=== PATIENT | male | born 1950 | race Caucasian/White ===

== ENCOUNTER 2024-01-03 15:15 | Outpatient (AMB) | payer MEDICARE, SELFPAY ==
--- NOTE | 2024-01-03 14:23 | MHC.PC.OV ---
Vital Signs 01/03/24 15:41 Height 6 ft 3 in Weight 273 lb BMI 34.1 BP 132/68 Blood Pressure Location Lt brachial Position Sitting Respiration 12 Pulse 75 Pulse Source Pulse Oximeter Pulse Oximetry (%) 96 Oxygen Delivery Method Room Air Intake Visit Reasons: new patient appt Intake Note: Patient reports he needs a refill on medications, multiple referrals, and a tickling cough/post nasal drip/allergies. 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 Allergies No Known Allergies Allergy (Verified 01/03/24 15:45) Tobacco use date assessed: 01/03/24 Fall risk assessment: No Falls in past year Last assessed Fall Risk: 01/03/24 Dental Screening Dental Screen Date: 01/03/24 Did you have a dental visit in the last 12 months?: No Did you have a dental problem in the last 6 months where you did not have access to dental care?: No Was dental information given to patient?: Patient has dentist HPI HPI Comments History of Present Illness Details 73 year old male with a past medical history of CAD s/p PCI, chronic low back pain, knee pain, right arm/hand pain, idiopathic peripheral polyneuropathy presenting for follow up MSK -Bilateral upper and now lower extremity neuropathy, muscle atrophy. Has had multiple EMGS. 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 Follows with Dr Sullivan, hand ortho and still seeing [facility] neurology. -Chronic low back pain: xray 06/2021 with degenerative disc disease. Completed PT. He was referred to physiatry. Not following CV: Follows with Dr Verduzco. Denie serecent chest pain, no increased exertional dyspnea, no increased LE edema Derm: Follows with dermatology. He was on dupixent Preventive Due for Tdap. Last 2011 Colonoscopy 02/22/2020-Due 02/21/2027 ROS CONSTITUTIONAL: Denies weight loss, fever and chills. HEENT: Denies changes in vision and hearing. RESPIRATORY: Denies SOB and cough. CV: Denies palpitations and CP GI: Denies abdominal pain, nausea, vomiting and diarrhea. : Denies dysuria and urinary frequency. MSK: Denies new myalgia and joint pain. SKIN: Denies rash and pruritus. NEUROLOGICAL: see HPI PSYCHIATRIC: Denies recent changes in mood. PHYSICAL EXAM: GENERAL: Alert and oriented x 3. NAD EYES: EOMI. Anicteric. HENT: Moist mucous membranes. No scleral icterus. No cervical lymphadenopathy. LUNGS: Clear to auscultation bilaterally. CARDIOVASCULAR: Regular rate and rhythm. No murmur. No JVD. ABDOMEN: Soft, non-tender +bs EXTREMITIES: No edema. Non-tender. SKIN: No rashes or lesions. Warm. NEUROLOGIC: No gross neurological deficits. PSYCHIATRIC: Cooperative. Appropriate mood and affect [facility] Medical History Ulnar neuropathy Pain in knee joint Low back pain Lesion of median nerve Hyperlipemia Atypical nevus Gastroesophageal reflux disease Degeneration of lumbar intervertebral disc Coronary arteriosclerosis Congestive heart failure (CHF) Bilateral lower extremity edema Benign essential hypertension Surgical History History of hernia surgery History of cholecystectomy History of appendectomy History of tonsillectomy History of percutaneous coronary intervention Family History Father Hypertension Colon cancer Paternal Grandfather Hypertension Cardiovascular disease Lung cancer Maternal Grandmother Cardiovascular disease Paternal Grandmother Skin cancer Social History Household Members: Spouse and Children Housing: House Alcohol intake: never Patient Tobacco Use Status: Never used Tobacco e-Cigarette/Vaping Use: Never Used service: No Current occupational status: retired 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 1. Little interest or pleasure in doing things: not at all 2. Feeling down, depressed, or hopeless: not at all 3. Trouble falling or staying asleep, or sleeping too much: not at all 4. Feeling tired or having little energy: not at all 5. Poor appetite or overeating: not at all 6. Feeling bad about yourself - or that you are a failure or have let yourself or your family down: not at all 7. Trouble concentrating on things, such as reading the newspaper or watching television: not at all 8. Moving or speaking so slowly that other people could have noticed. Or the opposite - being so fidgety or restless that you have been moving around a lot more than usual: not at all 9. Thoughts that you would be better off or of hurting yourself in some way: not at all Total score: 0 Depression Screening Interpretation: Negative (neg) Depression Screening Done: Yes 55401 - PHQ-9 Billing: Yes Source: Developed by Drs. Mp Reed, Jammie Li, Rayo Canas and colleagues, with an educational cleo from [employer]. Thrive Questionnaire Date Thrive assessed: 01/03/24 I am a: Patient What is your living situation today?: I have a steady place to live Within the past 12 months, did the food you bought not last and you didn't have the money to get more?: Never true Within the past 12 months, did you worry whether your food would run out before you got money to buy more?: Never true Do you have trouble paying for medicines?: No Do you have trouble getting transportation to medical appointments?: No Do you have trouble paying your heating and electricity bill?: No Do you have trouble taking care of your child, family member or friend?: No Do you have trouble with day-to-day activities such as bathing, preparing meals, shopping, managing finances, etc.?: No Are you currently unemployed and looking for a job?: No Are you interested in more education?: No Please select the resources that you would like help with: None Currently or been in a relationship where the following occur: No concerns reported THRIVE Score: 0 AUDIT C Alcohol Use Questionnaire (AUDIT-C) 1. How often do you have a drink containing alcohol?: Never 3. How often do you have six or more drinks on one occasion?: Never Total Score: 0 YOLY-7 AMB Questionnaire YOLY-7 Date YOLY - 7 assessed: 01/03/24 Feeling nervous, anxious, or on edge: 0 = Not at all Not being able to stop or control worryin = Not at all Worrying too much about different things: 0 = Not at all Trouble relaxin = Several days Being so restless that it is hard to sit still: 0 = Not at all Becoming easily annoyed or irritable: 1 = Several days Feeling afraid as if something awful might happen: 0 = Not at all Total YOLY-7 score (0-4 normal; 5-9 mild; 10-14 moderate; 15-21 severe): 2 Source: Developed by Drs. Mp Reed, Jammie Li, Rayo Canas and colleagues, with an educational cleo from [employer]. YOLY-7 Assessment Billing YOLY-7 Assessment Tool: YOLY-7 Assessment 38504 Physical exam (Primary Care) Vital Signs: Last Vital Signs Pulse 75 01/03/24 15:41 Resp 12 01/03/24 15:41 BP 132/68 01/03/24 15:41 Pulse Ox 96 01/03/24 15:41 Oxygen Delivery Method Room Air 01/03/24 15:41 BMI result Body Mass Index 34.1 Tobacco/Smoking Status: Tobacco use Status Tobacco use date assessed 01/03/24 01/03/24 15:50 Patient Tobacco Use Status Never used Tobacco 01/03/24 15:50 e-Cigarette/Vaping Use Never Used 01/03/24 15:50 PHQ-9: PHQ-9 Score PHQ-9: Total score 0 01/03/24 16:31 Depression Screening Interpretation: Negative (neg) Thrive Assessment: Date of Thrive Assessment Date Thrive assessed 01/03/24 01/03/24 15:54 Currently or been in a relationship where the following occur: No concerns reported Immunizations Boostrix Tdap 2.5 Lf unit-8 mcg-5 Lf/0.5 mL intramuscular syringe Performing Provider: Terra Lopez MD Performing Location: [facility] Administered by: Cynthia Christiansen CMA on 01/03/24 16:32 Dose Route Admin Location Dispensed Lot Number Expiration Date NDC 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 [employer]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 0.5 mL IM Right Deltoid 0.5 mL [id number] 02/11/26 [id number] [employer] VIS Given Date VIS Provided VIS Publication Date 01/03/24 Single Vaccine 20 Eligibility Eligibility Date Funding Source Not [facility] Eligible 01/03/24 Private Assessment and Plan Assessment & Plan Orders: Orders TDaP Immunization 01/03/24 Z23 - Encounter for immunization Medications: New cyclobenzaprine 10 mg PO TID PRN 90 tabs 3RF muscle spasm metoprolol succinate ER 50 mg PO DAILY 90 tabs 3RF [lidocaine 2%/nitroglycerin 0.2%] 1 inch rectal bid prn anal fissure pain 100 grams 0RF atorvastatin 80 mg PO DAILY 90 tabs 3RF aspirin (Adult Low Dose Aspirin) 81 mg PO DAILY 90 tabs 3RF ciclopirox 0.77% 1 appl topical Q12H 30 grams 3RF hydrochlorothiazide 12.5 mg PO DAILY 90 caps 3RF 90 days lisinopril 40 mg PO DAILY 90 tabs 3RF montelukast 10 mg PO DAILY 90 tabs 3RF 90 days nitroglycerin do not exceed 3 doses per episode 0.4 mg sublingual Q5M PRN 30 tabs 3RF chest pain Coding Level of Care Code Est Pt Level 5 (77308) Complex EM visit Add On G2211 Additional Codes YOLY-7 Assessment Billing - YOLY-7 Assessment Tool: YOLY-7 Assessment 22670 ([id number]) Time Spent (min) 53
[2024-01-03 15:41] VITALS: BP 132/68; PULSE 75; RESP 12; O2SAT 96; BMI 34.1
== END 2024-01-03 16:31 | disposition home or self-care (01) ==
PROVIDERS: PCP Internal Medicine; Visit Provider Internal Medicine
DX: Z23 Encounter for immunization (principal)
CPT/HCPCS: 90471; 90715; 99215

== ENCOUNTER 2024-02-14 13:41 | Outpatient (AMB) | payer MEDICARE, SELFPAY ==
--- NOTE | 2024-02-14 13:49 | A.OFFPC_ITS ---
Vital Signs 02/14/24 14:22 Height 6 ft 3 in Weight 278 lb 8 oz BMI 34.8 BP 108/58 L Blood Pressure Location Rt brachial Position Sitting Pulse 61 Pulse Source Pulse Oximeter Pulse Oximetry (%) 96 Oxygen Delivery Method Room Air Intake Visit Reasons: Mononeuropathy multiplex Intake Note: Mononeuropathy multiplex. Dr Du neurologist wants iv/ig treatments in this area. 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 Allergies No Known Allergies Allergy (Verified 02/14/24 14:21) Tobacco use date assessed: 01/03/24 Dental Screening Dental Screen Date: 01/03/24 HPI HPI Comments History of Present Illness Details 73 year old male with a past medical his tory of CAD s/p PCI, chronic low back pain, knee pain, right arm/hand pain, idiopathic peripheral polyneuropathy presenting for follow up MSK/NEURO: Seeing [facility]-recommendation for treatment is IVIG 2g/kg 5 days conseclutive monthly for 3 months -Bilateral upper and now lower extremity neuropathy, muscle atrophy. Has had multiple EMGS. 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 Follows with Dr Sullivan, hand ortho and still seeing [facility] neurology. -Chronic low back pain: xray 06/2021 with degenerative disc disease. Completed PT. He was referred to physiatry. Not following CV: Follows with Dr Verduzco. Denies chest pain, no increased exertional dyspnea, no increased LE edema Derm: Follows with dermatology. He was on dupixent. 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 He has consult to [facility] pending Preventive Due for Tdap. Last 2011 Colonoscopy 02/22/2020-Due 02/21/2027 ROS see hpi PHYSICAL EXAM: GENERAL: Alert and oriented x 3. NAD EYES: EOMI. Anicteric. HENT: Moist mucous membranes. No scleral icterus. No cervical lymphadenopathy. LUNGS: Clear to auscultation bilaterally. CARDIOVASCULAR: Regular rate and rhythm. No murmur. No JVD. ABDOMEN: Soft, non-tender +bs EXTREMITIES: No edema. Non-tender. SKIN: No rashes or lesions. Warm. NEUROLOGIC: No gross neurological deficits. PSYCHIATRIC: Cooperative. Appropriate mood and affect [facility] Medical History (Updated 02/15/24 @ 21:04 by Terra Lopez MD) Ulnar neuropathy Pain in knee joint Low back pain Lesion of median nerve Hyperlipemia Atypical nevus Gastroesophageal reflux disease Degeneration of lumbar intervertebral disc Coronary arteriosclerosis Congestive heart failure (CHF) Bilateral lower extremity edema Benign essential hypertension Surgical History History of hernia surgery History of cholecystectomy History of appendectomy History of tonsillectomy History of percutaneous coronary intervention Family History Father Hypertension Colon cancer Paternal Grandfather Hypertension Cardiovascular disease Lung cancer Maternal Grandmother Cardiovascular disease Paternal Grandmother Skin cancer Social History Household Members: Spouse and Children Housing: House Alcohol intake: never Patient Tobacco Use Status: Never used Tobacco e-Cigarette/Vaping Use: Never Used service: No Current occupational status: retired 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 1. Little interest or pleasure in doing things: not at all 2. Feeling down, depressed, or hopeless: not at all 3. Trouble falling or staying asleep, or sleeping too much: more than half the days 4. Feeling tired or having little energy: not at all 5. Poor appetite or overeating: not at all 6. Feeling bad about yourself - or that you are a failure or have let yourself o r your family down: not at all 7. Trouble concentrating on things, such as reading the newspaper or watching television: not at all 8. Moving or speaking so slowly that other people could have noticed. Or the opposite - being so fidgety or restless that you have been moving around a lot more than usual: not at all 9. Thoughts that you would be better off or of hurting yourself in some way: not at all Total score: 2 Depression Screening Interpretation: Negative Depression Screening Done: Yes 16962 - PHQ-9 Billing: Yes Source: Developed by Drs. Mp Reed, Rayo Escamilla nd colleagues, with an educational cleo from [employer]. Thrive Questionnaire Date Thrive assessed: 01/03/24 I am a: Patient What is your living situation today?: I have a steady place to live Within the past 12 months, did the food you bought not last and you didn't have the money to get more?: Sometimes True Within the past 12 months, did you worry whether your food would run out before you got money to buy more?: I choose not to answer this question Do you have trouble paying for medicines?: No Do you have trouble getting transportation to medical appointments?: Yes Do you have trouble paying your heating and electricity bill?: Yes Do you have trouble taking care of your child, family member or friend?: No Do you have trouble with day-to-day activities such as bathing, preparing meals, shopping, managing finances, etc.?: No Are you currently unemployed and looking for a job?: No Are you interested in more education?: Yes Please select the resources that you would like help with: None Currently or been in a relationship where the following occur: No concerns reported THRIVE Score: 3 AUDIT C Alcohol Use Questionnaire (AUDIT-C) 1. How often do you have a drink containing alcohol?: Never Total Score: 0 YOLY-7 AMB Questionnaire YOLY-7 Date YOLY - 7 assessed: 01/03/24 Feeling nervous, anxious, or on edge: 2 = More than half the days Not being able to stop or control worryin = More than half the days Worrying too much about different things: 2 = More than half the days Trouble relaxin = More than half the days Being so restless that it is hard to sit still: 2 = More than half the days Becoming easily annoyed or irritable: 2 = More than half the days Feeling afraid as if something awful might happen: 0 = Not at all Total YOLY-7 score (0-4 normal; 5-9 mild; 10-14 moderate; 15-21 severe): 12 Source: Developed by Drs. Mp Reed, Jammie Li, Rayo Canas and colleagues, with an educational cleo from [employer]. Physical exam (Primary Care) Vital Signs: Last Vital Signs Pulse 61 02/14/24 14:22 BP 108/58 L 02/14/24 14:22 Pulse Ox 96 02/14/24 14:22 Oxygen Delivery Method Room Air 02/14/24 14:22 BMI result Body Mass Index 34.8 Tobacco/Smoking Status: Tobacco use Status Tobacco use date assessed 01/03/24 02/14/24 13:49 Patient Tobacco Use Status Never used Tobacco 02/14/24 13:49 e-Cigarette/Vaping Use Never Used 02/14/24 13:49 PHQ-9: PHQ-9 Score PHQ-9: Total score 2 02/15/24 21:04 Depression Screening Interpretation: Negative Thrive Assessment: Date of Thrive Assessment Date Thrive assessed 01/03/24 02/14/24 13:49 Currently or been in a relationship where the following occur: No concerns reported Coding Level of Care Code Est Pt Level 5 (14282) Diagnoses 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 Coronary arteriosclerosis I25.10 Time Spent (min) 55 Assessment & Plan Assessment & Plan (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 Category: Medical Plan: IVIG ordered per recommended protocol (2) Cutaneous T-cell lymphoma: Code(s): 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 - Cutaneous T-cell lymphoma, unspecified, unspecified site Category: Medical Qualifiers: Lymphoma site: head Qualified Code(s): C84.A1 - Cutaneous T-cell lymphoma, unspecified lymph nodes of head, face, and neck Plan: referral pending to [facility] (3) Coronary arteriosclerosis: Code(s): I25.10 - Atherosclerotic heart disease of [place] coronary artery without angina pectoris Category: Medical Plan: No angina BP controlled Orders: Referrals Infusion Center Notification G58.7 - Mononeuritis multiplex Medications: New immune globulin,gamma(IgG)stwk 10% 2g/kg daily for 5 consecutive days each month, monthly for 3 months 252,650 mg IV DAILY 15 doses
[2024-02-14 14:22] VITALS: BP 108/58; PULSE 61; O2SAT 96; BMI 34.8
== END 2024-02-14 14:49 | disposition home or self-care (01) ==
PROVIDERS: PCP Internal Medicine; Visit Provider Internal Medicine
DX: G58.7 Mononeuritis multiplex (principal); C84.A1 Cutaneous T-cell lymphoma, unspecified lymph nodes of head, face, and neck; I25.10 Atherosclerotic heart disease of native coronary artery without angina pectoris

== ENCOUNTER → 2024-02-14 13:41 | Outpatient (BNVA) | payer MEDICARE, SELFPAY | PROVIDERS: PCP Internal Medicine; Visit Provider Internal Medicine | DX: G58.7 Mononeuritis multiplex (principal); C84.A1 Cutaneous T-cell lymphoma, unspecified lymph nodes of head, face, and neck; I25.10 Atherosclerotic heart disease of native coronary artery without angina pectoris | CPT/HCPCS: 99212 ==

== ENCOUNTER 2024-05-29 13:44 | Outpatient (AMB) | payer MEDICARE, SELFPAY ==
--- NOTE | 2024-05-29 14:07 | A.OFFPC_ITS ---
Vital Signs 05/29/24 14:17 Height 6 ft 3 in Weight 281 lb 2 oz BMI 35.1 BP 116/70 Blood Pressure Location Rt brachial Position Sitting Pulse 77 Pulse Source Pulse Oximeter Pulse Oximetry (%) 99 Oxygen Delivery Method Room Air Intake Visit Reasons: Pain on right hip Intake Note: Right hip pain Transplant Rn Required: No Allergies No Known Allergies Allergy (Verified 05/29/24 14:09) Tobacco use date assessed: 01/03/24 Dental Screening Dental Screen Date: 01/03/24 HPI HPI Comments History of Present Illness Details 73 year old male with a past medical his tory of CAD s/p PCI, chronic low back pain, knee pain, right arm/hand pain, idiopathic peripheral polyneuropathy presenting for follow up He originally booked the appt for a flare in right hip pain. Since making the appointment the flare has dissipated MSK/NEURO: Seeing [facility]-recommendation for treatment is IVIG 2g/kg 5 days conseclutive monthly for 3 months -Bilateral upper and now lower extremity neuropathy, muscle atrophy. Has had multiple EMGS. 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 Follows with Dr Sullivan, hand ortho and still seeing [facility] neurology. -Chronic low back pain: xray 06/2021 with degenerative disc disease. Completed PT. He was referred to physiatry. Not following CV: Follows with Dr Verduzco. Denies chest pain, no increased exertional dyspnea, no increased LE edema Derm: Follows with dermatology. He was on dupixent. 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 He saw [facility] and had recent PET scan. He tells me there was some uptake in the pelvis/prostate. He does endorse urinary frequency, hesitancy, dribbling Preventive Colonoscopy 02/22/2020-Due 02/21/2027 ROS see hpi PHYSICAL EXAM: GENERAL: Alert and oriented x 3. NAD EYES: EOMI. Anicteric. HENT: Moist mucous membranes. No scleral icterus. No cervical lymphadenopathy. LUNGS: Clear to auscultation bilaterally. CARDIOVASCULAR: Regular rate and rhythm. No murmur. No JVD. ABDOMEN: Soft, non-tender +bs EXTREMITIES: No edema. Non-tender. SKIN: No rashes or lesions. Warm. NEUROLOGIC: No gross neurological deficits. PSYCHIATRIC: Cooperative. Appropriate mood and affect [facility] Medical History (Updated 05/29/24 @ 14:25 by Terra Lopez MD) Ulnar neuropathy Pain in knee joint Low back pain Lesion of median nerve Hyperlipemia Atypical nevus Gastroesophageal reflux disease Degeneration of lumbar intervertebral disc Coronary arteriosclerosis Congestive heart failure (CHF) Bilateral lower extremity edema Benign essential hypertension Surgical History History of hernia surgery History of cholecystectomy History of appendectomy History of tonsillectomy History of percutaneous coronary intervention Family History Father Hypertension Colon cancer Paternal Grandfather Hypertension Cardiovascular disease Lung cancer Maternal Grandmother Cardiovascular disease Paternal Grandmother Skin cancer Social History (Updated 05/29/24 @ 14:19 by Isabella Allen CMA) Household Members: Spouse and Children Housing: House Alcohol intake: never Patient Tobacco Use Status: Never used Tobacco e-Cigarette/Vaping Use: Never Used service: No Current occupational status: retired 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 1. Little interest or pleasure in doing things: not at all 2. Feeling down, depressed, or hopeless: not at all 3. Trouble falling or staying asleep, or sleeping too much: several days 4. Feeling tired or having little energy: several days 5. Poor appetite or overeating: not at all 6. Feeling bad about yourself - or that you are a failure or have let yourself or your family down: not at all 7. Trouble concentrating on things, such as reading the newspaper or watching television: not at all 8. Moving or speaking so slowly that other people could have noticed. Or the opposite - being so fidgety or restless that you have been moving around a lot more than usual: not at all 9. Thoughts that you would be better off or of hurting yourself in some way: not at all Total score: 2 Depression Screening Interpretation: Negative Depression Screening Done: Yes 29996 - PHQ-9 Billing: Yes Source: Developed by Drs. Mp Reed, Jammie Li, Rayo Canas and colleagues, with an educational cleo from [employer]. Thrive Questionnaire Date Thrive assessed: 05/29/24 I am a: Patient What is your living situation today?: I have a steady place to live Within the past 12 months, did the food you bought not last and you didn't have the money to get more?: I choose not to answer this question Within the past 12 months, did you worry whether your food would run out before you got money to buy more?: Sometimes True Do you have trouble paying for medicines?: Yes Do you have trouble getting transportation to medical appointments?: Yes Do you have trouble paying your heating and electricity bill?: Yes Do you have trouble taking care of your child, family member or friend?: Yes Do you have trouble with day-to-day activities such as bathing, preparing meals, shopping, managing finances, etc.?: No Are you currently unemployed and looking for a job?: No Are you interested in more education?: Yes Currently or been in a relationship where the following occur: No concerns reported THRIVE Score: 3 AUDIT C Alcohol Use Questionnaire (AUDIT-C) 1. How often do you have a drink containing alcohol?: Never Total Score: 0 YOLY-7 AMB Questionnaire YOLY-7 Date YOLY - 7 assessed: 01/03/24 Source: Developed by Drs. Mp Reed, Jammie Li, Rayo Canas and colleagues, with an educational cleo from [employer]. Physical exam (Primary Care) Vital Signs: Last Vital Signs Pulse 77 05/29/24 14:17 BP 116/70 05/29/24 14:17 Pulse Ox 99 05/29/24 14:17 Oxygen Delivery Method Room Air 05/29/24 14:17 BMI result Body Mass Index 35.1 Tobacco/Smoking Status: Tobacco use Status Tobacco use date assessed 01/03/24 05/29/24 14:08 Patient Tobacco Use Status Never used Tobacco 05/29/24 14:19 e-Cigarette/Vaping Use Never Used 05/29/24 14:19 PHQ-9: PHQ-9 Score PHQ-9: Total score 2 05/29/24 14:19 Depression Screening Interpretation: Negative Thrive Assessment: Date of Thrive Assessment Date Thrive assessed 05/29/24 05/29/24 14:08 Currently or been in a relationship where the following occur: No concerns reported Coding Level of Care Code Est Pt Level 4 (35205) Diagnoses 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 PSA, urinalysis ordered Orders: Orders Prostate Specific Antigen 05/29/24 R35.0 - Frequency of micturition, R39.11 - Hesitancy of micturition UA CC w/rflx Micro + Cult 05/29/24 R35.0 - Frequency of micturition, R39.11 - Hesitancy of micturition, Z80.42 - Family history of malignant neoplasm of prostate Referrals Urology Referral R35.0 - Frequency of micturition, R39.11 - Hesitancy of micturition, Z80.42 - Family history of malignant neoplasm of prostate
[2024-05-29 14:17] VITALS: BP 116/70; PULSE 77; O2SAT 99; BMI 35.1
--- OUTSIDE RECORDS SUMMARY | 2024-05-29 15:26 | XMS_ITS | Encounter Summary ---
Author Organization [facility] Address [address] [place] [address] Care Team Providers Care Photograph Finisher Name Role Phone Terra Lopez Primary Care Provider [phone] Encounter Details Date Type Department Care Team (Late st Contact Info) Description 02/16/2022 Orders Only [facility] [address] [place] [id number] Provider, MD Rosa [address] [place] [id number] Social History Tobacco Use Types Packs/Day Years Used Date Smoking Tobacco: Never Smokeless Tobacco: Never Alcohol Use Standard Drinks/Week Comments Never 0 (1 standard drink = 0.6 oz pur e alcohol) Sex and Gender Information Value Date Recorded Sex Assigned at Male 08/06/2023 12:21 PM EDT Legal Sex Male 9:16 AM EST Gender Identity Not on file Sexual Orientation Not on file documented as of this encounter Plan of Treatment Upcoming Encounters Date Type Department Care Team (Late st Contact Info) Description 07/16/2024 2:45 PM EDT Office Visit [facility] [address] [place] [address] Scott Carter MD [address] [place] [address] [phone] documented as of this encounter Procedures * Due to [place] state law, this organization might not be sharing negative HIV tests. Procedure Name Priority Date/Time Associated Diagnosis Comments AMB EXTERNAL MRI C-SPINE, OU TSIDE RESULT Routine 10/24/2021 documented in this encounter Results * Due to [place] state law, this organization might not be sharing negative HIV tests. * MRI C-Spine, Outside Result (10/24/2021) Anatomical Region Laterality Modality Other us Unknown Provider MD DANIELS EXTERNAL RESULT PROCEDUR ES Final Result documented in this encounter Visit Diagnoses Not on filedocumented in this encounter Care Teams Photograph Finisher Relationship Specialty Start Date End Date Terra Lopez PCP - General Family Medicine 04/13/21 documented as of this encounter
--- OUTSIDE RECORDS SUMMARY | 2024-05-29 15:26 | XMS_ITS | Encounter Summary ---
Author Organization [facility] Address [address] [place] [address] Care Team Providers Care Oral Pathologist Name Role Phone Terra Lopez Primary Care Provider [phone] Reason for Visit * Reason Onset Date Comments CS - reschedule today's appointment 08/23/2022 Encounter Details Date Type Department Care Team (Late st Contact Info) Description 08/23/2022 Telephone [facility] [address] [place] [phone] Telephone Intake, Staff CS - reschedule today's appointment Social History Tobacco Use Types Packs/Day Years [...] on file documented as of this encounter Miscellaneous Notes * Telephone Encounter - Sue Dawson - 08/23/2022 4:17 PM EDT Pt is returning Umm's call back to set up an appt for her . * Telephone Encounter - Umm Mccurdy - 08/23/2022 1:21 PM EDT Called patient left voicemail. * Telephone Encounter - Bety Awan - 08/23/2022 10:01 AM EDT PT's called to reschedule today's appt with Dr. Diaz that was canceled by provider. No appts until February. Please follow up at [phone]. documented in this encounter Plan of Treatment Upcoming Encounters Date Type Department Care Team (Late st Contact Info) Description 07/16/2024 2:45 PM EDT Office Visit [facility]rology Clinic [address] [place] [address] Scott Carter MD [address] [place] [address] [phone] documented as of this encounter Visit Diagnoses Not on filedocumented in this encounter Care Teams Oral Pathologist Relationship Specialty Start Date End Date Terra Lopez PCP - General Family Medicine 04/13/21 documented as of this encounter
--- OUTSIDE RECORDS SUMMARY | 2024-05-29 15:26 | XMS_ITS | Encounter Summary ---
Author Organization [facility] Address [address] [place] [address] Care Team Providers Care Fig Bar Machine Operator Name Role Phone Terra Lopez Primary Care Provider [phone] Encounter Details Date Type Department Care Team ([facility] st Contact Info) Description 09/12/2021 Telephone [facility]rology [facility] [address] [place] [address] [phone] Telephone Intake, Staff Social History Tobacco Use Types Packs/Day Years [...] encounter Miscellaneous Notes * Telephone Encounter - Elena Gould - 09/13/2021 2:[address] Espinoza's office called - please call [phone] #[phone] * Telephone Encounter - Candice Worrell - 09/12/2021 11:[address] Olga Childers, Neurologist who referred pt to you called requesting a call back and would like to speak to you about this pt. Please return call at [phone] documented in this encounter Plan of Treatment Upcoming Encounters Date Type Department Care Team (Late st Contact Info) Description 07/16/2024 2:45 PM EDT Office Visit [facility] [address] [place] [address] [phone] Scott Carter MD [address] [place] [address] [phone] documented as of this encounter Visit Diagnoses Not on filedocumented in this encounter Care Teams Fig Bar Machine Operator Relationship Specialty Start Date End Date Terra Lopez PCP - General Family Medicine 04/13/21 documented as of this encounter
--- OUTSIDE RECORDS SUMMARY | 2024-05-29 15:26 | XMS_ITS | Encounter Summary ---
Author Organization [facility] Address [address] [place] [address] Care Team Providers Care Nursing Project Coordinator Name Role Phone Terra Lopez Primary Care Provider [phone] Encounter Details Date Type Department Care Team (Late st Contact Info) Description 02/15/2022 Orders Only [facility] [address] [place] [address] [phone] Social History Tobacco Use Types Packs/Day Years [...] Description 07/16/2024 2:45 PM EDT Office Visit [facility] [address] [place] [address] Scott Carter MD [address] [place] [address] documented as of this encounter Procedures * Due to [place] state law, this organization might not be sharing negative HIV tests. Procedure Name Priority Date/Time Associated Diagnosis Comments AMB EXTERNAL MRI CHEST, OUTS ROBYN RESULT Routine 10/24/2021 AMB EXTERNAL MRI C-SPINE, OU TSIDE RESULT Routine 10/24/2021 documented in this encounter Results * Due to [place] state law, this organization might not be sharing negative HIV tests. * MRI Chest, Outside Result (10/24/2021) Anatomical Region Laterality Modality Other [facility] AMB EXTERNAL RESULT PROCEDURES Final Result * MRI C-Spine, Outside Result (10/24/2021) Anatomical Region Laterality Modality Other [facility] EXTERNAL RESULT PROCEDURES Final Result documented in this encounter Visit Diagnoses Not on filedocumented in this encounter Care Teams Nursing Project Coordinator Relationship Specialty Start Date End Date Terra Lopez PCP - General Family Medicine 04/13/21 documented as of this encounter
--- OUTSIDE RECORDS SUMMARY | 2024-05-29 15:27 | XMS_ITS | Continuity of Care Document ---
Author Organization [facility] Address [address] [place] [address]- Care Team Providers Care Tattoo Identifier Name Role Phone Not on Staff, PCP Primary Care Physician Unavail able Encounter 05/24/24 - 05/25/[address] [address]- Attending Physician: Not on Staff, Attending MD Referring Physician: Not on Staff, Referring MD Encounter Type: [facility] Allergies, Adverse Reactions, Alerts No Known Allergies Medications aspirin 81 mg oral tablet 1 tablet, By Mouth, Daily, # 30 tablet, 0 Refills, Maintenance, 03/13/11 9:49:41 PM EST, Tablet Start Date: 03/13/11 Status: Ordered Quantity: 30.0 Unit: tablet Repeat number: 1 atorvastatin 80 mg oral tablet 1 tablet, By Mouth, Daily, # 90 tablet, 2 Refills, Maintenance, 03/27/23 11:17:00 AM EST, [facility] #[id number] Start Date: 03/27/23 Status: Ordered Quantity: 90.0 Unit: tablet Repeat number: 1 cyclobenzaprine 10 mg oral tablet 1, tablet, By Mouth, 3 times a day, PRN, # 90 tablet, Refills 3, Maintenance, NEEDED FOR MUSCLE SPASM, 06/05/23 12:41:00 PM EST, Route to Pharmacy Electronically, [facility] #[id number] Start Date: 06/05/23 Status: Ordered Quantity: 90.0 Unit: tablet Repeat number: 1 Dupixent Pre-filled Pen 300 mg/2 mL subcutaneous solution See Instructions, 300 mg Subcutaneous Injection Once every 14 days., # 2 each, 3 Refills, Soft Stop, 09/01/21 3:15:00 PM EDT, [facility] #[id number], Partial fill upon patient request if the prescription is for a schedule II opioid drug. Start Date: 09/01/21 Status: Ordered Quantity: 2.0 Unit: each Repeat number: 4 hydroCHLOROthiazide 12.5 mg oral capsule 1 capsule, By Mouth, Daily in AM, # 90 capsule, 3 Refills, Maintenance, 03/27/23 11:17:00 AM EST, [facility] #[id number] Start Date: 03/27/23 Status: Ordered Quantity: 90.0 Unit: capsule Repeat number: 1 lisinopril 40 mg oral tablet 1 tablet, By Mouth, Daily, # 90 tablet, 3 Refills, Maintenance, 03/27/23 11:17:00 AM EST, [facility] #[id number] Start Date: 03/27/23 Status: Ordered Quantity: 90.0 Unit: tablet Repeat number: 1 Metoprolol Succinate ER 50 mg oral tablet, extended release 1 tablet, By Mouth, Daily, # 90 tablet, 0 Refills, 12/04/23 5:11:00 PM EDT, [facility] #[id number] Start Date: 12/04/23 Status: Ordered Quantity: 90.0 Unit: tablet Repeat number: 1 montelukast 10 mg oral tablet 1, tablet, By Mouth, Daily, # 90 tablet, Refills 3, Tot. Refills 3, Maintenance, 11/30/22 1:11:00 PMEDT, Route to Pharmacy Electronically, [facility] #[id number] Start Date: 11/30/22 Status: Ordered Quantity: 90.0 Unit: tablet Repeat number: 4 nitroglycerin 0.4 mg sublingual tablet 1 tablet, Sublingual, Every 5 minutes, PRN NEEDED FOR CHEST PAIN( MAX 3 DOSES IN 15 MINUTES), # 100 tablet, 0 Refills, Maintenance, 10/16/22 3:31:00 PM EDT, [facility] #[id number] Start Date: 10/16/22 Status: Ordered Quantity: 100.0 Unit: tablet Repeat number: 1 nitroglycerin 0.4 mg sublingual tablet 1 tablet, Sublingual, Every 5 minutes, PRN NEEDED FOR CHEST PAIN( MAX 3 DOSES IN 15 MINUTES), # 100 tablet, 0 Refills, Maintenance, 10/16/22 3:31:00 PM EDT, [facility] #[id number] Start Date: 10/16/22 Status: Ordered Quantity: 100.0 Unit: tablet Repeat number: 1 Zantac 150 oral tablet 1 tablet, By Mouth, Daily, # 180 tablet, 0 Refills, Maintenance, 03/13/11 11:23:37 PM EST, Tablet Start Date: 03/13/11 Status: Ordered Quantity: 180.0 Unit: tablet Repeat number: 1 Problem List Condition Confirmation Course Effective Dates Status H ealth Status Informant Benign essential hypertension Confirmed 03/19/06 Active Bilateral lower limb edema Confirmed 08/30/15 Active Congestive heart failure Confirmed 05/09/15 Active Coronary arteriosclerosis Confirmed 02/03/11 Active Degeneration of lumbar intervertebral disc Confirmed 11/13/13 Active Gastroesophageal reflux disease Confirmed 02/01/11 Active History of atypical nevus Confirmed 05/02/06 Active History of percutaneous coronary intervention Confirmed 05/09/21 Active Hyperlipidemia Confirmed 01/11/06 Active Impaired fasting glycemia Confirmed 05/09/15 Active Lesion of median nerve Confirmed 04/11/21 Active Low back pain Confirmed 02/11/09 Active Pain of joint of knee Confirmed 05/17/17 Active Ulnar neuropathy Confirmed 04/11/21 Active Patient Care team information Care Team Personnel Name: Not on Staff, PCP Position: [facility] Physician (General Medicine) Member Role: PCP Name: Sammie Quiroz RN Position: [facility] Nurse Member Role: Primary Care Nurse Care Team Related Persons Name: LALI REYNOLDS Name: RALPH REYNOLDS Insurance Providers Guarantor name: VIANNEY Health Plan Information #: 1 Payer: MEDICARE PART B OUTPT Member Number: NA Policy Number: NA Group Number: NA Health Plan Information #: 2 Payer: MEDEX Member Number: NA Policy Number: NA Group Number: NA
--- OUTSIDE RECORDS SUMMARY | 2024-05-29 15:27 | XMS_ITS | Referral Summary ---
Author Organization [facility] Address [address] [phone] Care Team Providers Care Disintegrator Name Role Phone Terra Lopez Primary Care Provider Allergies No known active allergies Medications metoprolol succinate XL (TOPROL XL) 50 mg tablet Take 50 mg by mouth once a day. 1 Active lisinopriL (PRINIVIL,ZESTR IL) 40 mg tablet Take 40 mg by mouth once a day. 1 Active atorvastatin (LIPITOR) 80 mg tablet Take 80 mg by mouth once a day. 1 Active cyclobenzaprine (FLEXERIL) 10 mg tablet Take 10 mg by mouth 3 times a day as needed. 2 Active omega 7-feo-wwo-fish oil 1,000 mg (120 mg-180 mg) capsule by Does not apply route. Takes daily Active lidocaine (LIDODERM) 5% patch Apply 1 patch topically to the affected area once a day. Remove and discard patch within 12 hours or as directed. Active nitroglycerin (NITROSTAT) 0.[address] 0.4 mg under the tongue every 5 minutes as needed for chest pain. Dissolve 1 tablet under the tongue every 5 minutes for up to 3 doses as needed for chest pain. If no relief, dial 911. Active multivitamin capsule Take 1 capsule by mouth once a day. Active aspirin 81 mg EC tablet Take 81 mg by mouth once a day. Active hydroCHLOROthia zide (MICROZIDE) 12.5 mg capsule Take 12.5 mg by mouth. 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, right Social History Tobacco Use Types Packs/Day Years Used Date Smoking Tobacco: Never Smokeless Tobacco: Never Alcohol Use Standard Drinks/Week Comments Never 0 (1 standard drink = 0.6 oz pur e alcohol) Sex and Gender Information Value Date Recorded Sex Assigned at Male 08/06/2023 12:21 PM EDT Legal Sex Male 9:16 AM EST Gender Identity Not on file Sexual Orientation Not on file Last Filed Vital Signs Vital Sign Reading Time Taken Comments Blood Pressure 125/78 01/30/2024 2:50 PM EDT Pulse 68 01/30/2024 2:50 PM EDT Temperature 36.6 ??C (97.8 ??F) 09/26/2023 1 2:07 PM EDT Respiratory Rate 18 01/30/2024 2:50 PM EDT Oxygen Saturation 96% 01/30/2024 2:50 PM EDT Inhaled Oxygen Concentration - - Weight 125.5 kg (276 lb 9.6 oz) 01/30/2024 2:50 PM EDT Height 193 cm (6' 4 ) 09/26/2023 12:07 PM EDT Body Mass Index 33.67 09/26/2023 12:07 PM EDT Plan of Treatment Upcoming Encounters Date Type Department Care Team (Late st Contact Info) Description 07/16/2024 2:45 PM EDT Office Visit [facility] Neurology Clinic [address] [place] [address] Scott Carter MD [address] [place] [phone] Insurance MEDICARE [facility] SUPP Care Teams Disintegrator Relationship Specialty Start Date End Date Terra Lopez PCP - General Family Medicine 04/13/21
--- OUTSIDE RECORDS SUMMARY | 2024-05-29 15:27 | XMS_ITS | Clinical Summary ---
Author Organization [facility] Address [address] [place] [address] Care Team Providers Care Roving Frame Tender Name Role Phone Terra Lopez Primary Care Provider [phone] Allergies No known active allergies Medications metoprolol [...] a day as needed. 2 Active omega 8-wvq-qxp-fish oil 1,000 mg (120 mg-180 mg) capsule [...] Description 07/16/2024 2:45 PM EDT Office Visit [facility] Neu[facility] Clinic [address] [place] [phone] Scott Carter MD [address] [place] [phone] Health Maintenance Due Date Last Done Comments Basic Metabolic Panel 1952 Cologuard 1952 Colon Cancer Screening 1950 Colonoscopy 1950 FOBT / Fit Test 1950 Hepatitis C Screening 1950 Sigmoidoscopy 1950 COVID-19 Vaccine ( season) 2024 Influenza Vaccine (#1) 2024 9, 03/24/2014, 03/10/2012, Additional history exists Alcohol/Substance Use Screening 05/06/2024 Depression Screening and Follow-Up 05/06/2024 Health Care Proxy Review 05/06/2024 Social Drivers of Health Annual Screening 05/06/2024 RSV Vaccine (60+ years old and patients) (1 - 1-dose 75+ series) 2027 DTaP,Tdap,and Td Vaccines (3 - Td or Tdap) 01/02/2034 01/03/2024, 03/10/2012 Pneumococcal Vaccine: 65+ Years Completed 06/09/2019, 08/01/2018, 05/21/2017, Additional history exists Zoster Vaccines Completed 12/09/2019, 06/09/2019 Hepatitis B Vaccines Aged Out No long er eligible based on patient's age to complete this topic Insurance MEDICARE [facility] Care Teams Roving Frame Tender Relationship Specialty Start Date End Date Terra Lopez PCP - General Family Medicine 04/13/21
== END 2024-05-29 14:35 | disposition home or self-care (01) ==
PROVIDERS: PCP Internal Medicine; Visit Provider Internal Medicine
DX: G58.7 Mononeuritis multiplex (principal); R39.11 Hesitancy of micturition

== ENCOUNTER → 2024-05-29 13:44 | Outpatient (BNVA) | payer MEDICARE, SELFPAY | PROVIDERS: PCP Internal Medicine; Visit Provider Internal Medicine | DX: G58.7 Mononeuritis multiplex (principal); R39.11 Hesitancy of micturition | CPT/HCPCS: 96127; 99212 ==

== ENCOUNTER 2024-07-20 08:17 | Outpatient (AMB) | payer MEDICARE, SELFPAY ==
--- NOTE | 2024-07-20 08:22 | A.OFFVIS_ITS ---
Intake Intake Visit Reasons: mawv Intake Note: Medical Annual Wellness Infrastructure Tech Required: No Allergies No Known Allergies Allergy (Verified 05/29/24 14:09) [facility] Medical History (Updated 05/29/24 @ 14:25 by Terra Lopez MD) Ulnar neuropathy Pain in knee joint Low back pain Lesion of median nerve Hyperlipemia Atypical nevus Gastroesophageal reflux disease Degeneration of lumbar intervertebral disc Coronary arteriosclerosis Congestive heart failure (CHF) Bilateral lower extremity edema Benign essential hypertension Surgical History History of hernia surgery History of cholecystectomy History of appendectomy History of tonsillectomy History of percutaneous coronary intervention Family History Father Hypertension Colon cancer Paternal Grandfather Hypertension Cardiovascular disease Lung cancer Maternal Grandmother Cardiovascular disease Paternal Grandmother Skin cancer Social History (Updated 05/29/24 @ 14:19 by Isabella Allen CMA) Household Members: Spouse and Children Housing: House Alcohol intake: never Patient Tobacco Use Status: Never used Tobacco e-Cigarette/Vaping Use: Never Used service: No Current occupational status: retired 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
--- NOTE | 2024-07-20 08:28 | MHC.PC.OV ---
Vital Signs 07/20/24 08:31 Height 6 ft 3 in Weight 283 lb 4 oz BMI 35.4 BP 128/70 Blood Pressure Location Lt brachial Position Sitting Respiration 16 Pulse 60 Pulse Source Pulse Oximeter Pulse Oximetry (%) 98 Oxygen Delivery Method Room Air Intake Visit Reasons: mawv Intake Note: Medical wellness visit Tufting Creeler Required: No Allergies No Known Allergies Allergy (Verified 05/29/24 14:09) Medication List - Last Reconciled 07/20/24 by Terra Lopez MD aspirin (Adult Low Dose Aspirin) 81 mg PO DAILY atorvastatin 80 mg PO DAILY ciclopirox 0.77% 1 appl topical Q12H cyclobenzaprine 10 mg PO TID PRN dupilumab (Dupixent) mg subcut hydrochlorothiazide 12.5 mg PO DAILY 90 days [lidocaine 2%/nitroglycerin 0.2% 1 inch rectal bid prn anal fissure pain] lisinopril 40 mg PO DAILY metoprolol succinate ER 50 mg PO DAILY montelukast 10 mg PO DAILY 90 days nitroglycerin 0.4 mg sublingual Q5M PRN sildenafil 50 mg PO DAILY PRN Tobacco use date assessed: 07/20/24 Fall risk assessment: No Falls in past year Last assessed Fall Risk: 07/20/24 Dental Screening Dental Screen Date: 01/03/24 HPI HPI Comments History of Present Illness Details 73 year old male with a past medical history of CAD s/p PCI, chronic low back pain, knee pain, right arm/hand pain, idiopathic peripheral polyneuropathy presenting for MWV MSK/NEURO: Seeing immunology with [facility] today-presume setting up IVIG. Saw [facility], Dr Gaffney-recommendation for treatment is IVIG 2g/kg 5 days conseclutive monthly for 3 months -Bilateral upper and now lower extremity neuropathy, muscle atrophy. Has had multiple EMGS. 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 Follows with Dr Sullivan, hand ortho and still seeing [facility] neurology. -Chronic low back pain: xray 06/2021 with degenerative disc disease. Completed PT. He was referred to physiatry. Not following CV: Follows with Dr Verduzco. Denies chest pain, no increased exertional dyspnea, no increased LE edema Derm: Follows with dermatology. He was on dupixent. 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 He saw [facility], Dr Iniguez. Follow local dermatology Dr Vyas, [facility] Urology: Elevated psa. Appt with urology end of this month. had recent PET scan. He tells me there was some uptake in the pelvis/prostate. He does endorse urinary frequency, hesitancy, dribbling Preventive Colonoscopy 02/22/2020-Due 02/21/2027 HRA reviewed 07/06 memory Independent ADLs Care team -HPI No falls Negative depression ROS see hpi PHYSICAL EXAM: GENERAL: Alert and oriented x 3. NAD EYES: EOMI. Anicteric. HENT: Moist mucous membranes. No scleral icterus. No cervical lymphadenopathy. LUNGS: Clear to auscultation bilaterally. CARDIOVASCULAR: Regular rate and rhythm. No murmur. No JVD. ABDOMEN: Soft, non-tender +bs EXTREMITIES: No edema. Non-tender. SKIN: No rashes or lesions. Warm. NEUROLOGIC: No gross neurological deficits. PSYCHIATRIC: Cooperative. Appropriate mood and affect [facility] Medical History Ulnar neuropathy Pain in knee joint Low back pain Lesion of median nerve Hyperlipemia Atypical nevus Gastroesophageal reflux disease Degeneration of lumbar intervertebral disc Coronary arteriosclerosis Congestive heart failure (CHF) Bilateral lower extremity edema Benign essential hypertension Surgical History History of hernia surgery History of cholecystectomy History of appendectomy History of tonsillectomy History of percutaneous coronary intervention Family History Father Hypertension Colon cancer Paternal Grandfather Hypertension Cardiovascular disease Lung cancer Maternal Grandmother Cardiovascular disease Paternal Grandmother Skin cancer Social History Household Members: Spouse and Children Housing: House Alcohol intake: never Patient Tobacco Use Status: Never used Tobacco e-Cigarette/Vaping Use: Never Used Substance Use Type: Marijuana service: No Current occupational status: retired 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 Cognitive needs: No Hearing needs: No Vision needs: No Questionnaire Thrive Questionnaire Date Thrive assessed: 05/29/24 I am a: Patient What is your living situation today?: I have a steady place to live Within the past 12 months, did the food you bought not last and you didn't have the money to get more?: I choose not to answer this question Within the past 12 months, did you worry whether your food would run out before you got money to buy more?: Sometimes True Do you have trouble paying for medicines?: Yes Do you have trouble getting transportation to medical appointments?: Yes Do you have trouble paying your heating and electricity bill?: Yes Do you have trouble taking care of your child, family member or friend?: Yes Do you have trouble with day-to-day activities such as bathing, preparing meals, shopping, managing finances, etc.?: No Are you currently unemployed and looking for a job?: No Are you interested in more education?: Yes Currently or been in a relationship where the following occur: No concerns reported THRIVE Score: 3 YOLY-7 AMB Questionnaire YOLY-7 Date YOLY - 7 assessed: 01/03/24 Source: Developed by Drs. Mp Reed, Jammie Li, Rayo Canas and colleagues, with an educational cleo from [employer]. Physical exam (Primary Care) Vital Signs: Last Vital Signs Pulse 60 07/20/24 08:31 Resp 16 07/20/24 08:31 BP 128/70 07/20/24 08:31 Pulse Ox 98 07/20/24 08:31 Oxygen Delivery Method Room Air 07/20/24 08:31 BMI result Body Mass Index 35.4 Tobacco/Smoking Status: Tobacco use Status Tobacco use date assessed 07/20/24 07/20/24 08:34 Patient Tobacco Use Status Never used Tobacco 07/20/24 08:54 e-Cigarette/Vaping Use Never Used 07/20/24 08:54 Thrive Assessment: Date of Thrive Assessment Date Thrive assessed 05/29/24 07/20/24 08:34 Currently or been in a relationship where the following occur: No concerns reported Coding Level of Care Code Est Pt Level 4 (81617) Diagnoses Medicare annual wellness visit, subsequent Z00.00 Benign essential hypertension 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 Assessment & Plan Assessment & Plan (1) Medicare annual wellness visit, subsequent: Code(s): Z00.00 - Encounter for general adult medical examination without abnormal findings Category: Medical (2) Benign essential hypertension: Code(s): I10 - Essential (primary) hypertension Category: Medical (3) Cutaneous T-cell lymphoma: Code(s): C84.A0 - Cutaneous T-cell lymphoma, unspecified, unspecified site Category: Medical Qualifiers: Lymphoma site: head Qualified Code(s): C84.A1 - Cutaneous T-cell lymphoma, unspecified lymph nodes of head, face, and neck (4) 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 continues neurology Upcoming urology for urinary symptoms, family histor of prostate cancer & recent psa elevated (scanned in chart) Orders: Orders Complete Blood Count Auto Diff Today Z13.228 - Encounter for screening for other metabolic disorders Comprehensive Met. Panel Today Z13.228 - Encounter for screening for other metabolic disorders Lipid Panel Today Z13.228 - Encounter for screening for other metabolic disorders TSH reflex Free T4 Today Z13.228 - Encounter for screening for other metabolic disorders Hemoglobin A1c Today Z13.228 - Encounter for screening for other metabolic disorders Medications: New sildenafil administer 30 minutes to 4 hours before activity 50 mg PO DAILY PRN 30 tabs 0RF ED Refilled aspirin (Adult Low Dose Aspirin) 81 mg PO DAILY 90 tabs 3RF atorvastatin 80 mg PO DAILY 90 tabs 3RF ciclopirox 0.77% 1 appl topical Q12H 30 grams 3RF cyclobenzaprine 10 mg PO TID PRN 90 tabs 3RF muscle spasm hydrochlorothiazide 12.5 mg PO DAILY 90 days 90 caps 3RF metoprolol succinate ER 50 mg PO DAILY 90 tabs 3RF montelukast 10 mg PO DAILY 90 days 90 tabs 3RF nitroglycerin do not exceed 3 doses per episode 0.4 mg sublingual Q5M PRN 30 tabs 3RF chest pain
[2024-07-20 08:31] VITALS: BP 128/70; PULSE 60; RESP 16; O2SAT 98; BMI 35.4
--- OUTSIDE RECORDS SUMMARY | 2024-07-20 08:32 | XMS_ITS | Referral Summary ---
Author Organization [facility] Address [address] [place] [address] Care Team Providers Care Furnace Roaster Name Role Phone Terra Lopez Primary Care Provider [phone] Encounters Date Type Department Care Team Description 07/17/2024 VayaFelizhart Message [facility] [address] [place] [phone] Scott Carter MD IVIG update request from Last 3 Months Allergies No known active allergies Medications metoprolol [...] a day as needed. 2 Active omega 9-krt-lek-fish oil 1,000 mg (120 mg-180 mg) capsule [...] mg capsule Take 12.5 mg by mouth. Active Active Problems Problem Noted Date Diagnosed [...] 09/26/2023 12:07 PM EDT Plan of Treatment Not on file Insurance MEDICARE [facility] SUPP Care Teams Furnace Roaster Relationship Specialty Start Date End Date Terra Lopez PCP - General Family Medicine 04/13/21
--- OUTSIDE RECORDS SUMMARY | 2024-07-20 08:32 | XMS_ITS | Encounter Summary ---
Author Organization [facility] Address [address] [place] [address] Care Team Providers Care Rehabilitation Attendant Name Role Phone Terra Lopez Primary Care Provider [phone] Encounter Details Date Type Department Care Team ([facility] st Contact Info) Description 09/12/2021 Telephone [facility] [address] [place] [address] [phone] Telephone Intake, Staff Social History Tobacco Use [...] Dr. Espinoza's office called - please call [phone] #[phone] * Telephone Encounter - Candice Worrell - 09/12/2021 11:[address] Olga Childers, Neurologist who referred pt to you called requesting a call back and would like to speak to you about this pt. Please return call at [phone] documented in this encounter Plan of Treatment Not on file documented as of this encounter Visit Diagnoses Not on filedocumented in this encounter Care Teams Rehabilitation Attendant Relationship Specialty Start Date End Date Terra Lopez PCP - General Family Medicine 04/13/21 documented as of this encounter
--- OUTSIDE RECORDS SUMMARY | 2024-07-20 08:32 | XMS_ITS | Encounter Summary ---
Author Organization [facility] Address [address] [place] [address] Care Team Providers Care Spar Machine Operator Helper Name Role Phone Terra Lopez Primary Care Provider [phone] Encounter Details Date Type Department Care Team (Late st Contact Info) Description 02/15/2022 Orders Only [facility] [address] [place] [phone] [id number] Social History Tobacco Use Types Packs/Day Years [...] as of this encounter Plan of Treatment Not on file documented as of this encounter Procedures * Due to [place] [employer] law, this organization might not be sharing negative HIV tests. Procedure Name Priority Date/Time Associated Diagnosis Comments AMB EXTERNAL MRI CHEST, OUTS ROBYN RESULT Routine 10/24/2021 AMB EXTERNAL MRI C-SPINE, OU TSIDE RESULT Routine 10/24/2021 documented in this encounter Results * Due to [place] [employer] law, this organization might not be sharing negative HIV tests. * MRI Chest, Outside Result (10/24/2021) Anatomical Region Laterality Modality Other [facility] AMB EXTERNAL RESULT PROCEDURES Final Result * MRI C-Spine, Outside Result (10/24/2021) Anatomical Region Laterality Modality Other [facility] EXTERNAL RESULT PROCEDURES Final Result documented in this encounter Visit Diagnoses Not on filedocumented in this encounter Care Teams Spar Machine Operator Helper Relationship Specialty Start Date End Date RaffaeleTerra Jean PCP - General Family Medicine 04/13/21 documented as of this encounter
--- OUTSIDE RECORDS SUMMARY | 2024-07-20 08:32 | XMS_ITS | Encounter Summary ---
Author Organization [facility] Address [address] [place], [place] [id number] Care Team Providers Care Program Administrator Name Role Phone Jessica Terra Primary Care Provider [phone] Encounter Details Date Type Department Care Team (Late st Contact Info) Description 07/17/2024 myChart Message [facility] [address] [place] [address] [phone] Scott Carter MD [address] [place] [phone] IVIG update request Social History Tobacco Use Types Packs/Day Years [...] on filedocumented in this encounter Care Teams Program Administrator Relationship Specialty Start Date End Date JessicaTerra PCP - General Family Medicine 04/13/21 documented as of this encounter
--- OUTSIDE RECORDS SUMMARY | 2024-07-20 08:32 | XMS_ITS | Clinical Summary ---
Author Organization [facility] Address [address] [place] [address] Care Team Providers Care Flow Specialist Name Role Phone Terra Lopez Primary Care Provider [phone] Allergies No known active allergies Medications metoprolol [...] a day as needed. 2 Active omega 4-bvo-qlw-fish oil 1,000 mg (120 mg-180 mg) capsule [...] of right upper extremity Radial neuropathy, right Encounters Date Type Department Care Team Description 07/17/2024 myChart Message [facility] [address] [place], [place] [phone] Scott Carter MD IVIG update request from Last 3 Months Social History Tobacco Use Types Packs/Day Years [...] 09/26/2023 12:07 PM EDT Plan of Treatment Health Maintenance Due Date Last Done Comments Basic Metabolic Panel 1952 Cologuard 1950 Colon Cancer Screening 1950 Colonoscopy 1950 FOBT / Fit Test 1950 Hepatitis C Screening 1950 Sigmoidoscopy 1950 Medicare AWV 1951 COVID-19 Vaccine ( season) 2024 Influenza Vaccine (#1) 2024 9, 03/24/2014, 03/10/2012, Additional history exists Alcohol/Substance Use Screening 05/06/2024 Depression Screening and Follow-Up 05/06/2024 Health Care Proxy Review 05/06/2024 Social W[employer] of Health Annual Screening 05/06/2024 RSV Vaccine (60+ years old and patients) (1 - 1-dose 75+ series) 2027 DTaP,Tdap,and Td Vaccines (3 - Td or Tdap) 01/02/2034 01/03/2024, 03/10/2012 Pneumococcal Vaccine: 50+ Years Completed 06/09/2019, 08/01/2018, 05/21/2017, Additional history exists Zoster Vaccines Completed 12/09/2019, 06/09/2019 Hepatitis B Vaccines Aged Out No long er eligible based on patient's age to complete this topic Insurance MEDICARE [facility] Care Teams Flow Specialist Relationship Specialty Start Date End Date Jessica Terra PCP - General Family Medicine 04/13/21
--- OUTSIDE RECORDS SUMMARY | 2024-07-20 08:32 | XMS_ITS | Encounter Summary ---
Author Organization [facility] Address [address] [place] [address] Care Team Providers Care Business Administration Program Chair Name Role Phone Terra Lopez Primary Care Provider [phone] Reason for Visit * Reason Onset Date Comments CS - reschedule today's appointment 08/23/2022 Encounter Details Date Type Department Care Team (Late st Contact Info) Description 08/23/2022 Telephone [facility] [address] [place] [phone] Telephone Intake, Staff CS - reschedule today's [...] appts until February. Please follow up at [phone]. documented in this encounter Plan of Treatment Not on file documented as of this encounter Visit Diagnoses Not on filedocumented in this encounter Care Teams Business Administration Program Chair Relationship Specialty Start Date End Date Terra Lopez PCP - General Family Medicine 04/13/21 documented as of this encounter
--- OUTSIDE RECORDS SUMMARY | 2024-07-20 08:32 | XMS_ITS | Encounter Summary ---
Author Organization [facility] Address [address] [place] [address] Care Team Providers Care Regional Dedicated Truck Driver Name Role Phone Terra Lopez Primary Care Provider [phone] Encounter Details Date Type Department Care Team ([facility] st Contact Info) Description 02/16/2022 Orders Only [facility] [address] [place] [address] [phone] Provider, Unknown, [address] [place] [phone] Social History Tobacco Use Types Packs/Day [...] of this encounter Procedures * Due to [place] [employer] law, this organization might not be sharing negative HIV tests. Procedure Name Priority Date/Time Associated Diagnosis Comments AMB EXTERNAL MRI C-SPINE, OU TSIDE RESULT Routine 10/24/2021 documented in this encounter Results * Due to [place] [employer] law, this organization might not be sharing negative HIV tests. * MRI C-Spine, Outside Result (10/24/2021) Anatomical Region Laterality Modality Other us Unknown Provider MD DANIELS EXTERNAL RESULT PROCEDUR ES Final Result documented in this encounter Visit Diagnoses Not on filedocumented in this encounter Care Teams Regional Dedicated Truck Driver Relationship Specialty Start Date End Date Terra Lopez PCP - General Family Medicine 04/13/21 documented as of this encounter
== END 2024-07-20 09:25 | disposition home or self-care (01) ==
LOC: HO.HMCFM 08:17
PROVIDERS: PCP Internal Medicine; Visit Provider Internal Medicine
DX: Z00.00 Encounter for general adult medical examination without abnormal findings (principal); I10 Essential (primary) hypertension; C84.A1 Cutaneous T-cell lymphoma, unspecified lymph nodes of head, face, and neck; G58.7 Mononeuritis multiplex

== ENCOUNTER 2024-07-20 08:17 | Outpatient (REF) | payer MEDICARE, SELFPAY ==
[2024-07-20 11:27] LABS: MANUAL DIFF FLAG NO
[2024-07-20 11:34] LABS: Basophils Percent Auto 0.4 % (0-2); Eosinophils Absolute Auto 0.1 X10*3/uL (0.0-0.4); Eosinophils Percent Auto 2.1 % (0-4); Hematocrit 46.7 % (42.0-52.0); Hemoglobin 15.6 g/dl (14.0-18.0); Imm Gran Abs Auto 0.02 X10*3/uL (0.00-0.03); Imm Gran Pct Auto 0.4 % (0.0-0.4); Lymphocytes Absolute Auto 1.5 X10*3/uL (1.2-4.9); Lymphocytes Percent Auto 27.5 % (20-40); Mean Corpuscular HGB Conc 33.4 g/dl (31.0-36.0); Mean Corpuscular Hemoglobin 30.4 pg (27.0-33.0); Mean Platelet Volume 9.2 fL (9.4-12.4); Monocytes Absolute Auto 0.4 X10*3/uL (0.1-1.2); Monocytes Percent Auto 7.5 % (2-11); Neutrophils Absolute Auto 3.5 x10*3/uL (2.0-8.3); Neutrophils Percent Auto 62.1 % (45-73); Platelet Count 215 X10*3/uL (160-400); Red Blood Count 5.13 X10*6/uL (4.60-5.80); Red Cell Distribution Width 13.1 % (11.0-16.0); White Blood Count 5.6 X10*3/uL (4.8-10.8)
[2024-07-20 11:54] LABS: Estimated Average Glucose 111 mg/dL; Hemoglobin A1c % 5.5 % (<6.0)
[2024-07-20 11:55] LABS: Appearance Urine Clear; Color Urine Yellow; Glucose Urine UA Negative (Negative); Leukocyte Esterase Urine Negative (Negative); Nitrite Urine Negative (Negative); PH 5.5 (5.0-9.0); Specific Gravity - Urine 1.015 (1.005-1.025); Urine Blood Negative (Negative); Urine Ketones Negative (Negative); Urine Protein Negative (Neg-Trace)
[2024-07-20 12:16] LABS: Prostate Specific Antigen 6.63 ng/mL (<0.05-4.0)
[2024-07-20 12:37] LABS: TSH reflex Free T4 3.92 uIU/mL (0.32-4.0)
[2024-07-20 13:06] LABS: Anion Gap 13 (12-20)
[2024-07-20 13:11] LABS: Alanine Aminotransferase 26 U/L (0-40); Albumin Level 4.1 g/dL (3.5-5.0); Alkaline Phosphatase 105 U/L (39-117); Aspartate Amino Transferase 31 U/L (5-37); Bilirubin Total 0.5 mg/dL (0.0-1.0); Blood Urea Nitrogen 14 mg/dL (9-16); Calcium 8.9 mg/dL (8.4-10.2); Carbon Dioxide 24 mmol/L (22-29); Chloride 109 mmol/L (96-108); Cholesterol 165 mg/dL (<200); Estimated Glomerular Filt Rate > 60; Glucose Random 117 mg/dL (60-115); HDL Cholesterol 42 mg/dL (>40); LDL Cholesterol Calculated 81 mg/dL (<100); Potassium 3.7 mmol/L (3.3-5.1); Sodium 142 mmol/L (135-145); Total Protein 7.1 g/dL (6.5-8.0); Triglycerides 213 mg/dL (<150)
== END 2024-07-20 08:18 | disposition home or self-care (01) ==
LOC: HO.WFDLDS 08:17
PROVIDERS: PCP Internal Medicine; Visit Provider Internal Medicine
DX: Z00.00 Encounter for general adult medical examination without abnormal findings (principal); I10 Essential (primary) hypertension; C84.A1 Cutaneous T-cell lymphoma, unspecified lymph nodes of head, face, and neck; G58.7 Mononeuritis multiplex; Z79.82 Long term (current) use of aspirin; Z79.899 Other long term (current) drug therapy; Z13.228 Encounter for screening for other metabolic disorders; R39.11 Hesitancy of micturition; R35.0 Frequency of micturition; Z80.42 Family history of malignant neoplasm of prostate; Z12.5 Encounter for screening for malignant neoplasm of prostate
CPT/HCPCS: 36415; 80053; 80061; 81003; 83036; 84153; 84443; 85025; 99212

== ENCOUNTER 2024-07-31 08:44 | Outpatient (AMB) | payer MEDICARE, SELFPAY ==
--- NOTE | 2024-07-31 08:52 | MHC.OFFVIS ---
Intake Visit Reasons: urinary frequency/dribbling Intake Note: New patient presents today for initial visit for urinary frequency/dribbling Urology Medication:Sildenafil Blood Thinner:Aspirin Antibiotic Allergies:none PVR:11ml Allergies No Known Allergies Allergy (Verified 07/31/24 08:54) HPI Comments Details: Jon is a 74-year-old male presenting with urinary urgency and dribbling. The urinary symptoms, include frequent day and night time urgency, sometimes leading to leakage before reaching the restroom. This daily urgency is particularly troublesome with several night awakenings for urination. The patient carries a significant family history of cancer; a paternal grandfather had prostate, lung, and his father from colon cancer at 51. Laboratory results indicate an elevated PSA level at 6.63 ng/mL, recorded on 07/20/2024, with a negative urinalysis for infection. 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 During our discussion, I addressed the elevated PSA levels and significant family history of prostate cancer, recommending a prostate biopsy for a more definitive evaluation. I explained the potential risks of the procedure, including infection. Discussed risks to include but not limited to pain, blood in stool, urine and semen, septicemia, need to repeat biopsy. The biopsy will be done under local anesthesia, which is generally well-tolerated by the majority of patients. I provided options for anesthesia, allowing the patient to choose conscious awareness during the procedure. We discussed starting antibiotics two days prior to the procedure to minimize infection risks, continuing for two days post-procedure. The patient expressed understanding and consented to the proposed plan. Urinary Symptoms Review - Daily urinary urgency - Nocturnal polyuria with frequent awakenings - Urinary incontinence several times a day - Negative urinalysis for infection Results - Labs: - PSA level: 6.63 ng/mL as of 07/20/2024 - Urinalysis (07/20/2024): Negative for infection FOR[facility]LY [facility], [facility] Medical History Ulnar neuropathy Pain in knee joint Low back pain Lesion of median nerve Hyperlipemia Atypical nevus Gastroesophageal reflux disease Degeneration of lumbar intervertebral disc Coronary arteriosclerosis Congestive heart failure (CHF) Bilateral lower extremity edema Benign essential hypertension Surgical History History of hernia surgery History of cholecystectomy History of appendectomy History of tonsillectomy History of percutaneous coronary intervention Family History Father Hypertension Colon cancer Paternal Grandfather Hypertension Cardiovascular disease Lung cancer Maternal Grandmother Cardiovascular disease Paternal Grandmother Skin cancer Social History Household Members: Spouse and Children Housing: House Alcohol intake: never Patient Tobacco Use Status: Never used Tobacco e-Cigarette/Vaping Use: Never Used Substance Use Type: Marijuana service: No Current occupational status: retired 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 Cognitive needs: No Hearing needs: No Vision needs: No Review of Systems Const All systems reviewed & are unremarkable except as noted in HPI and below Reports no additional complaints Eyes Reports no additional complaints ENT Reports no additional complaints Card Reports no additional complaints Resp Reports no additional complaints GI Reports no additional complaints Reports as per HPI Musc Reports no additional complaints Skin/Breast Reports system reviewed and no additional complaints, except as documented Neuro Reports no additional complaints Psych Reports no additional complaints Endo Reports no additional complaints Dennis/Lymph Reports no additional complaints Aller/Immun Reports no additional complaints Physical Exam Const General: healthy appearing, no acute distress and well developed Orientation/consciousness: patient oriented x3 HEENT Head: Yes normocephalic and Yes atraumatic Eyes Conjunctivae: conjunctivae normal Neck Neck: Yes normal visual inspection Chest Chest palpation & inspection: normal inspection of the chest Resp Effort & Inspection: normal respiratory effort GI Inspection: Yes normal to inspection Other: Prostate Exam: smooth, enlarged, no hard nodules Neuro General: patient oriented x3 Psych Appearance: grossly normal Affect: normal affect Assessment & Plan Assessment & Plan (1) Family history of prostate cancer: Code(s): Z80.42 - Family history of malignant neoplasm of prostate Category: Medical (2) Elevated PSA: Code(s): R97.20 - Elevated prostate specific antigen [PSA] Category: Medical (3) Urinary frequency: Code(s): R35.0 - Frequency of micturition Category: Medical (4) Urinary hesitancy: Code(s): R39.11 - Hesitancy of micturition Category: Medical (5) Urinary dribbling: Code(s): N39.43 - Post-void dribbling Category: Medical Plan Plan - Start taking prescribed antibiotics two days before the prostate biopsy and continue for two more days after. - Take tamsulosin 0.4 mg at bedtime as prescribed. - Be aware that some blood in urine or semen post-biopsy is normal, but seek immediate care if it is excessive or accompanied by fever. - Await follow-up to review biopsy results and next steps. - Report any severe side effects or new symptoms promptly. Patient Instructions: The patient had an opportunity to ask questions regarding treatment plan. The patient expressed understanding and agreement with the above treatment plan. The patient is aware they should contact our office by phone for worsening of their current condition or the appearance of new symptoms. Compliance is encouraged with any medications and followup testing that is ordered. It is a privilege to be allowed the opportunity to participate in the urologic care of your patient. If you have any questions or concerns regarding treatment for the above conditions please do not hesitate to contact me. The office telephone contact is [phone]. This note is constructed in part using voice recognition software. While every effort has been made to ensure accuracy historical site guide errors may have been included. Yours sincerely, Han Potter MD Scribe Plan - Not visible on output: Patient was informed and verbally consented to the use of an ambient scribe for clinic note documentation during this visit. Coding Level of Care Code New Pt Level 4 (74426) Diagnoses Family history of prostate cancer Z80.42 Elevated PSA R97.20 Urinary frequency R35.0 Urinary hesitancy R39.11 Urinary dribbling N39.43
== END 2024-07-31 09:51 | disposition home or self-care (01) ==
LOC: HO.HUSH 08:45
PROVIDERS: PCP Internal Medicine; Visit Provider Urology
DX: Z80.42 Family history of malignant neoplasm of prostate (principal); R97.20 Elevated prostate specific antigen [PSA]; R35.0 Frequency of micturition; R39.11 Hesitancy of micturition; N39.43 Post-void dribbling
CPT/HCPCS: 99204

== ENCOUNTER → 2024-07-31 08:44 | Outpatient (BNVA) | payer MEDICARE, SELFPAY | PROVIDERS: PCP Internal Medicine; Visit Provider Urology | DX: R97.20 Elevated prostate specific antigen [PSA] (principal); R35.0 Frequency of micturition; R39.11 Hesitancy of micturition; N39.43 Post-void dribbling; Z80.42 Family history of malignant neoplasm of prostate | CPT/HCPCS: 51798; 99202 ==

== ENCOUNTER 2024-10-16 07:49 | Outpatient (REF) | payer MEDICARE, SELFPAY ==
--- OUTSIDE RECORDS SUMMARY | 2024-10-16 07:51 | XMS_ITS | Encounter Summary ---
Author Organization [facility] Address [address] [place] [address] Care Team Providers Care Telephone Solicitor Supervisor Name Role Phone Terra Lopez Primary Care Provider [phone] Encounter Details Date Type Department Care Team ([facility] st Contact Info) Description 09/12/2021 Telephone [facility] [address] [place] [address] [phone] Telephone Intake, Staff Social History Tobacco Use [...] Dr. Espinoza's office called - please call [phone] #[phone] * Telephone Encounter - Candice Worrell - 09/12/2021 11:[address] Olga Childers, Neurologist who referred pt to you called requesting a call back and would like to speak to you about this pt. Please return call at [phone] documented in this encounter Plan of Treatment Not on file documented as of this encounter Visit Diagnoses Not on filedocumented in this encounter Care Teams Telephone Solicitor Supervisor Relationship Specialty Start Date End Date Terra Lopez PCP - General Family Medicine 04/13/21 documented as of this encounter
--- NOTE | 2024-10-16 08:36 | W.PM.OPN ---
Operative Note Operative Note Date of Service: 10/16/24 Narrative: PreOperative Diagnosis:? ? Elevated PSA Post Operative Diagnosis:??Elevated PSA Procedure:?1. Transrectal ultrasound guided biopsy of the prostate 12 core 2. Transrectal ultrasound measurement of prostate 3. Transrectal ultrasound guided pudendal nerve block Surgeon:?Dr Han Potter Anesthesia:? Local, Indications for procedure: Elevated PSA Procedure: Preoperative antibiotics confirmed. After informed consent was verified the patient was placed on the procedure table in left lateral position. Patient identity confirmed. Safety pause time-out performed. Digital rectal exam performed to dilate rectal sphincter, iodine mixed with lubricant jelly 30 cc placed per rectum. Ultrasound probe was placed per rectum. The prostate was visualized. Prostatatic calcifications were noted. The prostate was measured width 5.82 cm, height 3.68 cm, length 5.45 cm with a volume of 61.1 mL. An ultrasound guided pudendal nerve block was performed using 10 cc of 1% lidocaine. A 12 core biopsy was performed from the left base, left mid, left apex and right base, mid, apex 2 biopsies from each section. The ultrasound probe was removed and digital palpation of the prostate for 1-2 minutes for hemostasis was performed. The patient tolerated the procedure well. Complications: None
== END 2024-10-16 07:50 | disposition home or self-care (01) ==
LOC: HO.US 07:49
PROVIDERS: PCP Internal Medicine; Visit Provider Urology
DX: C61 Malignant neoplasm of prostate (principal); R97.20 Elevated prostate specific antigen [PSA]
CPT/HCPCS: 55700; 76942; 88305; 88344

== ENCOUNTER → 2024-10-16 07:49 | Outpatient (BNV) | payer MEDICARE, SELFPAY | PROVIDERS: PCP Internal Medicine; Visit Provider Urology | DX: R97.20 Elevated prostate specific antigen [PSA] (principal) | CPT/HCPCS: 55700; 76872; 76942 ==

== ENCOUNTER 2024-11-02 08:50 | Outpatient (AMB) | payer MEDICARE, SELFPAY ==
--- OUTSIDE RECORDS SUMMARY | 2024-11-02 09:04 | XMS_ITS | Encounter Summary ---
Author Organization [facility] Address [address] [place] [address] Care Team Providers Care Accounting Clerks Supervisor Name Role Phone Terra Lopez Primary Care Provider [phone] Encounter Details Date Type Department Care Team ([facility] st Contact Info) Description 09/12/2021 Telephone [facility] [address] [place] [address] [phone] Telephone Intake, Staff Social History Tobacco Use [...] Dr. Espinoza's office called - please call [phone] #[phone] * Telephone Encounter - Candice Worrell - 09/12/2021 11:[address] Olga Childers, Neurologist who referred pt to you called requesting a call back and would like to speak to you about this pt. Please return call at [phone] documented in this encounter Plan of Treatment Upcoming Encounters Date Type Department Care Team (Late st Contact Info) Description 12/31/2024 1:00 PM EDT Office Visit [facility] [address] [place] [address] Chris Townsend MD [address] [place] [phone] documented as of this encounter Visit Diagnoses Not on filedocumented in this encounter Care Teams Accounting Clerks Supervisor Relationship Specialty Start Date End Date Terra Lopez PCP - General Family Medicine 04/13/21 documented as of this encounter
--- NOTE | 2024-11-02 09:20 | MHC.OFFVIS ---
Intake Visit Reasons: Prostate biopsy results Intake Note: Patient presents today for prostate biopsy results Urology Medication:Sildenafil Blood Thinner:Aspirin Antibiotic Allergies:none PVR:60ml Allergies No Known Allergies Allergy (Verified 07/31/24 08:54) Medication List - Last Reconciled 11/02/24 by Han Potter MD amoxicillin-pot clavulanate 500-125 mg (Augmentin) 1 tab PO BID aspirin (Adult Low Dose Aspirin) 81 mg PO DAILY atorvastatin 80 mg PO DAILY clobetasol 0.05% topical DAILY cyclobenzaprine 10 mg PO TID PRN dupilumab (Dupixent) mg subcut finasteride (Proscar) 5 mg PO DAILY hydrochlorothiazide 12.5 mg PO DAILY 90 days metoprolol succinate ER 50 mg PO DAILY montelukast 10 mg PO DAILY 90 days nitroglycerin 0.4 mg sublingual Q5M PRN ranitidine HCl mg PO sildenafil 50 mg PO DAILY PRN tamsulosin (Flomax) 0.4 mg PO BEDTIME valsartan 80 mg PO DAILY HPI Comments Details: 11/02/24 History of Present Illness - The patient is a 74-year-old male presenting for prostate bx results - Prostate cancer was identified in two biopsy areas with cancer cells, categorized as Group 1, ariel 3+3, indicating a low-grade cancer. - A total of 14 biopsies were performed, with 1% of tissue involved, - The patient's PSA was not significantly elevated, which is consistent with the low volume of cancer detected. - The patient has a history of cutaneous T-cell lymphoma, and is receiving treatment at [facility]. - The patient is currently on tamsulosin for urinary symptoms related to an enlarged prostate. Discussion Notes I discussed with the patient that the prostate cancer is low volume and early stage, Group 1, We talked about the importance of surveillance, including regular PSA monitoring. Discussed use of finasteride to manage BPH. I discussed that the [place] [employer] recommends active surveillance for low volume, early stage prostate cancer. We also discussed the role for further imaging, such as an MRI, if there are changes in PSA levels. 07/31/24--Jon is a 74-year-old male presenting with urinary urgency and dribbling. The urinary symptoms, include frequent day and night time urgency, sometimes leading to leakage before reaching the restroom. This daily urgency is particularly troublesome with several night awakenings for urination. The patient carries a significant family history of cancer; a paternal grandfather had prostate, lung, and his father from colon cancer at 51. Laboratory results indicate an elevated PSA level at 6.63 ng/mL, recorded on 07/20/2024, with a negative urinalysis for infection. 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 During our discussion, I addressed the elevated PSA levels and significant family history of prostate cancer, recommending a prostate biopsy for a more definitive evaluation. I explained the potential risks of the procedure, including infection. Discussed risks to include but not limited to pain, blood in stool, urine and semen, septicemia, need to repeat biopsy. The biopsy will be done under local anesthesia, which is generally well-tolerated by the majority of patients. I provided options for anesthesia, allowing the patient to choose conscious awareness during the procedure. We discussed starting antibiotics two days prior to the procedure to minimize infection risks, continuing for two days post-procedure. The patient expressed understanding and consented to the proposed plan. Urinary Symptoms Review - Daily urinary urgency - Nocturnal polyuria with frequent awakenings - Urinary incontinence several times a day - Negative urinalysis for infection Results - Labs: - PSA level: 6.63 ng/mL as of 07/20/2024 - Urinalysis (07/20/2024): Negative for infection [facility] Medical History Ulnar neuropathy Pain in knee joint Low back pain Lesion of median nerve Hyperlipemia Atypical nevus Gastroesophageal reflux disease Degeneration of lumbar intervertebral disc Coronary arteriosclerosis Congestive heart failure (CHF) Bilateral lower extremity edema Benign essential hypertension Surgical History History of hernia surgery History of cholecystectomy History of appendectomy History of tonsillectomy History of percutaneous coronary intervention Family History Father Hypertension Colon cancer Paternal Grandfather Hypertension Cardiovascular disease Lung cancer Maternal Grandmother Cardiovascular disease Paternal Grandmother Skin cancer Social History Household Members: Spouse and Children Housing: House Alcohol intake: never Patient Tobacco Use Status: Never used Tobacco e-Cigarette/Vaping Use: Never Used Substance Use Type: Marijuana service: No Current occupational status: retired 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 Cognitive needs: No Hearing needs: No Vision needs: No Review of Systems Const All systems reviewed & are unremarkable except as noted in HPI and below Reports no additional complaints Eyes Reports no additional complaints ENT Reports no additional complaints Card Reports no additional complaints Resp Reports no additional complaints GI Reports no additional complaints Reports as per HPI Musc Reports no additional complaints Skin/Breast Reports system reviewed and no additional complaints, except as documented Neuro Reports no additional complaints Psych Reports no additional complaints Endo Reports no additional complaints Dennis/Lymph Reports no additional complaints Aller/Immun Reports no additional complaints Results Reviewed Results Reviewed: Collected: 10/16/24 Location: [facility] Received: 10/16/24 Diagnosis Prostate, needle core biopsies: A. Left base lateral: Benign prostatic tissue. B. Left base medial: Benign prostatic tissue. C. Left mid lateral: Benign prostatic tissue. D. Left mid medial: Benign prostatic tissue. E. Left apex lateral: Benign prostatic tissue. F. Left apex medial: Benign prostatic tissue. G. Right base lateral: Suspicious for focal high grade prostatic intraepithelial neoplasia. H. Right base medial: Benign prostatic tissue. I. Right mid lateral: Benign prostatic tissue. J. Right mid medial: Benign prostatic tissue. K. Right apex lateral: Prostatic adenocarcinoma, Madison score 6 (3+3), grade group 1, 0.25 mm, 1% of core. L. Right apex medial: Prostatic adenocarcinoma, Ariel score 6 (3+3), grade group 1, 1 mm, 8% of core. Data synopsis - Prostate needle biopsy Histologic type: Prostatic adenocarcinoma, acinar type Histologic grade: Ariel score: 6 (3+3) (right apex lateral and medial) % of pattern 4: 0% % of pattern 5: 0% Grade group: 1 Tumor quantitation: Number cores positive: 2 Patient: Jon Amezquita Age/Sex: 74/M MR#: [id number] Page 1 of 4 Surgical Pathology [id number] Total number of cores: 14 % of tissue involved: 1% Periprostatic fat inv.: Not identified Seminal vesicle inv.: Not identified Perineural inv.: Not identified Lymphatic and/or vascular invasion: Not identified Clinical History Elevated PSA Microscopic Description Microscopic sections reviewed. Sections show multiple needle cores of benign prostate parenchyma. There are 2 needle cores of prostate gland parenchyma which are focally involved by prostatic adenocarcinoma ranging from 1-8% of the cores. The biopsies show well-formed glands of malignant cells with mildly pleomorphic nuclei and relatively distinct nucleoli. No perineural invasion, lymphovascular invasion or extraprostatic extension is seen. PIN4 multiplex stain is performed on G, K and L. There is weak focal positive P504S staining with focal positive HMWkeratin and p63 in prostatic intraepithelial neoplasia (Part G). The scant tumor in Parts K and L shows a lack of basal cells on HMWkeratin and p63 immunohistochemical stains, and weak positive P504S staining, compatible with the diagnoses. Controls stain appropriately with weak P504S. Material Received A. Left base lateral B. Left base medial C. Left mid lateral D. Left mid medial E. Left apex lateral F. Left apex medial G. Right base lateral H. Right base medial I. Right mid lateral J. Right mid medial K. Right apex lateral L. Right apex medial Assessment & Plan Assessment & Plan (1) Elevated PSA: Code(s): R97.20 - Elevated prostate specific antigen [PSA] Category: Medical (2) Urinary frequency: Code(s): R35.0 - Frequency of micturition Category: Medical (3) Urinary hesitancy: Code(s): R39.11 - Hesitancy of micturition Category: Medical (4) Urinary dribbling: Code(s): N39.43 - Post-void dribbling Category: Medical (5) Adenocarcinoma of prostate: Code(s): C61 - Malignant neoplasm of prostate Category: Medical Plan Plan - Active surveillance for prostate cancer - Prescribe finasteride to manage BPH. - Plan to recheck PSA levels in six months Medications: New finasteride (Proscar) 5 mg PO DAILY 90 tabs 3RF Patient Instructions: The patient had an opportunity to ask questions regarding treatment plan. The patient expressed understanding and agreement with the above treatment plan. The patient is aware they should contact our office by phone for worsening of their current condition or the appearance of new symptoms. Compliance is encouraged with any medications and followup testing that is ordered. It is a privilege to be allowed the opportunity to participate in the urologic care of your patient. If you have any questions or concerns regarding treatment for the above conditions please do not hesitate to contact me. The office telephone contact is [phone]. This note is constructed in part using voice recognition software. While every effort has been made to ensure accuracy cranberry grower errors may have been included. Yours sincerely, Han Potter MD Scribe Plan - Not visible on output: Patient was informed and verbally consented to the use of an ambient scribe for clinic note documentation during this visit. Coding Level of Care Code Est Pt Level 4 (03626) Diagnoses Elevated PSA R97.20 Urinary frequency R35.0 Urinary hesitancy R39.11 Urinary dribbling N39.43 Adenocarcinoma of prostate C61
== END 2024-11-02 10:10 | disposition home or self-care (01) ==
LOC: HO.HUSH 08:51
PROVIDERS: PCP Internal Medicine; Visit Provider Urology
DX: R97.20 Elevated prostate specific antigen [PSA] (principal); R35.0 Frequency of micturition; R39.11 Hesitancy of micturition; N39.43 Post-void dribbling; C61 Malignant neoplasm of prostate; Z13.9 Encounter for screening, unspecified
CPT/HCPCS: 99214

== ENCOUNTER → 2024-11-02 08:50 | Outpatient (BNVA) | payer MEDICARE, SELFPAY | PROVIDERS: PCP Internal Medicine; Visit Provider Urology | DX: R97.20 Elevated prostate specific antigen [PSA] (principal); R35.0 Frequency of micturition; R39.11 Hesitancy of micturition; N39.43 Post-void dribbling; C61 Malignant neoplasm of prostate | CPT/HCPCS: 51798; 81003; 99212 ==

== ENCOUNTER 2025-01-14 10:19 | Outpatient (AMB) | payer MEDICARE, SELFPAY ==
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
[2025-01-14 10:30] VITALS: BP 146/82; PULSE 63; RESP 16; TEMP 36.6; O2SAT 97; BMI 34.8
--- OUTSIDE RECORDS SUMMARY | 2025-01-14 12:56 | XMS_ITS | Clinical Summary ---
Author Organization [facility] Address [address] [place] [address] Care Team Providers Care Rn Maternity Name Role Phone Terra Lopez Primary Care Provider [phone] Allergies No known active allergies Medications metoprolol [...] a day as needed. 2 Active omega 3-xua-udb-fish oil 1,000 mg (120 mg-180 mg) capsule [...] Encounters Date Type Department Care Team Description 10/19/2024 Telephone [facility] [address] [place] [address] Esha Felton, LAND CHECKER PAC Patient Request Call Back; PAC Appt Request - Established from Last 3 Months Social History Tobacco [...] 68 01/30/2024 2:50 PM EDT Temperature 36.6 C (97.8 F) 09/26/2023 12:07 PM EDT Respiratory Rate 18 01/30/2024 2:50 [...] Care Team (Late st Contact Info) Description 04/15/2025 11:00 AM EST Office Visit [facility] [address] [place] [address] Karla Diaz MD [address] [place] [address] Health Maintenance Due Date Last Done Comments Cologuard 1950 Colon Cancer Screening 1950 Colonoscopy 1950 FOBT / Fit Test 1950 Hepatitis C Screening 1950 Sigmoidoscopy 1950 Medicare AWV 1951 Alcohol/Substance Use Screening 05/06/2024 Depression Screening and Follow-Up 05/06/2024 Fall Risk Screening 05/06/2024 Health Care Proxy Review 05/06/2024 Social Drivers of Health Annual Screening 05/06/2024 COVID-19 Vaccine ( season) 2025 Influenza Vaccine (#1) 2025 9, 03/24/2014, 03/10/2012, Additional history exists RSV Vaccine (60+ years old and patients) (1 - 1-dose 75+ series) 2027 DTaP,Tdap,and Td Vaccines (3 - Td or Tdap) 01/02/2034 01/03/2024, 03/10/2012 Tobacco Screening 05/06/2042 01/30/2024 Pneumococcal Vaccine: 50+ Years Completed 06/09/2019, 08/01/2018, 05/21/2017, Additional history exists Zoster Vaccines Completed 12/09/2019, 06/09/2019 Hepatitis B Vaccines Aged Out No long er eligible based on patient's age to complete this topic Insurance MEDICARE [facility] Care Teams Rn Maternity Relationship Specialty Start Date End Date Terra Lopez PCP - General Family Medicine 04/13/21
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
--- OUTSIDE RECORDS SUMMARY | 2025-01-14 12:56 | XMS_ITS | Encounter Summary ---
Author Organization [facility] Address [address] [place] [address] Care Team Providers Care Boatbuilder Supervisor Name Role Phone Terra Lopez Primary Care Provider [phone] Encounter Details Date Type Department Care Team ([facility] st Contact Info) Description 09/12/2021 Telephone [facility] [address] [place] [address] [phone] Telephone Intake, Staff Social History Tobacco Use [...] Dr. Espinoza's office called - please call [phone] #[phone] * Telephone Encounter - Candice Worrell - 09/12/2021 11:[address] Olga Childers, Neurologist who referred pt to you called requesting a call back and would like to speak to you about this pt. Please return call at [phone] documented in this encounter Plan of Treatment Upcoming Encounters Date Type Department Care Team (Late st Contact Info) Description 04/15/2025 11:00 AM EST Office Visit [facility] [address] [place], [place] [id number] Karla Diaz MD [address] [place], [place] [phone] documented as of this encounter Visit Diagnoses Not on filedocumented in this encounter Care Teams Boatbuilder Supervisor Relationship Specialty Start Date End Date Terra Lopez PCP - General Family Medicine 04/13/21 documented as of this encounter
--- OUTSIDE RECORDS SUMMARY | 2025-01-14 12:56 | XMS_ITS | Encounter Summary ---
Author Organization [facility] Address [facility] [address] [place] [address] Phone Care Team Providers Care Hotel Casino Floorperson Name Role Phone Terra Galeano MD Primary Care Provider + [phone] Carol Vyas BIOMETRICS SPECIALIST Unavailable + [phone] Encounter Details Date Type Department Care Team (Late st Contact Info) Description 08/13/2017 Procedure Pass [facility] [address] [place] [phone] Social History Tobacco Use Types Packs/Day Years Used Date Smoking Tobacco: Never Smokeless Tobacco: Never Alcohol Use Standard Drinks/Week Comments No 0 (1 standard drink = 0.6 oz pur e alcohol) Sex and Gender Information Value Date Recorded Sex Assigned at Male 02/14/2024 3:28 PM EDT Legal Sex Male 3:47 PM EST Gender Identity Male 02/14/2024 3:28 PM EDT Sexual Orientation Straight 02/14/2024 3: 28 PM EDT documented as of this encounter Plan of Treatment Upcoming Encounters Date Type Department Care Team (Late st Contact Info) Description 01/25/2025 8:30 AM EDT Infusion [facility] [address] [place] [address] Gilmer Jackson, DO [address] [facility], [address] [place] [address] [email or web address] 01/26/2025 8:30 AM EDT Infusion [facility] [address] [place] [address] Gilmer Jackson, [address], [address] [place] [address] [email or web address] 01/27/2025 8:30 AM EDT Infusion [facility] [address] [place] [address] Gilmer Jackson, [address], [address] [place] [address] [email or web address] 01/28/2025 8:00 AM EDT Infusion [facility] [address] [place] [address] Gilmer Jackson, [address], [address] [place] [address] [email or web address] 01/29/2025 8:30 AM EDT Infusion [facility] [address] [place] [address] Gilmer Jackson, [address], [address] [place] [address]25[address] [email or web address] 02/22/2025 8:30 AM EDT Infusion [facility] [address] [place] [address] Gilmer Jackson, [address], [address] [place] [address] [email or web address] 02/23/2025 8:30 AM EDT Infusion [facility] [address] [place] [address] Gilmer Jackson, [address], [address] [place] [address] [email or web address] 02/24/2025 8:30 AM EDT Infusion [facility] [address] [place] [address] 618[address] Gilmer Jackson, [address], [address] [place] [address] [email or web address] 02/25/2025 8:00 AM EDT Infusion [facility] [address] [place] [address] Gilmer Jackson, [address], [address] [place] [address] [email or web address] 02/26/2025 8:30 AM EDT Infusion [facility] [address] [place] [address] Gilmer Jackson, [address], [address] [place] [address] 96[address] [email or web address] 03/22/2025 8:30 AM EST Infusion [facility] [address] [place] [address] 715[address] Gilmer Jackson, [address], [address] [place] [address] [email or web address] 03/23/2025 8:30 AM EST Infusion [facility] [address] [place] [address] 19452 Gilmer Jackson, [address], [address] [place] [address] [email or web address] 03/24/2025 8:30 AM EST Infusion [facility] [address] [place] [address] 06274 Gilmer Jackson, [address], [address] [place] [address] [email or web address] 03/25/2025 8:30 AM EST Infusion [facility] [address] [place] [address] 80023 Gilmer Jackson, [address], [address] [place] [address] 40[address] [email or web address] 03/26/2025 8:30 AM EST Infusion [facility] [address] [place] [address] 94[address] Gilmer Jackson, [address], [address] [address] [email or web address] 03/30/2025 2:30 PM EST Office [facility] [place] [address] [place] [address], [address] [place] [address] Sara Angelo MD [address] [place] [address] [email or web address] 04/19/2025 8:30 AM EST Infusion [facility] [address] [place] [address] 67457 Gilmer Jackson, [address], [address] [place] [address] 49[address] [email or web address] 04/20/2025 8:30 AM EST Infusion [facility] [address] [place] [address] 62167 Gilmer Jackson, [address], [address] [place] [address] 24432 [email or web address] 04/21/2025 8:30 AM EST Infusion [facility] [address] [place] [address] 34519 Gilmer Jackson, [address], [address] [place] [address] 09164 [email or web address] 04/22/2025 8:30 AM EST Infusion [facility] [address] [place] [address] 70935 Gilmer Jackson, [address], [address] [place] [address] 46829 [email or web address] 04/23/2025 8:30 AM EST Infusion [facility] [address] [place] [address] 84263 Gilmer Jackson, [address], [address] [place] [address] 34784 [email or web address] 05/17/2025 8:30 AM EST Infusion [facility] [address] [place] [address] 79125 Gilmer Jackson, [address], [address] [place] [address] 75160 [email or web address] 05/18/2025 8:30 AM EST Infusion [facility] [address] [place] [address] 42090 Gilmer Jackson, [address], [address] [place] [address] 01854 [email or web address] 05/19/2025 8:30 AM EST Infusion [facility] [address] [place] [address] 99442 Gilmer Jackson, [address], [address] [place] [address] 93642 [email or web address] 05/20/2025 8:30 AM EST Infusion [facility] [address] [place] [address] 51064 Gilmer Jackson, [address], [address] [place] [address] 14839 [email or web address] 05/21/2025 8:30 AM EST Infusion [facility] [address] [place] [address] 65720 Gilmer Jackson, [address], [address] [place] [address] 18748 [email or web address] 06/14/2025 8:30 AM EST Infusion [facility] [address] [place] [address] 68880 Gilmer Jackson, [address], [address] [place] [address] 83147 [email or web address] 06/15/2025 8:30 AM EST Infusion [facility] [address] [place] [address] 97929 Gilmer Jackson, [address], [address] [place] [address] 24769 [email or web address] 06/16/2025 8:30 AM EST Infusion [facility] [address] [place] [address] 67568 Gilmer Jackson, [address], [address] [place] [address] 84050 [email or web address] 06/17/2025 8:30 AM EST Infusion [facility] [address] [place] [address] 38314 Gilmer Jackson, [address], [address] [place] [address] 52199 [email or web address] 06/18/2025 8:30 AM EST Infusion [facility] [address] [place] [address] 52651 Gilmer Jackson, [address], [address] [place] [address] 65110 [email or web address] 07/12/2025 8:30 AM EDT Infusion [facility] [address] [place] [address] 30447 Gilmer Jackson, [address], [address] [place] [address] 34635 [email or web address] 07/13/2025 8:30 AM EDT Infusion [facility] [address] [place] [address] 73748 Gilmer Jackson, [address], [address] [place] [address] 73520 [email or web address] 07/14/2025 8:30 AM EDT Infusion [facility] [address] [place] [address] 32713 Gilmer Jackson, [address], [address] [place] [address] 39094 [email or web address] 07/15/2025 8:30 AM EDT Infusion [facility] [address] [place] [address] 27998 Gilmer Jackson, [address], [address] [place] [address] 45235 [email or web address] 07/16/2025 8:30 AM EDT Infusion [facility] [address] [place] [address] 82345 Gilmer Jackson, [address], [address] [place] [address] 81169 [email or web address] 08/09/2025 8:30 AM EDT Infusion [facility] [address] [place] [address] 77683 Gilmer Jackson, [address], [address] [place] [address] 60410 [email or web address] 08/10/2025 8:30 AM EDT Infusion [facility] [address] [place] [address] 43711 Gilmer Jackson, [address], [address] [place] [address] 84289 [email or web address] 08/11/2025 8:30 AM EDT Infusion [facility] [address] [place] [address] 64893 Gilmer Jackson, [address], [address] [place] [address] 22529 [email or web address] 08/12/2025 8:30 AM EDT Infusion [facility] [address] [place] [address] 85396 Gilmer Jackson, [address], [address] [place] [address] 95456 [email or web address] 08/13/2025 8:30 AM EDT Infusion [facility] [address] [place] [address] 42445 Gilmer Jackson, [address], [address] [place] [address] 43836 [email or web address] 09/06/2025 8:30 AM EDT Infusion [facility] [address] [place] [address] 71852 Thalia Jacksonnatbibi Miller, [address], [address] [place] [address] 61656 [email or web address] 09/07/2025 8:30 AM EDT Infusion [facility] [address] [place] [address] 88780 Thalia Jacksonnathan Angela, [address], [address] [place] [address] 88438 [email or web address] 09/08/2025 8:30 AM EDT Infusion [facility] [address] [place] [address] 25891 Thalia Jacksonanitha Miller, [address], [address] [place] [address] 20034 Digital Map [email or web address] 09/09/2025 8:30 AM EDT Infusion [facility] [address] [place] [address] 70241 Thalia Jacksonanitha Miller, [address], [address] [place] [address] 73529 [email or web address] 09/10/2025 8:30 AM EDT Infusion [facility] [address] [place] [address] 17016 Thalia Jacksonanitha Miller, [address], [address] [place] [address] 48226 [email or web address] documented as of this encounter Visit Diagnoses Not on filedocumented in this encounter Care Teams Hotel [employer] Floorperson Relationship Specialty Start Date End Date Terra Galeano MD PCP - General Internal Medicine 06/04/17 Carol Vyas NP [address] [place] [address] 23285 Referring Physician Family Medicine 02/14/24 documented as of this encounter Additional Source Comments The information contained in this document represents components of the legal health record. It is not the complete legal health record.[facility]
--- OUTSIDE RECORDS SUMMARY | 2025-01-14 12:56 | XMS_ITS | Encounter Summary ---
Author Organization [facility] Address [address] [place] [address] Care Team Providers Care Capital Project Engineer Name Role Phone Terra Lopez Primary Care Provider [phone] Encounter Details Date Type Department Care Team (Late st Contact Info) Description 02/16/2022 Orders Only [facility] [address] [place] [address] ProviderRosa MD [address] [place] [address] Social History Tobacco Use Types Packs/Day [...] Description 04/15/2025 11:00 AM EST Office Visit [facility] [address] [place] [address] Karla Diaz MD [address] [place], [place] [id number] documented as of this encounter Procedures * Due to [place] [employer] law, this organization might not be sharing negative HIV tests. Procedure Name Priority Date/Time Associated Diagnosis Comments AMB EXTERNAL MRI C-SPINE, OU TSIDE RESULT Routine 10/24/2021 documented in this encounter Results * Due to [place] state law, this organization might not be sharing negative HIV tests. * MRI C-Spine, Outside Result (10/24/2021) Anatomical Region Laterality Modality Other us Unknown Provider MD DANIELS EXTERNAL RESULT PROCEDUR ES Final Result documented in this encounter Visit Diagnoses Not on filedocumented in this encounter Care Teams Capital Project Engineer Relationship Specialty Start Date End Date Terra Lopez PCP - General Family Medicine 04/13/21 documented as of this encounter
--- OUTSIDE RECORDS SUMMARY | 2025-01-14 12:57 | XMS_ITS | Clinical Summary ---
Author Organization [facility] Address [address] [place] [address] [place] [address] Phone Care Team Providers Care Payroll Associate Name Role Phone Terra Galeano MD Primary Care Provider + [phone] Carol Vyas NP Unavailable + [phone] Allergies No known active allergies Medications naproxen sodium (ALEVE) 220 mg Cap Take by mouth. Activ e atorvastatin (LIPITOR) 80 MG tablet TAKE 1 TABLET AT BEDTIME 7 Active cyclobenzaprine (FLEXERIL) 10 MG tablet Take 10 mg by mouth 3 (three) times a day as needed. 7 Active omega 1-bou-sul-fish oil (FISH OIL) 1,000 mg (120 mg-180 mg) Cap by Does not apply route. Takes daily Active lidocaine (LIDODERM) 5 % Place 1 patch onto the skin daily as needed. 8 Active metoprolol succinate (TOPROL-XL) 50 MG 24 hr tablet TAKE 1 TABLET NIGHTLY 8 Active mometasone (ELOCON) 0.1 % ointment 3 Active diphenhydrAMINE (BENADRYL) 25 mg tablet takes dAILY NEEDED 7 Active MULTIVITAMIN ORAL None Entered 7 Active nitroglycerin (NITROSTAT) 0.[address] 0.4 mg under the tongue. 7 Active raNITIdine (ZANTAC) 150 MG capsule Take 150 mg by mouth 2 (two) times a day as needed. 4 Active aspirin 81 MG EC tablet Take by mouth. 6 Active urea 40 % Crea 7 Active ibuprofen (ADVIL,MOTRIN) 200 MG tablet Take 2 tablets (400 mg total) by mouth every 6 (six) hours as needed for pain (specific location in comments). 8 Active hydroCHLOROthia zide 12.5 mg capsule Take 12.5 mg by mouth every morning. 2 Active valsartan (DIOVAN) 80 MG tablet Take 80 mg by mouth daily. 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 To all area of rash. 1362 g 3 4 Active tamsulosin (FLOMAX) 0.4 mg Cap Take 0.4 mg by mouth daily. Active finasteride (PROSCAR) 5 mg tablet Take 5 mg by mouth daily. Active immune globulin, human, (ALYGLO) 10 % Soln IV injection Inject 40 g into the vein every 28 days. 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 Active Active Problems Patient Care Coordination No te Formatting of this note migh t be different from the original. 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 Encounters Date Type Department Care Team Description 01/01/2025 8:30 AM EDT Infusion [facility] Infusion [address] [address] Gilmer Jackson, DO Multifocal motor neuropathy (Primary Dx) 12/31/2024 8:30 AM EDT Infusion [facility] [address] [place] [address] Gilmer Jackson, DO Multifocal motor neuropathy (Primary Dx) 12/30/2024 8:30 AM EDT Infusion [facility] [address] [place] [address] Gilmer Jackson, DO Multifocal motor neuropathy (Primary Dx) 12/29/2024 8:30 AM EDT Infusion [facility] [address] [place] [address] Gilmer Jackson, DO Multifocal motor neuropathy (Primary Dx) 12/28/2024 8:30 AM EDT Infusion [facility] [address] [place] [address] Gilmer Jackson, DO Multifocal motor neuropathy (Primary Dx) 12/04/2024 8:30 AM EDT Infusion [facility] [address] [place] [address] Gilmer Jackson, DO Multifocal motor neuropathy (Primary Dx) 12/03/2024 8:30 AM EDT Infusion [facility] [address] [place] [address] Gilmer Jackson, DO Multifocal motor neuropathy (Primary Dx) 12/02/2024 8:30 AM EDT Infusion [facility] [address] [place] [address] Gilmer Jackson, DO Multifocal motor neuropathy (Primary Dx) 12/01/2024 8:30 AM EDT Infusion [facility] [address] [place] [address] Gilmer Jackson, DO Multifocal motor neuropathy (Primary Dx) 11/30/2024 8:30 AM EDT Infusion [facility] [address] [place] [address] Gilmer Jackson, DO Multifocal motor neuropathy (Primary Dx) 11/23/2024 2:30 PM EDT Office [facility] [address] [facility], [address]th [place] [address] Darlyn Yeager MD 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 Family care (i.e. spouse, parents, other family) 02/24/2024 Education Answer Date Recorded Are you interested in more education? Not on katy e 08/31/2022 Are you concerned about learning? Not on file 08/31/2022 No 08/31/2022 No 08/31/2022 Food Answer Date Recorded Within the past 6 months we worried whether our food would run out before we got money to buy more. Often True 02/24/2024 Within the past 6 months the food we bought just didn't last and we didn't have enough money to get more. Often True Residential Stability Answer Date Recor ded What is your housing situation today? I have a place to live today, but I am worried about losing it in the next 3 months 02/24/2024 How many times have you move d in the past 12 months? Zero (I did not move) 02/24/2024 Paying Utility Bills Answer Date Record ed Do you have trouble paying your heating or elect ricity bill? Yes 02/24/2024 Transportation Answer Date Recorded Has the lack of transportati on kept you from medical appointments or from getting medications? Yes 02/24/2024 Digital Access Answer Date Recorded No 09/29/2022 No 09/29/2022 Reliable internet access at home? Not on file 09/29/2022 Device with a working camera? Not on file Sex and Gender Information Value Date Recorded Sex Assigned at Male 02/14/2024 3:28 PM EDT Legal Sex Male 3:47 PM EST Gender Identity Male 02/14/2024 3:28 PM EDT Sexual Orientation Straight 02/14/2024 3: 28 PM EDT Last Filed Vital Signs Vital Sign Reading Time Taken Comments Blood Pressure 150/77 01/01/2025 11:44 AM EDT Pulse 51 01/01/2025 11:44 AM EDT Temperature 35.9 C (96.6 F) 01/01/2025 11:44 AM EDT Respiratory Rate 18 01/01/2025 11:44 AM EDT Oxygen Saturation 98% 01/01/2025 11:44 AM EDT Inhaled Oxygen Concentration - - Weight 127 kg (280 lb) 11/30/2024 8:15 AM EDT Height 188 cm (6' 2.02 ) 09/14/2024 7:47 AM EDT Body Mass Index 35.93 09/14/2024 7:47 AM EDT Plan of Treatment Upcoming Encounters Date Type Department Care Team (Late st Contact Info) Description 01/25/2025 8:30 AM EDT Infusion [facility] Infusion [address] [address] Gilmer Jackson, [address], [address] [phone] [email or web address] 01/26/2025 8:30 AM EDT Infusion [facility] Infusion [address] [address] Gilmer Jackson, [address], [address] [id number] [email or web address] 01/27/2025 8:30 AM EDT Infusion [facility] Infusion [address] [address] Gilmer Jackson, [address], [address] [id number] [email or web address] 01/28/2025 8:00 AM EDT Infusion [facility] Infusion [address] [address] Gilmer Jackson, [address], [address] [place] [address] [email or web address] 01/29/2025 8:30 AM EDT Infusion [facility] [address] [place] [address] Gilmer Jackson, [address], [address] [place] [address] [email or web address] 02/22/2025 8:30 AM EDT Infusion [facility] [address] [place] [address] Gilmer Jackson, [address], [address] [place] [phone] [email or web address] 02/23/2025 8:30 AM EDT Infusion [facility] [address] [place] [address] Gilmer Jackson, [address], [address] [place] [id number] [email or web address] 02/24/2025 8:30 AM EDT Infusion [facility] [address] [place] [address] Gilmer Jackson, [address], [address] [place] [id number] [email or web address] 02/25/2025 8:00 AM EDT Infusion [facility] [address] [place] [address] Gilmer Jackson, [address], [address] [place] [id number] [email or web address] 02/26/2025 8:30 AM EDT Infusion [facility] [address] [place] [address] Gilmer Jackson, [address], [address] [place] [id number] [email or web address] 03/22/2025 8:30 AM EST Infusion [facility] [address] [place] [address] Gilmer Jackson, [address], [address] [place] [address] [email or web address] 03/23/2025 8:30 AM EST Infusion [facility] [address] [place] [address] Gilmer Jackson, [address], [address] [place] [address] [email or web address] 03/24/2025 8:30 AM EST Infusion [facility] [address] [place] [address] Gilmer Jackson, [address], [address] [place] [address] [email or web address] 03/25/2025 8:30 AM EST Infusion [facility] [address] [place] [address] Gilmer Jackson, [address], [address] [place] [id number] [email or web address] 03/26/2025 8:30 AM EST Infusion [facility] [address] [place] [address] Gilmer Jackson, [address], [address] [place] [address] [email or web address] 03/30/2025 2:30 PM EST Office Visit [facility] [address] [facility], [address]th [place] [address] Sara Angelo MD [address] [place] [address] [email or web address] 04/19/2025 8:30 AM EST Infusion [facility] [address] [place] [address] Gilmer Jackson, DO [address] [facility], [address] [place] [phone] [email or web address] 04/20/2025 8:30 AM EST Infusion [facility] [address] [place] [address] Gilmer Jackson, [address], [address] [place] [address] [email or web address] 04/21/2025 8:30 AM EST Infusion [facility] [address] [place] [address] Gilmer Jackson, [address], [address] [place] [id number] [email or web address] 04/22/2025 8:30 AM EST Infusion [facility] [address] [place] [address] Gilmer Jackson, [address], [address] [place] [id number] [email or web address] 04/23/2025 8:30 AM EST Infusion [facility] [address] [place] [address] Gilmer Jackson, [address], [address] [place] [id number] [email or web address] 05/17/2025 8:30 AM EST Infusion [facility] [address] [place] [address] Gilmer Jackson, [address], [address] [place] [address] [email or web address] 05/18/2025 8:30 AM EST Infusion [facility] [address] [place] [address] Gilmer Jackson, [address], [address] [place] [id number] [email or web address] 05/19/2025 8:30 AM EST Infusion [facility] [address] [place] [address] Gilmer Jackson, [address], [address] [place] [address] [email or web address] 05/20/2025 8:30 AM EST Infusion [facility] [address] [place] [address] Gilmer Jackson, [address], [address] [place] [id number] [email or web address] 05/21/2025 8:30 AM EST Infusion [facility] [address] [place] [address] Gilmer Jackson, [address], [address] [place] [address] [email or web address] 06/14/2025 8:30 AM EST Infusion [facility] [address] [place] [address] Gilmer Jackson, [address], [address] [place] [address] [email or web address] 06/15/2025 8:30 AM EST Infusion [facility] [address] [place] [address] Gilmer Jackson, [address], [address] [place] [id number] [email or web address] 06/16/2025 8:30 AM EST Infusion [facility] [address] [place] [address] Gilmer Jackson, [address], [address] [place] [address] [email or web address] 06/17/2025 8:30 AM EST Infusion [facility] [address] [place] [address] Gilmer Jackson, [address], [address] [place] [id number] [email or web address] 06/18/2025 8:30 AM EST Infusion [facility] [address] [place] [address] Gilmer Jackson, [address], [address] [place] [address] [email or web address] 07/12/2025 8:30 AM EDT Infusion [facility] [address] [place] [address] Gilmer Jackson, [address], [address] [place] [address] [email or web address] 07/13/2025 8:30 AM EDT Infusion [facility] [address] [place] [address] Gilmer Jackson, [address], [address] [place] [id number] [email or web address] 07/14/2025 8:30 AM EDT Infusion [facility] [address] [place] [address] Gilmer Jackson, [address], [address] [place] [address] [email or web address] 07/15/2025 8:30 AM EDT Infusion [facility] [address] [place] [address] Gilmer Jackson, [address], [address] [place] [address] [email or web address] 07/16/2025 8:30 AM EDT Infusion [facility] [address] [place] [address] Gilmer Jackson, [address], [address] [place] [id number] [email or web address] 08/09/2025 8:30 AM EDT Infusion [facility] [address] [place] [address] Gilmer Jackson, [address], [address] [place] [id number] [email or web address] 08/10/2025 8:30 AM EDT Infusion [facility] [address] [place] [address] Gilmer Jackson, [address], [address] [place] [address] [email or web address] 08/11/2025 8:30 AM EDT Infusion [facility] [address] [place] [address] Gilmer Jackson, [address], [address] [place] [address] [email or web address] 08/12/2025 8:30 AM EDT Infusion [facility] [address] [place] [address] Gilmer Jackson, [address], [address] [place] [address] [email or web address] 08/13/2025 8:30 AM EDT Infusion [facility] [address] [place] [address] Gilmer Jackson, [address], [address] [place] [id number] [email or web address] 09/06/2025 8:30 AM EDT Infusion [facility] [address] [place] [address] Gilmer Jackson, [address], [address] [place] [address] [email or web address] 09/07/2025 8:30 AM EDT Infusion [facility] [address] [place] [address] Gilmer Jackson, [address], [address] [place] [address] [email or web address] 09/08/2025 8:30 AM EDT Infusion [facility] [address] [place] [address] Gilmer Jackson, [address], [address] [place] [address] [email or web address] 09/09/2025 8:30 AM EDT Infusion [facility] [address] [place] [address] ManuelGilmer, DO [address] [facility], [address] [place] [address] [email or web address] 09/10/2025 8:30 AM EDT Infusion [facility] [address] [place] [address] ManuelGilmer, DO [address] [facility], [address] [place] [address] [email or web address] Health Maintenance Due Date Last Done Comments DEPRESSION SCREENING 1964 HEPATITIS C SCREENING 1970 PNEUMOCOCCAL VACCINES (50+ years) (1 of 2 - PCV) 1971 ZOSTER VACCINES (1 of 2) 1971 COLOGUARD 1997 COLONOSCOPY 1997 COLORECTAL CANCER SCREENING 1997 FIT TEST 1997 FOBT 1997 SIGMOIDOSCOPY 1997 VIRTUAL COLONOSCOPY 1997 RSV VACCINE (1 - Risk 60-74 years 1-dose series) 2012 LIPID PANEL 06/26/2022 06/26/2017 INFLUENZA VACCINE (#1) 2024 COVID-19 VACCINE ( - 2023-2 5 season) 2025 CREATININE LEVEL 03/02/2025 03/02/2024 POTASSIUM LEVEL 03/02/2025 03/02/2024 Adult Td,Tdap Booster 01/02/2034 01/03/2024 , 03/10/2012 SMOKING STATUS SCREENING (On ce After 26 Yrs) Completed 11/18/2017 HEPATITIS A VACCINES Aged Out No long er eligible based on patient's age to complete this topic HIB VACCINES Aged Out No longer eligi ble based on patient's age to complete this topic MENINGOCOCCAL VACCINES (ACWY) Aged Out No longer eligible based on patient's age to complete this topic MENINGOCOCCAL VACCINES (B) Aged Out N o longer eligible based on patient's age to complete this topic Medical Devices Implanted Type Area Stock Preparer Device Identifier Shelf Expiration Date Model / Serial / Lot 2 Cardiac Stents Possible Umbilical Mesh Procedures Procedure Name Priority Date/Time Associated Diagnosis Comments OUTSIDE PATHOLOGY 10/16/2024 COMPREHENSIVE METABOLIC PANEL Routine 03/02/2024 2:54 PM EDT from Last 3 Months or Most Recently Relevant to Health Maintenance Results * Outside Pathology (10/16/2024) us Scanning Interface Provider PATHOLOGY ORDERABLES Final Result * (ABNORMAL) Comprehensive metabolic panel (03/02/2024 2:54 PM EDT) SODIUM 141 136 - 145 mmol/L [facility] LIC# [id number] POTASSIUM 3.8 3.4 - 5.1 mmol/L [facility] LIC# [id number] CHLORIDE 103 98 - 107 mmol/L [facility] LIC# [id number] CO2 24 22 - 31 mmol/L [facility] LIC# [id number] BUN 15 6 - 23 mg/dL [facility] LIC# [id number] CREATININE 0.90 0.50 - 1.20 mg/dL [facility] LIC# [id number] GLUCOSE 117(H) 70 - 100 mg/dL [facility] LIC# [id number] ALBUMIN 4.2 3.5 - 5.2 g/dL [facility] LIC# [id number] TOTAL PROTEIN 7.1 6.4 - 8.3 g/dL [facility] LIC# [id number] CALCIUM 9.3 8.8 - 10.7 mg/dL [facility] LIC# [id number] ALKALINE PHOSPHATASE 120 40 - 129 U/L [facility] LIC# [id number] TOTAL BILIRUBIN 0.8 0.2 - 1.2 mg/dL [facility] LIC# [id number] AST 21 <41 U/L [facility] LIC# [id number] ALT 27 <42 U/L [facility] LIC# [id number] GLOBULIN 2.9 2.3 - 4.2 g/dL [facility] LIC# [id number] EGFR 91 >59 mL/min/1.7 3m2 [facility] LIC# [id number] Comment:Estimated glomerular filtration rate calculated using the CKD-EPI refit equation. ANION GAP 14 7 - 17 mmol/L [facility] LIC# [id number] 03/02/2024 2:54 PM EDT 03/02/2024 3:55 PM EDT us Darlyn Yeager MD LAB BLOOD ORDERABLES Final Resu lt [facility] LIC# [id number] [address] [place] [address] from Last 3 Months or Most Recently Relevant to Health Maintenance Insurance MEDICARE PART A & B [place] [facility] MEDEX SUPPLEMENT MEDICARE PART A & B [employer] MEDEX SUPPLEMENT MEDICARE PART A & B [employer] MEDEX SUPPLEMENT MEDICARE PART A & B [facility] MEDEX SUPPLEMENT MEDICARE PART A & B [employer] MEDEX SUPPLEMENT MEDICARE PART A & B [employer] MEDEX SUPPLEMENT MEDICARE PART A & B [employer] MEDEX SUPPLEMENT MEDICARE PART A & B [employer] MEDEX SUPPLEMENT MEDICARE PART A & B [employer] MEDEX SUPPLEMENT MEDICARE PART A & B [employer] MEDEX SUPPLEMENT Advance Directives For more information, please contact: [phone] (9AM - 5PM Brenda/[facility], Saturday-Saturday) Documents on File Type Date Recorded 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 It is not the complete legal health record.[facility]
--- OUTSIDE RECORDS SUMMARY | 2025-01-14 12:57 | XMS_ITS | Encounter Summary ---
Author Organization [facility] Address [address] [place] [address] Care Team Providers Care Stucco Mason Name Role Phone Terra Lopez Primary Care Provider [phone] Encounter Details Date Type Department Care Team (Late st Contact Info) Description 02/15/2022 Orders Only [facility] [address] [place] [address] [address] Social History Tobacco Use Types Packs/Day Years [...] Description 04/15/2025 11:00 AM EST Office Visit [facility] [address] [place] [address] Karla Diaz MD [address] [place], [place] [id number] documented as of this encounter Procedures * Due to [place] state law, this organization might not be sharing negative HIV tests. Procedure Name Priority Date/Time Associated Diagnosis Comments AMB EXTERNAL MRI CHEST, OUTS ROBYN RESULT Routine 10/24/2021 AMB EXTERNAL MRI C-SPINE, OU TSIDE RESULT Routine 10/24/2021 documented in this encounter Results * Due to [place] state law, this organization might not be sharing negative HIV tests. * MRI Chest, Outside Result (10/24/2021) Anatomical Region Laterality Modality Other [facility] AMB EXTERNAL RESULT PROCEDURES Final Result * MRI C-Spine, Outside Result (10/24/2021) Anatomical Region Laterality Modality Other [facility] AMB EXTERNAL RESULT PROCEDURES Final Result documented in this encounter Visit Diagnoses Not on filedocumented in this encounter Care Teams Stucco Mason Relationship Specialty Start Date End Date Terra Lopez PCP - General Family Medicine 04/13/21 documented as of this encounter
--- OUTSIDE RECORDS SUMMARY | 2025-01-14 12:57 | XMS_ITS | Encounter Summary ---
Author Organization [facility] Address [address] [place] [address] Care Team Providers Care Plant Tender Name Role Phone Terra Lopez Primary Care Provider [phone] Reason for Visit * Reason Onset Date Comments CS - reschedule today's appointment 08/23/2022 Encounter Details Date Type Department Care Team (Late st Contact Info) Description 08/23/2022 Telephone [facility] [address] [place] [address] Telephone Intake, Staff CS - reschedule today's [...] appts until February. Please follow up at [phone]. documented in this encounter Plan of Treatment Upcoming Encounters Date Type Department Care Team (Late st Contact Info) Description 04/15/2025 11:00 AM EST Office Visit [facility] [address] [place] [address] Karla Diaz MD [address] [place] [address] documented as of this encounter Visit Diagnoses Not on filedocumented in this encounter Care Teams Plant Tender Relationship Specialty Start Date End Date Terra Lopez PCP - General Family Medicine 04/13/21 documented as of this encounter
== END 2025-01-14 12:37 | disposition home or self-care (01) ==
LOC: HO.HMCFM 10:20
PROVIDERS: PCP Internal Medicine; Visit Provider Internal Medicine
DX: C61 Malignant neoplasm of prostate (principal); V89.2XXA Person injured in unspecified motor-vehicle accident, traffic, initial encounter; C84.A1 Cutaneous T-cell lymphoma, unspecified lymph nodes of head, face, and neck; I10 Essential (primary) hypertension; I25.10 Atherosclerotic heart disease of native coronary artery without angina pectoris

== ENCOUNTER → 2025-01-14 10:19 | Outpatient (BNVA) | payer MEDICARE, SELFPAY | PROVIDERS: PCP Internal Medicine; Visit Provider Internal Medicine | DX: M54.50 Low back pain, unspecified (principal); C61 Malignant neoplasm of prostate; C84.A1 Cutaneous T-cell lymphoma, unspecified lymph nodes of head, face, and neck; I10 Essential (primary) hypertension; I25.10 Atherosclerotic heart disease of native coronary artery without angina pectoris | CPT/HCPCS: 99212 ==

== ENCOUNTER 2025-03-02 14:55 | Outpatient (AMB) | payer OTHER, MEDICARE, SELFPAY ==
--- OUTSIDE RECORDS SUMMARY | 2025-02-25 08:00 | XMS_ITS | Encounter Summary ---
Author Organization [facility] Address [facility] [facility] [address] [place] [address] Phone Care Team Providers Care Warehouse Handler Name Role Phone Carol Vyas NP Unavailable + [phone] Terra Galeano MD Primary Care Provider + [phone] Reason for Visit * Treatment and Therapy Plan (Routine) - Authorized Specialty Diagnoses / Procedures Referred By Adelaide cohen Referred To Contact Infusion Therapy Diagnoses SPECIALTY IVIG ALYGLO Procedures IL INJ, ALYGLO, 500 MG Gilmer Jackson DO [address] [facility], [address] [place] [address] Phone: tel: fax: [email or web address] [address] [place] [address] Phone: tel: fax: Referral ID Status Reason Start Date Expiration Date V isits Requested Visits Authorized [id number] Authorized 09/14/2024 08/04/2038 99 99 Encounter Details Date Type Department Care Team (Late st Contact Info) Description 02/25/2025 8:00 AM EDT Infusion [facility] [address] [place] [address] Gilmer Jackson DO [address] [facility], [address] [place] [address] [email or web address] Multifocal motor neuropathy (Primary Dx) Social History Tobacco Use Types Packs/Day Years [...] PM EDT documented as of this encounter Last Filed Vital Signs Vital Sign Reading Time Taken Comments Blood Pressure 147/78 02/25/2025 8:02 AM EDT Pulse 76 02/25/2025 8:02 AM EDT Temperature 35 C (95 F) 02/25/2025 8:02 AM EDT Respiratory Rate 18 02/25/2025 8:02 AM EDT Oxygen Saturation 100% 02/25/2025 8:02 AM EDT Inhaled Oxygen Concentration - - Weight - - Height - - Body Mass Index - - documented in this encounter Progress Notes * Joceline Holcomb RN - 02/25/2025 8:00 AM EDT Pt here for IVIG infusion. Infusion at 40, 80, 160 ml/hr maximum tolerated well. documented in this encounter Plan of Treatment Upcoming Encounters Date Type Department Care Team (Late st Contact Info) Description 03/22/2025 8:30 AM EST Infusion [facility] Medical Infusion Center [address] [place] [address] Gilmer Jackson, [address], [address] [address] [email or web address] 03/23/2025 8:30 AM EST Infusion [facility] Medical Infusion Center [address] [place] [address] Gilmer Jackson, [address], [address] [address] [email or web address] 03/24/2025 8:30 AM EST Infusion [facility] Medical Infusion Center [address] [place] [address] Gilmer Jackson, [address], [address] [address] [email or web address] 03/25/2025 8:30 AM EST Infusion [facility] Medical Infusion Center [address] [place] [address] Gilmer Jackson, [address], [address] [place] [address] [email or web address] 03/26/2025 8:30 AM EST Infusion [facility] Medical Infusion Center [address] [place] [address] Gilmer Jackson, [address], [address] [place] [address] [email or web address] 03/30/2025 2:30 PM EST Office [facility] [address] [facility], 5th [place] [address] Sara Angelo MD [address] [place] [address] [email or web address] 04/19/2025 8:30 AM EST Infusion [facility] Medical Infusion Center [address] [place] [address] Gilmer Jackson, [address], [address] [place] [address] [email or web address] 04/20/2025 8:30 AM EST Infusion [facility] Medical Infusion Center [address] [place] [address] Gilmer Jackson, [address], [address] [place] [address] [email or web address] 04/21/2025 8:30 AM EST Infusion [facility] Medical Infusion Center [address] [place] [address] Gilmer Jackson, [address], [address] [place] [address] [email or web address] 04/22/2025 8:30 AM EST Infusion [facility] Medical Infusion Center [address] [place] [address] Gilmer Jackson, [address], [address] [place] [address] [email or web address] 04/23/2025 8:30 AM EST Infusion [facility] Medical Infusion Center [address] [place] [address] Gilmer Jackson, [address], [address] [place] [address] [email or web address] 05/17/2025 8:30 AM EST Infusion [facility] Medical Infusion Center [address] [place] [address] Gilmer Jackson, [address], [address] [place] [address]296 [email or web address] 05/18/2025 8:30 AM EST Infusion [facility] Medical Infusion Center [address] [place] [address] Gilmer Jackson, [address], [address] [place] [address] [email or web address] 05/19/2025 8:30 AM EST Infusion [facility] Medical Infusion Center [address] [place] [address] Gilmer Jackson, [address], [address] [place] [address] [email or web address] 05/20/2025 8:30 AM EST Infusion [facility] Medical Infusion Center [address] [place] [address] Gilmer Jackson, [address], [address] [place] [address] [email or web address] 05/21/2025 8:30 AM EST Infusion [facility] Medical Infusion Center [address] [place] [address] Gilmer Jackson, [address], [address] [place] [address] 357[address] [email or web address] 06/14/2025 8:30 AM EST Infusion [facility] Medical Infusion Center [address] [place] [address] Gilmer Jackson, [address], [address] [place] [address] [email or web address] 06/15/2025 8:30 AM EST Infusion [facility] Medical Infusion Center [address] [place] [address] Gilmer Jackson, [address], [address] [place] [address] [email or web address] 06/16/2025 8:30 AM EST Infusion [facility] Medical Infusion Center [address] [place] [address] Gilmer Jackson, [address], [address] [place] [address] [email or web address] 06/17/2025 8:30 AM EST Infusion [facility] Medical Infusion Center [address] [place] [address] Gilmer Jackson, [address], [address] [place] [address] 75672 [email or web address] 06/18/2025 8:30 AM EST Infusion [facility] Medical Infusion Center [address] [place] [address] Gilmer Jackson, [address], [address] [place] [address] [email or web address] 07/12/2025 8:30 AM EDT Infusion [facility] Medical Infusion Center [address] [place] [address] Gilmer Jackson, [address], [address] [place] [address] [email or web address] 07/13/2025 8:30 AM EDT Infusion [facility] Medical Infusion Center [address] [place] [address] Gilmer Jackson, [address], [address] [place] [address] [email or web address] 07/14/2025 8:30 AM EDT Infusion [facility] Medical Infusion Center [address] [place] [address] Gilmer Jackson, [address], [address] [place] [address]270 [email or web address] 07/15/2025 8:30 AM EDT Infusion [facility] Medical Infusion Center [address] [place] [address] Gilmer Jackson, [address], [address] [place] [address] [email or web address] 07/16/2025 8:30 AM EDT Infusion [facility] Medical Infusion Center [address] [place] [address] Gilmer Jackson, [address], [address] [place] [address] [email or web address] 08/09/2025 8:30 AM EDT Infusion [facility] Medical Infusion Center [address] [place] [address] Gilmer Jackson, [address], [address] [place] [address]697 [email or web address] 08/10/2025 8:30 AM EDT Infusion [facility] Medical Infusion Center [address] [place] [address] Gilmer Jackson, [address], [address] [place] [address] 10218 [email or web address] 08/11/2025 8:30 AM EDT Infusion [facility] Medical Infusion Center [address] [place] [address] Gilmer Jackson, [address], [address] [place] [address] [email or web address] 08/12/2025 8:30 AM EDT Infusion [facility] Medical Infusion Center [address] [place] [address] 70476 Gilmer Jackson, [address], [address] [place] [address] [email or web address] 08/13/2025 8:30 AM EDT Infusion [facility] Medical Infusion Center [address] [place] [address] 09140 Gilmer Jackson, [address], [address] [place] [address] 73787 [email or web address] 09/06/2025 8:30 AM EDT Infusion [facility] Medical Infusion Center [address] [place] [address] 60[address] Gilmer Jackson, [address], [address] [place] [address] 407[address] [email or web address] 09/07/2025 8:30 AM EDT Infusion [facility] Medical Infusion Center [address] [place] [address] Gilmer Jackson, [address], [address] [place] [address]15[address] [email or web address] 09/08/2025 8:30 AM EDT Infusion [facility] Infusion [address] [address] Gilmer Jackson, [address], [address] [place] [address] [email or web address] 09/09/2025 8:30 AM EDT Infusion [facility] Infusion [address] [address] Gilmer Jackson, [address], [address] [place] [address] 89209 [email or web address] 09/10/2025 8:30 AM EDT Infusion [facility] Infusion [address] [address] Gilmer Jackson, [address], [address] [address] [email or web address] documented as of this encounter Visit Diagnoses Diagnosis 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 documented in this encounter Administered Medications Inactive Administered Medications - up to 3 most recent administrations Medication Order MAR Action Action Date Dose Rate Site immune globulin (human) (ALYGLO) IV injection 40 g 40 g (rounded from 40.04 g = 0.4 g/kg 100.1 kg Adjusted weight), Intravenous, Once, On Juliana 02/25/25 at 0845, For 1 dose, Pt to get Alyglo PATIENT SUPPLIED MEDICATION Infuse first 15 minutes @ 1.2ml/kg hr approx 152ml/hr Then double infusion rate ever 15 minutes if tolerated to a maximum of 4.8ml/kg/hr = approx 600ml/hr Infusion rates and titration are based on patient's Actual Body Weight.Indications:Multifocal motor neuropathy Given 02/25/2025 8:27 AM EDT 40 g documented in this encounter Care Teams Warehouse Handler Relationship Specialty Start Date End Date Terra Galeano MD [address] [place] [address] PCP - General Internal Medicine 01/25/25 Carol Vyas NP [address] [place] [address] Referring Physician Family Medicine 02/14/24 documented as of this encounter Additional Source Comments The information contained in this document represents components of the legal health record. It is not the complete legal health record.[facility]
--- OUTSIDE RECORDS SUMMARY | 2025-02-26 08:30 | XMS_ITS | Encounter Summary ---
Author Organization [facility] Address [facility] [address] [place] [address] Phone Care Team Providers Care Contract Attorney Name Role Phone Carol Vyas NP Unavailable + [phone] Terra Galeano MD Primary Care Provider + [phone] Reason for Visit * Treatment and Therapy Plan (Routine) - Authorized Specialty Diagnoses / Procedures Referred By Adelaide cohen Referred To Contact Infusion Therapy Diagnoses SPECIALTY IVIG ALYGLO Procedures ME INJ, ALYGLO, 500 MG Gilmer Jackson DO [address] [facility], [address] [place] [address] Phone: tel: fax: [email or web address] Infusion Center [address] [place] [address] Phone: tel: fax: Referral ID Status Reason Start Date Expiration Date V isits Requested Visits Authorized [id number] Authorized 09/14/2024 08/04/2038 99 99 Encounter Details Date Type Department Care Team (Late st Contact Info) Description 02/26/2025 8:30 AM EDT Infusion [facility] [address] [place] [address] Gilmer Jackson DO [address] [facility], [address] [place] [address] [email or web address] Multifocal motor neuropathy (Primary Dx) Social History [...] Sign Reading Time Taken Comments Blood Pressure 154/81 02/26/2025 11:42 AM EDT Pulse 62 02/26/2025 11:42 AM EDT Temperature 35.9 C (96.7 F) 02/26/2025 8:16 AM EDT Respiratory Rate - - Oxygen Saturation 98% 02/26/2025 11:42 AM EDT Inhaled Oxygen Concentration - - Weight - - Height - - Body Mass Index - - documented in this encounter Progress Notes * Matt Quintana RN - 02/26/2025 8:30 AM EDT Pt in clinic for day 5 of IVIG infusion. Pt reports he's tolerating tx very well and has increased sensation in his feet. Infusion titrated as follows 40 ml/hr x 15 mins 80 ml/hr x 15 mins 160 ml/hr max for remainder Infusion initiated at 0846 and stopped at 1138. Pt tolerated infusion without incident. Pt dc'ed instable condition. documented in this encounter Plan of Treatment Upcoming Encounters Date Type Department Care Team (Late st Contact Info) Description 03/22/2025 8:30 AM EST Infusion [facility] Medical Infusion Center [address] [place] [address] Gilmer Jackson, [address] [address] [email or web address] 03/23/2025 8:30 AM EST Infusion [facility] Medical Infusion Center [address] [place] [address] Gilmer Jackson, [address], [address] [address] [email or web address] 03/24/2025 8:30 AM EST Infusion [facility] Medical Infusion Center [address] [place] [address] Gilmer Jackson, [address], [address] [place] [address] [email or web address] 03/25/2025 8:30 AM EST Infusion [facility] Medical Infusion Center [address] [place] [address] Gilmer Jackson, DO [address] [place] [address], [address] [place] [address] [email or web address] 03/26/2025 8:30 AM EST Infusion [facility] Medical Infusion [facility] [address] [place] [address] Gilmer Jackson, DO [address] [facility], [address] [place] [address] [email or web address] 03/30/2025 2:30 PM EST Office Visit [facility], [facility] [place] [address] [facility], [address]th [place] [address] Sara Angelo MD [address] [place] [address] [email or web address] 04/19/2025 8:30 AM EST Infusion [facility] Medical Infusion [facility] [address] [place] [address] Gilmer Jackson, [address], [address] [place] [address] [email or web address] 04/20/2025 8:30 AM EST Infusion [facility] Medical Infusion [facility] [address] [place] [address] Gilmer Jackson, DO [address] [facility], [address] [place] [address] [email or web address] 04/21/2025 8:30 AM EST Infusion [facility] Medical Infusion Center [address] [place] [address] Gilmer Jackson, [address], [address] [place] [address] [email or web address] 04/22/2025 8:30 AM EST Infusion [facility] Medical Infusion [facility] [address] [place] [address] Gilmer Jackson, [address], [address] [place] [address] [email or web address] 04/23/2025 8:30 AM EST Infusion [facility] Medical Infusion [facility] [address] [place] [address] Gilmer Jackson, [address], [address] [place] [address] [email or web address] 05/17/2025 8:30 AM EST Infusion [facility] Medical Infusion [facility] [address] [place] [address] Gilmer Jackson, [address], [address] [place] [address] 12778 [email or web address] 05/18/2025 8:30 AM EST Infusion [facility] Medical Infusion [facility] [address] [place] [address] Gilmer Jackson, [address], [address] [place] [address] 80897 [email or web address] 05/19/2025 8:30 AM EST Infusion [facility] Medical Infusion [facility] [address] [place] [address] Gilmer Jackson, [address], [address] [place] [address] 714[address] [email or web address] 05/20/2025 8:30 AM EST Infusion [facility] Medical Infusion [facility] [address] [place] [address] 78[address] Gilmer Jackson, [address], [address] [place] [address] [email or web address] 05/21/2025 8:30 AM EST Infusion [facility] Medical Infusion [facility] [address] [place] [address] Gilmer Jackson, [address], [address] [place] [address] [email or web address] 06/14/2025 8:30 AM EST Infusion [facility] Medical Infusion [facility] [address] [place] [address] Gilmer Jackson, [address], [address] [place] [address] 838[address] [email or web address] 06/15/2025 8:30 AM EST Infusion [facility] Medical Infusion [facility] [address] [place] [address] 30584 Gilmer Jackson, [address], [address] [place] [address] 98659 [email or web address] 06/16/2025 8:30 AM EST Infusion [facility] Medical Infusion [facility] [address] [place] [address] Gilmer Jackson, [address], [address] [place] [address] [email or web address] 06/17/2025 8:30 AM EST Infusion [facility]fusion [facility] [address] [place] [address] Gilmer Jackson, [address], [address] [place] [address] [email or web address] 06/18/2025 8:30 AM EST Infusion [facility]fusion [facility] [address] [place] [address] 56[address] Gilmer Jackson, [address], [address] [place] [address] [email or web address] 07/12/2025 8:30 AM EDT Infusion [facility]fusion [facility] [address] [place] [address] Gilmer Jackson, [address], [address] [place] [address] [email or web address] 07/13/2025 8:30 AM EDT Infusion [facility]fusion [facility] [address] [place] [address] 24761 Gilmer Jackson, [address], [address] [place] [address] 90[address] [email or web address] 07/14/2025 8:30 AM EDT Infusion [facility] Infusion [facility] [address] [place] [address] 89[address] Gilmer Jackson, [address], [address] [place] [address] 58[address] [email or web address] 07/15/2025 8:30 AM EDT Infusion [facility] Infusion [facility] [address] [place] [address] 72049 Gilmer Jackson, [address], [address] [place] [address] 400[address] [email or web address] 07/16/2025 8:30 AM EDT Infusion [facility] Medical Infusion [facility] [address] [place] [address] 18765 Gilmer Jackson, [address], [address] [place] [address] 32384 [email or web address] 08/09/2025 8:30 AM EDT Infusion [facility] Medical Infusion [facility] [address] [place] [address] 17[address] Gilmer Jackson, [address], [address] [place] [address] 12[address] [email or web address] 08/10/2025 8:30 AM EDT Infusion [facility] Medical Infusion [facility] [address] [place] [address] 6[address] Gilmer Jackson, [address], [address] [place] [address] [email or web address] 08/11/2025 8:30 AM EDT Infusion [facility] Medical Infusion [facility] [address] [place] [address] Gilmer Jackson, [address], [address] [place] [address] [email or web address] 08/12/2025 8:30 AM EDT Infusion [facility] Infusion [facility] [address] [place] [address] 22926 Gilmer Jackson, [address], [address] [place] [address] [email or web address] 08/13/2025 8:30 AM EDT Infusion [facility]fusion [facility] [address] [place] [address] 604[address] Gilmer Jackson, [address], [address] [place] [address] [email or web address] 09/06/2025 8:30 AM EDT Infusion [facility]fusion [facility] [address] [place] [address] Gilmer Jackson, [address], [address] [place] [address] [email or web address] 09/07/2025 8:30 AM EDT Infusion [facility] Infusion [address] [address] Gilmer Jackson, [address], [address] [place] [address] [email or web address] 09/08/2025 8:30 AM EDT Infusion [facility] Infusion [address] [address] Gilmer Jackson, [address], [address] [address] [email or web address] 09/09/2025 8:30 AM EDT Infusion [facility] Infusion [address] [address] Gilmer Jackson, [address], [address] [place] [address] [email or web address] 09/10/2025 8:30 AM EDT Infusion [facility] Infusion [address] [address] Gilmer Jackson, [address], [address] [place] [address] [email or web address] documented as of this encounter Visit Diagnoses [...] 100.1 kg Adjusted weight), Intravenous, Once, On Sat02/26/25 at 0900, For 1 dose, Pt to receive Alyglo Day 5 of 5 Infusion rates and titration are based on patient's Actual Body Weight.Indications:Multifocal motor neuropathy Given 02/26/2025 8:46 AM EDT 40 g documented in this encounter Care Teams Contract Attorney Relationship Specialty Start Date End Date Terra Galeano MD [address] [place] [address] PCP - General Internal Medicine 01/25/25 Carol Vyas NP [address] [place] [address] Referring Physician Family Medicine 02/14/24 documented as of this encounter Additional Source Comments The information contained in this document represents components of the legal health record. It is not the complete legal health record.[facility]
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
[2025-03-02 15:07] VITALS: BP 136/64; PULSE 71; RESP 14; TEMP 36.5; O2SAT 98; BMI 34.9
--- OUTSIDE RECORDS SUMMARY | 2025-03-02 19:21 | XMS_ITS ---
Author Name Leo Smith Address Unknown Organization [facility] Care Team Providers Care Transformer Maker Name Role Phone Unavailable Primary Care Physician Unavailab le History Of Present Illness No Data Medications Medication Generic Name RxNorm Strength Strength Unit Route Dose Dose Form Frequency Date Started Date Ended Status Indication Sig ciclopirox ciclopir ox 476909 0.77 % Topica l cream suspend ed clobetasol cl[place]etas ol 633070 0.05 % Topica l ointm ent 12/21/19 23 suspend ed AAA bid prn not for face clobetasol [place]et[place] ol 869633 0.05 % Topica l cream BID 02/13/20 24 suspend ed Appl y twic e destin y to rash up to 2 week s/mo nth as need ed. [place]obetasol [place] 288949 0.05 % Topica l ointm ent 05/19/19 25 suspend ed Appl y thin laye r to enti re rash (jones nk, extr emit ies) for 2 week s on, 2 week s off. clobetasol clobetas ol 880443 0.05 % Topica l ointm ent 02/03/20 25 active Appl y thin laye r to enti re rash (jones nk, extr emit ies) for 2 week s on, 2 week s off. fluocinolon e fluocino lone 3150979 0.01 % Topica l oil 11/30/19 22 suspend ed appl y twic e destin y for up to two week s, take one week off. repe at unti l fredo vannessa Opbrookeura ruxoliti nib 5183152 1.5 % Topica l thin layer cream qd 02/13/20 24 suspend ed Appl y to rash BID PRN. tacrolimus tacrolim us 562691 0.1 % Topica l ointm ent 12/21/19 23 suspend ed Appl y to mario fraser BID ok to use on face triamcinolo ne acetonide triamcin olone acetonid e 2663910 0.1 % Topica l cream BID 09/28/19 22 suspend ed Appl y BID to area s of mario md for 2 week s on, and 1 week off. Avoi d face and body fold s. triamcinolo ne acetonide triamcin olone acetonid e 4678863 0.1 % Topica l ointm ent 05/19/19 25 suspend ed Appl y thin laye r to rash on arms , legs , trun k BID 2wee ks on/2 week s off. triamcinolo ne acetonide triamcin olone acetonid e 3045767 0.1 % Topica l ointm ent 02/03/20 25 active Appl y thin laye r to rash on arms , legs , trun k BID 2wee ks on/2 week s off. Vtama tapinaro f 7939141 1 % Topica l cream 04/04/20 23 suspend ed Appl y to affe cted area s of [facility] twic e destin y unti l impr ligia and then decr ease to once destin y as need ed. Adult Low Dose Aspirin aspirin 81 mg Oral 1 table t, delay ed relea se (enthaleigh worrell) qd active atorvastati n atorvast atin 356856 80 mg Oral 1 table t qd active clopidogrel clopidog rel 393984 75 mg Oral table t suspend ed cyclobenzap rine cycloben zaprine 10 mg Oral 1 table t qd active hydrochloro thiazide hydrochl orothiaz jose l 664492 12.5 mg Oral 1 capsu le qd active lisinopril lisinopr il 19771207 40 mg Oral table t suspend ed metoprolol succinate metoprol ol succinat e 4823785 50 mg Oral 1 capsu le,sp rinkl e,ER 24hr qd active montelukast monteluk ast 392421 10 mg Oral 1 table t qd active sildenafil sildenaf il 664328 50 mg Oral 1 table t prn active valsartan 276533 80 mg Oral 1 table t qd active clobetasol cl[place]et[place] ol 858548 0.05 % Scalp thin layer solut ion qd 05/19/19 25 active Mix cont na r with Cera ve tub, appl y to trun k/ex trem itie s BID 2 week s on 2 week s off. Nuria tralokin umab-ldr m 7698730 150 mg/mL Subcut aneous syrin ge 11/05/[address] two syri nges (tot al dose 300m g) SC ever y othe r week Dupixent Pen dupiluma b 9657643 300 mg/2 mL Subcut aneous pen injec tor suspend ed Dupixent Pen dupiluma b 5636393 300 mg/2 mL Subcut aneous pen injec tor 12/21/[address] 1 pen SQ Q 2 week s Dupixent Syringe dupiluma b 2914722 300 mg/2 mL Subcut aneous syrin ge 09/28/[address] one pen ever y 2 wks nitroglycer in nitrogly cerin 0.6 mg Sublin gual table t, subli ngual suspend ed nitroglycer in 19790713 0.4 mg Sublin gual 1 Table t, Subli ngual qd active active Problems Problem Code Type Status Date of Diagnosis Da te of Resolution 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) 128416254(SN OMED) Diagnosis active 02/26/2025 Cutaneous peripheral T-cell lymphoma (disorder) 891937774(SN OMED) Diagnosis active 02/24/2025 Cutaneous peripheral T-cell lymphoma (disorder) 238605560(SN OMED) Diagnosis active 02/19/2025 Cutaneous peripheral T-cell lymphoma (disorder) 453901307(SN OMED) Diagnosis active 02/17/2025 Cutaneous peripheral T-cell lymphoma (disorder) 679911364(SN OMED) Diagnosis active 02/12/2025 Cutaneous peripheral T-cell lymphoma (disorder) 440953189(SN OMED) Diagnosis active 02/10/2025 Cutaneous peripheral T-cell lymphoma (disorder) 899286258(SN OMED) Diagnosis active 02/08/2025 Cutaneous peripheral T-cell lymphoma (disorder) 182778109(SN OMED) Diagnosis active 02/02/2025 Melanocytic nevus (disorder) 397020644(SN OMED) Diagnosis active 02/02/2025 Melanocytic nevus of right upper limb (disorder) 604889518(SN OMED) Diagnosis active 02/02/2025 Cutaneous peripheral T-cell lymphoma (disorder) 480029874(SN OMED) Diagnosis active 02/01/2025 Cutaneous peripheral T-cell lymphoma (disorder) 837346344(SN OMED) Diagnosis active 01/29/2025 Cutaneous peripheral T-cell lymphoma (disorder) 376788961(SN OMED) Diagnosis active 01/25/2025 Cutaneous peripheral T-cell lymphoma (disorder) 982682633(SN OMED) Diagnosis active 01/22/2025 Cutaneous peripheral T-cell lymphoma (disorder) 891708535(SN OMED) Diagnosis active 01/18/2025 Cutaneous peripheral T-cell lymphoma (disorder) 867027523(SN OMED) Diagnosis active 01/15/2025 Cutaneous peripheral T-cell lymphoma (disorder) 198374436(SN OMED) Diagnosis active 01/11/2025 Cutaneous peripheral T-cell lymphoma (disorder) 112938568(SN OMED) Diagnosis active 01/01/2025 Cutaneous peripheral T-cell lymphoma (disorder) 363700178(SN OMED) Diagnosis active 12/28/2024 Cutaneous peripheral T-cell lymphoma (disorder) 978168772(SN OMED) Diagnosis active 12/25/2024 Cutaneous peripheral T-cell lymphoma (disorder) 193228232(SN OMED) Diagnosis active 12/21/2024 Cutaneous peripheral T-cell lymphoma (disorder) 366243879(SN OMED) Diagnosis active 12/14/2024 Cutaneous peripheral T-cell lymphoma (disorder) 471058049(SN OMED) Diagnosis active 12/07/2024 Cutaneous peripheral T-cell lymphoma (disorder) 704481516(SN OMED) Diagnosis active 11/27/2024 Cutaneous peripheral T-cell lymphoma (disorder) 945786726(SN OMED) Diagnosis active 11/25/2024 Cutaneous peripheral T-cell lymphoma (disorder) 594678523(SN OMED) Diagnosis active 11/18/2024 Cutaneous peripheral T-cell lymphoma (disorder) 601735805(SN OMED) Diagnosis active 11/16/2024 Cutaneous peripheral T-cell lymphoma (disorder) 351564839(SN OMED) Diagnosis active 11/13/2024 Cutaneous peripheral T-cell lymphoma (disorder) 396745765(SN OMED) Diagnosis active 11/09/2024 Cutaneous peripheral T-cell lymphoma (disorder) 901963290(SN OMED) Diagnosis active 11/04/2024 Cutaneous peripheral T-cell lymphoma (disorder) 910471474(SN OMED) Diagnosis active 11/02/2024 Cutaneous peripheral T-cell lymphoma (disorder) 260380073(SN OMED) Diagnosis active 10/30/2024 Cutaneous peripheral T-cell lymphoma (disorder) 176405325(SN OMED) Diagnosis active 10/28/2024 Cutaneous peripheral T-cell lymphoma (disorder) 586686664(SN OMED) Diagnosis active 10/26/2024 Cutaneous peripheral T-cell lymphoma (disorder) 393042897(SN OMED) Diagnosis active 10/23/2024 Cutaneous peripheral T-cell lymphoma (disorder) 573679105(SN OMED) Diagnosis active 10/21/2024 Cutaneous peripheral T-cell lymphoma (disorder) 100886053(SN OMED) Diagnosis active 10/14/2024 Cutaneous peripheral T-cell lymphoma (disorder) 752814472(SN OMED) Diagnosis active 10/12/2024 Cutaneous peripheral T-cell lymphoma (disorder) 853861117(SN OMED) Diagnosis active 10/09/2024 Cutaneous peripheral T-cell lymphoma (disorder) 502134158(SN OMED) Diagnosis active 10/07/2024 Cutaneous peripheral T-cell lymphoma (disorder) 695631630(SN OMED) Diagnosis active 10/05/2024 Cutaneous peripheral T-cell lymphoma (disorder) 931056924(SN OMED) Diagnosis active 10/02/2024 Cutaneous peripheral T-cell lymphoma (disorder) 282010938(SN OMED) Diagnosis active 09/30/2024 Inflamed seborrheic keratosis (disorder) 004334544(SN OMED) Diagnosis active 09/29/2024 Cutaneous peripheral T-cell lymphoma (disorder) 272328085(SN OMED) Diagnosis active 09/29/2024 Cutaneous peripheral T-cell lymphoma (disorder) 112363563(SN OMED) Diagnosis active 09/25/2024 Cutaneous peripheral T-cell lymphoma (disorder) 498113325(SN OMED) Diagnosis active 09/23/2024 Cutaneous peripheral T-cell lymphoma (disorder) 301171772(SN OMED) Diagnosis active 09/21/2024 Cutaneous peripheral T-cell lymphoma (disorder) 601793410(SN OMED) Diagnosis active 09/11/2024 Cutaneous peripheral T-cell lymphoma (disorder) 312879428(SN OMED) Diagnosis active 09/09/2024 Cutaneous peripheral T-cell lymphoma (disorder) 333457133(SN OMED) Diagnosis active 09/04/2024 Cutaneous peripheral T-cell lymphoma (disorder) 758382419(SN OMED) Diagnosis active 09/02/2024 Cutaneous peripheral T-cell lymphoma (disorder) 039208455(SN OMED) Diagnosis active 08/31/2024 Cutaneous peripheral T-cell lymphoma (disorder) 938404533(SN OMED) Diagnosis active 08/28/2024 Cutaneous peripheral T-cell lymphoma (disorder) 553276914(SN OMED) Diagnosis active 08/26/2024 Cutaneous peripheral T-cell lymphoma (disorder) 876709417(SN OMED) Diagnosis active 08/24/2024 Cutaneous peripheral T-cell lymphoma (disorder) 374420960(SN OMED) Diagnosis active 08/21/2024 Cutaneous peripheral T-cell lymphoma (disorder) 719750264(SN OMED) Diagnosis active 08/19/2024 Cutaneous peripheral T-cell lymphoma (disorder) 677308315(SN OMED) Diagnosis active 08/17/2024 Cutaneous peripheral T-cell lymphoma (disorder) 474574628(SN OMED) Diagnosis active 08/14/2024 Cutaneous peripheral T-cell lymphoma (disorder) 985715267(SN OMED) Diagnosis active 08/12/2024 Cutaneous peripheral T-cell lymphoma (disorder) 601800429(SN OMED) Diagnosis active 08/10/2024 Cutaneous peripheral T-cell lymphoma (disorder) 717419190(SN OMED) Diagnosis active 08/07/2024 Cutaneous peripheral T-cell lymphoma (disorder) 114973166(SN OMED) Diagnosis active 08/05/2024 Cutaneous peripheral T-cell lymphoma (disorder) 109485548(SN OMED) Diagnosis active 08/03/2024 Cutaneous peripheral T-cell lymphoma (disorder) 484287761(SN OMED) Diagnosis active 07/31/2024 Cutaneous peripheral T-cell lymphoma (disorder) 795371384(SN OMED) Diagnosis active 07/29/2024 Cutaneous peripheral T-cell lymphoma (disorder) 882512684(SN OMED) Diagnosis active 07/24/2024 Cutaneous peripheral T-cell lymphoma (disorder) 790505759(SN OMED) Diagnosis active 07/22/2024 Cutaneous peripheral T-cell lymphoma (disorder) 806990512(SN OMED) Diagnosis active 07/17/2024 Cutaneous peripheral T-cell lymphoma (disorder) 704365045(SN OMED) Diagnosis active 07/15/2024 Cutaneous peripheral T-cell lymphoma (disorder) 418938535(SN OMED) Diagnosis active 07/13/2024 Cutaneous peripheral T-cell lymphoma (disorder) 166528842(SN OMED) Diagnosis active 07/10/2024 Cutaneous peripheral T-cell lymphoma (disorder) 630806411(SN OMED) Diagnosis active 07/08/2024 Cutaneous peripheral T-cell lymphoma (disorder) 328853982(SN OMED) Diagnosis active 07/06/2024 Cutaneous peripheral T-cell lymphoma (disorder) 915043624(SN OMED) Diagnosis active 07/03/2024 Cutaneous peripheral T-cell lymphoma (disorder) 427585074(SN OMED) Diagnosis active 07/01/2024 Cutaneous peripheral T-cell lymphoma (disorder) 309241222(SN OMED) Diagnosis active 06/29/2024 Cutaneous peripheral T-cell lymphoma (disorder) 609838478(SN OMED) Diagnosis active 06/26/2024 Cutaneous peripheral T-cell lymphoma (disorder) 832800540(SN OMED) Diagnosis active 06/24/2024 Cutaneous peripheral T-cell lymphoma (disorder) 763272660(SN OMED) Diagnosis active 06/19/2024 Cutaneous peripheral T-cell lymphoma (disorder) 575337933(SN OMED) Diagnosis active 06/17/2024 Cutaneous peripheral T-cell lymphoma (disorder) 638816270(SN OMED) Diagnosis active 06/15/2024 Cutaneous peripheral T-cell lymphoma (disorder) 064392842(SN OMED) Diagnosis active 06/10/2024 Cutaneous peripheral T-cell lymphoma (disorder) 196113565(SN OMED) Diagnosis active 05/19/2024 Cutaneous peripheral T-cell lymphoma (disorder) 948419612(SN OMED) Diagnosis active 03/20/2024 Surgical follow-up (finding) 599185855(SN OMED) Diagnosis active 03/20/2024 Cutaneous peripheral T-cell lymphoma (disorder) 513302116(SN OMED) Diagnosis active 02/13/2024 History of skin and/or subcutaneous tissue disease (situation) 111482701980 105(SNOMED) Diagnosis active 02/13/2024 Cyst of bursa (disorder) 535447061(SN OMED) Diagnosis active 02/13/2024 Surgical follow-up (finding) 604714369(SN OMED) Diagnosis active 01/24/2024 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(SNO MED) Diagnosis active 01/14/2024 Inflammatory dermatosis (disorder) 469003448(SN OMED) Diagnosis active 01/14/2024 Cyst of bursa (disorder) 447268777(SN OMED) Diagnosis active 01/14/2024 Verruca vulgaris (disorder) 43089209(SNO MED) Diagnosis active 01/14/2024 Atopic dermatitis (disorder) 02129797(SNO MED) Diagnosis active 01/14/2024 Verruca vulgaris (disorder) 28550854(SNO MED) Diagnosis active 11/05/2023 Inflamed seborrheic keratosis (disorder) 968089299(SN OMED) Diagnosis active 11/05/2023 Atopic dermatitis (disorder) 61741538(SNO MED) Diagnosis active 11/05/2023 Artefactual skin disease (disorder) 718213931(SN OMED) Diagnosis active 11/05/2023 Hypertrophic condition of skin (disorder) 76417192(SNO MED) Diagnosis active 11/05/2023 Atopic dermatitis (disorder) 44846298(SNO MED) Diagnosis active 07/04/2023 Artefactual skin disease (disorder) 027487328(SN OMED) Diagnosis active 07/04/2023 Inflamed seborrheic keratosis (disorder) 823036424(SN OMED) Diagnosis active 07/04/2023 Atopic dermatitis (disorder) 26128936(SNO MED) Diagnosis active 04/04/2023 Atopic dermatitis (disorder) 83919647(SNO MED) Diagnosis active 12/20/2022 Atopic dermatitis (disorder) 77030757(SNO MED) Diagnosis active 01/10/2022 Atopic dermatitis (disorder) 59958694(SNO MED) Diagnosis active 11/29/2021 Atopic dermatitis (disorder) 93888882(SNO MED) Diagnosis active 09/27/2021 Increased blood pressure (finding) 45716737(SNO MED) Problem active Arthritis (disorder) 0555786(SNOM ED) Problem active Psoriasis (disorder) 1510027(SNOM ED) Problem active Mononeuropathy (disorder) 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 Office phonenumber is [phone]. Office fax number is [phone]. Encounter Diagnosis Location Date / Time Type Cutaneous T-Cell Lymphoma (CTCL) (C84.A0) [facility] 02/26/2025 17:45:00 [place] Reason For Referral No data Procedures Procedure Date Phototherapy of skin (procedure) 025 12:00 am UTC Phototherapy of skin (procedure) 025 12:00 am UTC Phototherapy of skin (procedure) 025 12:00 am UTC Phototherapy of skin (procedure) 025 12:00 am UTC Phototherapy of skin (procedure) 025 12:00 am UTC Phototherapy of skin (procedure) 025 12:00 am UTC Phototherapy of skin (procedure) 025 12:00 am UTC Phototherapy of skin (procedure) 025 12:00 am UTC Phototherapy of skin (procedure) 025 12:00 am UTC Phototherapy of skin (procedure) 025 12:00 am UTC Phototherapy of skin (procedure) 025 12:00 am UTC Phototherapy of skin (procedure) 025 12:00 am UTC Phototherapy of skin (procedure) 025 12:00 am UTC Phototherapy of skin (procedure) 025 12:00 am UTC Phototherapy of skin (procedure) 025 12:00 am UTC Phototherapy of skin (procedure) 025 12:00 am UTC Phototherapy of skin (procedure) 025 12:00 am UTC Phototherapy of skin (procedure) 025 12:00 am UTC Phototherapy of skin (procedure) 025 12:00 am UTC Phototherapy of skin (procedure) 025 12:00 am UTC Phototherapy of skin (procedure) 025 12:00 am UTC Phototherapy of skin (procedure) 025 12:00 am UTC Phototherapy of skin (procedure) 025 12:00 am UTC Phototherapy of skin (procedure) 025 12:00 am UTC Phototherapy of skin (procedure) 025 12:00 am UTC Phototherapy of skin (procedure) 025 12:00 am UTC Phototherapy of skin (procedure) 025 12:00 am UTC Phototherapy of skin (procedure) 025 12:00 am UTC Phototherapy of skin (procedure) 025 12:00 am UTC Phototherapy of skin (procedure) 025 12:00 am UTC Phototherapy of skin (procedure) 025 12:00 am UTC Phototherapy of skin (procedure) 025 12:00 am UTC Phototherapy of skin (procedure) 025 12:00 am UTC Phototherapy of skin (procedure) 025 12:00 am UTC Phototherapy of skin (procedure) 025 12:00 am UTC Phototherapy of skin (procedure) 025 12:00 am UTC Phototherapy of skin (procedure) 025 12:00 am UTC Phototherapy of skin (procedure) 025 12:00 am UTC Phototherapy of skin (procedure) 025 12:00 am UTC Phototherapy of skin (procedure) 025 12:00 am UTC Phototherapy of skin (procedure) 025 12:00 am UTC Cryotherapy of skin lesion with liquid n itrogen (procedure) 09/29/2024 12:00 am UTC Phototherapy of skin (procedure) 025 12:00 am UTC Phototherapy of skin (procedure) 025 12:00 am UTC Phototherapy of skin (procedure) 025 12:00 am UTC Phototherapy of skin (procedure) 025 12:00 am UTC Phototherapy of skin (procedure) 025 12:00 am UTC Phototherapy of skin (procedure) 025 12:00 am UTC Phototherapy of skin (procedure) 025 12:00 am UTC Phototherapy of skin (procedure) 025 12:00 am UTC Phototherapy of skin (procedure) 025 12:00 am UTC Phototherapy of skin (procedure) 025 12:00 am UTC Phototherapy of skin (procedure) 025 12:00 am UTC Phototherapy of skin (procedure) 025 12:00 am UTC Phototherapy of skin (procedure) 025 12:00 am UTC Phototherapy of skin (procedure) 025 12:00 am UTC Phototherapy of skin (procedure) 025 12:00 am UTC Phototherapy of skin (procedure) 025 12:00 am UTC Phototherapy of skin (procedure) 025 12:00 am UTC Phototherapy of skin (procedure) 025 12:00 am UTC Phototherapy of skin (procedure) 025 12:00 am UTC Phototherapy of skin (procedure) 025 12:00 am UTC Phototherapy of skin (procedure) 025 12:00 am UTC Phototherapy of skin (procedure) 025 12:00 am UTC Phototherapy of skin (procedure) 025 12:00 am UTC Phototherapy of skin (procedure) 025 12:00 am UTC Phototherapy of skin (procedure) 025 12:00 am UTC Phototherapy of skin (procedure) 025 12:00 am UTC Phototherapy of skin (procedure) 025 12:00 am UTC Phototherapy of skin (procedure) 025 12:00 am UTC Phototherapy of skin (procedure) 025 12:00 am UTC Phototherapy of skin (procedure) 025 12:00 am UTC Phototherapy of skin (procedure) 025 12:00 am UTC Phototherapy of skin (procedure) 025 12:00 am UTC Phototherapy of skin (procedure) 025 12:00 am UTC Phototherapy of skin (procedure) 025 12:00 am UTC Phototherapy of skin (procedure) 025 12:00 am UTC Phototherapy of skin (procedure) 025 12:00 am UTC Phototherapy of skin (procedure) 025 12:00 am UTC Phototherapy of skin (procedure) 025 12:00 am UTC Phototherapy of skin (procedure) 025 12:00 am UTC Removal of suture (procedure) 03/20/2024 12:00 am UTC Removal of suture (procedure) 01/24/2024 12:00 am UTC Punch biopsy (procedure) 01/14/2024 12:0 0 am UTC Cryotherapy of skin lesion with liquid n itrogen (procedure) 01/14/2024 12:00 am UTC Destruction of lesion of skin (procedure ) 11/05/2023 12:00 am UTC Cryotherapy of skin lesion with liquid n itrogen (procedure) 11/05/2023 12:00 am UTC Cryotherapy of skin lesion with liquid n itrogen (procedure) 07/04/2023 12:00 am UTC Documentation of past medical history (p rocedure) History of colectomy (situation) History of colectomy (situation) Documentation of past medical history (p rocedure) History of colectomy (situation) Documentation of past medical history (p rocedure) History of colectomy (situation) Documentation of past medical history (p rocedure) History of colectomy (situation) Documentation of past medical history (p rocedure) History of colectomy (situation) Documentation of past medical history (p rocedure) History of colectomy (situation) Documentation of past medical history (p rocedure) History of colectomy (situation) Documentation of past medical history (p rocedure) History of colectomy (situation) Documentation of past medical history (p rocedure) History of colectomy (situation) Documentation of past medical history (p rocedure) History of colectomy (situation) Documentation of past medical history (p rocedure) History of colectomy (situation) Documentation of past medical history (p rocedure) History of colectomy (situation) Documentation of past medical history (p rocedure) Documentation of past medical history (p rocedure) History of colectomy (situation) History of colectomy (situation) Documentation of past medical history (p rocedure) History of colectomy (situation) Documentation of past medical history (p rocedure) History of colectomy (situation) Documentation of past medical history (p rocedure) History of colectomy (situation) Documentation of past medical history (p rocedure) History of colectomy (situation) Documentation of past medical history (p rocedure) History of colectomy (situation) Documentation of past medical history (p rocedure) History of colectomy (situation) Documentation of past medical history (p rocedure) History of colectomy (situation) Documentation of past medical history (p rocedure) History of colectomy (situation) Documentation of past medical history (p rocedure) History of colectomy (situation) Documentation of past medical history (p rocedure) Documentation of past medical history (p rocedure) History of colectomy (situation) Documentation of past medical history (p rocedure) History of colectomy (situation) History of colectomy (situation) Documentation of past medical history (p rocedure) Documentation of past medical history (p rocedure) History of colectomy (situation) Documentation of past medical history (p rocedure) History of colectomy (situation) History of colectomy (situation) Documentation of past medical history (p rocedure) Documentation of past medical history (p rocedure) History of colectomy (situation) Documentation of past medical history (p rocedure) History of colectomy (situation) History of colectomy (situation) Documentation of past medical history (p rocedure) History of colectomy (situation) Documentation of past medical history (p rocedure) History of colectomy (situation) Documentation of past medical history (p rocedure) History of colectomy (situation) Documentation of past medical history (p rocedure) History of colectomy (situation) Documentation of past medical history (p rocedure) Documentation of past medical history (p rocedure) History of colectomy (situation) Documentation of past medical history (p rocedure) History of colectomy (situation) History of colectomy (situation) Documentation of past medical history (p rocedure) History of colectomy (situation) Documentation of past medical history (p rocedure) Documentation of past medical history (p rocedure) History of colectomy (situation) History of colectomy (situation) Documentation of past medical history (p rocedure) History of colectomy (situation) Documentation of past medical history (p rocedure) Documentation of past medical history (p rocedure) History of colectomy (situation) History of colectomy (situation) Documentation of past medical history (p rocedure) History of colectomy (situation) Documentation of past medical history (p rocedure) History of colectomy (situation) Documentation of past medical history (p rocedure) Documentation of past medical history (p rocedure) History of colectomy (situation) History of colectomy (situation) Documentation of past medical history (p rocedure) History of colectomy (situation) Documentation of past medical history (p rocedure) History of colectomy (situation) Documentation of past medical history (p rocedure) History of colectomy (situation) Documentation of past medical history (p rocedure) History of colectomy (situation) Documentation of past medical history (p rocedure) History of colectomy (situation) Documentation of past medical history (p rocedure) History of colectomy (situation) Documentation of past medical history (p rocedure) Documentation of past medical history (p rocedure) History of colectomy (situation) History of colectomy (situation) Documentation of past medical history (p rocedure) History of colectomy (situation) Documentation of past medical history (p rocedure) History of colectomy (situation) Documentation of past medical history (p rocedure) Documentation of past medical history (p rocedure) History of colectomy (situation) Documentation of past medical history (p rocedure) History of colectomy (situation) History of colectomy (situation) Documentation of past medical history (p rocedure) History of colectomy (situation) Documentation of past medical history (p rocedure) History of colectomy (situation) Documentation of past medical history (p rocedure) Documentation of past medical history (p rocedure) History of colectomy (situation) Documentation of past medical history (p rocedure) History of colectomy (situation) History of colectomy (situation) Documentation of past medical history (p rocedure) History of colectomy (situation) Documentation of past medical history (p rocedure) Documentation of past medical history (p rocedure) History of colectomy (situation) Documentation of past medical history (p rocedure) History of colectomy (situation) Documentation of past medical history (p rocedure) History of colectomy (situation) Documentation of past medical history (p rocedure) History of colectomy (situation) History of colectomy (situation) Documentation of past medical history (p rocedure) History of colectomy (situation) Documentation of past medical history (p rocedure) History of colectomy (situation) Documentation of past medical history (p rocedure) History of colectomy (situation) Documentation of past medical history (p rocedure) History of colectomy (situation) Documentation of past medical history (p rocedure) Documentation of past medical history (p rocedure) History of colectomy (situation) History of colectomy (situation) Documentation of past medical history (p rocedure) Documentation of past medical history (p rocedure) History of colectomy (situation) History of colectomy (situation) Documentation of past medical history (p rocedure) History of colectomy (situation) Documentation of past medical history (p rocedure) History of colectomy (situation) Documentation of past medical history (p rocedure) Documentation of past medical history (p rocedure) History of colectomy (situation) History of colectomy (situation) Documentation of past medical history (p rocedure) History of colectomy (situation) Documentation of past medical history (p rocedure) History of colectomy (situation) Documentation of past medical history (p rocedure) Documentation of past medical history (p rocedure) History of colectomy (situation) Documentation of past medical history (p rocedure) History of colectomy (situation) History of colectomy (situation) Documentation of past medical history (p rocedure) History of colectomy (situation) Documentation of past medical history (p rocedure) History of colectomy (situation) Documentation of past medical history (p rocedure) History of colectomy (situation) Documentation of past medical history (p rocedure) History of colectomy (situation) Documentation of past medica l history (procedure) Heart stent surgery Review Of Systems No Data Assessment 1.Cutaneous T-Cell Lymphoma (CTCL)Phototherapy Treatment: Total Treatment Time - 3:07 min; Treatment Number - 76; Location (Body Touches will Override) - full body; Total Body Energy - 690 mj; Skin Type - II; Total Body Time - 3:07 min; Protocol - Photochemotherapy: Mineral Oil and NBUVB; Render Post-care in the Note - no. Plan of Care Code Detail Instructions [id number] triamcinolone aceton jose l 0.1 % topical ointment Apply thin layer to rash on arms, legs, trunk BID 2weeks on/2 weeks off. [id number] clobetasol 0.05 % topical ointme nt Apply thin layer to entire rash (trunk, extremities) for 2 weeks on, 2 weeks off. [id number] clobetasol 0.05 % topical ointme nt Apply thin layer to entire rash (trunk, extremities) for 2 weeks on, 2 weeks off. [id number] triamcinolone aceton jose l 0.1 % topical ointment Apply thin layer to rash on arms, legs, trunk BID 2weeks on/2 weeks off. [id number] clobetasol 0.05 % scalp solution Mix container with Cerave tub, apply to trunk/extremities BID 2 weeks on 2 weeks off. [id number] clobetasol 0.05 % scalp solution Mix container with Cerave tub, apply to trunk/extremities BID 2 weeks on 2 weeks off. [id number] triamcinolone aceton jose l 0.1 % topical ointment Apply thin layer to rash on arms, legs, trunk BID 2weeks on/2 weeks off. [id number] clobetasol 0.05 % topical ointme nt Apply thin layer to entire rash (trunk, extremities) for 2 weeks on, 2 weeks off. [id number] clobetasol 0.05 % topical cream Apply twice daily to rash up to 2 weeks/month as needed. [id number] Opzelura 1.5 % topical cream John ly to rash BID PRN. [id number] Adbry 150 mg/mL subcutaneous syr alicia Inject two syringes (total dose 300mg) SC every other week [id number] Adbry 150 mg/mL subcutaneous syr alicia Inject two syringes (total dose 300mg) SC every other week [id number] Adbry 150 mg/mL subcutaneous syr alicia Inject two syringes (total dose 300mg) SC every other week [id number] Dupixent 300 mg/2 mL subcutaneous pen injector Inject 1 pen SQ Q 2 weeks [id number] Dupixent 300 mg/2 mL subcutaneous pen injector Inject 1 pen SQ Q 2 weeks [id number] Vtama 1 % topical cream Apply to affected areas of eczema twice daily until improved and then decrease to once daily as needed. [id number] Dupixent 300 mg/2 mL subcutaneous pen injector Inject 1 pen SQ Q 2 weeks [id number] tacrolimus 0.1 % topical ointmen t Apply to eczema BID ok to use on face [id number] clobetasol 0.05 % topical ointme nt AAA bid prn not for face [id number] Dupixent 300 mg/2 mL subcutaneous syringe inject one pen every 2 wks [id number] Dupixent 300 mg/2 mL subcutaneous syringe inject one pen every 2 wks [id number] Dupixent 300 mg/2 mL subcutaneous syringe inject one pen every 2 wks [id number] fluocinolone 0.01 % topical body oil apply twice daily for up to two weeks, take one week off. repeat until clear. [id number] Dupixent 300 mg/2 mL subcutaneous syringe inject one pen every 2 wks [id number] triamcinolone aceton jose l 0.1 % topical cream Apply BID to areas of eczema for 2 weeks on, and 1 week off. Avoid face and body folds. Instructions No Data Social History Code Activity Start Date End Date [id number] (SNOMED) Never smoker Sex male Sexual orientation Unspecified Gender identity Unspecified Vital Signs No data
--- OUTSIDE RECORDS SUMMARY | 2025-03-02 19:21 | XMS_ITS | Clinical Summary ---
Author Organization [facility] Address [address] [place] [phone] Phone Care Team Providers Care Tubular Riveter Name Role Phone Carol Vyas NP Unavailable + [phone] Terra Galeano MD Primary Care Provider + [phone] Allergies No known active allergies Medications naproxen sodium (ALEVE) 220 mg Cap Take by mouth. Activ e atorvastatin (LIPITOR) 80 MG tablet TAKE 1 TABLET AT BEDTIME 7 Active cyclobenzaprine (FLEXERIL) 10 MG tablet Take 10 mg by mouth 3 (three) times a day as needed. 7 Active omega 5-nfs-sjr-fish oil (FISH OIL) 1,000 mg (120 mg-180 [...] original. 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 Encounters Date Type Department Care Team Description 02/26/2025 8:30 AM EDT Infusion [facility] Infusion Center [address] [place] [address] 93345 Gilmer Jackson, DO Multifocal motor neuropathy (Primary Dx) 02/25/2025 8:00 AM EDT Infusion [facility] Medical Infusion Center [address] [place] [address] 66130 Gilmer Jackson, DO Multifocal motor neuropathy (Primary Dx) 02/24/2025 8:30 AM EDT Infusion [facility] Medical Infusion Center [address] [place] [address] 24678 Gilmer Jackson, DO Multifocal motor neuropathy (Primary Dx) 02/23/2025 8:30 AM EDT Infusion [facility] Medical Infusion Center [address] [place] [address] 73073 Gilmer Jackson, DO Multifocal motor neuropathy (Primary Dx) 02/22/2025 8:30 AM EDT Infusion [facility] Medical Infusion Center [address] [place] [address] 98752 Gilmer Jackson, DO Multifocal motor neuropathy (Primary Dx) 01/29/2025 8:30 AM EDT Infusion [facility] Medical Infusion Center [address] [place] [address] 64584 Gilmer Jackson, DO Multifocal motor neuropathy (Primary Dx) 01/28/2025 8:00 AM EDT Infusion [facility] Medical Infusion Center [address] [place] [address] 53836 Gilmer Jackson, DO Multifocal motor neuropathy (Primary Dx) 01/27/2025 8:30 AM EDT Infusion [facility] Medical Infusion Center [address] [place] [address] 69289 Gilmer Jackson, DO Multifocal motor neuropathy (Primary Dx) 01/26/2025 8:30 AM EDT Infusion [facility] Medical Infusion Center [address] [place] [address] 70898 Gilmer Jackson, DO Multifocal motor neuropathy (Primary Dx) 01/25/2025 8:30 AM EDT Infusion [facility] Medical Infusion [facility] [address] [place] [address] 59550 Gilmer Jackson, DO Multifocal motor neuropathy (Primary Dx) 01/01/2025 8:30 AM EDT Infusion [facility] Medical Infusion Center [address] [place] [address] 69802 Gilmer Jackson, DO Multifocal motor neuropathy (Primary Dx) 12/31/2024 8:30 AM EDT Infusion [facility] Medical Infusion Center [address] [place] [address] 85012 Gilmer Jackson L, DO Multifocal motor neuropathy (Primary Dx) 12/30/2024 8:30 AM EDT Infusion [facility] Medical Infusion [facility] [address] [place] [address] 06389 Gilmer Jackson, DO Multifocal motor neuropathy (Primary Dx) 12/29/2024 8:30 AM EDT Infusion [facility] Medical Infusion Center [address] [place] [address] 11903 Gilmer Jackson, DO Multifocal motor neuropathy (Primary Dx) 12/28/2024 8:30 AM EDT Infusion [facility] Medical Infusion Center [address] [place] [address] 16389 Gilmer Jackson, DO Multifocal motor neuropathy (Primary Dx) 12/04/2024 8:30 AM EDT Infusion [facility] Medical Infusion Center [address] [place] [address] 12080 Gilmer Jackson, DO Multifocal motor neuropathy (Primary Dx) 12/03/2024 8:30 AM EDT Infusion [facility] Medical Infusion Center [address] [place] [address] 13520 Gilmer Jackson, DO Multifocal motor neuropathy (Primary Dx) 12/02/2024 8:30 AM EDT Infusion [facility] Medical Infusion Center [address] [place] [address] 07125 Gilmer Jackson, DO Multifocal motor neuropathy (Primary Dx) 12/01/2024 8:30 AM EDT Infusion [facility] Medical Infusion Center [address] [place] [address] 12387 Gilmer Jackson, DO Multifocal motor neuropathy (Primary Dx) 11/30/2024 8:30 AM EDT Infusion [facility] Medical Infusion Center [address] [place] [address] 33270 Gilmer Jackson, DO Multifocal motor neuropathy (Primary Dx) from Last 3 Months Social [...] F) 02/26/2025 8:16 AM EDT Respiratory Rate 18 02/25/2025 8:02 AM EDT Oxygen Saturation 98% 02/26/2025 11:42 AM EDT Inhaled Oxygen Concentration - - Weight 127 kg (280 lb) 11/30/2024 8:15 AM EDT Height 188 cm (6' 2.02 ) 09/14/2024 7:47 AM EDT Body Mass Index 35.93 09/14/2024 7:47 AM EDT Plan of Treatment Upcoming Encounters Date Type Department Care Team (Late st Contact Info) Description 03/22/2025 8:30 AM EST Infusion [facility] Medical Infusion Center [address] [place] [address] 53659 Gilmer Jackson, [address], [address] [place] [address] [id number] [email or web address] 03/23/2025 8:30 AM EST Infusion [facility] Medical Infusion Center [address] [place] [address] 55015 Gilmer Jackson, [address], [address] [place] [address] [phone] [email or web address] 03/24/2025 8:30 AM EST Infusion [facility] Medical Infusion Center [address] [place] [address] 01722 Gilmer Jackson, [address], [address] [place] [address] 48144 [email or web address] 03/25/2025 8:30 AM EST Infusion [facility] Medical Infusion Center [address] [place] [address] 16569 Gilmer Jackson, [address], [address] [place] [address] [phone] [email or web address] 03/26/2025 8:30 AM EST Infusion [facility] Medical Infusion Center [address] [place] [address] 21197 Gilmer Jackson, [address], [address] [place] [address] 91501 [email or web address] 03/30/2025 2:30 PM EST Office [facility] [place] [address] [facility], [address]th [place] [address] Sara Angelo MD [address] [place] [address] [email or web address] 04/19/2025 8:30 AM EST Infusion [facility] Medical Infusion Center [address] [place] [address] 91861 Gilmer Jackson, [address], [address] [place] [address] 69222 [email or web address] 04/20/2025 8:30 AM EST Infusion [facility] Medical Infusion Center [address] [place] [address] 09753 Gilmer Jackson, [address], [address] [place] [address] 68901 [email or web address] 04/21/2025 8:30 AM EST Infusion [facility] Medical Infusion Center [address] [place] [address] 73926 Gilmer Jackson, [address], [address] [place] [address] [id number] [email or web address] 04/22/2025 8:30 AM EST Infusion [facility] Medical Infusion Center [address] [place] [address] 85219 Gilmer Jackson, [address], [address] [place] [address] 88858 [email or web address] 04/23/2025 8:30 AM EST Infusion [facility] Medical Infusion Center [address] [place] [address] 20996 Gilmer Jackson, [address], [address] [place] [address] 01843 [email or web address] 05/17/2025 8:30 AM EST Infusion [facility] Medical Infusion Center [address] [place] [address] 82558 Gilmer Jackson, [address], [address] [place] [address] 11563 [email or web address] 05/18/2025 8:30 AM EST Infusion [facility] Medical Infusion Center [address] [place] [address] 88043 Gilmer Jackson, [address], [address] [place] [address] 92656 [email or web address] 05/19/2025 8:30 AM EST Infusion [facility] Medical Infusion Center [address] [place] [address] 99278 Gilmer Jackson, [address], [address] [place] [address] 17419 [email or web address] 05/20/2025 8:30 AM EST Infusion [facility] Medical Infusion Center [address] [place] [address] 60570 Gilmer Jackson, [address], [address] [place] [address] 62361 [email or web address] 05/21/2025 8:30 AM EST Infusion [facility] Medical Infusion Center [address] [place] [address] 37778 Gilmer Jackson, [address], [address] [place] [address] [id number] [email or web address] 06/14/2025 8:30 AM EST Infusion [facility] Medical Infusion Center [address] [place] [address] 83959 Gilmer Jackson, [address], [address] [place] [address] 14304 rosa@[email or web address] 06/15/2025 8:30 AM EST Infusion [facility] Medical Infusion Center [address] [place] [address] 76768 Gilmer Jackson, [address], [address] [place] [address] 86241 [email or web address] 06/16/2025 8:30 AM EST Infusion [facility] Medical Infusion Center [address] [place] [address] 46200 Gilmer Jackson, [address], [address] [place] [address] 55412 [email or web address] 06/17/2025 8:30 AM EST Infusion [facility] Medical Infusion Center [address] [place] [address] 94269 Gilmer Jackson, [address], [address] [place] [address] 32067 rosa@[email or web address] 06/18/2025 8:30 AM EST Infusion [facility] Medical Infusion Center [address] [place] [address] 74148 Gilmer Jackson, [address], [address] [place] [address] 34488 rosa@[email or web address] 07/12/2025 8:30 AM EDT Infusion [facility] Medical Infusion Center [address] [place] [address] 46476 Gilmer Jackson, [address], [address] [place] [address] 99669 [email or web address] 07/13/2025 8:30 AM EDT Infusion [facility] Medical Infusion Center [address] [place] [address] 98998 Gilmer Jackson, [address], [address] [place] [address] 37046 rosa@[email or web address] 07/14/2025 8:30 AM EDT Infusion [facility] Medical Infusion Center [address] [place] [address] 78818 Gilmer Jackson, [address], [address] [place] [address] [phone] [email or web address] 07/15/2025 8:30 AM EDT Infusion [facility] Medical Infusion Center [address] [place] [address] 39464 Gilmer Jackson, [address], [address] [place] [address] 65201 [email or web address] 07/16/2025 8:30 AM EDT Infusion [facility] Medical Infusion Center [address] [place] [address] 16254 Gilmer Jackson, [address], [address] [place] [address] 50013 [email or web address]@[email or web address] 08/09/2025 8:30 AM EDT Infusion [facility] Medical Infusion Center [address] [place] [address] 13701 Gilmer Jackson, [address], [address] [place] [address] 30070 rosa@[employer] 08/10/2025 8:30 AM EDT Infusion [facility] Medical Infusion Center [address] [place] [address] 80410 Gilmer Jackson, [address], [address] [place] [address] [id number] rosa@[employer] 08/11/2025 8:30 AM EDT Infusion [facility] Medical Infusion Center [address] [place] [address] 03707 Gilmer Jackson, [address], [address] [place] [address] [id number] rosa@[employer] 08/12/2025 8:30 AM EDT Infusion [facility] Medical Infusion Center [address] [place] [address] 96528 Gilmer Jackson, [address], [address] [place] [address] 48098 rosa@[email or web address] 08/13/2025 8:30 AM EDT Infusion [facility] Medical Infusion Center [address] [place] [address] 86456 Gilmer Jackson, [address], [address] [place] [address] [phone] [email or web address] 09/06/2025 8:30 AM EDT Infusion [facility] Medical Infusion Center [address] [place] [address] 88097 Gilmer Jackson, [address], [address] [place] [address] 54463 rosa@[employer] 09/07/2025 8:30 AM EDT Infusion [facility] Medical Infusion Center [address] [place] [address] 14561 Gilmer Jackson, [address], [address] [place] [address] 49681 [email or web address] 09/08/2025 8:30 AM EDT Infusion [facility] Medical Infusion Center [address] [place] [address] 44164 ManuelGilmer, DO [address] [facility], [address] [place] [address] 06759 [email or web address] 09/09/2025 8:30 AM EDT Infusion [facility] Infusion [address] [address] FreddyGilmer chambers, DO [address] [facility], [address] [place] [address] 32574 [email or web address] 09/10/2025 8:30 AM EDT Infusion [facility] Infusion [address] [address] FreddyGilmer chambers, DO [address] [facility], [address] [place] [address] 75894 [email or web address] Health Maintenance Due Date Last Done Comments DEPRESSION SCREENING 1964 HEPATITIS C SCREENING 1970 PNEUMOCOCCAL VACCINES (50+ years) (1 of 2 - PCV) 1971 ZOSTER VACCINES (1 of 2) 1971 COLOGUARD 1997 COLONOSCOPY 1997 COLORECTAL CANCER SCREENING 1997 FIT TEST 1997 FOBT 1997 SIGMOIDOSCOPY 1997 VIRTUAL COLONOSCOPY 1997 LIPID PANEL 06/26/2022 06/26/2017 INFLUENZA VACCINE (#1) 2024 COVID-19 VACCINE ( - 2024-2 6 season) 2025 CREATININE LEVEL 03/02/2025 03/02/2024 POTASSIUM LEVEL 03/02/2025 03/02/2024 RSV VACCINE (1 - 1-dose 75+ series) 2027 Adult Td,Tdap Booster 01/02/2034 01/03/2024 , 03/10/2012 [...] this topic Medical Devices Implanted Type Area Career Development Director Device Identifier Shelf Expiration Date Model / Serial / Lot 2 Cardiac Stents Possible Umbilical Mesh Procedures Procedure Name Priority Date/Time Associated Diagnosis Comments COMPREHENSIVE METABOLIC PANEL Routine 03/02/2024 2:54 PM EDT from Last 3 Months or Most Recently Relevant to Health Maintenance Results * (ABNORMAL) Comprehensive metabolic panel (03/02/2024 2:54 PM EDT) SODIUM 141 136 - 145 mmol/L [facility] LIC# [id number] POTASSIUM 3.8 3.4 - 5.1 mmol/L [facility]# [id number] CHLORIDE 103 98 - 107 mmol/L [facility]# [id number] CO2 24 22 - 31 mmol/L [facility]IC# [id number] BUN 15 6 - 23 mg/dL [facility]IC# [id number] CREATININE 0.90 0.50 - 1.20 mg/dL [facility]# [id number] GLUCOSE 117(H) 70 - 100 mg/dL [facility]IC# [id number] ALBUMIN 4.2 3.5 - 5.2 g/dL [facility]IC# [id number] TOTAL PROTEIN 7.1 6.4 - 8.3 g/dL [facility]IC# [id number] CALCIUM 9.3 8.8 - 10.7 mg/dL [facility]IC# [id number] ALKALINE PHOSPHATASE 120 40 - 129 U/L [facility]IC# [id number] TOTAL BILIRUBIN 0.8 0.2 - 1.2 mg/dL [facility]IC# [id number] AST 21 <41 U/L [facility] LIC# [id number] ALT 27 <42 U/L [facility] LIC# [id number] GLOBULIN 2.9 2.3 - 4.2 g/dL [facility]# [id number] EGFR 91 >59 mL/min/1.7 3m2 [facility]# [id number] Comment:Estimated glomerular filtration rate calculated using the CKD-EPI refit equation. ANION GAP 14 7 - 17 mmol/L [facility]IC# [id number] 03/02/2024 2:54 PM EDT 03/02/2024 3:55 PM EDT us Darlyn Yeager MD LAB BLOOD ORDERABLES Final Resu lt [facility] LIC# [id number] [address] [place] [address] from Last 3 Months or Most Recently Relevant to Health Maintenance Insurance MEDICARE PART A & B [employer] MEDEX SUPPLEMENT MEDICARE PART A & B [employer] MEDEX SUPPLEMENT MEDICARE PART A & B [employer] MEDEX SUPPLEMENT MEDICARE PART A & B [facility] MEDEX SUPPLEMENT MEDICARE PART A & B [employer] MEDEX SUPPLEMENT MEDICARE PART A & B [employer] MEDEX SUPPLEMENT MEDICARE PART A & B [employer] CROSS MEDEX SUPPLEMENT MEDICARE PART A & B [employer] CROSS MEDEX SUPPLEMENT MEDICARE PART A & B [employer] MEDEX SUPPLEMENT MEDICARE PART A & B [employer] MEDEX SUPPLEMENT Advance Directives For more information, please contact: [phone] (9AM - 5PM Brenda/[facility], Saturday-Saturday) Documents on File Type Date Recorded 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 It is not the complete legal health record.[facility]
--- OUTSIDE RECORDS SUMMARY | 2025-03-02 19:21 | XMS_ITS | Encounter Summary ---
Author Organization [facility] Address [facility] [address] [place] [phone] Phone Care Team Providers Care Cane Splicer Name Role Phone Terra Galeano MD Primary Care Provider + [phone] Carol Vyas NP Unavailable + [phone] Terra Galeano MD Primary Care Provider + [phone] Encounter Details Date Type Department Care Team (Late st Contact Info) Description 08/13/2017 Procedure Pass [facility] [address] [place] [phone] Social History Tobacco Use Types Packs/Day [...] Info) Description 03/22/2025 8:[address] [facility] [address] [place] [address] Gilmer Jackson DO [address] [facility], [address] [place], [place] [phone] [email or web address] 03/23/2025 8:30 AM EST Infusion [facility] Medical [facility]fusion [facility] [address] [place] [address] Gilmer Jackson, [address], [address] [place] [address] [email or web address] 03/24/2025 8:30 AM EST Infusion [facility]fusion [facility] [address] [place] [address] Gilmer Jackson, [address], [address] [place] [address] [email or web address] 03/25/2025 8:30 AM EST Infusion [facility]fusion [facility] [address] [place] [address] Gilmer Jackson, [address], [address] [place] [address] [email or web address] 03/26/2025 8:30 AM EST Infusion [facility]fusion [facility] [address] [place] [address] Gilmer Jackson, [address], [address] [place] [address] [email or web address] 03/30/2025 2:30 PM EST Office [facility] [address] [place] [address], [address] [place] [address] Sara Angelo MD [address] [place] [phone] [email or web address] 04/19/2025 8:30 AM EST Infusion [facility] Medical [facility]fusion [facility] [address] [place] [address] Gilmer Jackson, [address], [address] [place] [address] [email or web address] 04/20/2025 8:30 AM EST Infusion [facility] [address] [place] [address] Gilmer Jackson, [address], [address] [place] [address] [email or web address] 04/21/2025 8:30 AM EST Infusion [facility] [address] [place] [address] Gilmer Jackson, [address], [address] [place] [address] [email or web address] 04/22/2025 8:30 AM EST Infusion [facility]fusion [facility] [address] [place] [address] Gilmer Jackson, [address], [address] [place] [address] [email or web address] 04/23/2025 8:30 AM EST Infusion [facility] [address] [place] [address] Gilmer Jackson, [address], [address] [place] [address] [email or web address] 05/17/2025 8:30 AM EST Infusion [facility]fusion [facility] [address] [place] [address] Gilmer Jackson, [address], [address] [place] [address] [email or web address] 05/18/2025 8:30 AM EST Infusion [facility] [address] [place] [address] Gilmer Jackson, [address], [address] [place] [address] [email or web address] 05/19/2025 8:30 AM EST Infusion [facility]fusion [facility] [address] [place] [address] Gilmer Jackson, [address], [address] [place] [address] [email or web address] 05/20/2025 8:30 AM EST Infusion [facility] [address] [place] [address] Gilmer Jackson, [address], [address] [place] [address] [email or web address] 05/21/2025 8:30 AM EST Infusion [facility] [address] [place] [address] Gilmer Jackson, [address], [address] [place] [address] 17[address] [email or web address] 06/14/2025 8:30 AM EST Infusion [facility]fusion [facility] [address] [place] [address] 120[address] Gilmer Jackson, [address], [address] [place] [address] [email or web address] 06/15/2025 8:30 AM EST Infusion [facility]fusion [facility] [address] [place] [address] Gilmer Jackson, [address], [address] [place] [address] [email or web address] 06/16/2025 8:30 AM EST Infusion [facility]fusion [facility] [address] [place] [address] Gilmer Jackson, [address], [address] [place] [address] 614[address] [email or web address] 06/17/2025 8:30 AM EST Infusion [facility] [address] [place] [address] Gilmer Jackson, [address], [address] [place] [address] [email or web address] 06/18/2025 8:30 AM EST Infusion [facility] [address] [place] [address] 8[address] Gilmer Jackson, [address], [address] [place] [address] 36175 [email or web address] 07/12/2025 8:30 AM EDT Infusion [facility]fusion [facility] [address] [place] [address] 9[address]27 Gilmer Jackson, [address], [address] [place] [address] 699[address] [email or web address] 07/13/2025 8:30 AM EDT Infusion [facility] [address] [place] [address] Gilmer Jackson, [address], [address] [place] [address] 62995 [email or web address] 07/14/2025 8:30 AM EDT Infusion [facility] [address] [place] [address] 97[address] Gilmer Jackson, [address], [address] [place] [address] [email or web address] 07/15/2025 8:30 AM EDT Infusion [facility] [address] [place] [address] 40928 Gilmer Jackson, [address], [address] [place] [address] 22621 [email or web address] 07/16/2025 8:30 AM EDT Infusion [facility] [address] [place] [address] 72081 Gilmer Jackson, [address], [address] [place] [address] 10058 [email or web address] 08/09/2025 8:30 AM EDT Infusion [facility] [address] [place] [address] 51136 Gilmer Jackson, [address], [address] [place] [address] 5[address] [email or web address] 08/10/2025 8:30 AM EDT Infusion [facility] [address] [place] [address] 19998 Gilmer Jackson, [address], [address] [place] [address] 30114 [email or web address] 08/11/2025 8:30 AM EDT Infusion [facility] [address] [place] [address] Gilmer Jackson, [address], [address] [place] [address] 18854 [email or web address] 08/12/2025 8:30 AM EDT Infusion [facility] [address] [place] [address] Gilmer Jackson, [address], [address] [place] [address] 10636 [email or web address] 08/13/2025 8:30 AM EDT Infusion [facility] [address] [place] [address] 88693 Gilmer Jackson, [address], [address] [place] [address] 42854 [email or web address] 09/06/2025 8:30 AM EDT Infusion [facility] [address] [place] [address] 85117 Gilmer Jackson, [address], [address] [place] [address] 42389 [email or web address] 09/07/2025 8:30 AM EDT Infusion [facility] [address] [place] [address] 87237 Gilmer Jackson, [address], [address] [place] [address] 64273 [email or web address] 09/08/2025 8:30 AM EDT Infusion [facility] [address] [place] [address] 18048 Gilmer Jackson, [address], [address] [place] [address] 72025 [email or web address] 09/09/2025 8:30 AM EDT Infusion [facility] [address] [place] [address] 32333 Gilmer Jackson, [address], [address] [place] [address] 18375 [email or web address] 09/10/2025 8:30 AM EDT Infusion [facility] [address] [place] [address] 11612 Gilmer Jackson, DO [address] [facility], [address] [place] [address] [email or web address] documented as of this encounter Visit Diagnoses Not on filedocumented in this encounter Care Teams Cane Splicer Relationship Specialty Start Date End Date Terra Galeano MD PCP - General Internal Medicine 06/04/17 01/24/25 Terra Galeano MD [address] [place] [id number] PCP - General Internal Medicine 01/25/25 Carol Vyas NP [address] [place] [phone] Referring Physician Family Medicine 02/14/24 documented as of this encounter Additional Source Comments The information contained in this document represents components of the legal health record. It is not the complete legal health record.[facility]
--- OUTSIDE RECORDS SUMMARY | 2025-03-02 19:21 | XMS_ITS | Clinical Summary ---
Author Organization [address] [place] [address] [place] [phone] Phone Care Team Providers Care Charger Operator Name Role Phone Terra Lopez MD Primary Care Provider [phone] Allergies No known active allergies Medications immune globulin,gamma, IgG,stwk (ALYGLO IV) Infuse into a venous catheter. Every 4 weeks Active aspirin 81 mg tablet Take 1 tablet by mouth 1 (one) time each day. 1 Active atorvastatin (LIPITOR) 80 mg tablet Take 1 tablet (80 mg total) by mouth 1 (one) time each day. Active clobetasoL (TEMOVATE) 0.05 % cream APPLY TO AFFECTED AREA(S) TWICE DAILY FOR NO MORE THAN 2 WEEKS PER MONTH. AVOID EYEs AND AREAS WITH THIN SKIN (FACE, GENITALS, ARMPITS) 5 Active cyclobenzaprine (FLEXERIL) 10 mg tablet Take 1 tablet (10 mg total) by mouth 3 (three) times a day if needed for muscle spasms. Active diphenhydrAMINE (BENADRYL) 25 mg tablet Take 1 tablet (25 mg total) by mouth if needed. 7 Active DOCOSAHEXAENOIC ACID ORAL by Does not apply route. Takes daily Active finasteride (PROSCAR) 5 mg tablet Take 1 tablet (5 mg total) by mouth 1 (one) time each day. 5 Active hydroCHLOROthia zide (MICROZIDE) 12.5 mg capsule Take 1 capsule (12.5 mg total) by mouth daily. 2 Active metoprolol succinate (TOPROL-XL) 50 mg 24 hr tablet Take 1 tablet (50 mg total) by mouth 1 (one) time each day. Active nitroglycerin (NITROSTAT) 0.[address] 1 tablet (0.4 mg total) under the tongue every 5 (five) minutes if needed. 7 Active tamsulosin (FLOMAX) 0.4 mg 24 hr capsule Take 1 capsule (0.4 mg total) by mouth 1 (one) time each day. at bedtime 5 Active triamcinolone (KENALOG) 0.1 % ointment Apply thin layer TO rash on arms, legs, trunk TWICE DAILY 2weeks on/2 weeks off 5 Active valsartan (DIOVAN) 80 mg tablet Take 1 tablet (80 mg total) by mouth 1 (one) time each day. 90 tablet 3 5 Active valsartan (DIOVAN) 80 mg tablet Take 1 tablet (80 mg total) by mouth 1 (one) time each day. 02/03/20 25 Discontinu ed(Reorder ) Active Problems Problem Noted Date Diagnosed Date Cardiomyopathy (CMS/HCC V24, CMS/HCC V28) 2024 Overview (11/03/2024): Patient had transthoracic [...] now normal Coronary artery disease invo lving [place] coronary artery of [place] heart 11/03/2024 Assessment & Plan (11/03/2024 8:49 [...] panel labs from his PCPs office at [facility]. The goal would be to have patient's LDL be at 70 or below. Ideally this will be at 50. Please continue with the high-dose atorvastatin p.o. daily. Encounters Date Type Department Care Team Description 01/15/2025 Telephone [facility] - [facility] [address] [facility] [address] [place] [address] Sulema Verduzco MD from Last 3 Months Surgical History Surgery Date Site/Laterality Comments TONSILLECTOMY PROCEDURE: HISTORICAL TONSILLECTOMY APPENDECTOMY PROCEDURE: HISTORICAL APPENDECTOMY HERNIA REPAIR PROCEDURE: HISTORICAL HERNIA REPAIR/UMB COLONOSCOPY 1998 PROCEDURE: HISTORICAL COLONOSCOPY; COMMENT: Normal MOLE REMOVAL 1986 PROCEDURE: HISTORICAL MOLE (REMOVAL OF); COMMENT: Dysplastic nevus sternum (moderate-severe atypia) CARDIAC CATHETERIZATION 02/2011 PROCEDURE: HISTORICAL CARDIAC CATH; COMMENT: Stent no [place] COLONOSCOPY 2009 PROCEDURE: HISTORICAL COLONOSCOPY; COMMENT: normal [...] DX:Hyperlipidemi a CHF (congestive heart failur e) ([facility]/HCC V24, CMS/HCC V28) 05/09/2015 DX:CHF (congestive heart fa ilure) ([facility]) History of dysplastic nevus DX:H istory of [...] old has anxiety disorder Father (Age 51) [place], Colon Cancer Maternal Grandfather [place] - yo [...] 11/03/2024 8:12 AM EDT Plan of Treatment Upcoming Encounters Date Type Department Care Team (Late st Contact Info) Description 06/04/2025 8:40 AM EST Office Visit [facility] [address] [place] [address] Henri Smith NP [address] [place] [address] [place] [address] Health Maintenance Due Date Last Done Comments Colorectal Cancer Screening: Colonoscopy 1950 RSV Immunization Adult Patients (1 - Risk 50-74 years 1-dose series) 2002 Cholesterol Screening (Lipid Panel) 04/03/2022 Falls Risk Assessment 04/03/2022 Hepatitis C [...] age to complete this topic Insurance MEDICARE [facility] Care Teams Charger Operator Relationship Specialty Start Date End Date Terra Lopez MD PCP - General Internal Medicine 11/03/24
--- OUTSIDE RECORDS SUMMARY | 2025-03-02 19:22 | XMS_ITS ---
Author Name Antelmo Nino Address Unknown [facility] Care Team Providers Care Study Abroad Advisor Name Role Phone Unavailable Primary Care Physician Unavailab le History Of Present Illness No Data Medications Medication Generic Name RxNorm Strength Strength Unit Route Dose Dose Form Frequency Date Started Date Ended Status Indication Sig ciclopirox ciclopir ox 523082 0.77 % Topica l cream suspend ed clobetasol clobetas ol 756587 0.05 % Topica l ointm ent 12/21/19 23 suspend ed AAA bid prn not for face clobetasol clobetas ol 944418 0.05 % Topica l cream BID 02/13/20 24 suspend ed Appl y twic e destin y to rash up to 2 week s/mo nth as need ed. clobetasol clobetas ol 595289 0.05 % Topica l ointm ent 05/19/19 25 suspend ed Appl y thin laye r to enti re rash (jones nk, extr emit ies) for 2 week s on, 2 week s off. clobetasol clobetas ol 586392 0.05 % Topica l ointm ent 02/03/20 25 active Appl y thin laye r to enti re rash (jones nk, extr emit ies) for 2 week s on, 2 week s off. fluocinolon e fluocino lone 2551785 0.01 % Topica l oil 11/30/19 22 suspend ed appl y twic e destin y for up to two week s, take one week off. repe at unti l fredo rHumble Opbrookeura ruxoliti nib 3757478 1.5 % Topica l thin layer cream qd 02/13/20 24 suspend ed Appl y to rash BID PRN. tacrolimus tacrolim us 393296 0.1 % Topica l ointm ent 12/21/19 23 suspend ed Appl y to mario fraser BID ok to use on face triamcinolo ne acetonide triamcin olone acetonid e 0428200 0.1 % Topica l cream BID 09/28/19 22 suspend ed Appl y BID to area s of mario in for 2 week s on, and 1 week off. Avoi d face and body fold s. triamcinolo ne acetonide triamcin olone acetonid e 8700079 0.1 % Topica l ointm ent 05/19/19 25 suspend ed Appl y thin laye r to rash on arms , legs , trun k BID 2wee ks on/2 week s off. triamcinolo ne acetonide triamcin olone acetonid e 1572806 0.1 % Topica l ointm ent 02/03/20 25 active Appl y thin laye r to rash on arms , legs , trun k BID 2wee ks on/2 week s off. Vtama tapinaro f 8094262 1 % Topica l cream 04/04/20 23 suspend ed Appl y to affe cted area s of [facility] twic e destin y unti l impr ligia and then decr ease to once destin y as need ed. Adult Low Dose Aspirin aspirin 81 mg Oral 1 table t, delay ed relea se (enthaleigh worrell) qd active atorvastati n atorvast atin 630300 80 mg Oral 1 table t qd active clopidogrel clopidog rel 780618 75 mg Oral table t suspend ed cyclobenzap rine cycloben zaprine 10 mg Oral 1 table t qd active hydrochloro thiazide hydrochl orothiaz jose l 509263 12.5 mg Oral 1 capsu le qd active lisinopril lisinopr il 19771207 40 mg Oral table t suspend ed metoprolol succinate metoprol ol succinat e 4985529 50 mg Oral 1 capsu le,sp rinkl e,ER 24hr qd active montelukast monteluk ast 019942 10 mg Oral 1 table t qd active sildenafil sildenaf il 123211 50 mg Oral 1 table t prn active valsartan 533339 80 mg Oral 1 table t qd active clobetasol clobetas ol 238070 0.05 % Scalp thin layer solut ion qd 05/19/19 25 active Mix cont na r with Cera ve tub, appl y to trun k/ex trem itie s BID 2 week s on 2 week s off. 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) 187128387(SN OMED) Diagnosis active 02/24/2025 Cutaneous peripheral T-cell lymphoma (disorder) 276731253(SN OMED) Diagnosis active 02/19/2025 Cutaneous peripheral T-cell lymphoma (disorder) 646321569(SN OMED) Diagnosis active 02/17/2025 Cutaneous peripheral T-cell lymphoma (disorder) 692067014(SN OMED) Diagnosis active 02/12/2025 Cutaneous peripheral T-cell lymphoma (disorder) 857160261(SN OMED) Diagnosis active 02/10/2025 Cutaneous peripheral T-cell lymphoma (disorder) 269412478(SN OMED) Diagnosis active 02/08/2025 Cutaneous peripheral T-cell lymphoma (disorder) 754363368(SN OMED) Diagnosis active 02/02/2025 Melanocytic nevus (disorder) 184067124(SN OMED) Diagnosis active 02/02/2025 Melanocytic nevus of right upper limb (disorder) 723785824(SN OMED) Diagnosis active 02/02/2025 Cutaneous peripheral T-cell lymphoma (disorder) 294793437(SN OMED) Diagnosis active 02/01/2025 Cutaneous peripheral T-cell lymphoma (disorder) 324868496(SN OMED) Diagnosis active 01/29/2025 Cutaneous peripheral T-cell lymphoma (disorder) 932629055(SN OMED) Diagnosis active 01/25/2025 Cutaneous peripheral T-cell lymphoma (disorder) 888154459(SN OMED) Diagnosis active 01/22/2025 Cutaneous peripheral T-cell lymphoma (disorder) 527484348(SN OMED) Diagnosis active 01/18/2025 Cutaneous peripheral T-cell lymphoma (disorder) 198716072(SN OMED) Diagnosis active 01/15/2025 Cutaneous peripheral T-cell lymphoma (disorder) 662509776(SN OMED) Diagnosis active 01/11/2025 Cutaneous peripheral T-cell lymphoma (disorder) 886642750(SN OMED) Diagnosis active 01/01/2025 Cutaneous peripheral T-cell lymphoma (disorder) 131725051(SN OMED) Diagnosis active 12/28/2024 Cutaneous peripheral T-cell lymphoma (disorder) 949672490(SN OMED) Diagnosis active 12/25/2024 Cutaneous peripheral T-cell lymphoma (disorder) 974185230(SN OMED) Diagnosis active 12/21/2024 Cutaneous peripheral T-cell lymphoma (disorder) 396970696(SN OMED) Diagnosis active 12/14/2024 Cutaneous peripheral T-cell lymphoma (disorder) 683834035(SN OMED) Diagnosis active 12/07/2024 Cutaneous peripheral T-cell lymphoma (disorder) 961751103(SN OMED) Diagnosis active 11/27/2024 Cutaneous peripheral T-cell lymphoma (disorder) 247457561(SN OMED) Diagnosis active 11/25/2024 Cutaneous peripheral T-cell lymphoma (disorder) 537986325(SN OMED) Diagnosis active 11/18/2024 Cutaneous peripheral T-cell lymphoma (disorder) 579837992(SN OMED) Diagnosis active 11/16/2024 Cutaneous peripheral T-cell lymphoma (disorder) 571908162(SN OMED) Diagnosis active 11/13/2024 Cutaneous peripheral T-cell lymphoma (disorder) 204088296(SN OMED) Diagnosis active 11/09/2024 Cutaneous peripheral T-cell lymphoma (disorder) 661232856(SN OMED) Diagnosis active 11/04/2024 Cutaneous peripheral T-cell lymphoma (disorder) 765377431(SN OMED) Diagnosis active 11/02/2024 Cutaneous peripheral T-cell lymphoma (disorder) 023594529(SN OMED) Diagnosis active 10/30/2024 Cutaneous peripheral T-cell lymphoma (disorder) 604766512(SN OMED) Diagnosis active 10/28/2024 Cutaneous peripheral T-cell lymphoma (disorder) 373600757(SN OMED) Diagnosis active 10/26/2024 Cutaneous peripheral T-cell lymphoma (disorder) 488601859(SN OMED) Diagnosis active 10/23/2024 Cutaneous peripheral T-cell lymphoma (disorder) 175133721(SN OMED) Diagnosis active 10/21/2024 Cutaneous peripheral T-cell lymphoma (disorder) 270582166(SN OMED) Diagnosis active 10/14/2024 Cutaneous peripheral T-cell lymphoma (disorder) 321695746(SN OMED) Diagnosis active 10/12/2024 Cutaneous peripheral T-cell lymphoma (disorder) 754109289(SN OMED) Diagnosis active 10/09/2024 Cutaneous peripheral T-cell lymphoma (disorder) 845812154(SN OMED) Diagnosis active 10/07/2024 Cutaneous peripheral T-cell lymphoma (disorder) 417448927(SN OMED) Diagnosis active 10/05/2024 Cutaneous peripheral T-cell lymphoma (disorder) 483076365(SN OMED) Diagnosis active 10/02/2024 Cutaneous peripheral T-cell lymphoma (disorder) 884243657(SN OMED) Diagnosis active 09/30/2024 Inflamed seborrheic keratosis (disorder) 050340628(SN OMED) Diagnosis active 09/29/2024 Cutaneous peripheral T-cell lymphoma (disorder) 635299309(SN OMED) Diagnosis active 09/29/2024 Cutaneous peripheral T-cell lymphoma (disorder) 159692349(SN OMED) Diagnosis active 09/25/2024 Cutaneous peripheral T-cell lymphoma (disorder) 013441555(SN OMED) Diagnosis active 09/23/2024 Cutaneous peripheral T-cell lymphoma (disorder) 121014106(SN OMED) Diagnosis active 09/21/2024 Cutaneous peripheral T-cell lymphoma (disorder) 518289564(SN OMED) Diagnosis active 09/11/2024 Cutaneous peripheral T-cell lymphoma (disorder) 430899883(SN OMED) Diagnosis active 09/09/2024 Cutaneous peripheral T-cell lymphoma (disorder) 651054395(SN OMED) Diagnosis active 09/04/2024 Cutaneous peripheral T-cell lymphoma (disorder) 643661688(SN OMED) Diagnosis active 09/02/2024 Cutaneous peripheral T-cell lymphoma (disorder) 130307523(SN OMED) Diagnosis active 08/31/2024 Cutaneous peripheral T-cell lymphoma (disorder) 043912118(SN OMED) Diagnosis active 08/28/2024 Cutaneous peripheral T-cell lymphoma (disorder) 429792012(SN OMED) Diagnosis active 08/26/2024 Cutaneous peripheral T-cell lymphoma (disorder) 623201742(SN OMED) Diagnosis active 08/24/2024 Cutaneous peripheral T-cell lymphoma (disorder) 884794383(SN OMED) Diagnosis active 08/21/2024 Cutaneous peripheral T-cell lymphoma (disorder) 586577876(SN OMED) Diagnosis active 08/19/2024 Cutaneous peripheral T-cell lymphoma (disorder) 886281284(SN OMED) Diagnosis active 08/17/2024 Cutaneous peripheral T-cell lymphoma (disorder) 575972341(SN OMED) Diagnosis active 08/14/2024 Cutaneous peripheral T-cell lymphoma (disorder) 523807006(SN OMED) Diagnosis active 08/12/2024 Cutaneous peripheral T-cell lymphoma (disorder) 443399757(SN OMED) Diagnosis active 08/10/2024 Cutaneous peripheral T-cell lymphoma (disorder) 516441434(SN OMED) Diagnosis active 08/07/2024 Cutaneous peripheral T-cell lymphoma (disorder) 678865301(SN OMED) Diagnosis active 08/05/2024 Cutaneous peripheral T-cell lymphoma (disorder) 990297253(SN OMED) Diagnosis active 08/03/2024 Cutaneous peripheral T-cell lymphoma (disorder) 822371348(SN OMED) Diagnosis active 07/31/2024 Cutaneous peripheral T-cell lymphoma (disorder) 850163832(SN OMED) Diagnosis active 07/29/2024 Cutaneous peripheral T-cell lymphoma (disorder) 774913302(SN OMED) Diagnosis active 07/24/2024 Cutaneous peripheral T-cell lymphoma (disorder) 275094637(SN OMED) Diagnosis active 07/22/2024 Cutaneous peripheral T-cell lymphoma (disorder) 410178134(SN OMED) Diagnosis active 07/17/2024 Cutaneous peripheral T-cell lymphoma (disorder) 107186096(SN OMED) Diagnosis active 07/15/2024 Cutaneous peripheral T-cell lymphoma (disorder) 055636377(SN OMED) Diagnosis active 07/13/2024 Cutaneous peripheral T-cell lymphoma (disorder) 877401337(SN OMED) Diagnosis active 07/10/2024 Cutaneous peripheral T-cell lymphoma (disorder) 007957573(SN OMED) Diagnosis active 07/08/2024 Cutaneous peripheral T-cell lymphoma (disorder) 902598414(SN OMED) Diagnosis active 07/06/2024 Cutaneous peripheral T-cell lymphoma (disorder) 494418348(SN OMED) Diagnosis active 07/03/2024 Cutaneous peripheral T-cell lymphoma (disorder) 351337905(SN OMED) Diagnosis active 07/01/2024 Cutaneous peripheral T-cell lymphoma (disorder) 351025102(SN OMED) Diagnosis active 06/29/2024 Cutaneous peripheral T-cell lymphoma (disorder) 089975535(SN OMED) Diagnosis active 06/26/2024 Cutaneous peripheral T-cell lymphoma (disorder) 511832823(SN OMED) Diagnosis active 06/24/2024 Cutaneous peripheral T-cell lymphoma (disorder) 005326088(SN OMED) Diagnosis active 06/19/2024 Cutaneous peripheral T-cell lymphoma (disorder) 492010470(SN OMED) Diagnosis active 06/17/2024 Cutaneous peripheral T-cell lymphoma (disorder) 394213290(SN OMED) Diagnosis active 06/15/2024 Cutaneous peripheral T-cell lymphoma (disorder) 557748519(SN OMED) Diagnosis active 06/10/2024 Cutaneous peripheral T-cell lymphoma (disorder) 121915781(SN OMED) Diagnosis active 05/19/2024 Cutaneous peripheral T-cell lymphoma (disorder) 263353473(SN OMED) Diagnosis active 03/20/2024 Surgical follow-up (finding) 173379999(SN OMED) Diagnosis active 03/20/2024 Cutaneous peripheral T-cell lymphoma (disorder) 659751751(SN OMED) Diagnosis active 02/13/2024 History of skin and/or subcutaneous tissue disease (situation) 121906967019 105(SNOMED) Diagnosis active 02/13/2024 Cyst of bursa (disorder) 589141589(SN OMED) Diagnosis active 02/13/2024 Surgical follow-up (finding) 831652852(SN OMED) Diagnosis active 01/24/2024 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 01/14/2024 Inflammatory dermatosis (disorder) 294265898(SN OMED) Diagnosis active 01/14/2024 Cyst of bursa (disorder) 040878197(SN OMED) Diagnosis active 01/14/2024 Verruca vulgaris (disorder) 31908095(SNO MED) Diagnosis active 01/14/2024 Atopic dermatitis (disorder) 18741890(SNO MED) Diagnosis active 01/14/2024 Verruca vulgaris (disorder) 60790018(SNO MED) Diagnosis active 11/05/2023 Inflamed seborrheic keratosis (disorder) 139805004(SN OMED) Diagnosis active 11/05/2023 Atopic dermatitis (disorder) 92920183(SNO MED) Diagnosis active 11/05/2023 Artefactual skin disease (disorder) 526471014(SN OMED) Diagnosis active 11/05/2023 Hypertrophic condition of skin (disorder) 08896918(SNO MED) Diagnosis active 11/05/2023 Atopic dermatitis (disorder) 23984483(SNO MED) Diagnosis active 07/04/2023 Artefactual skin disease (disorder) 476303737(SN OMED) Diagnosis active 07/04/2023 Inflamed seborrheic keratosis (disorder) 990620117(SN OMED) Diagnosis active 07/04/2023 Atopic dermatitis (disorder) 85885145(SNO MED) Diagnosis active 04/04/2023 Atopic dermatitis (disorder) 52720750(SNO MED) Diagnosis active 12/20/2022 Atopic dermatitis (disorder) 49873316(SNO MED) Diagnosis active 01/10/2022 Atopic dermatitis (disorder) 05245855(SNO MED) Diagnosis active 11/29/2021 Atopic dermatitis (disorder) 38768337(SNO MED) Diagnosis active 09/27/2021 Increased blood pressure (finding) 34120752(SNO MED) Problem active Arthritis (disorder) 6364796(SNOM ED) Problem active Psoriasis (disorder) 1485147(SNOM ED) Problem active Mononeuropathy (disorder) 540880415(SN OMED) Problem active Eczema (disorder) 12861679(SNO MED) Problem active History of clinical finding in subject (situation) 814024964(SN OMED) Problem active Results No data Encounters Service provided at [facility], [address] [place] [address], [address], [place], [place] [id number]. Office phonenumber is [phone]. Office fax number is [phone]. Encounter Diagnosis Location Date / Time Type Cutaneous T-Cell Lymphoma (CTCL) (C84.A0) [facility] 03/01/2025 17:30:00 UT NI Reason For Referral No data [...] Time - 3:07 min; Treatment Number - 77; Location (Body Touches will Override) - full body; Total Body Energy - 690 mj; Skin Type - II; Total Body Time - 3:07 min; Protocol - Photochemotherapy: Mineral Oil and NBUVB; Render Post-care in the Note - no. Plan of Care Code Detail Instructions 9272236 triamcinolone aceton jose l 0.1 % topical ointment Apply thin layer to rash on arms, legs, trunk BID 2weeks on/2 weeks off. 428134 clobetasol 0.05 % topical ointme nt Apply thin layer to entire rash (trunk, extremities) for 2 weeks on, 2 weeks off. 842158 clobetasol 0.05 % topical ointme nt Apply thin layer to entire rash (trunk, extremities) for 2 weeks on, 2 weeks off. 1468275 triamcinolone aceton jose l 0.1 % topical ointment Apply thin layer to rash on arms, legs, trunk BID 2weeks on/2 weeks off. 464255 clobetasol 0.05 % scalp solution Mix container with Cerave tub, apply to trunk/extremities BID 2 weeks on 2 weeks off. 529375 clobetasol 0.05 % scalp solution Mix container with Cerave tub, apply to trunk/extremities BID 2 weeks on 2 weeks off. 2695541 triamcinolone aceton jose l 0.1 % topical ointment Apply thin layer to rash on arms, legs, trunk BID 2weeks on/2 weeks off. 728539 clobetasol 0.05 % topical ointme nt Apply thin layer to entire rash (trunk, extremities) for 2 weeks on, 2 weeks off. 605312 clobetasol 0.05 % topical cream Apply twice daily to rash up to 2 weeks/month as needed. 9669509 Opzelura 1.5 % topical cream John ly to rash BID PRN. 0594379 Adbry 150 mg/mL subcutaneous syr alicia Inject two syringes (total dose 300mg) SC every other week 6574418 Adbry 150 mg/mL subcutaneous syr alicia Inject two syringes (total dose 300mg) SC every other week 1357976 Adbry 150 mg/mL subcutaneous syr alicia Inject two syringes (total dose 300mg) SC every other week 3532757 Dupixent 300 mg/2 mL subcutaneous pen injector Inject 1 pen SQ Q 2 weeks 3616501 Dupixent 300 mg/2 mL subcutaneous pen injector Inject 1 pen SQ Q 2 weeks 5641390 Vtama 1 % topical cream Apply to affected areas of eczema twice daily until improved and then decrease to once daily as needed. 6295898 Dupixent 300 mg/2 mL subcutaneous pen injector Inject 1 pen SQ Q 2 weeks 312964 tacrolimus 0.1 % topical ointmen t Apply to eczema BID ok to use on face 948223 clobetasol 0.05 % topical ointme nt AAA bid prn not for face 6530642 Dupixent 300 mg/2 mL subcutaneous syringe inject one pen every 2 wks 5977663 Dupixent 300 mg/2 mL subcutaneous syringe inject one pen every 2 wks 3193313 Dupixent 300 mg/2 mL subcutaneous syringe inject one pen every 2 wks 1647585 fluocinolone 0.01 % topical body oil apply twice daily for up to two weeks, take one week off. repeat until clear. 4543084 Dupixent 300 mg/2 mL subcutaneous syringe inject one pen every 2 wks 5545818 triamcinolone aceton jose l 0.1 % topical cream Apply BID to areas of eczema for 2 weeks on, and 1 week off. Avoid face and body folds. Instructions No Data Social History Code Activity Start Date End Date [id number] (SNOMED) Never smoker Sex male Sexual orientation Unspecified Gender identity Unspecified Vital Signs No data
--- OUTSIDE RECORDS SUMMARY | 2025-03-02 19:22 | XMS_ITS | Encounter Summary ---
Author Organization [facility] Address [address] [place] [address] Care Team Providers Care Rn Employee Health Name Role Phone Terra Lopez Primary Care Provider [phone] Encounter Details Date Type Department Care Team (Late st Contact Info) Description 02/16/2022 Orders Only [facility] [address] [place] [address] ProviderRosa MD [address] [place] [address] Social History Tobacco Use Types Packs/Day [...] Description 04/15/2025 11:00 AM EST Office Visit [facility] [address] [place] [address] Karla Diaz MD [address] [place], [place] [phone] documented as of this encounter Procedures * Due to [place] Transfercar law, this organization might not be sharing negative HIV tests. Procedure Name Priority Date/Time Associated Diagnosis Comments AMB EXTERNAL MRI C-SPINE, OU TSIDE RESULT Routine 10/24/2021 documented in this encounter Results * Due to [place] state law, this organization might not be sharing negative HIV tests. * MRI C-Spine, Outside Result (10/24/2021) Anatomical Region Laterality Modality Other us Unknown Provider MD DANIELS EXTERNAL RESULT PROCEDUR ES Final Result documented in this encounter Visit Diagnoses Not on filedocumented in this encounter Care Teams Rn Employee Health Relationship Specialty Start Date End Date Terra Lopez PCP - General Family Medicine 04/13/21 documented as of this encounter
--- OUTSIDE RECORDS SUMMARY | 2025-03-02 19:22 | XMS_ITS | Encounter Summary ---
Author Organization [facility] Address [address] [place] [address] Care Team Providers Care Squeegee Finisher Name Role Phone Terra Lopez Primary Care Provider [phone] Encounter Details Date Type Department Care Team ([facility] st Contact Info) Description 09/12/2021 Telephone [facility] [address] [place] [address] [phone] Telephone Intake, Staff Social History Tobacco Use [...] Dr. Espinoza's office called - please call [phone] #[phone] * Telephone Encounter - Candice Worrell - 09/12/2021 11:[address] Olga Childers, Neurologist who referred pt to you called requesting a call back and would like to speak to you about this pt. Please return call at [phone] documented in this encounter Plan of Treatment Upcoming Encounters Date Type Department Care Team (Late st Contact Info) Description 04/15/2025 11:00 AM EST Office Visit [facility] [address] [place], [place] [phone] Karla Diaz MD [address] [place], [place] [phone] documented as of this encounter Visit Diagnoses Not on filedocumented in this encounter Care Teams Squeegee Finisher Relationship Specialty Start Date End Date Terra Lopez PCP - General Family Medicine 04/13/21 documented as of this encounter
--- OUTSIDE RECORDS SUMMARY | 2025-03-02 19:22 | XMS_ITS | Encounter Summary ---
Author Organization [facility] Address [address] [place] [address] Care Team Providers Care Clay Pigeon Setter Name Role Phone Terra Lopez Primary Care Provider [phone] Reason for Visit * Reason Onset Date Comments CS - reschedule today's appointment 08/23/2022 Encounter Details Date Type Department Care Team (Late st Contact Info) Description 08/23/2022 Telephone [facility] [address] [place] [address] Telephone Intake, Staff CS - reschedule today's [...] appts until February. Please follow up at [phone]. documented in this encounter Plan of Treatment Upcoming Encounters Date Type Department Care Team (Late st Contact Info) Description 04/15/2025 11:00 AM EST Office Visit [facility] [address] [place] [address] Karla Diaz MD [address] [place] [address] documented as of this encounter Visit Diagnoses Not on filedocumented in this encounter Care Teams Clay Pigeon Setter Relationship Specialty Start Date End Date Terra Lopez PCP - General Family Medicine 04/13/21 documented as of this encounter
--- OUTSIDE RECORDS SUMMARY | 2025-03-02 19:22 | XMS_ITS | Encounter Summary ---
Author Organization [facility] Address [address] [place] [address] Care Team Providers Care Culinary Worker Name Role Phone Terra Lopez Primary Care Provider [phone] Encounter Details Date Type Department Care Team (Late st Contact Info) Description 02/15/2022 Orders Only [facility] [address] [place] [address] [address] Social History Tobacco Use Types Packs/Day Years [...] Description 04/15/2025 11:00 AM EST Office Visit [facility] [address] [place] [address] Karla Diaz MD [address] [place], [place] [phone] documented as of this encounter Procedures * Due to [place] state law, this organization might not be sharing negative HIV tests. Procedure Name Priority Date/Time Associated Diagnosis Comments AMB EXTERNAL MRI CHEST, OUTS ROBYN RESULT Routine 10/24/2021 AMB EXTERNAL MRI C-SPINE, OU TSIDE RESULT Routine 10/24/2021 documented in this encounter Results * Due to [place] state law, this organization might not be sharing negative HIV tests. * MRI Chest, Outside Result (10/24/2021) Anatomical Region Laterality Modality Other [facility] AMB EXTERNAL RESULT PROCEDURES Final Result * MRI C-Spine, Outside Result (10/24/2021) Anatomical Region Laterality Modality Other [facility] AMB EXTERNAL RESULT PROCEDURES Final Result documented in this encounter Visit Diagnoses Not on filedocumented in this encounter Care Teams Culinary Worker Relationship Specialty Start Date End Date Terra Lopez PCP - General Family Medicine 04/13/21 documented as of this encounter
--- OUTSIDE RECORDS SUMMARY | 2025-03-02 19:22 | XMS_ITS | Clinical Summary ---
Author Organization [facility] Address [address] [place] [address] Care Team Providers Care Concrete Grinder Operator Name Role Phone Terra Lopez Primary Care Provider [phone] Allergies No known active allergies Medications metoprolol [...] a day as needed. 2 Active omega 5-nkc-unj-fish oil 1,000 mg (120 mg-180 mg) capsule [...] Description 04/15/2025 11:00 AM EST Office Visit [facility] [address] [place] [address] Karla Diaz MD [address] [place] [address] Health Maintenance Due Date Last Done Comments [...] age to complete this topic Insurance MEDICARE [facility] Care Teams Concrete Grinder Operator Relationship Specialty Start Date End Date JessicaTerra PCP - General Family Medicine 04/13/21
== END 2025-03-02 15:34 | disposition home or self-care (01) ==
PROVIDERS: PCP Internal Medicine; Visit Provider Internal Medicine
DX: M25.551 Pain in right hip (principal); V89.2XXA Person injured in unspecified motor-vehicle accident, traffic, initial encounter; R35.0 Frequency of micturition

== ENCOUNTER 2025-03-18 09:41 | Outpatient (REF) | payer OTHER, MEDICARE, SELFPAY ==
--- OUTSIDE RECORDS SUMMARY | 2025-03-18 11:15 | XMS_ITS | Clinical Summary ---
Author Organization [facility] Address [address] [place] [address] Phone Care Team Providers Care Extension Agent Name Role Phone Carol Vyas NP Unavailable + [phone] Terra Galeano MD Primary Care Provider + [phone] Allergies No known active allergies Medications naproxen sodium (ALEVE) 220 mg Cap Take by mouth. Activ e atorvastatin (LIPITOR) 80 MG tablet TAKE 1 TABLET AT BEDTIME 7 Active cyclobenzaprine (FLEXERIL) 10 MG tablet Take 10 mg by mouth 3 (three) times a day as needed. 7 Active omega 8-azz-ncv-fish oil (FISH OIL) 1,000 mg (120 mg-180 [...] original. 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 Encounters Date Type Department Care Team Description 03/07/2025 Orders Only [facility] [address] [address] Anali Elaine PA-C 02/26/2025 8:30 AM EDT Infusion [facility] [address] [place] [address] Gilmer Jackson, DO Multifocal motor neuropathy (Primary Dx) 02/25/2025 8:00 AM EDT Infusion [facility] [address] [place] [address] Gilmer Jackson L, DO Multifocal motor neuropathy (Primary Dx) 02/24/2025 8:30 AM EDT Infusion [facility] [address] [place] [address] Gilmer Jackson, DO Multifocal motor neuropathy (Primary Dx) 02/23/2025 8:30 AM EDT Infusion [facility] [address] [place] [address] 7[address] Gilmer Jackson L, DO Multifocal motor neuropathy (Primary Dx) 02/22/2025 8:30 AM EDT Infusion [facility] [address] [place] [address] 10[address] Gilmer Jackson L, DO Multifocal motor neuropathy (Primary Dx) 01/29/2025 8:30 AM EDT Infusion [facility] [address] [place] [address] 68046 Gilmer Jackson L, DO Multifocal motor neuropathy (Primary Dx) 01/28/2025 8:00 AM EDT Infusion [facility] [address] [place] [address] 15773 Gilmer Jackson, DO Multifocal motor neuropathy (Primary Dx) 01/27/2025 8:30 AM EDT Infusion [facility] [address] [place] [address] 130[address] Gilmer Jackson L, DO Multifocal motor neuropathy (Primary Dx) 01/26/2025 8:30 AM EDT Infusion [facility] [address] [place] [address] Gilmer Jackson L, DO Multifocal motor neuropathy (Primary Dx) 01/25/2025 8:30 AM EDT Infusion [facility] [address] [place] [address] Gilmer Jackson, DO Multifocal motor neuropathy (Primary Dx) 01/01/2025 8:30 AM EDT Infusion [facility] [address] [place] [address] Gilmer Jackson, DO Multifocal motor neuropathy (Primary Dx) 12/31/2024 8:30 AM EDT Infusion [facility] [address] [place] [address] Gilmer Jackson, DO Multifocal motor neuropathy (Primary Dx) 12/30/2024 8:30 AM EDT Infusion [facility] [address] [place] [address] Gilmer Jackson, DO Multifocal motor neuropathy (Primary Dx) 12/29/2024 8:30 AM EDT Infusion [facility] Infusion [address] [address] Gilmer Jackson, DO Multifocal motor neuropathy (Primary Dx) 12/28/2024 8:30 AM EDT Infusion [facility] Infusion Center [address] [place] [address] Gilmer Jackson, DO Multifocal motor neuropathy (Primary [...] Info) Description 03/22/2025 8:30 AM EST Infusion [facility] Infusion Center [address] [place] [address] Gilmer Jackson DO [address] [facility], [address] [place] [address] [email or web address] 03/23/2025 8:30 AM EST Infusion [facility] [address] [place] [address] Gilmer Jackson, [address], [address] [place] [id number] [email or web address] 03/24/2025 8:30 AM EST Infusion [facility] [address] [place] [address] Gilmer Jackson, [address], [address] [place] [address] [email or web address] 03/25/2025 8:30 AM EST Infusion [facility] [address] [place] [address] Gilmer Jackson, [address], [address] [place] [address] [email or web address] 03/26/2025 8:30 AM EST Infusion [facility] [address] [place] [address] 6[address] Gilmer Jackson, [address], [address] [place] [address] [email or web address] 03/30/2025 2:30 PM EST [facility] [address] [place] [address], [address]th [place] [address] Sara Angelo MD [address] [place] [address] [email or web address] 04/19/2025 8:30 AM EST Infusion [facility] [address] [place] [address] Gilmer Jackson, [address], [address] [place] [id number] [email or web address] 04/20/2025 8:30 AM EST Infusion [facility] [address] [place] [address] 48[address] Gilmer Jackson, [address], [address] [place] [address] [email or web address] 04/21/2025 8:30 AM EST Infusion [facility] [address] [place] [address]39[address] Gilmer Jackson, [address], [address] [place] [address] [email or web address] 04/22/2025 8:30 AM EST Infusion [facility] [address] [place] [address] 58[address] Gilmer Jackson, [address], [address] [place] [address] [email or web address] 04/23/2025 8:30 AM EST Infusion [facility] [address] [place] [address] 81122 Gilmer Jackson, [address], [address] [place] [address] 823[address] [email or web address] 05/17/2025 8:30 AM EST Infusion [facility] [address] [place] [address] 576[address] Gilmer Jackson, [address], [address] [place] [address] 324[address] [email or web address] 05/18/2025 8:30 AM EST Infusion [facility] [address] [place] [address] 04326 Gilmer Jackson, [address], [address] [place] [id number] [email or web address] 05/19/2025 8:30 AM EST Infusion [facility] [address] [place] [address] 044[address] Gilmer Jackson, [address], [address] [place] [id number] [email or web address] 05/20/2025 8:30 AM EST Infusion [facility] [address] [place] [address] 64[address] Gilmer Jackson, [address], [address] [place] [address] [email or web address] 05/21/2025 8:30 AM EST Infusion [facility] [address] [place] [address] 73747 Gilmer Jackson, [address], [address] [place] [address] [email or web address] 06/14/2025 8:30 AM EST Infusion [facility] [address] [place] [address] 520[address] Gilmer Jackson, [address], [address] [place] [address] [id number] [email or web address] 06/15/2025 8:30 AM EST Infusion [facility] [address] [place] [address] 239[address] Gilmer Jackson, [address], [address] [place] [address] 710[address] [email or web address] 06/16/2025 8:30 AM EST Infusion [facility] [address] [place] [address] 86[address] Gilmer Jackson, [address], [address] [place] [address] [email or web address] 06/17/2025 8:30 AM EST Infusion [facility] [address] [place] [address] 398[address] Gilmer Jackson, [address], [address] [place] [id number] [email or web address] 06/18/2025 8:30 AM EST Infusion [facility] [address] [place] [address] 890[address] Gilmer Jackson, [address], [address] [place] [address] [id number] [email or web address] 07/12/2025 8:30 AM EDT Infusion [facility] [address] [place] [address] 27[address] Gilmer Jackson, [address], [address] [place] [address] [id number] [email or web address] 07/13/2025 8:30 AM EDT Infusion [facility] [address] [place] [address] 29526 Gilmer Jackson, [address], [address] [place] [address] [email or web address] 07/14/2025 8:30 AM EDT Infusion [facility] [address] [place] [address] 02580 Gilmer Jackson, [address], [address] [place] [address] 915[address] [email or web address] 07/15/2025 8:30 AM EDT Infusion [facility] [address] [place] [address] 63197 Gilmer Jackson, [address], [address] [place] [address] 510[address] [email or web address] 07/16/2025 8:30 AM EDT Infusion [facility] [address] [place] [address] 423[address] Gilmer Jackson, [address], [address] [place] [address] 239[address] [email or web address] 08/09/2025 8:30 AM EDT Infusion [facility] [address] [place] [address] 00616 Gilmer Jackson, [address], [address] [place] [address] 136[address] [email or web address] 08/10/2025 8:30 AM EDT Infusion [facility] [address] [place] [address] 709[address] Gilmer Jackson, [address], [address] [place] [address] 377[address] [email or web address] 08/11/2025 8:30 AM EDT Infusion [facility] [address] [place] [address] 675[address] Gilmer Jackson, [address], [address] [place] [address] 52435 [email or web address] 08/12/2025 8:30 AM EDT Infusion [facility] [address] [place] [address] 24098 Gilmer Jackson, [address], [address] [place] [address] [id number] [email or web address] 08/13/2025 8:30 AM EDT Infusion [facility] [address] [place] [address] 87978 Gilmer Jackson, [address], [address] [place] [address] [id number] [email or web address] 09/06/2025 8:30 AM EDT Infusion [facility] [address] [place] [address] 55965 Gilmer Jackson, [address], [address] [place] [id number] [email or web address] 09/07/2025 8:30 AM EDT Infusion [facility] [address] [place] [address] 6[address] Gilmer Jackson, [address], [address] [place] [address] [id number] [email or web address] 09/08/2025 8:30 AM EDT Infusion [facility] [address] [place] [address] 06933 Gilmer Jackson, [address], [address] [place] [address] 01057 [email or web address] 09/09/2025 8:30 AM EDT Infusion [facility] [address] [place] [address] Gilmer aJckson, [address], [address] [place] [address] [id number] [email or web address] 09/10/2025 8:30 AM EDT Infusion [facility] [address] [place] [address] 8[address] Gilmer Jackson, [address], [address] [place] [address] [email or web address] Health Maintenance Due Date Last Done Comments DEPRESSION SCREENING 1964 HEPATITIS C SCREENING 1970 PNEUMOCOCCAL VACCINES (50+ years) (1 of 2 - PCV) 1971 ZOSTER VACCINES (1 of 2) 1971 COLOGUARD 1997 COLONOSCOPY 1997 COLORECTAL CANCER SCREENING 1997 FIT TEST 1997 FOBT 1997 SIGMOIDOSCOPY 1997 VIRTUAL COLONOSCOPY 1997 LIPID PANEL 06/26/2022 06/26/2017 INFLUENZA VACCINE (#1) 2024 COVID-19 VACCINE (1 - 2024-2 6 season) 2025 CREATININE LEVEL [...] patient's age to complete this topic IPV VACCINES Aged Out No longer eligi ble based on patient's age to complete this topic MENINGOCOCCAL VACCINES (ACWY) Aged Out No longer eligible based on patient's age to complete this topic MENINGOCOCCAL VACCINES (B) Aged Out N o longer eligible based on patient's age to complete this topic Medical Devices Implanted Type Area Equipment Tester Device Identifier Shelf Expiration Date Model / Serial / Lot 2 Cardiac Stents Possible Umbilical Mesh Procedures Procedure Name Priority Date/Time Associated Diagnosis Comments COMPREHENSIVE METABOLIC PANEL (CMP) Routine 03/02/2024 2:54 PM EDT from Last 3 Months or Most Recently Relevant to Health Maintenance Results * (ABNORMAL) Comprehensive metabolic panel (03/02/2024 2:54 PM EDT) SODIUM 141 136 - 145 mmol/L [facility] LIC# [id number] POTASSIUM 3.8 3.4 - 5.1 mmol/L [facility]# [id number] CHLORIDE 103 98 - 107 mmol/L [facility]# [id number] CO2 24 22 - 31 mmol/L [facility]# [id number] BUN 15 6 - 23 mg/dL [facility]IC# [id number] CREATININE 0.90 0.50 - 1.20 mg/dL [facility]# [id number] GLUCOSE 117(H) 70 - 100 mg/dL [facility]# [id number] ALBUMIN 4.2 3.5 - 5.2 g/dL [facility]# [id number] TOTAL PROTEIN 7.1 6.4 - 8.3 g/dL [facility]# [id number] CALCIUM 9.3 8.8 - 10.7 mg/dL [facility]# [id number] ALKALINE PHOSPHATASE 120 40 - 129 U/L [facility]IC# [id number] TOTAL BILIRUBIN 0.8 0.2 - 1.2 mg/dL [facility]# [id number] AST 21 <41 U/L [facility] LIC# [id number] ALT 27 <42 U/L [facility] LIC# [id number] GLOBULIN 2.9 2.3 - 4.2 g/dL [facility]# [id number] EGFR 91 >59 mL/min/1.7 3m2 [facility]# [id number] Comment:Estimated glomerular filtration rate calculated using the CKD-EPI refit equation. ANION GAP 14 7 - 17 mmol/L [facility]IC# [id number] 03/02/2024 2:54 PM EDT 03/02/2024 3:55 PM EDT us Darlyn Yeager MD LAB BLOOD BKR ORDERABLES Final Result [facility] LIC# [id number] [address] [place] [address] from Last 3 Months or Most Recently Relevant to Health Maintenance Insurance MEDICARE PART A & B [employer] SUPPLEMENT MEDICARE PART A & B [employer] SUPPLEMENT [place] PART A & [place] [id number] [facility] MEDEX SUPPLEMENT MEDICARE PART A & B [employer] MED[employer] SUPPLEMENT MEDICARE PART A & B [employer] SUPPLEMENT MEDICARE PART A & B [employer] SUPPLEMENT MEDICARE PART A & B [employer] SUPPLEMENT MEDICARE PART A & B [employer] MED[employer] SUPPLEMENT MEDICARE PART A & B [employer] MED[employer] SUPPLEMENT MEDICARE PART A & B [employer] SUPPLEMENT Advance Directives For more information, please contact: [phone] (9AM - 5PM [facility], Saturday-Saturday) Documents on File Type Date Recorded Patient Hospitality Aide Expl anation Healthcare Proxy 08/15/2017 1:55 PM * Full Code (Presumed) (Latest Code Status on File) Date Activated Date Inactivated Comments 08/13/2017 10:11 AM 08/13/2017 3:31 PM Care Teams Extension Agent Relationship Specialty Start Date End Date Terra Galeano MD [address] [place] [address] PCP - General Internal Medicine 01/25/25 Carol Vyas NP [address] [address] Referring Physician Family Medicine 02/14/24 Additional Source Comments The information contained in this document represents components of the legal health record. It is not the complete legal health record.[facility]
--- OUTSIDE RECORDS SUMMARY | 2025-03-18 11:15 | XMS_ITS | Encounter Summary ---
Author Organization [facility] Address [address] [place] [address] Care Team Providers Care Quality Assurance Coach Name Role Phone Terra Lopez Primary Care Provider [phone] Encounter Details Date Type Department Care Team (Late st Contact Info) Description 02/16/2022 Orders Only [facility] [address] [place] [address] ProviderRosa MD [address] [place] [address] Social History Tobacco Use Types Packs/Day [...] Description 04/15/2025 11:00 AM EST Office Visit [facility] [address] [place] [address] Karla Diaz MD [address] [place], [place] [id number] documented as of this encounter Procedures * Due to [place] [employer] law, this organization might not be sharing negative HIV tests. Procedure Name Priority Date/Time Associated Diagnosis Comments AMB EXTERNAL MRI C-SPINE, OU TSIDE RESULT Routine 10/24/2021 documented in this encounter Results * Due to [place] state law, this organization might not be sharing negative HIV tests. * MRI C-Spine, Outside Result (10/24/2021) us Unknown Provider MD DANIELS EXTERNAL RESULT PROCEDUR ES Final Result documented in this encounter Visit Diagnoses Not on filedocumented in this encounter Care Teams Quality Assurance Coach Relationship Specialty Start Date End Date Terra Lopez PCP - General Family Medicine 04/13/21 documented as of this encounter
--- OUTSIDE RECORDS SUMMARY | 2025-03-18 11:15 | XMS_ITS | Encounter Summary ---
Author Organization [facility] Address [address] [place] [address] Care Team Providers Care Piece Work Inspector Name Role Phone Terra Lopez Primary Care Provider [phone] Encounter Details Date Type Department Care Team ([facility] st Contact Info) Description 09/12/2021 Telephone [facility] [address] [place] [address] [phone] Telephone Intake, Staff Social History Tobacco Use [...] Dr. Espinoza's office called - please call [phone] #[phone] * Telephone Encounter - Candice Worrell - 09/12/2021 11:[address] Olga Childers, Neurologist who referred pt to you called requesting a call back and would like to speak to you about this pt. Please return call at [phone] documented in this encounter Plan of Treatment Upcoming Encounters Date Type Department Care Team (Late st Contact Info) Description 04/15/2025 11:00 AM EST Office Visit [facility] [address] [place], [place] [phone] Karla Diaz MD [address] [place], [place] [phone] documented as of this encounter Visit Diagnoses Not on filedocumented in this encounter Care Teams Piece Work Inspector Relationship Specialty Start Date End Date Terra Lopez PCP - General Family Medicine 04/13/21 documented as of this encounter
--- OUTSIDE RECORDS SUMMARY | 2025-03-18 11:15 | XMS_ITS | Encounter Summary ---
Author Organization Formerly [facility] Address [facility] [facility] [address] [place] [address] Phone Care Team Providers Care Plaster Mixer Name Role Phone Terra Galeano MD Primary Care Provider + [phone] Carol Vyas NP Unavailable + [phone] Terra Galeano MD Primary Care Provider + [phone] Encounter Details Date Type Department Care Team (Late st Contact Info) Description 08/13/2017 Procedure Pass [facility] [address] [place] [phone] Social History Tobacco Use Types Packs/Day [...] Info) Description 03/22/2025 8:30 AM EST Infusion [facility] Infusion Center [address] [place] [address] Gilmer Jackson DO [address] [facility], [address] [place], [place] [id number] [email or web address] 03/23/2025 8:30 AM EST Infusion [facility] Medical Infusion Center [address] [place] [address] Gilmer Jackson, [address], [address] [place] [address] [email or web address] 03/24/2025 8:30 AM EST Infusion [facility] Medical Infusion Center [address] [place] [address] Gilmer Jackson, [address], [address] [place] [address] [email or web address] 03/25/2025 8:30 AM EST Infusion [facility] Medical Infusion Center [address] [place] [address] Gilmer Jackson, [address], [address] [place] [address] [email or web address] 03/26/2025 8:30 AM EST Infusion [facility] Medical Infusion Center [address] [place] [address] Gilmer Jackson, [address], [address] [place] [address] [email or web address] 03/30/2025 2:30 PM EST Office [facility] [address] [place] [address], [address] [place] [address] Sara Angelo MD [address] [place] [address] [email or web address] 04/19/2025 8:30 AM EST Infusion [facility] Medical Infusion Center [address] [place] [address] Gilmer Jackson, [address], [address] [place] [address] [email or web address] 04/20/2025 8:30 AM EST Infusion [facility] Medical Infusion Center [address] [place] [address] Gilmer Jackson, [address], [address] [place] [address] [email or web address] 04/21/2025 8:30 AM EST Infusion [facility] Medical Infusion Center [address] [place] [address] Gilmer Jackson, [address], [address] [place] [address] [email or web address] 04/22/2025 8:30 AM EST Infusion [facility] Medical Infusion Center [address] [place] [address] Gilmer Jackson, [address], [address] [place] [address] [email or web address] 04/23/2025 8:30 AM EST Infusion [facility] Medical Infusion Center [address] [place] [address] Gilmer Jackson, [address], [address] [place] [address] [email or web address] 05/17/2025 8:30 AM EST Infusion [facility] Medical Infusion Center [address] [place] [address] 713[address] Gilmer Jackson, [address], [address] [place] [address] 16686 [email or web address] 05/18/2025 8:30 AM EST Infusion [facility] Medical Infusion Center [address] [place] [address] Gilmer Jacksno, [address], [address] [place] [address] [email or web address] 05/19/2025 8:30 AM EST Infusion [facility] Medical Infusion Center [address] [place] [address] Gilmer Jackson, [address], [address] [place] [address] [email or web address] 05/20/2025 8:30 AM EST Infusion [facility] Medical Infusion Center [address] [place] [address] 239[address] Gilmer Jackson, [address], [address] [place] [address] [email or web address] 05/21/2025 8:30 AM EST Infusion [facility] Medical Infusion Center [address] [place] [address] 06[address] Gilmer Jackson, [address], [address] [place] [address] [email or web address] 06/14/2025 8:30 AM EST Infusion [facility] Medical Infusion Center [address] [place] [address] 84[address] Gilmer Jackson, [address], [address] [place] [address] 609[address] [email or web address] 06/15/2025 8:30 AM EST Infusion [facility] Medical Infusion Center [address] [place] [address] Gilmer Jackson, [address], [address] [place] [address] [email or web address] 06/16/2025 8:30 AM EST Infusion [facility] Medical Infusion Center [address] [place] [address] Gilmer Jackson, [address], [address] [place] [address] 95[address] [email or web address] 06/17/2025 8:30 AM EST Infusion [facility] Medical Infusion Center [address] [place] [address] 388[address] Gilmer Jackson, [address], [address] [place] [address] [email or web address] 06/18/2025 8:30 AM EST Infusion [facility] Medical Infusion Center [address] [place] [address] 34[address] Gilmer Jackson, [address], [address] [place] [address] 135[address] [email or web address] 07/12/2025 8:30 AM EDT Infusion [facility] Medical Infusion Center [address] [place] [address] Gilmer Jackson, [address], [address] [place] [address] 20644 [email or web address] 07/13/2025 8:30 AM EDT Infusion [facility] Medical Infusion Center [address] [place] [address] 34[address] Gilmer Jackson, [address], [address] [place] [address] 19970 [email or web address] 07/14/2025 8:30 AM EDT Infusion [facility] Medical Infusion Center [address] [place] [address] 49014 Gilmer Jackson, [address], [address] [place] [address] 91390 [email or web address] 07/15/2025 8:30 AM EDT Infusion [facility] Medical Infusion Center [address] [place] [address] 12586 Gilmer Jackson, [address], [address] [place] [address] 05857 [email or web address] 07/16/2025 8:30 AM EDT Infusion [facility] Medical Infusion Center [address] [place] [address] 48[address] Gilmer Jackson, [address], [address] [place] [address] 24652 [email or web address] 08/09/2025 8:30 AM EDT Infusion [facility] Medical Infusion Center [address] [place] [address] 93[address] Gilmer Jackson, [address], [address] [place] [address] 22938 [email or web address] 08/10/2025 8:30 AM EDT Infusion [facility] Medical Infusion Center [address] [place] [address] 18178 Gilmer Jackson, [address], [address] [place] [address] 27998 [email or web address] 08/11/2025 8:30 AM EDT Infusion [facility] Medical Infusion Center [address] [place] [address] 66872 Gilmer Jackson, [address], [address] [place] [address] 07997 [email or web address] 08/12/2025 8:30 AM EDT Infusion [facility] Medical Infusion Center [address] [place] [address] 07455 Gilmer Jackson, [address], [address] [place] [address] 786[address] [email or web address] 08/13/2025 8:30 AM EDT Infusion [facility] Medical Infusion Center [address] [place] [address] 80043 Gilmer Jackson, [address], [address] [place] [address] 64092 [email or web address] 09/06/2025 8:30 AM EDT Infusion [facility] Medical Infusion Center [address] [place] [address] 827[address] Gilmer Jackson, [address], [address] [place] [address] 71216 [email or web address] 09/07/2025 8:30 AM EDT Infusion [facility] Medical Infusion Center [address] [place] [address] 67847 Gilmer Jackson, [address], [address] [place] [address] 02961 [email or web address] 09/08/2025 8:30 AM EDT Infusion [facility] Medical Infusion Center [address] [place] [address] 33776 Gilmer Jackson, [address], [address] [place] [address] 60366 [email or web address] 09/09/2025 8:30 AM EDT Infusion [facility] Medical Infusion Center [address] [place] [address] 22005 Gilmer Jackson, [address], [address] [place] [address] 65437 [email or web address] 09/10/2025 8:30 AM EDT Infusion [facility] Medical Infusion Center [address] [place] [address] 39623 Gilmer Jackson, DO [address] [facility], [address] [place] [address] [email or web address] documented as of this encounter Visit Diagnoses Not on filedocumented in this encounter Care Teams Plaster Mixer Relationship Specialty Start Date End Date Terra Galeano MD PCP - General Internal Medicine 06/04/17 01/24/25 Terra Galeano MD [address] [place] [address] PCP - General Internal Medicine 01/25/25 Carol Vyas NP [address] [place] [address]662 Referring Physician Family Medicine 02/14/24 documented as of this encounter Additional Source Comments The information contained in this document represents components of the legal health record. It is not the complete legal health record.Formerly [facility]
--- OUTSIDE RECORDS SUMMARY | 2025-03-18 11:15 | XMS_ITS | Encounter Summary ---
Author Organization [facility] Address [address] [place] [address] Care Team Providers Care Passenger Service Agent Name Role Phone Terra Lopez Primary Care Provider [phone] Reason for Visit * Reason Onset Date Comments CS - reschedule today's appointment 08/23/2022 Encounter Details Date Type Department Care Team (Late st Contact Info) Description 08/23/2022 Telephone [facility] Patient Access Center [address] [place] [phone] Telephone Intake, Staff CS - reschedule today's [...] appts until February. Please follow up at [phone]. documented in this encounter Plan of Treatment Upcoming Encounters Date Type Department Care Team (Late st Contact Info) Description 04/15/2025 11:00 AM EST Office Visit [facility] [address] [place] [address] Karla Diaz MD [address] [place] [address] documented as of this encounter Visit Diagnoses Not on filedocumented in this encounter Care Teams Passenger Service Agent Relationship Specialty Start Date End Date Terra Lopez PCP - General Family Medicine 04/13/21 documented as of this encounter
--- OUTSIDE RECORDS SUMMARY | 2025-03-18 11:15 | XMS_ITS | Clinical Summary ---
Author Organization [address] [place] [address] [place] [phone] Phone Care Team Providers Care University Partnership Rep Name Role Phone Terra Lopez MD Primary Care Provider [phone] Allergies No known active allergies Medications immune [...] (one) time each day. 90 tablet 3 02/02/2025 Active Active Problems Problem Noted Date Diagnosed Date Cardiomyopathy ([facility] V[facility], [facility] V28) 2024 Overview (11/03/2024): Patient had transthoracic [...] now normal Coronary artery disease invo lving osage coronary artery of osage heart 11/03/2024 Assessment & Plan (11/03/2024 8:49 [...] panel [place] [facility] The goal would be to have patient's LDL be at 70 or below. Ideally this will be at 50. Please continue with the high-dose atorvastatin p.o. daily. Encounters Date Type Department Care Team Description 01/15/2025 Telephone [facility] - [facility] [address] [facility] [address] [place] [address] Sulema Verduzco MD from Last 3 Months Surgical History Surgery Date Site/Laterality Comments TONSILLECTOMY PROCEDURE: HISTORICAL TONSILLECTOMY APPENDECTOMY PROCEDURE: HISTORICAL APPENDECTOMY HERNIA REPAIR PROCEDURE: HISTORICAL HERNIA REPAIR/UMB COLONOSCOPY 1998 PROCEDURE: HISTORICAL COLONOSCOPY; COMMENT: Normal MOLE REMOVAL 1986 PROCEDURE: HISTORICAL MOLE (REMOVAL OF); COMMENT: Dysplastic nevus sternum (moderate-severe atypia) CARDIAC CATHETERIZATION 02/2011 PROCEDURE: HISTORICAL CARDIAC CATH; COMMENT: Stent no [facility] COLONOSCOPY 2009 PROCEDURE: HISTORICAL COLONOSCOPY; COMMENT: normal [...] DX:Hyperlipidemi a CHF (congestive heart failur e) ([facility] V24, [facility] V28) 05/09/2015 DX:CHF (congestive heart fa ilure) ([facility]) History of dysplastic nevus DX:H istory of [...] old has anxiety disorder Father (Age 51) [place], Colon Cancer Maternal Grandfather [place] - yo pat Maternal Grandmother (Age 70s) M I Mother Alive Healthy Paternal Grandfather Lung Ca ncer Paternal Grandmother Skin ca ncer - melanoma Sister Alive 1 sister, CEA, smoker Son Alive 1 sonTr, age 20, healthy x touretts and anxiety [...] Description 06/04/2025 8:40 AM EST Office Visit [facility] [address] [place] [phone] Henri Smith NP [address] [place] [address] [place] [address] Health Maintenance Due Date Last Done Comments Colorectal Cancer Screening: Colonoscopy 1952 RSV Immunization Adult Patients (1 - Risk 50-74 years 1-dose series) 2002 Cholesterol Screening (Lipid Panel) 04/03/2022 Falls Risk Assessment 04/03/2022 Hepatitis C Screening 04/03/2022 Medicare Annual Wellness Visit 04/03/2022 Social Influencers of Health Screening 04/03/2022 Depression Screening 05/06/2024 COVID-19 Vaccine ( - season) 2025 Influenza Vaccine (#1) 2025 , [...] age to complete this topic Insurance MEDICARE [facility] Care Teams University Partnership Rep Relationship Specialty Start Date End Date Terra Lopez MD PCP - General Internal Medicine 11/03/24
--- OUTSIDE RECORDS SUMMARY | 2025-03-18 11:15 | XMS_ITS | Clinical Summary ---
Author Organization [facility] Address [address] [place] [address] Care Team Providers Care Senior Clerk Name Role Phone Terra Lopez Primary Care Provider [phone] Allergies No known active allergies Medications metoprolol [...] a day as needed. 2 Active omega 0-spf-dqr-fish oil 1,000 mg (120 mg-180 mg) capsule [...] Description 04/15/2025 11:00 AM EST Office Visit [facility] [address] [place] [address] Karla Diaz MD [address] [place] [address] Health Maintenance Due Date Last Done Comments [...] age to complete this topic Insurance MEDICARE [facility] Care Teams Senior Clerk Relationship Specialty Start Date End Date Terra Lopez PCP - General Family Medicine 04/13/21
--- OUTSIDE RECORDS SUMMARY | 2025-03-18 11:15 | XMS_ITS | Encounter Summary ---
Author Organization [facility] Address [address] [place] [address] Care Team Providers Care Plasterer Spot Name Role Phone Terra Lopez Primary Care Provider [phone] Encounter Details Date Type Department Care Team (Late st Contact Info) Description 02/15/2022 Orders Only [facility] [address] [place] [address] [address] Social History Tobacco Use Types Packs/Day Years [...] Description 04/15/2025 11:00 AM EST Office Visit [facility] [address] [place] [address] Karla Diaz MD [address] [place], [place] [phone] documented as of this encounter Procedures * Due to [place] state law, this organization might not be sharing negative HIV tests. Procedure Name Priority Date/Time Associated Diagnosis Comments AMB EXTERNAL MRI CHEST, OUTS ROBYN RESULT Routine 10/24/2021 AMB EXTERNAL MRI C-SPINE, OU TSIDE RESULT Routine 10/24/2021 documented in this encounter Results * Due to [place] state law, this organization might not be sharing negative HIV tests. * MRI Chest, Outside Result (10/24/2021) [facility] AMB EXTERNAL RESULT PROCEDURES Final Result * MRI C-Spine, Outside Result (10/24/2021) [facility] AMB EXTERNAL RESULT PROCEDURES Final Result documented in this encounter Visit Diagnoses Not on filedocumented in this encounter Care Teams Plasterer Spot Relationship Specialty Start Date End Date Terra Lopez PCP - General Family Medicine 04/13/21 documented as of this encounter
[2025-03-18 11:29] LABS: MANUAL DIFF FLAG NO
[2025-03-18 11:34] LABS: Hematocrit 45.4 % (42.0-52.0); Hemoglobin 15.2 g/dl (14.0-18.0); Imm Gran Abs Auto 0.02 X10*3/uL (0.00-0.03); Imm Gran Pct Auto 0.4 % (0.0-0.4); Lymphocytes Absolute Auto 1.3 X10*3/uL (1.2-4.9); Mean Corpuscular HGB Conc 33.5 g/dl (31.0-36.0); Mean Corpuscular Hemoglobin 30.8 pg (27.0-33.0); Mean Corpuscular Volume 91.9 fL (80.0-98.0); NRBC Abs Auto 0.000 X10*3/uL (0.0-0.012); NRBC Pct Auto 0.0 /100WBC (0.0-0.2); Platelet Count 196 X10*3/uL (160-400); Red Blood Count 4.94 X10*6/uL (4.60-5.80); White Blood Count 5.4 X10*3/uL (4.8-10.8)
[2025-03-18 15:14] LABS: Alanine Aminotransferase 28 U/L (0-40); Albumin Level 4.2 g/dL (3.5-5.0); Alkaline Phosphatase 104 U/L (39-117); Anion Gap 12 (12-20); Aspartate Amino Transferase 32 U/L (5-37); Blood Urea Nitrogen 17 mg/dL (9-16); Calcium 9.0 mg/dL (8.4-10.2); Carbon Dioxide 29 mmol/L (22-29); Chloride 104 mmol/L (96-108); Cholesterol 133 mg/dL (<200); Estimated Glomerular Filt Rate > 60; HDL Cholesterol 36 mg/dL (>40); Potassium 3.8 mmol/L (3.3-5.1); Sodium 141 mmol/L (135-145); Total Protein 7.4 g/dL (6.5-8.0); Triglycerides 112 mg/dL (<150)
== END 2025-03-18 09:42 | disposition home or self-care (01) ==
LOC: HO.WFDLDS 09:41
PROVIDERS: Visit Provider Internal Medicine
DX: Z13.1 Encounter for screening for diabetes mellitus (principal); I10 Essential (primary) hypertension; I25.10 Atherosclerotic heart disease of native coronary artery without angina pectoris; C84.A1 Cutaneous T-cell lymphoma, unspecified lymph nodes of head, face, and neck; C61 Malignant neoplasm of prostate; E78.5 Hyperlipidemia, unspecified
CPT/HCPCS: 36415; 80053; 80061; 83036; 85025

== ENCOUNTER 2025-03-23 08:12 | Outpatient (REF) | payer OTHER, SELFPAY ==
--- NOTE | ~2025-03-23 | XR_ITS ---
EXAMINATION: XR HIP, RIGHT CLINICAL INFORMATION: M25.559 - Pain in unspecified hip COMPARISON: None available. TECHNIQUE: AP pelvis, and Two views of the right hip. FINDINGS: No fracture, dislocation, or suspicious bone lesion. There is normal alignment. Mild degenerative arthritis in both hip joints. Normal acetabular coverage bilaterally. Normal femoral head contours without evidence of AVN. Mild arthritis in both SI joints and moderate changes in the lower lumbar spine. No soft tissue abnormality. XR/XR hip RT min 2V IMPRESSION: Mild degenerative arthritis in the right hip. Electronically signed by: Cayden Nichols MD 03/23/2025 02:46 PM [facility]
== END 2025-03-23 08:13 | disposition home or self-care (01) ==
LOC: HO.HOSX 08:12
PROVIDERS: Visit Provider Physician Assistant
DX: M54.16 Radiculopathy, lumbar region (principal); M16.11 Unilateral primary osteoarthritis, right hip; V43.52XA Car driver injured in collision with other type car in traffic accident, initial encounter; Y93.19 Activity, other involving water and watercraft
CPT/HCPCS: 73502

== ENCOUNTER 2025-03-23 14:30 | Outpatient (AMB) | payer OTHER, MEDICARE, SELFPAY ==
--- OUTSIDE RECORDS SUMMARY | 2025-03-22 08:30 | XMS_ITS | Encounter Summary ---
Author Organization [facility] Address [facility] [address] [place] [phone] Phone Care Team Providers Care Factory Supervisor Name Role Phone Carol Vyas NP Unavailable + [phone] Terra Galeano MD Primary Care Provider + [phone] Reason for Visit * Treatment and Therapy Plan (Routine) - Authorized Specialty Diagnoses / Procedures Referred By Adelaide cohen Referred To Contact Infusion Therapy Diagnoses SPECIALTY IVIG ALYGLO Procedures NH INJ, ALYGLO, 500 MG Gilmer Jackson DO [address], [address] [place] [address] Phone: tel: fax: [email or web address] [address] [place] [address] Phone: tel: fax: Referral ID Status Reason Start Date Expiration Date V isits Requested Visits Authorized [id number] Authorized 09/14/2024 08/04/2038 99 99 Encounter Details Date Type Department Care Team (Late st Contact Info) Description 03/22/2025 8:30 AM EST Infusion [facility] [address] [place] [address] Gilmer Jackson DO [address], [address] [place] [address] [email or web address] Multifocal motor neuropathy (Primary Dx) Social History [...] Sign Reading Time Taken Comments Blood Pressure 118/55 03/22/2025 8:03 AM EST Pulse 81 03/22/2025 8:03 AM EST Temperature 36.5 C (97.7 F) 03/22/2025 8:03 AM EST Respiratory Rate - - Oxygen Saturation 99% 03/22/2025 8:03 AM EST Inhaled Oxygen Concentration - - Weight 126.1 kg (278 lb) 03/22/2025 8:03 AM EST Height 188.4 cm (6' 2.17 ) 03/22/2025 8:03 AM ES T Body Mass Index 35.53 03/22/2025 8:03 AM EST documented in this encounter Progress Notes * Joceline Holcomb, TERRI - 03/22/2025 8:30 AM EST Pt here for IVIG infusion. Infusion at 40, 80, 160 ml/hr maximum tolerated well. documented in this encounter Plan of Treatment Upcoming Encounters Date Type Department Care Team (Late st Contact Info) Description 03/25/2025 8:30 AM EST Infusion [facility] [address] [place] [address] Gilmer Jackson, [address] [address] [email or web address] 03/26/2025 8:30 AM EST Infusion [facility] Infusion [address] [address] Gilmer Jackson, [address], [address] [address] [email or web address] 03/30/2025 2:30 PM EST Office [facility] [address] [place] [address], [address] [place] [address] Sara Angelo MD [address] [place] [address] [email or web address] 04/19/2025 8:30 AM EST Infusion [facility] [address] [place] [address] Gilmer Jackson, [address], [address] [place] [address] [email or web address] 04/20/2025 8:30 AM EST Infusion [facility] [address] [place] [address] Gilmer Jackson, [address], [address] [place] [address] [email or web address] 04/21/2025 8:30 AM EST Infusion [facility] [address] [place] [address] Gilmer Jackson, [address], [address] [place] [address] [email or web address] 04/22/2025 8:30 AM EST Infusion [facility] [address] [place] [address] Gilmer Jackson, [address], [address] [place] [address] [email or web address] 04/23/2025 8:30 AM EST Infusion [facility] [address] [place] [address] Gilmer Jackson, [address], [address] [place] [address] [email or web address] 05/17/2025 8:30 AM EST Infusion [facility] [address] [place] [address] Gilmer Jackson, [address], [address] [place] [address] [email or web address] 05/18/2025 8:30 AM EST Infusion [facility] [address] [place] [address] 14683 Gilmer Jackson, [address], [address] [place] [address] [email or web address] 05/19/2025 8:30 AM EST Infusion [facility] [address] [place] [address] Gilmer Jackson, [address], [address] [place] [address] [email or web address] 05/20/2025 8:30 AM EST Infusion [facility] [address] [place] [address] Gilmer Jackson, [address], [address] [place] [address] [email or web address] 05/21/2025 8:30 AM EST Infusion [facility] [address] [place] [address] Gilmer Jackson, [address], [address] [place] [address] [email or web address] 06/14/2025 8:30 AM EST Infusion [facility] [address] [place] [address] 88812 Gilmer Jackson, [address], [address] [place] [address] [email or web address] 06/15/2025 8:30 AM EST Infusion [facility] [address] [place] [address] 51021 Gilmer Jackson, [address], [address] [place] [address] [email or web address] 06/16/2025 8:30 AM EST Infusion [facility] [address] [place] [address] 155[address] Gilmer Jackson, [address], [address] [place] [address] [email or web address] 06/17/2025 8:30 AM EST Infusion [facility] [address] [place] [address] Gilmer Jackson, [address], [address] [place] [address] [email or web address] 06/18/2025 8:30 AM EST Infusion [facility] [address] [place] [address] Gilmer Jackson, [address], [address] [place] [address] [email or web address] 07/12/2025 8:30 AM EDT Infusion [facility] [address] [place] [address] 41062 Gilmer Jackson, [address], [address] [place] [address] [email or web address] 07/13/2025 8:30 AM EDT Infusion [facility] [address] [place] [address] 8[address] Gilmer Jackson, [address], [address] [place] [address] [email or web address] 07/14/2025 8:30 AM EDT Infusion [facility] [address] [place] [address] Gilmer Jackson, [address], [address] [place] [address] 199[address] [email or web address] 07/15/2025 8:30 AM EDT Infusion [facility] [address] [place] [address] 255[address] Gilmer Jackson, [address], [address] [place] [address] [email or web address] 07/16/2025 8:30 AM EDT Infusion [facility] [address] [place] [address] 429[address] Gilmer Jackson, [address], [address] [place] [address] [email or web address] 08/09/2025 8:30 AM EDT Infusion [facility] [address] [place] [address] 450[address] Gilmer Jackson, [address], [address] [place] [address] [email or web address] 08/10/2025 8:30 AM EDT Infusion [facility] [address] [place] [address] 7[address] Gilmer Jackson, [address], [address] [place] [address] 146[address] [email or web address] 08/11/2025 8:30 AM EDT Infusion [facility] [address] [place] [address] Gilmer Jackson, [address], [address] [place] [address] 777[address] [email or web address] 08/12/2025 8:30 AM EDT Infusion [facility] [address] [place] [address] 7[address]64 Gilmer Jackson, [address], [address] [place] [address] 7[address] [email or web address] 08/13/2025 8:30 AM EDT Infusion [facility] [address] [place] [address] 35[address] Gilmer Jackson, [address], [address] [place] [address] 51881 [email or web address] 09/06/2025 8:30 AM EDT Infusion [facility] [address] [place] [address] 78[address] Gilmer Jackson, [address], [address] [place] [address] 99[address] [email or web address] 09/07/2025 8:30 AM EDT Infusion [facility] [address] [place] [address] 16287 Gilmer Jackson, [address], [address] [place] [address] 488[address] [email or web address] 09/08/2025 8:30 AM EDT Infusion [facility] [address] [place] [address] 877[address] Gilmer Jackson, [address], [address] [place] [address] 24576 [email or web address] 09/09/2025 8:30 AM EDT Infusion [facility] [address] [place] [address] 78239 Gilmer Jackson, [address], [address] [place] [address] 51275 [email or web address] 09/10/2025 8:30 AM EDT Infusion [facility] [address] [place] [address] 8[address] Gilmer Jackson, [address], [address] [place] [address] 41391 [email or web address] 10/04/2025 8:30 AM EDT Infusion [facility] [address] [place] [address] 16655 Gilmer Jackson, [address], [address] [place] [address] 10[address] [email or web address] 10/05/2025 8:30 AM EDT Infusion [facility] [address] [place] [address] 74347 Gilmer Jackson, [address], [address] [place] [address] 308[address] [email or web address] 10/06/2025 8:30 AM EDT Infusion [facility] [address] [place] [address] 19319 Gilmer Jackson, [address], [address] [place] [address] 24[address] [email or web address] 10/07/2025 8:30 AM EDT Infusion [facility] [address] [place] [address] 79482 Gilmer Jackson, [address], [address] [place] [address] 64226 [email or web address] 10/08/2025 8:30 AM EDT Infusion [facility] [address] [place] [address] 86[address] Gilmer Jackson, [address], [address] [place] [address] 9[address] [email or web address] 11/01/2025 8:30 AM EDT Infusion [facility] [address] [place] [address] 31148 Gilmer Jackson, [address], [address] [place] [address] 54730 [email or web address] 11/02/2025 8:30 AM EDT Infusion [facility] [address] [place] [address] 03210 Gilmer Jackson, [address], [address] [place] [address] 32675 [email or web address] 11/03/2025 8:30 AM EDT Infusion [facility] [address] [place] [address] 27[address] Gilmer Jackson, [address], [address] [place] [address] 25070 [email or web address] 11/04/2025 8:30 AM EDT Infusion [facility] [address] [place] [address] 69[address] Gilmer Jackson, [address], [address] [place] [address] 34137 [email or web address] 11/08/2025 8:30 AM EDT Infusion [facility] [address] [place] [address] 08414 Gilmer Jackson, [address], [address] [place] [address] 34058 [email or web address] 11/29/2025 8:30 AM EDT Infusion [facility] [address] [place] [address] 157[address] Gilmer Jackson, [address], [address] [place] [address] 90882 [email or web address] 11/30/2025 8:30 AM EDT Infusion [facility]fusion [address] [address] Gilmer Jackson, [address], [address] [place] [address] 07809 [email or web address] 12/01/2025 8:30 AM EDT Infusion [facility] [address] [address] Gilmer Jackson, [address], [address] [place] [address] 58371 [email or web address] 12/02/2025 8:30 AM EDT Infusion [facility] [address] [address] Gilmer Jackson, [address], [address] [address] [email or web address] 12/03/2025 8:30 AM EDT Infusion [facility] [address] [address] Gilmer Jackson, [address], [address] [address] [email or web address] documented as of this encounter Visit Diagnoses Diagnosis 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 documented in this encounter Administered Medications Inactive Administered Medications - up to 3 most recent administrations Medication Order MAR Action Action Date Dose Rate Site immune globulin (human) (ALYGLO) IV injection 40 g 40 g (0.4 g/kg 100 kg Adjusted weight), Intravenous, Once, On Sat03/22/25 at 0900, For 1 dose, Pt to receive : ALYGLO Day 1 of 5 Infusion rates and titration are based on patient's Actual Body Weight.Indications:Multifocal motor neuropathy Given 03/22/2025 8:33 AM EST 40 g documented in this encounter Care Teams Factory Supervisor Relationship Specialty Start Date End Date Terra Galeano MD [address] [place] [id number] PCP - General Internal Medicine 01/25/25 Carol Vyas NP [address] [place] [address] Referring Physician Family Medicine 02/14/24 documented as of this encounter Additional Source Comments The information contained in this document represents components of the legal health record. It is not the complete legal health record.[facility]
--- OUTSIDE RECORDS SUMMARY | 2025-03-23 08:30 | XMS_ITS | Encounter Summary ---
Author Organization [facility] Address [facility] [address] [place] [address] Phone Care Team Providers Care Sand Mixer Machine Name Role Phone Carol Vyas NP Unavailable + [phone] Terra Galeano MD Primary Care Provider + [phone] Reason for Visit * Treatment and Therapy Plan (Routine) - Authorized Specialty Diagnoses / Procedures Referred By Adelaide cohen Referred To Contact Infusion Therapy Diagnoses SPECIALTY IVIG ALYGLO Procedures MA INJ, ALYGLO, 500 MG Gilmer Jackson DO [address] [facility], [address] [place] [address] Phone: tel: fax: [email or web address] [address] [place] [address] Phone: tel: fax: Referral ID Status Reason Start Date Expiration Date V isits Requested Visits Authorized [id number] Authorized 09/14/2024 08/04/2038 99 99 Encounter Details Date Type Department Care Team (Late st Contact Info) Description 03/23/2025 8:30 AM EST Infusion [facility] In[facility] [address] [place] [address] Gilmer Jackson DO [address] [facility], [address] [place] [address] [email or web address] Multifocal motor neuropathy (Primary Dx) Social History [...] Sign Reading Time Taken Comments Blood Pressure 111/74 03/23/2025 11:44 AM EST Pulse 87 03/23/2025 11:44 AM EST Temperature 35.9 C (96.7 F) 03/23/2025 8:14 AM EST Respiratory Rate 18 03/23/2025 11:44 AM EST Oxygen Saturation 96% 03/23/2025 11:44 AM EST Inhaled Oxygen Concentration - - Weight - - Height - - Body Mass Index - - documented in this encounter Progress Notes * Joceline Holcomb RN - 03/23/2025 8:30 AM EST Pt here for IVIG infusion. Infusion at 40, 80, 160 ml/hr maximum tolerated well. documented in this encounter Plan of Treatment Upcoming Encounters Date Type Department Care Team (Late st Contact Info) Description 03/25/2025 8:30 AM EST Infusion [facility] Infusion [address] [address] Gilmer Jackson, [address], [address] [address] [email or web address] 03/26/2025 8:30 AM EST Infusion [facility] Infusion [address] [address] Gilmer Jackson, [address], [address] [address] [email or web address] 03/30/2025 2:30 PM EST Office [facility] [place] [address] [facility], [address]th [place] [address] Sara Angelo MD [address] [place] [address] [email or web address] 04/19/2025 8:30 AM EST Infusion [facility] Infusion [address] [address] Gilmer Jackson, [address], [address] [place] [address] [email or web address] 04/20/2025 8:30 AM EST Infusion [facility] Medical Infusion Center [address] [place] [address] Gilmer Jackson, [address], [address] [place] [address] [email or web address] 04/21/2025 8:30 AM EST Infusion [facility]fusion [facility] [address] [place] [address] Gilmer Jackson, [address], [address] [place] [address] [email or web address] 04/22/2025 8:30 AM EST Infusion [facility] Medical [facility]fusion [facility] [address] [place] [address] Gilmer Jackson, [address], [address] [place] [address] [email or web address] 04/23/2025 8:30 AM EST Infusion [facility]fusion [facility] [address] [place] [address] Gilmer Jackson, [address], [address] [place] [address] [email or web address] 05/17/2025 8:30 AM EST Infusion [facility]fusion [facility] [address] [place] [address] Gilmer Jackson, [address], [address] [place] [address] [email or web address] 05/18/2025 8:30 AM EST Infusion [facility]fusion [facility] [address] [place] [address] Gilmer Jackson, [address], [address] [place] [address] [email or web address] 05/19/2025 8:30 AM EST Infusion [facility]fusion [facility] [address] [place] [address] Gilmer Jackson, [address], [address] [place] [address] [email or web address] 05/20/2025 8:30 AM EST Infusion [facility]fusion [facility] [address] [place] [address] Gilmer Jackson, [address], [address] [place] [address] [email or web address] 05/21/2025 8:30 AM EST Infusion [facility] Medical Infusion [facility] [address] [place] [address] Gilmer Jackson, [address], [address] [place] [address] [email or web address] 06/14/2025 8:30 AM EST Infusion [facility] Medical [facility]fusion [facility] [address] [place] [address] Gilmer Jackson, [address], [address] [place] [address] 09794 [email or web address] 06/15/2025 8:30 AM EST Infusion [facility] Medical Infusion [facility] [address] [place] [address] Gilmer Jackson, [address], [address] [place] [address] [email or web address] 06/16/2025 8:30 AM EST Infusion [facility]fusion [facility] [address] [place] [address] Gilmer Jackson, [address], [address] [place] [address] [email or web address] 06/17/2025 8:30 AM EST Infusion [facility] Medical [facility]fusion [facility] [address] [place] [address] Gilmer Jackson, [address], [address] [place] [address] [email or web address] 06/18/2025 8:30 AM EST Infusion [facility] Medical [facility]fusion [facility] [address] [place] [address] Gilmer Jackson, [address], [address] [place] [address] [email or web address] 07/12/2025 8:30 AM EDT Infusion [facility] Medical Infusion [facility] [address] [place] [address] Gilmer Jackson, [address], [address] [place] [address] [email or web address] 07/13/2025 8:30 AM EDT Infusion [facility]fusion [facility] [address] [place] [address] Glimer Jackson, [address], [address] [place] [address] [email or web address] 07/14/2025 8:30 AM EDT Infusion [facility] Medical [facility]fusion [facility] [address] [place] [address] Gilmer Jackson, [address], [address] [place] [address] [email or web address] 07/15/2025 8:30 AM EDT Infusion [facility] Medical Infusion [facility] [address] [place] [address] Gilmer Jackson, [address], [address] [place] [address] [email or web address] 07/16/2025 8:30 AM EDT Infusion [facility] Medical [facility]fusion [facility] [address] [place] [address] 35[address] Gilmer Jackson, [address], [address] [place] [address] [email or web address] 08/09/2025 8:30 AM EDT Infusion [facility] Medical Infusion [facility] [address] [place] [address] Gilmer Jackson, [address], [address] [place] [address] [email or web address] 08/10/2025 8:30 AM EDT Infusion [facility] Medical [facility]fusion [facility] [address] [place] [address] Gilmer Jackson, [address], [address] [place] [address] 277[address] [email or web address] 08/11/2025 8:30 AM EDT Infusion [facility] Medical Infusion [facility] [address] [place] [address] Gilmer Jackson, [address], [address] [place] [address] [email or web address] 08/12/2025 8:30 AM EDT Infusion [facility] Medical Infusion [facility] [address] [place] [address] Gilmer Jackson, [address], [address] [place] [address] [email or web address] 08/13/2025 8:30 AM EDT Infusion [facility] Medical Infusion [facility] [address] [place] [address] Gilmer Jackson, [address], [address] [place] [address] [email or web address] 09/06/2025 8:30 AM EDT Infusion [facility] Medical Infusion [facility] [address] [place] [address] Gilmer Jackson, [address], [address] [place] [address] [email or web address] 09/07/2025 8:30 AM EDT Infusion [facility]fusion [facility] [address] [place] [address] Gilmer Jackson, [address], [address] [place] [address] [email or web address] 09/08/2025 8:30 AM EDT Infusion [facility] Medical [facility]fusion [facility] [address] [place] [address] Gilmer Jackson, [address], [address] [place] [address] [email or web address] 09/09/2025 8:30 AM EDT Infusion [facility] Medical [facility]fusion [facility] [address] [place] [address] Gilmer Jackson, [address], [address] [place] [address] [email or web address] 09/10/2025 8:30 AM EDT Infusion [facility] Medical Infusion [facility] [address] [place] [address] Gilmer Jackson, [address], [address] [place] [address] [email or web address] 10/04/2025 8:30 AM EDT Infusion [facility] Medical Infusion [facility] [address] [place] [address] Gilmer Jackson, [address], [address] [place] [address]57 [email or web address] 10/05/2025 8:30 AM EDT Infusion [facility] Medical Infusion [facility] [address] [place] [address] Gilmer Jackson, [address], [address] [place] [address] 61486 [email or web address] 10/06/2025 8:30 AM EDT Infusion [facility] Medical [facility]fusion [facility] [address] [place] [address] Gilmer Jackson, [address], [address] [place] [address] [email or web address] 10/07/2025 8:30 AM EDT Infusion [facility] Medical [facility]fusion [facility] [address] [place] [address] 245[address] Gilmer Jackson, [address], [address] [place] [address] 35997 [email or web address] 10/08/2025 8:30 AM EDT Infusion [facility] Medical Infusion [facility] [address] [place] [address] Gilmer Jackson, [address], [address] [place] [address] [email or web address] 11/01/2025 8:30 AM EDT Infusion [facility] Medical [facility]fusion [facility] [address] [place] [address] 324[address] Gilmer Jackson, [address], [address] [place] [address]805 [email or web address] 11/02/2025 8:30 AM EDT Infusion [facility] Medical Infusion [facility] [address] [place] [address] Gilmer Jackson, [address], [address] [place] [address] 196[address] [email or web address] 11/03/2025 8:30 AM EDT Infusion [facility] Medical Infusion [facility] [address] [place] [address] 90[address] Gilmer Jackson, [address], [address] [place] [address] 50420 [email or web address] 11/04/2025 8:30 AM EDT Infusion [facility] Medical Infusion Center [address] [place] [address] 498[address] Gilmer Jackson, [address], [address] [place] [address] 10718 [email or web address] 11/08/2025 8:30 AM EDT Infusion [facility] Medical [facility]fusion [facility] [address] [place] [address] Gilmer Jackson, [address], [address] [place] [address]951 [email or web address] 11/29/2025 8:30 AM EDT Infusion [facility] Medical Infusion [facility] [address] [place] [address] Gilmer Jackson, [address], [address] [place] [address] 95874 [email or web address] 11/30/2025 8:30 AM EDT Infusion [facility]fusion Center [address] [place] [address] Manuel Gilmer Angela, [address], [address] [place] [address] [email or web address] 12/01/2025 8:30 AM EDT Infusion [facility] [address] [place] [address] ManuelGilmer, [address], [address] [place] [address] [email or web address] 12/02/2025 8:30 AM EDT Infusion [facility] Infusion [address] [address] Manuel Gilmer L, [address], [address] [place] [address] 43067 [email or web address] 12/03/2025 8:30 AM EDT Infusion [facility] [address] [place] [address] Thalia Jacksonanitha Miller, [address], [address] [place] [address] [email or web address] documented as of this encounter Visit Diagnoses Diagnosis 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 documented in this encounter Administered Medications Inactive Administered Medications - up to 3 most recent administrations Medication Order MAR Action Action Date Dose Rate Site immune globulin (human) (ALYGLO) IV injection 40 g 40 g (0.4 g/kg 100 kg Adjusted weight), Intravenous, Administer over 3 Hours, Once, On Sat03/23/25 at 0900, For 1 dose, PT to receive Alyglo Day 2 of 5 Infusion rates and titration are based on patient's Actual Body Weight.Indications:Multifocal motor neuropathy Given 03/23/2025 8:43 AM EST 40 g documented in this encounter Care Teams Sand Mixer Machine Relationship Specialty Start Date End Date Terra Galeano MD [address] [place] [address] PCP - General Internal Medicine 01/25/25 Carol Vyas NP [address] [place] [address] Referring Physician Family Medicine 02/14/24 documented as of this encounter Additional Source Comments The information contained in this document represents components of the legal health record. It is not the complete legal health record.[facility]
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
--- OUTSIDE RECORDS SUMMARY | 2025-03-24 12:17 | XMS_ITS | Encounter Summary ---
Author Organization [facility] Address [address] [place] [address] Care Team Providers Care Metal Neutralizer Name Role Phone Terra Lopez Primary Care Provider [phone] Reason for Visit * Reason Onset Date Comments CS - reschedule today's appointment 08/23/2022 Encounter Details Date Type Department Care Team (Late st Contact Info) Description 08/23/2022 Telephone [facility] [address] [place] [phone] Telephone Intake, Staff CS - reschedule today's [...] appts until February. Please follow up at [phone]. documented in this encounter Plan of Treatment Upcoming Encounters Date Type Department Care Team (Late st Contact Info) Description 04/15/2025 11:00 AM EST Office Visit [facility] [address] [place] [address] Karla Diaz MD [address] [place] [address] documented as of this encounter Visit Diagnoses Not on filedocumented in this encounter Care Teams Metal Neutralizer Relationship Specialty Start Date End Date Terra Lopez PCP - General Family Medicine 04/13/21 documented as of this encounter
--- OUTSIDE RECORDS SUMMARY | 2025-03-24 12:17 | XMS_ITS | Clinical Summary ---
Author Organization [address] [place] [address] [place] [phone] Phone Care Team Providers Care Otologist Name Role Phone Terra Lopez MD Primary Care Provider [phone] Allergies No known active allergies Medications immune [...] Problems Problem Noted Date Diagnosed Date Cardiomyopathy ([facility] V24, [facility] V28) 2024 Overview (11/03/2024): Patient had [...] now normal Coronary artery disease invo lving [place] coronary artery of [place] heart 11/03/2024 Assessment & Plan (11/03/2024 8:49 [...] panel labs from his PCPs office at [facility]. The goal would be to have patient's LDL be at 70 or below. Ideally this will be at 50. Please continue with the high-dose atorvastatin p.o. daily. Encounters Date Type Department Care Team Description 01/15/2025 Telephone [facility] - [facility] [address] [facility] [address] [place] [address] Sulema Verduzco MD from Last 3 Months Surgical History Surgery Date Site/Laterality Comments TONSILLECTOMY PROCEDURE: HISTORICAL TONSILLECTOMY APPENDECTOMY PROCEDURE: HISTORICAL APPENDECTOMY HERNIA REPAIR PROCEDURE: HISTORICAL HERNIA REPAIR/UMB COLONOSCOPY 1998 PROCEDURE: HISTORICAL COLONOSCOPY; COMMENT: Normal MOLE REMOVAL 1986 PROCEDURE: HISTORICAL MOLE (REMOVAL OF); COMMENT: Dysplastic nevus sternum (moderate-severe atypia) CARDIAC CATHETERIZATION 02/2011 PROCEDURE: HISTORICAL CARDIAC CATH; COMMENT: Stent no MD COLONOSCOPY 2009 PROCEDURE: HISTORICAL COLONOSCOPY; COMMENT: normal [...] DX:Hyperlipidemi a CHF (congestive heart failur e) ([facility] V24, [facility] V28) 05/09/2015 DX:CHF (congestive heart fa ilure) ([facility]) History of dysplastic nevus DX:H istory [...] old has anxiety disorder Father (Age 51) MD, Colon Cancer Maternal Grandfather [place] - yo [...] Description 06/04/2025 8:40 AM EST Office Visit [facility] [address] [place] [phone] Henri Smith NP [address] [place] [address] [place] [address] Health Maintenance Due Date Last [...] age to complete this topic Insurance MEDICARE [facility] Care Teams Otologist Relationship Specialty Start Date End Date Terra Lopez MD PCP - General Internal Medicine 11/03/24
--- OUTSIDE RECORDS SUMMARY | 2025-03-24 12:17 | XMS_ITS | Clinical Summary ---
Author Organization [facility] Address [address] [place] [address] Care Team Providers Care Manager Molecular Name Role Phone Terra Lopez Primary Care Provider [phone] Allergies No known active allergies Medications metoprolol [...] a day as needed. 2 Active omega 6-puv-eyh-fish oil 1,000 mg (120 mg-180 mg) capsule [...] Description 04/15/2025 11:00 AM EST Office Visit [facility] [address] [place] [id number] Karla Diaz MD [address] [place] [id number] Health Maintenance Due Date Last Done Comments Cologuard 1950 Colon Cancer Screening 1950 Colonoscopy 1950 FOBT / Fit Test 1952 Hepatitis C Screening 1950 Sigmoidoscopy 1950 Medicare AWV 1953 Alcohol/Substance Use Screening 05/06/2024 Depression Screening and Follow-Up 05/06/2024 Fall Risk Screening 05/06/2024 Health Care Proxy Review 05/06/2024 Social Drivers of Health Annual Screening 05/06/2024 Influenza Vaccine (#1) 2024 9, 03/24/2014, 03/10/2012, Additional history exists COVID-19 Vaccine (1 - 2024- season) 2025 RSV Vaccine (60+ years old and patients) (1 - 1-dose 75+ series) 2027 DTaP,Tdap,and Td Vaccines (3 - Td or Tdap) 01/02/2034 01/03/2024, 03/10/2012 Pneumococcal Vaccine: 50+ Years Completed 06/09/2019, 08/01/2018, 05/21/2017, Additional history exists Zoster Vaccines Completed 12/09/2019, 06/09/2019 Hepatitis B Vaccines Aged Out No long er eligible based on patient's age to complete this topic Insurance MEDICARE [facility] Care Teams Manager Molecular Relationship Specialty Start Date End Date Terra Lopez PCP - General Family Medicine 04/13/21
--- OUTSIDE RECORDS SUMMARY | 2025-03-24 12:17 | XMS_ITS | Encounter Summary ---
Author Organization [facility] Address [address] [place] [address] Care Team Providers Care Hand Expansion Envelope Maker Name Role Phone Terra Lopez Primary Care Provider [phone] Encounter Details Date Type Department Care Team (Late st Contact Info) Description 02/15/2022 Orders Only [facility] [address] [place] [address] [address] Social History Tobacco Use Types Packs/Day Years [...] 04/15/2025 11:00 AM EST Office Visit [facility] [address] [place] [address] Karla Diaz MD [address] [place], [place] [phone] documented as of this encounter Procedures * [...] tests. * MRI Chest, Outside Result (10/24/2021) [facility] AMB EXTERNAL RESULT PROCEDURES Final Result * MRI C-Spine, Outside Result (10/24/2021) [facility] AMB EXTERNAL RESULT PROCEDURES Final Result documented in this encounter Visit Diagnoses Not on filedocumented in this encounter Care Teams Hand Expansion Envelope Maker Relationship Specialty Start Date End Date Terra Lopez PCP - General Family Medicine 04/13/21 documented as of this encounter
--- OUTSIDE RECORDS SUMMARY | 2025-03-24 12:17 | XMS_ITS | Encounter Summary ---
Author Organization [facility] Address [address] [place] [address] Care Team Providers Care Pipe Stem Sawyer Name Role Phone Terra Lopez Primary Care Provider [phone] Encounter Details Date Type Department Care Team ([facility] st Contact Info) Description 09/12/2021 Telephone [facility] [address] [place] [address] [phone] Telephone Intake, Staff Social History Tobacco Use [...] Dr. Espinoza's office called - please call [phone] #[phone] * Telephone Encounter - Candice Worrell - 09/12/2021 11:[address] Olga Childers, Neurologist who referred pt to you called requesting a call back and would like to speak to you about this pt. Please return call at [phone] documented in this encounter Plan of Treatment Upcoming Encounters Date Type Department Care Team (Late st Contact Info) Description 04/15/2025 11:00 AM EST Office Visit [facility] [address] [place], [place] [phone] Karla Diaz MD [address] [place], [place] [phone] documented as of this encounter Visit Diagnoses Not on filedocumented in this encounter Care Teams Pipe Stem Sawyer Relationship Specialty Start Date End Date Terra Lopez PCP - General Family Medicine 04/13/21 documented as of this encounter
--- OUTSIDE RECORDS SUMMARY | 2025-03-24 12:17 | XMS_ITS | Encounter Summary ---
Author Organization [facility] Address [address] [place] [address] Care Team Providers Care Senior Gis Analyst Name Role Phone Terra Lopez Primary Care Provider [phone] Encounter Details Date Type Department Care Team (Late st Contact Info) Description 02/16/2022 Orders Only [facility] [address] [place] [address] ProviderRosa MD [address] [place] [id number] Social History Tobacco Use Types Packs/Day [...] Office Visit [facility] [address] [place] [address] Karla Diaz MD [address] [place], [place] [phone] documented as of this encounter Procedures * Due to [place] [employer] law, this organization might not be sharing negative HIV tests. Procedure Name Priority Date/Time Associated Diagnosis Comments AMB EXTERNAL MRI C-SPINE, OU TSIDE RESULT Routine 10/24/2021 documented in this encounter Results * Due to [place] state law, this organization might not be sharing negative HIV tests. * MRI C-Spine, Outside Result (10/24/2021) us Unknown Provider MD DANIELS EXTERNAL RESULT PROCEDUR ES Final Result documented in this encounter Visit Diagnoses Not on filedocumented in this encounter Care Teams Senior Gis Analyst Relationship Specialty Start Date End Date Terra Lopez PCP - General Family Medicine 04/13/21 documented as of this encounter
--- OUTSIDE RECORDS SUMMARY | 2025-03-24 12:20 | XMS_ITS | Clinical Summary ---
Author Organization [facility] Address [address] [place] [address] Phone Care Team Providers Care Regional Engagement Consultant Name Role Phone Carol Vyas NP Unavailable + [phone] Terra Galeano MD Primary Care Provider + [phone] Allergies No known active allergies Medications naproxen sodium (ALEVE) 220 mg Cap Take by mouth. Activ e atorvastatin (LIPITOR) 80 MG tablet TAKE 1 TABLET AT BEDTIME 7 Active cyclobenzaprine (FLEXERIL) 10 MG tablet Take 10 mg by mouth 3 (three) times a day as needed. 7 Active omega 4-lcj-uqo-fish oil (FISH OIL) 1,000 mg (120 mg-180 [...] original. 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 Encounters Date Type Department Care Team Description 03/24/2025 8:30 AM EST Infusion [facility] [address] [place] [address] 20576 Gilmer Jackson, DO Multifocal motor neuropathy (Primary Dx) 03/23/2025 8:30 AM EST Infusion [facility] Infusion [facility] [address] [place] [address] 22396 Gilmer Jackson L, DO Multifocal motor neuropathy (Primary Dx) 03/22/2025 8:30 AM EST Infusion [facility] Infusion [facility] [address] [place] [address] 21104 Gilmer Jackson, DO Multifocal motor neuropathy (Primary Dx) 03/07/2025 Orders Only [facility] [address] [address] Anali Elaine PA-C 02/26/2025 8:30 AM EDT Infusion [facility]fusion [facility] [address] [place] [address] 67391 Gilmer Jackson, DO Multifocal motor neuropathy (Primary Dx) 02/25/2025 8:00 AM EDT Infusion [facility]fusion [facility] [address] [place] [address] 32876 Gilmer Jackson, DO Multifocal motor neuropathy (Primary Dx) 02/24/2025 8:30 AM EDT Infusion [facility] Infusion [facility] [address] [place] [address] 61537 Gilmer Jackson, DO Multifocal motor neuropathy (Primary Dx) 02/23/2025 8:30 AM EDT Infusion [facility] Infusion [facility] [address] [place] [address] 91317 Gilmer Jackson, DO Multifocal motor neuropathy (Primary Dx) 02/22/2025 8:30 AM EDT Infusion [facility] Infusion [facility] [address] [place] [address] 42548 Gilmer Jackson, DO Multifocal motor neuropathy (Primary Dx) 01/29/2025 8:30 AM EDT Infusion [facility]fusion [facility] [address] [place] [address] 22657 Gilmer Jackson, DO Multifocal motor neuropathy (Primary Dx) 01/28/2025 8:00 AM EDT Infusion [facility]fusion [facility] [address] [place] [address] 35121 Gilmer Jackson, DO Multifocal motor neuropathy (Primary Dx) 01/27/2025 8:30 AM EDT Infusion [facility]fusion [facility] [address] [place] [address] 28261 Gilmer Jackson, DO Multifocal motor neuropathy (Primary Dx) 01/26/2025 8:30 AM EDT Infusion [facility]fusion [facility] [address] [place] [address] [phone] Gilmer Jackson, DO Multifocal motor neuropathy (Primary Dx) 01/25/2025 8:30 AM EDT Infusion [facility] Infusion [facility] [address] [place] [address] 89910 Gilmer Jackson, DO Multifocal motor neuropathy (Primary Dx) 01/01/2025 8:30 AM EDT Infusion [facility]fusion [facility] [address] [place] [address] 93768 Gilmer Jackson, DO Multifocal motor neuropathy (Primary Dx) 12/31/2024 8:30 AM EDT Infusion [facility]fusion [facility] [address] [place] [address] 79651 Gilmer Jackson, DO Multifocal motor neuropathy (Primary Dx) 12/30/2024 8:30 AM EDT Infusion [facility] Infusion [facility] [address] [place] [address] 43597 Gilmer Jackson, DO Multifocal motor neuropathy (Primary Dx) 12/29/2024 8:30 AM EDT Infusion [facility] Infusion [address] [address] Gilmer Jackson, DO Multifocal motor neuropathy (Primary Dx) 12/28/2024 8:30 AM EDT Infusion [facility] Infusion [address] [address] Gilmer Jackson, DO Multifocal motor neuropathy (Primary [...] Sign Reading Time Taken Comments Blood Pressure 128/74 03/24/2025 8:05 AM EST Pulse 95 03/24/2025 8:05 AM EST Temperature 35.7 C (96.2 F) 03/24/2025 8:05 AM EST Respiratory Rate 18 03/24/2025 8:05 AM EST Oxygen Saturation 95% 03/24/2025 8:05 AM EST Inhaled Oxygen Concentration - - Weight 126.1 kg (278 lb) 03/22/2025 8:03 AM EST Height 188.4 cm (6' 2.17 ) 03/22/2025 8:03 AM ES T Body Mass Index 35.53 03/22/2025 8:03 AM EST Plan of Treatment Upcoming Encounters Date Type Department Care Team (Late st Contact Info) Description 03/25/2025 8:30 AM EST Infusion [facility] Infusion [facility] [address] [place] [phone] Gilmer Jackson, [address], [address] [place] [address] [employer] 03/26/2025 8:30 AM EST Infusion [facility] Medical Infusion [address] [address] Gilmer Jackson, [address], [address] [address] [employer] 03/30/2025 2:30 PM EST [facility] [address] [place] [address], [address] [place] [address] Sara Angelo MD [address] [place] [address] [email or web address] 04/19/2025 8:30 AM EST Infusion [facility] Infusion [facility] [address] [place] [address] 506[address] Gilmer Jackson, [address], [address] [place] [address] 56568 [employer] 04/20/2025 8:30 AM EST Infusion [facility] Medical Infusion [facility] [address] [place] [address] 03600 Gilmer Jackson, [address], [address] [place] [address] 91735 [employer] 04/21/2025 8:30 AM EST Infusion [facility] Infusion [facility] [address] [place] [address] 44066 Gilmer Jackson, [address], [address] [place] [address] 59783 [employer] 04/22/2025 8:30 AM EST Infusion [facility]fusion [facility] [address] [place] [address] Gilmer Jackson, [address], [address] [place] [address] 43629 [employer] 04/23/2025 8:30 AM EST Infusion [facility] Infusion [facility] [address] [place] [address] 19230 Gilmer Jackson, [address], [address] [place] [address] 61038 [employer] 05/17/2025 8:30 AM EST Infusion [facility] Infusion [facility] [address] [place] [address] 31235 Gilmer Jackson, [address], [address] [place] [address] 08213 [employer] 05/18/2025 8:30 AM EST Infusion [facility] Infusion [facility] [address] [place] [address] 71991 Gilmer Jackson, [address], [address] [place] [address] 29298 [employer] 05/19/2025 8:30 AM EST Infusion [facility] Infusion [facility] [address] [place] [address] 30573 Gilmer Jackson, [address], [address] [place] [address] 97866 [employer] 05/20/2025 8:30 AM EST Infusion [facility] Infusion [facility] [address] [place] [address] 99172 Gilmer Jackson, [address], [address] [place] [address] 58008 [employer] 05/21/2025 8:30 AM EST Infusion [facility] Infusion [facility] [address] [place] [address] 73623 Gilmer Jackson, [address], [address] [place] [address] 55947 [employer] 06/14/2025 8:30 AM EST Infusion [facility] Infusion [facility] [address] [place] [address] 06945 Gilmer Jackson, [address], [address] [place] [address] 47363 [employer] 06/15/2025 8:30 AM EST Infusion [facility] Infusion [facility] [address] [place] [address] 83080 Gilmer Jackson, [address], [address] [place] [address] 68490 [employer] 06/16/2025 8:30 AM EST Infusion [facility] Infusion [facility] [address] [place] [address] 57709 Gilmer Jackson, [address], [address] [place] [address] 10589 [employer] 06/17/2025 8:30 AM EST Infusion [facility]fusion [facility] [address] [place] [address] 89876 Gilmer Jackson, [address], [address] [place] [address] 92776 [employer] 06/18/2025 8:30 AM EST Infusion [facility] Infusion [facility] [address] [place] [address] 71236 Gilmer Jackson, [address], [address] [place] [address] 04113 [employer] 07/12/2025 8:30 AM EDT Infusion [facility] Infusion [facility] [address] [place] [address] 58137 Gilmer Jackson, [address], [address] [place] [address] 74340 [employer] 07/13/2025 8:30 AM EDT Infusion [facility] Infusion [facility] [address] [place] [address] 34465 Gilmer Jackson, [address], [address] [place] [address] 33635 [employer] 07/14/2025 8:30 AM EDT Infusion [facility] Infusion [facility] [address] [place] [address] 69373 Gilmer Jackson, [address], [address] [place] [address] 94301 [employer] 07/15/2025 8:30 AM EDT Infusion [facility] Infusion [facility] [address] [place] [address] 87760 Gilmer Jackson, [address], [address] [place] [address] 91526 [employer] 07/16/2025 8:30 AM EDT Infusion [facility] Infusion [facility] [address] [place] [address] 96571 Gilmer Jackson, [address], [address] [place] [address] 15607 [employer] 08/09/2025 8:30 AM EDT Infusion [facility] Infusion [facility] [address] [place] [address] 29973 Gilmer Jackson, [address], [address] [place] [address] 99524 [employer] 08/10/2025 8:30 AM EDT Infusion [facility] Infusion [facility] [address] [place] [address] 35648 Gilmer Jackson, [address], [address] [place] [address] 28777 [employer] 08/11/2025 8:30 AM EDT Infusion [facility] Infusion [facility] [address] [place] [address] 36697 Gilmer Jackson, [address], [address] [place] [address] 63729 [employer] 08/12/2025 8:30 AM EDT Infusion [facility] Infusion [facility] [address] [place] [address] 93499 Gilmer Jackson, [address], [address] [place] [address] 66270 [employer] 08/13/2025 8:30 AM EDT Infusion [facility] Infusion [facility] [address] [place] [address] 11592 Gilmer Jackson, [address], [address] [place] [address] 53521 [employer] 09/06/2025 8:30 AM EDT Infusion [facility] Infusion [facility] [address] [place] [address] 07721 Gilmer Jackson, [address], [address] [place] [address] 39369 [employer] 09/07/2025 8:30 AM EDT Infusion [facility] Infusion [facility] [address] [place] [address] 85342 Gilmer Jackson, [address], [address] [place] [address] 17337 [employer] 09/08/2025 8:30 AM EDT Infusion [facility] Infusion [facility] [address] [place] [address] 66038 Gilmer Jackson, [address], [address] [place] [address] 68994 [employer] 09/09/2025 8:30 AM EDT Infusion [facility] Infusion [facility] [address] [place] [address] 60267 Gilmer Jackson, [address], [address] [place] [address] 86419 [employer] 09/10/2025 8:30 AM EDT Infusion [facility] Infusion [facility] [address] [place] [address] 77071 Gilmer Jackson, [address], [address] [place] [address] 22900 [employer] 10/04/2025 8:30 AM EDT Infusion [facility] Infusion [facility] [address] [place] [address] 12944 Gilmer Jackson, [address], [address] [place] [address] 04692 [employer] 10/05/2025 8:30 AM EDT Infusion [facility] Infusion [facility] [address] [place] [address] 43422 Gilmer Jackson, [address], [address] [place] [address] 70765 [employer] 10/06/2025 8:30 AM EDT Infusion [facility] Infusion [facility] [address] [place] [address] 80967 Gilmer Jackson, [address], [address] [place] [address] 03246 [employer] 10/07/2025 8:30 AM EDT Infusion [facility] Infusion [facility] [address] [place] [address] 32208 Gilmer Jackson, [address], [address] [place] [address] 53516 [employer] 10/08/2025 8:30 AM EDT Infusion [facility] Infusion [facility] [address] [place] [address] 73729 Gilmer Jackson, [address], [address] [place] [address] 16833 [employer] 11/01/2025 8:30 AM EDT Infusion [facility] Infusion [facility] [address] [place] [address] 30896 Gilmer Jackson, [address], [address] [place] [address] 00077 [employer] 11/02/2025 8:30 AM EDT Infusion [facility] Infusion [facility] [address] [place] [address] 47068 Gilmer Jackson, [address], [address] [place] [address] 74989 [employer] 11/03/2025 8:30 AM EDT Infusion [facility] Infusion [facility] [address] [place] [address] 57891 Gilmer Jackson, [address], [address] [place] [address] 47902 [employer] 11/04/2025 8:30 AM EDT Infusion [facility] Infusion [facility] [address] [place] [address] 02485 Gilmer Jackson, [address], [address] [place] [address] 78978 [employer] 11/08/2025 8:30 AM EDT Infusion [facility] Infusion [facility] [address] [place] [address] 65722 Gilmer Jackson, [address], [address] [place] [address] 97612 [employer] 11/29/2025 8:30 AM EDT Infusion [facility] Infusion [facility] [address] [place] [address] 86815 Gilmer Jackson, [address], [address] [place] [address] 64144 [employer] 11/30/2025 8:30 AM EDT Infusion [facility] Infusion [facility] [address] [place] [address] 81167 Gilmer Jackson, [address], [address] [place] [address] 50784 [employer] 12/01/2025 8:30 AM EDT Infusion [facility] Infusion [facility] [address] [place] [address] 30942 Gilmer Jackson, DO [address] [facility], [address] [place] [address] [employer] 12/02/2025 8:30 AM EDT Infusion [facility] Infusion Center [address] [place] [address] Thalia Jacksonnatbibi Miller, DO [address] [facility], [address] [place] [address] 31677 [employer] 12/03/2025 8:30 AM EDT Infusion [facility] Infusion Center [address] [place] [address] Gilmer Jackson, DO [address] [facility], [address] [place] [address] 28659 [employer] Health Maintenance Due Date Last Done Comments [...] this topic Medical Devices Implanted Type Area Blueberry Grower Device Identifier Shelf Expiration Date Model / Serial / Lot 2 Cardiac Stents Possible Umbilical Mesh Procedures Procedure Name Priority Date/Time Associated Diagnosis Comments COMPREHENSIVE METABOLIC PANEL (CMP) Routine 03/02/2024 2:54 PM EDT from Last 3 Months or Most Recently Relevant to Health Maintenance Results * (ABNORMAL) Comprehensive metabolic panel (03/02/2024 2:54 PM EDT) SODIUM 141 136 - 145 mmol/L [facility] LIC# [id number] POTASSIUM 3.8 3.4 - 5.1 mmol/L [facility] LIC# [id number] CHLORIDE 103 98 - 107 mmol/L [facility] LIC# [id number] CO2 24 22 - 31 mmol/L [facility] LIC# [id number] BUN 15 6 - 23 mg/dL [facility] LIC# [id number] CREATININE 0.90 0.50 - 1.20 mg/dL [facility] LIC# [id number] GLUCOSE 117(H) 70 - 100 mg/dL [facility] LIC# [id number] ALBUMIN 4.2 3.5 - 5.2 g/dL [facility] LIC# [id number] TOTAL PROTEIN 7.1 6.4 - 8.3 g/dL [facility] LIC# [id number] CALCIUM 9.3 8.8 - 10.7 mg/dL [facility] LIC# [id number] ALKALINE PHOSPHATASE 120 40 - 129 U/L [facility] LIC# [id number] TOTAL BILIRUBIN 0.8 0.2 - 1.2 mg/dL [facility] LIC# [id number] AST 21 <41 U/L [facility] LIC# [id number] ALT 27 <42 U/L [facility] LIC# [id number] GLOBULIN 2.9 2.3 - 4.2 g/dL [facility] LIC# [id number] EGFR 91 >59 mL/min/1.7 3m2 [facility] LIC# [id number] Comment:Estimated glomerular filtration rate calculated using the CKD-EPI refit equation. ANION GAP 14 7 - 17 mmol/L [facility] LIC# [id number] 03/02/2024 2:54 PM EDT 03/02/2024 3:55 PM EDT us Darlyn Yeager MD LAB BLOOD BKR ORDERABLES Final Result [facility] LIC# [id number] [address] [place] [id number] from Last 3 Months or Most Recently Relevant to Health Maintenance Insurance MEDICARE PART A & B [facility] MEDEX SUPPLEMENT MEDICARE PART A & B [employer] MEDEX SUPPLEMENT MEDICARE PART A & B [employer] MEDEX SUPPLEMENT MEDICARE PART A & B [email or web address] MEDEX SUPPLEMENT MEDICARE PART A & B [employer] MEDEX SUPPLEMENT MEDICARE PART A & B [employer] MEDEX SUPPLEMENT MEDICARE PART A & B [employer] MEDEX SUPPLEMENT MEDICARE PART A & B [employer] MEDEX SUPPLEMENT Member Subscriber Plan / Payer ( fective 2017-Present) Name:Jon Amezquita II Relation to Subscriber:Self Name:Jon Amezquita II Payer ID:[id number] (NAIC) Type:Indemnity Address: [place] [id number] MEDICARE PART A & B [employer] MEDEX SUPPLEMENT MEDICARE PART A & B [employer] MEDEX SUPPLEMENT Advance Directives For more information, please contact: [phone] (9AM - 5PM Brenda/[facility], Saturday-Saturday) Documents on File Type Date Recorded Patient Cook Fry Expl anation Healthcare Proxy 08/15/2017 1:55 PM * Full Code (Presumed) (Latest Code Status on File) Date Activated Date Inactivated Comments 08/13/2017 10:11 AM 08/13/2017 3:31 PM Care Teams Regional Engagement Consultant Relationship Specialty Start Date End Date Terra Galeano MD [address] [place] [address] PCP - General Internal Medicine 01/25/25 Carol Vyas NP [address] [place] [address] Referring Physician Family Medicine 02/14/24 Additional Source Comments The information contained in this document represents components of the legal health record. It is not the complete legal health record.[facility]
== END 2025-03-23 15:47 | disposition home or self-care (01) ==
LOC: HO.HOS 14:31
PROVIDERS: PCP Internal Medicine; Visit Provider Physician Assistant
DX: M54.16 Radiculopathy, lumbar region (principal); V89.2XXA Person injured in unspecified motor-vehicle accident, traffic, initial encounter
CPT/HCPCS: 99203

== ENCOUNTER → 2025-03-23 14:35 | Outpatient (BNV) | payer OTHER, MEDICARE, SELFPAY | PROVIDERS: Visit Provider Radiology Diagnostic Radiology | DX: M16.11 Unilateral primary osteoarthritis, right hip (principal) | CPT/HCPCS: 73502 ==

== ENCOUNTER 2025-05-03 08:40 | Outpatient (AMB) | payer MEDICARE, SELFPAY ==
--- OUTSIDE RECORDS SUMMARY | 2025-05-03 08:43 | XMS_ITS | Encounter Summary ---
Author Organization [facility] Address [address] [place] [address] Care Team Providers Care Safety Grooving Machine Operator Name Role Phone Terra Lopez Primary Care Provider [phone] Encounter Details Date Type Department Care Team (Late st Contact Info) Description 02/15/2022 Orders Only [facility] [address] [place] [address] [address] Social History Tobacco Use Types Packs/Day Years Used Date Smoking Tobacco: Never Smokeless Tobacco: Never Alcohol Use Standard Drinks/Week Comments Never 0 (1 standard drink = 0.6 oz pur e alcohol) Sex and Gender Information Value Date Recorded Sex Assigned at Male 08/06/2023 12:21 PM EDT Legal Sex Male 9:16 AM EST Gender Identity Male 04/13/2025 1:21 PM EST Sexual Orientation Straight 04/13/2025 1: 21 PM EST documented as of this encounter Plan of Treatment Upcoming Encounters Date Type Department Care Team (Late st Contact Info) Description 11/25/2025 11:00 AM EDT Office Visit [facility] [address] [place] [address] Karla Diaz MD [address] [place] [address] documented as of this encounter Procedures * Due to [place] state law, this organization might not be sharing negative HIV tests. Procedure Name Priority Date/Time Associated Diagnosis Comments AMB EXTERNAL MRI CHEST, OUTS ROBYN RESULT Routine 10/24/2021 AMB EXTERNAL MRI C-SPINE, OU TSIDE RESULT Routine 10/24/2021 documented in this encounter Results * Due to [place] state law, this organization might not be sharing negative HIV tests. * MRI Chest, Outside Result (10/24/2021) [facility] AMB EXTERNAL RESULT PROCEDURES Final Result * MRI C-Spine, Outside Result (10/24/2021) [facility] AMB EXTERNAL RESULT PROCEDURES Final Result documented in this encounter Visit Diagnoses Not on filedocumented in this encounter Care Teams Safety Grooving Machine Operator Relationship Specialty Start Date End Date Terra Lopez PCP - General Family Medicine 04/13/21 documented as of this encounter
--- OUTSIDE RECORDS SUMMARY | 2025-05-03 08:43 | XMS_ITS | Encounter Summary ---
Author Organization [facility] Address [facility] Sup[facility]amed [facility] [address] [place] [address] Phone Care Team Providers Care Nurse Receptionist Name Role Phone Terra Galeano MD Primary Care Provider Carol Vyas NP Unavailable Terra Galeano MD Primary Care Provider Terra Galeano MD Primary Care Provider Encounter Details Date Type Department Care Team (Late st Contact Info) Description 08/13/2017 Procedure Pass [facility] [address] [place] [phone] Social History Tobacco Use Types Packs/Day [...] Care Team (Late st Contact Info) Description 05/17/2025 8:30 AM EST Infusion [facility] [address] [place] [address] Gilmer Jackson [address], [address] [place] [address] [email or web address] 05/18/2025 8:30 AM EST Infusion [facility] [address] [place] [address] Gilmer Jackson, [address], [address] [place] [address] [email or web address] 05/19/2025 8:30 AM EST Infusion [facility] [address] [place] [address] Gilmer Jackson, [address], [address] [place] [id number] [email or web address] 05/20/2025 8:30 AM EST Infusion [facility] [address] [place] [address] Gilmer Jackson, [address], [address] [place] [address] 74[address] [email or web address] 05/21/2025 8:30 AM EST Infusion [facility] [address] [place] [address] Gilmer Jackson, [address], [address] [place] [address]87[address] [email or web address] 06/14/2025 8:30 AM EST Infusion [facility] [address] [place] [address] Gilmer Jackson, [address], [address] [place] [address]25[address] [email or web address] 06/15/2025 8:30 AM EST Infusion [facility] [address] [place] [address] Gilmer Jackson, DO [address] [place] [address], [address] [place] [address] [email or web address] 06/16/2025 8:30 AM EST Infusion [facility] [address] [place] [address] Gilmer Jackson, [address], [address] [place] [address]307 [email or web address] 06/17/2025 8:30 AM EST Infusion [facility] [address] [place] [address] Gilmer Jackson, [address], [address] [place] [address] [email or web address] 06/18/2025 8:30 AM EST Infusion [facility] [address] [place] [address] Gilmer Jackson, [address], [address] [place] [address] 808[address] [email or web address] 07/12/2025 8:30 AM EDT Infusion [facility] [address] [place] [address] Gilmer Jackson, [address], [address] [place] [address] 09874 [email or web address] 07/13/2025 8:30 AM EDT Infusion [facility] [address] [place] [address] Gilmer Jackson, [address] [facility], [address] [place] [address] 84985 [email or web address] 07/14/2025 8:30 AM EDT Infusion [facility] [address] [place] [address] Gilmer Jackson, [address], [address] [place] [address]91 [email or web address] 07/15/2025 8:30 AM EDT Infusion [facility] [address] [place] [address] Gilmer Jackson, [address], [address] [place] [address] 00487 [email or web address] 07/16/2025 8:30 AM EDT Infusion [facility] [address] [place] [address] Gilmer Jackson, [address], [address] [place] [address] [email or web address] 07/27/2025 3:00 PM EDT Office [facility] [address] [place] [address], [address] [place] [address] Sara Angelo MD [address] [place] [address] [email or web address] 08/09/2025 8:30 AM EDT Infusion [facility] [address] [place] [address] Gilmer Jackson, [address], [address] [place] [address] [id number] [email or web address] 08/10/2025 8:30 AM EDT Infusion [facility] [address] [place] [address] Gilmer Jackson, [address], [address] [place] [address] 15326 [email or web address] 08/11/2025 8:30 AM EDT Infusion [facility] [address] [place] [address] Gilmer Jackson, [address], [address] [place] [address] [id number] [email or web address] 08/12/2025 8:30 AM EDT Infusion [facility] [address] [place] [address] Gilmer Jackson, [address], [address] [place] [address] 06775 [email or web address] 08/13/2025 8:30 AM EDT Infusion [facility] [address] [place] [address] Gilmer Jackson, [address], [address] [place] [address] 99125 [email or web address] 09/06/2025 8:30 AM EDT Infusion [facility] [address] [place] [address] Gilmer Jackson, [address], [address] [place] [address] 85454 [email or web address] 09/07/2025 8:30 AM EDT Infusion [facility] [address] [place] [address] Gilmer Jackson, [address], [address] [place] [address] 73488 [email or web address] 09/08/2025 8:30 AM EDT Infusion [facility] [address] [place] [address] 97[address] Gilmer Jackson, DO [address] [facility], [address] [place] [address] 37429 [email or web address] 09/09/2025 8:30 AM EDT Infusion [facility] [address] [place] [address] 78006 Gilmer Jackson, DO [address] [facility], [address] [place] [address] 67768 [email or web address] 09/10/2025 8:30 AM EDT Infusion [facility] [address] [place] [address] 57693 Gilmer Jackson, DO [address] [place] [address], [address] [place] [address] 11732 [email or web address] 10/04/2025 8:30 AM EDT Infusion [facility] [address] [place] [address] Gilmer Jackson, DO [address] [place] [address], [address] [place] [address] 08961 [email or web address] 10/05/2025 8:30 AM EDT Infusion [facility] [address] [place] [address]78 Gilmer Jackson, DO [address] [facility], [address] [place] [address] 93094 [email or web address] 10/06/2025 8:30 AM EDT Infusion [facility] [address] [place] [address]244 Gilmer Jackson, [address], [address] [place] [address] 32465 [email or web address] 10/07/2025 8:30 AM EDT Infusion [facility] [address] [place] [address] 89024 Gilmer Jackson, [address], [address] [place] [address] 44316 [email or web address] 10/08/2025 8:30 AM EDT Infusion [facility] [address] [place] [address] 41796 Gilmer Jackson, [address], [address] [place] [address] 89266 [email or web address] 11/01/2025 8:30 AM EDT Infusion [facility] [address] [place] [address]993 Gilmer Jackson, [address], [address] [place] [address] 57882 [email or web address] 11/02/2025 8:30 AM EDT Infusion [facility] [address] [place] [address] 22436 Gilmer Jackson, [address], [address] [place] [address] 18122 [email or web address] 11/03/2025 8:30 AM EDT Infusion [facility] [address] [place] [address] 40436 Gilmer Jackson, [address], [address] [place] [address] 48595 [email or web address] 11/04/2025 8:30 AM EDT Infusion [facility] [address] [place] [address] 72278 Gilmer Jackson, [address], [address] [place] [address] 10687 [email or web address] 11/08/2025 8:30 AM EDT Infusion [facility] [address] [place] [address] 90388 Gilmer Jackson, [address], [address] [place] [address] 55659 [email or web address] 11/29/2025 8:30 AM EDT Infusion [facility] [address] [place] [address] 57180 Gilmer Jackson, [address], [address] [place] [address] 11302 [email or web address] 11/30/2025 8:30 AM EDT Infusion [facility] [address] [place] [address] 8[address]30 Gilmer Jackson, [address], [address] [place] [address] 43673 [email or web address] 12/01/2025 8:30 AM EDT Infusion [facility] [address] [place] [address] 31492 Gilmer Jackson, [address], [address] [place] [address] 25194 [email or web address] 12/02/2025 8:30 AM EDT Infusion [facility] [address] [place] [address] 7[address] Gilmer Jackson, [address], [address] [place] [address] 47629 [email or web address] 12/03/2025 8:30 AM EDT Infusion [facility] [address] [place] [address] Gilmer Jackson DO [address] [facility], [address] [place] [address] [email or web address] documented as of this encounter Visit Diagnoses Not on filedocumented in this encounter Care Teams Nurse Receptionist Relationship Specialty Start Date End Date Terra Galeano MD PCP - General Internal Medicine 06/04/17 01/24/25 Terra Galeano MD [address] [place] [address] 14377 PCP - General Internal Medicine 01/25/25 04/18/25 Terra Galeano MD [address] [place] [address] [place] [address] PCP - General Internal Medicine 04/19/25 Carol Vyas NP [address] [place] [address] 65333 Referring Physician Family Medicine 02/14/24 documented as of this encounter Additional Source Comments The information contained in this document represents components of the legal health record. It is not the complete legal health record.[facility]
--- OUTSIDE RECORDS SUMMARY | 2025-05-03 08:43 | XMS_ITS | Encounter Summary ---
Author Organization [facility] Address [address] [place] [address] Care Team Providers Care Mental Health Associate Name Role Phone Terra Lopez Primary Care Provider [phone] Encounter Details Date Type Department Care Team ([facility] st Contact Info) Description 09/12/2021 Telephone [facility] [address] [place] [address] Telephone Intake, Staff Social History Tobacco Use [...] PM EST documented as of this encounter Miscellaneous Notes * Telephone Encounter - Elena Gould - 09/13/2021 2:[address] Espinoza's office called - please call [phone] * Telephone Encounter - Candice Worrell - 09/12/2021 11:[address] Olga Childers, Neurologist who referred pt to you called requesting a call back and would like to speak to you about this pt. Please return call at [phone] documented in this encounter Plan of Treatment Upcoming Encounters Date Type Department Care Team (Late st Contact Info) Description 11/25/2025 11:00 AM EDT Office Visit [facility] [address] [place] [address] [id number] Karla Diaz MD [address] [place] [address] [phone] documented as of this encounter Visit Diagnoses Not on filedocumented in this encounter Care Teams Mental Health Associate Relationship Specialty Start Date End Date Terra Lopez PCP - General Family Medicine 04/13/21 documented as of this encounter
--- OUTSIDE RECORDS SUMMARY | 2025-05-03 08:43 | XMS_ITS | Encounter Summary ---
Author Organization [facility] Address [address] [place] [address] Care Team Providers Care Site Controller Name Role Phone Terra Lopez Primary Care Provider Encounter Details Date Type Department Care Team (Late st Contact Info) Description 02/16/2022 Orders Only [facility] [address] [place] [address] Provider, MD Rosa [address] [place] [address] Social History Tobacco Use Types Packs/Day [...] Description 11/25/2025 11:00 AM EDT Office Visit [facility] [address] [place] [address] Karla Diaz MD [address] [place] [address] documented as of this encounter Procedures * Due to [place] state law, this [...] on filedocumented in this encounter Care Teams Site Controller Relationship Specialty Start Date End Date Terra Lopez PCP - General Family Medicine 04/13/21 documented as of this encounter
--- OUTSIDE RECORDS SUMMARY | 2025-05-03 08:43 | XMS_ITS | Clinical Summary ---
Author Organization [address] [place] [address] [place] [phone] Phone Care Team Providers Care Rag Inspector Name Role Phone Terra Lopez MD Primary Care Provider [phone] Allergies No known active allergies Medications immune [...] mg total) by mouth daily. 2 Active nitroglycerin (NITROSTAT) 0.4 mg SL tablet [...] each day. 90 tablet 3 5 Active metoprolol succinate (TOPROL-XL) 100 mg 24 hr tablet Take 1 tablet (100 mg total) by mouth 1 (one) time each day. 90 tablet 1 5 Active metoprolol succinate (TOPROL-XL) 50 mg 24 hr tablet Take 1 tablet (50 mg total) by mouth 1 (one) time each day. 04/20/20 25 Discontinu ed(Dose adjustment ) metoprolol succinate (TOPROL-XL) 100 mg 24 hr tablet Take 1 tablet (100 mg total) by mouth 1 (one) time each day. Do not crush or chew. Dose increased 12.15.25 by ER 5 04/20/20 25 Discontinu ed(Reorder ) Active Problems Problem Noted Date Diagnosed Date Cardiomyopathy 11/03/2024 Overview (11/03/2024): Patient had transthoracic echo on [...] now normal Coronary artery disease invo lving [place] coronary artery of [place] heart 11/03/2024 Assessment & Plan (11/03/2024 8:49 [...] panel labs from his PCPs office at [facility]. The goal would be to have patient's LDL be at 70 or below. Ideally this will be at 50. Please continue with the high-dose atorvastatin p.o. daily. Encounters Date Type Department Care Team Description 04/22/2025 Telephone [facility] Cardiology [facility] [address] [place] [phone] Sulema Verduzco MD 04/20/2025 Telephone [facility] Cardiology [facility] [address] [place] [phone] Sulema Verduzco MD 04/20/2025 Telephone [facility] [address] [facility] [address] [place] [address] Sulema Verduzco MD from Last 3 Months Surgical History Surgery Date Site/Laterality Comments TONSILLECTOMY PROCEDURE: HISTORICAL TONSILLECTOMY APPENDECTOMY PROCEDURE: HISTORICAL APPENDECTOMY HERNIA REPAIR PROCEDURE: HISTORICAL HERNIA REPAIR/UMB COLONOSCOPY 1998 PROCEDURE: HISTORICAL COLONOSCOPY; COMMENT: Normal MOLE REMOVAL 1986 PROCEDURE: HISTORICAL MOLE (REMOVAL OF); COMMENT: Dysplastic nevus sternum (moderate-severe atypia) CARDIAC CATHETERIZATION 02/2011 PROCEDURE: HISTORICAL CARDIAC CATH; COMMENT: Stent no [place] COLONOSCOPY 2009 PROCEDURE: HISTORICAL COLONOSCOPY; COMMENT: normal [...] V28) 05/09/2015 DX:CHF (congestive heart fa ilure) ([facility]) History of dysplastic nevus DX:H [...] old has anxiety disorder Father (Age 51) [place], Colon Cancer Maternal Grandfather [place] - yo [...] Care Team (Late st Contact Info) Description 05/11/2025 8:10 AM EST Office Visit [facility] [address] [facility] [address] [place] [address] Henri Smith NP [address] [place] [address] [place] [phone] Health Maintenance Due Date Last Done Comments Colorectal Cancer Screening: Colonoscopy 1952 COVID-19 Vaccine (#1) 1957 RSV Immunization Adult Patients (1 - Risk 50-74 years 1-dose series) 2002 Cholesterol Screening (Lipid Panel) 04/03/2022 Falls Risk Assessment 04/03/2022 Hepatitis C Screening 04/03/2022 Medicare Annual Wellness Visit 04/03/2022 Social Influencers of Health Screening 04/03/2022 Depression Screening 05/06/2024 Influenza Vaccine (#1) 2025 , 12/19/2019, 02/17/2019, [...] age to complete this topic Insurance MEDICARE [facility] Care Teams Rag Inspector Relationship Specialty Start Date End Date Terra Lopez MD PCP - General Internal Medicine 11/03/24
--- OUTSIDE RECORDS SUMMARY | 2025-05-03 08:43 | XMS_ITS | Encounter Summary ---
Author Organization [facility] Address [address] [place] [address] Care Team Providers Care Shale Miner Name Role Phone Terra Lopez Primary Care Provider [phone] Reason for Visit * Reason Onset Date Comments CS - reschedule today's appointment 08/23/2022 Encounter Details Date Type Department Care Team ([facility] st Contact Info) Description 08/23/2022 Telephone [facility] [address] [place] [address] Telephone Intake, Staff CS - reschedule today's [...] left voicemail. * Telephone Encounter - Bety Ruddt - 08/23/2022 10:01 AM EDT PT's called to reschedule today's appt with Dr. Diaz that was canceled by provider. No appts until February. Please follow up at [phone]. documented in this encounter Plan of Treatment Upcoming Encounters Date Type Department Care Team (Late st Contact Info) Description 11/25/2025 11:00 AM EDT Office Visit [facility] [address] [place] [address] Karla Diaz MD [address] [place] [address] [phone] documented as of this encounter Visit Diagnoses Not on filedocumented in this encounter Care Teams Shale Miner Relationship Specialty Start Date End Date Terra Lopez PCP - General Family Medicine 04/13/21 documented as of this encounter
--- OUTSIDE RECORDS SUMMARY | 2025-05-03 08:43 | XMS_ITS | Clinical Summary ---
Author Organization [facility] Address [address] [place] [id number] Care Team Providers Care Production Truck Driver Name Role Phone Terra Lopez Primary Care Provider [phone] Allergies No known active allergies Medications metoprolol [...] a day as needed. 2 Active omega 9-tld-bzv-fish oil 1,000 mg (120 mg-180 mg) capsule [...] Take 12.5 mg by mouth. 2 Active Alyglo 10 % solution infusion Infuse 40 g intravenously. Eery 4 weeks Active valsartan (DIOVAN) 80 mg tablet Active sildenafiL (VIAGRA) 50 mg tablet Take 50 mg by mouth once daily as needed. Active montelukast (SINGULAIR) 10 mg tablet every 24 hours. Active clobetasoL (TEMOVATE) 0.05% cream APPLY TO AFFECTED AREA(S) TWICE DAILY FOR NO MORE THAN 2 WEEKS PER MONTH. AVOID EYEs AND AREAS WITH THIN SKIN (FACE, GENITALS, ARMPITS) Active triamcinolone acetonide (KENALOG) 0.1% cream Apply topically to the affected area 2 times daily. Active tamsulosin (FLOMAX) 0.4 mg capsule Take 0.4 mg by mouth daily. 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, right Encounters Date Type Department Care Team Description 04/15/2025 11:00 AM EST Office Visit [facility] [address] [place] [address] Karla Diaz MD CIDP (chronic inflammatory demyelinating polyneuropathy) from Last 3 Months Social History Tobacco [...] Orientation Straight 04/13/2025 1: 21 PM EST Last Filed Vital Signs Vital Sign Reading Time Taken Comments Blood Pressure 119/75 04/15/2025 10:29 AM EST Pulse 56 04/15/2025 10:29 AM EST Temperature 36.7 C (98.1 F) 04/15/2025 10:29 AM EST Respiratory Rate 16 04/15/2025 10:29 AM EST Oxygen Saturation 96% 04/15/2025 10:29 AM EST Inhaled Oxygen Concentration - - Weight 127 kg (280 lb) 04/15/2025 10:29 AM EST Height 193 cm (6' 4 ) 04/15/2025 10:29 AM EST Body Mass Index 34.08 04/15/2025 10:29 AM EST Plan of Treatment Upcoming Encounters Date Type Department Care Team (Late st Contact Info) Description 11/25/2025 11:00 AM EDT Office Visit [facility] [address] [place] [address] Karla Diaz MD [address] [place] [address] Health Maintenance Due Date Last Done Comments Cologuard 1950 Colon Cancer Screening 1950 Colonoscopy 1950 FOBT / Fit Test 1950 Hepatitis C Screening 1950 Sigmoidoscopy 1950 Medicare AWV 1951 Alcohol/Substance Use Screening 05/06/2024 Depression Screening and Follow-Up 05/06/2024 Health Care Proxy Review 05/06/2024 Social Drivers of Health Annual Screening 05/06/2024 Influenza Vaccine (#1) 2024 9, 03/24/2014, 03/10/2012, Additional history exists COVID-19 Vaccine ( - season) 2025 08/06/2020 Fall Risk Screening 04/15/2026 04/15/2025 RSV Vaccine (60+ years old and patients) (1 - 1-dose 75+ series) 2027 DTaP,Tdap,and Td Vaccines (3 - Td or Tdap) 01/02/2034 01/03/2024, 03/10/2012, 11/28/2005 Tobacco Screening 05/06/2042 04/19/2025 Pneumococcal Vaccine: 50+ Years Completed 06/09/2019, 08/01/2018, 05/21/2017, Additional history exists Zoster Vaccines Completed 12/09/2019, 09/2019, 06/09/2019, Additional history exists Hepatitis B Vaccines Aged Out No long er eligible based on patient's age to complete this topic Insurance MEDICARE [facility] Care Teams Production Truck Driver Relationship Specialty Start Date End Date Terra Lopez PCP - General Family Medicine 04/13/21
--- OUTSIDE RECORDS SUMMARY | 2025-05-03 08:43 | XMS_ITS | Patient Health Record ---
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 Name Role Phone MARIANNE hansen, PADMINI Primary Care Provider PADMINI Waite Unavailable [phone] Allergies No Known Allergies Reason For Referral No Information Medications Medication SIG (Take, Route, Frequency, Duration) Notes Start Date End Date Status SILVESTRE RED 1 TAB ONCE DAILY *Please review for potential replacement for e-prescription and drug interaction check* Active SILVESTRE MEN VITAMIN DIRECTED *Please review for potential replacement for e-prescription and drug interaction check* Active ASHWAGANDA DIRECTED *Please review for potential replacement for e-prescription and drug interaction check* Active Melatonin 3MG TAKE DIRECTED NAME ONLY Conversion from [employer]um Review and pick correct strength-formul ation from [employer] options. If intended option is not shown, discontinue and re-order from Quick Search. Active B COMPLEX 50 *Please review for potential replacement for e-prescription and drug interaction check* Active TUMERIC 1 CAP PO QD *Please review for potential replacement for e-prescription and drug interaction check* Active Nitroglycerin 0.4 MG/SPRAY Solution 1 spray(s) sublingually every 5 minutes Active Aspirin 81 MG Tablet Delayed Release 1 tab(s) orally once a day Active Dupixent 300 MG/2 ML SOLUTION DIRECTED SUBCUTANEOUSLY EVERY 2 WEEKS NAME ONLY Conversion from Multum Review and pick correct strength-formul ation from [employer] options. If intended option is not shown, discontinue and re-order from Quick Search. Active hydroCHLOROthiazide 12.5 MG Tablet 1 tab(s) orally once a day Active Metoprolol Succinate ER 50 MG Tablet Extended Release 24 Hour 1 tab(s) orally once a day; Duration: 90 days Active Cialis 20 MG Tablet 1 tab(s) orally once as needed; Duration: 90 days 1 Active Montelukast Sodium 10 MG Tablet 1 tab(s) orally once a day; Duration: 90 days Unknown Vitamin D3 Ultra Potency 1.25 MG (89068 UT) Tablet 1 tab(s) orally once a week; Duration: 56 days 1 Active Cyclobenzaprine HCl 10 MG Tablet 1 tab(s) orally three times daily prn muscle spasm; Duration: 30 days no driving or etoh on medication d/t risk of sedation. 1 Active Atorvastatin Calcium 80 MG Tablet 1 tab(s) orally once a day; Duration: 90 DAY(S) Active Lisinopril 40 MG Tablet 1 tab(s) orally once a day; Duration: 90 DAY(S) Active Clopidogrel Bisulfate 75 MG Tablet 1 tab(s) orally once a day; Duration: 90 DAY(S) Active ASTRAGALUS 500 MG Q.D. *Please review for potential replacement for e-prescription and drug interaction check* Active Sildenafil Citrate 100 MG Tablet 1 tab(s) orally once daily prn 1 Active Garlic DIRECTED NAME ONLY Conversion from [employer] Review and pick correct strength-formul ation from [employer] options. If intended option is not shown, discontinue and re-order from Quick Search. Active Green Tea CAPSULE 1 PO QD NAME ONLY Conversion from [employer] Review and pick correct strength-formul ation from [employer] options. If intended option is not shown, discontinue and re-order from Quick Search. Not-Taking Coenzyme Q10 300 MG Capsule 1 cap(s) orally once a day Active SIBERIAN RHUBARB 1 TAB PO QD Siberian Geinseng *Please review for potential replacement for e-prescription and drug interaction check* Active predniSONE 20 MG Tablet 3 tab(s) oral on ce daily for 1 day then 2 tab oral once daily for 1 day then 1 tab oral once daily for 1 day orally once a day; Duration: 3 day(s) 1 Active Immunizations Vaccine Route Administration Date Status Comme nts Pfizer IM Intramuscular 08/06/2020 Administered Pneumococcal Prevnar 13 IM Intramuscular 05/21/2017 Admini stered Pneumococcal Prevnar 13 IM Intramuscular 06/09/2019 Admini stered Pneumococcal, PPV 23 IM Intramuscular 05/28/2011 Administe red Pneumococcal, PPV 23 IM Intramuscular 08/01/2018 Administe red SHINGRIX HZV VACCINE IM Intramuscular 06/09/2019 Administe red SHINGRIX HZV VACCINE IM Intramuscular 12/09/2019 Administe red Td (Tetanus Diphtheria) IM Intramuscular 11/28/2005 Admini stered TDAP IM Intramuscular 03/10/2012 Administered Social History Tobacco Use: Social History Observation Description Date Details (start date - stop date) Never Smoker NA - NA Social History Tobacco Use: Social Info Question Answer Notes Smoking Are you a: never smoker Additional Details Category Social Info Options Details General Occupation: Retired asbestos exposure: unknown alcohol use: no drug use: yes marijuana Hobbies/Exercise habits: Snorkel ing, [place] Coffee/Tea/Soda: yes Soda- no Coffee , Tea Marital Status experience no smokers in household no Problems Problem Type SNOMED Code ICD Code Onset Dates Problem Status W/U Status Risk Notes Problem Essential hypertension (51024213) Essential hypertension (I10) Active confirmed Problem Vitamin D deficiency (91017124) Vitamin D deficiency (E55.9) Active confirmed Problem Weight loss (137802700) Weight loss (R63.4) Active confirmed Problem Tremor (06514105) Tremor (R25.1) Active confirm ed Problem Impaired fasting glucose (639934455) Impaired fasting glucose (R73.01) Active confirmed Problem Arthralgia of the pelvic region and thigh (210248931) Left hip pain (M25.552) Active confirmed Problem Neuropathy of upper limb (643110578) 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) Active confirmed Problem Disorder of lumbar disc (271987088) Lumbar disc disease (M51.9) Active confirmed Problem Degeneration of lumbar intervertebral disc (65298492) Lumbar degenerative disc disease (M51.36) Active confirmed Problem Hyperlipidaemia (06860864) Hyperlipidemia, unspecified hyperlipidemia type (E78.5) Active confirmed Problem Erectile dysfunction (disorder) (780735904) Erectile dysfunction, unspecified erectile dysfunction type (N52.9) Active confirmed Problem Pain in limb (38799738) Right forearm pain (M79.631) Active confirmed Problem Memory problem (703516053) Memory problem (R41.3) Active confirmed Problem Patient encounter procedure (190318603) Encounter to establish care (Z76.89) Active confirmed Problem Anxiety depression (685008797) Anxiety with depression (F41.8) Active confirmed Problem Disorder of musculoskeletal system (249261) Hand weakness (R29.898) Active confirmed Problem Muscle atrophy (disorder) (83786961) Muscular atrophy, unspecified site (M62.50) Active confirmed Problem Gastroesophageal reflux disease (799015750) Gastroesophageal reflux disease, unspecified whether esophagitis present (K21.9) Active confirmed Problem Atherosclerotic heart disease of chilkoot coronary artery without angina pectoris (148385351566044) Coronary artery disease, unspecified vessel or lesion type, unspecified whether angina present, unspecified whether ch[place]koot or transplanted heart (I25.10) Active confirmed Plan Of Treatment Pending Test Test Name Order Date Cyclobenzaprine 11/25/2020 Cyclobenzaprine 11/16/2020 XR Lumbosacral Spine 04/21/2021 XR Thoracic Spine 4 views 05/24/2021 Insurance Providers Payer Name Payer Address Payer Phone Subscriber Number Group Number Insured Name Patient Relationship to Insured Coverage Start Date Coverage End Date MEDICARE [employer] [facility] [address] [place] [address] [id number] CLIFTON REYNOLDS Self - patient is the insured [employer] [address] [place] [address] [id number] CLIFTON REYNOLDS Self - patient is the insured Medical (General) History Medical History History ICD Code Anorectal Fissure Obesity 01/11/2009 Low Back Pain 02/11/2009 Family History of Cancer of Digestive Sy stem 08/22/2009 Cad S/p Percutaneous Coronary Angioplast y0 Rca Stent x2, No mi 02/03/2011 Edema of Both Legs 08/30/2015 High Cholesterol or Triglycerides 01/12/20 06 Heart Failure 05/09/2015 History of Dysplastic Nevus Acid Reflux Disease 02/01/2011 Degeneration Lumbar or Lumbosacral inter vertebral disc 11/13/2013 Increased fasting blood sugar 05/09/2015 Pain in Left Knee 05/17/2017 Hand Pain 05/17/2017 Eczema 08/20/2019 Headaches Circulation Problems Surgical History Surgery Date(Month/Year) posterior interosseous nerve entrapment s/p decompression x 2 Cardiac Cath 02/2011 Mole Removal 1987 Colonoscopy 1998,2009, 0 Hernia Repair/umb Appendectomy Tonsillectomy
--- OUTSIDE RECORDS SUMMARY | 2025-05-03 08:44 | XMS_ITS | Clinical Summary ---
Author Organization [facility] Address [address] [place] [phone] Phone Care Team Providers Care Retirement Officer Name Role Phone Carol Vyas NP Unavailable + [phone] Terra Galeano MD Primary Care Provider + [phone] Allergies No known active allergies Medications atorvastatin (LIPITOR) 80 MG tablet TAKE 1 TABLET AT BEDTIME 01/29/20 17 Active cyclobenzapri ne (FLEXERIL) 10 MG tablet Take 10 mg by mouth 3 (three) times a day as needed. 11/13/19 17 Active omega 0-lgw-skx-fis h oil (FISH OIL) 1,000 mg (120 mg-180 mg) Cap by Does not apply route. Takes daily Active lidocaine (LIDODERM) 5 % Place 1 patch onto the skin daily as needed. 05/21/19 18 Active metoprolol succinate (TOPROL-XL) 50 MG 24 hr tablet TAKE 1 TABLET NIGHTLY 06/03/19 18 Active mometasone (ELOCON) 0.1 % ointment 08/23/19 13 Active diphenhydrAMI NE (BENADRYL) 25 mg tablet takes dAILY NEEDED 04/21/20 07 Active MULTIVITAMIN ORAL None Entered 04/21/20 07 Active nitroglycerin (NITROSTAT) 0.[address] 0.4 mg under the tongue. 11/15/19 17 Active raNITIdine (ZANTAC) 150 MG capsule Take 150 mg by mouth 2 (two) times a day as needed. 03/24/20 14 Active aspirin 81 MG EC tablet Take by mouth. 01/12/20 06 Active urea 40 % Crea 10/13/19 17 Active hydroCHLOROth iazide 12.5 mg capsule Take 12.5 mg by mouth every morning. 05/25/19 22 Active valsartan (DIOVAN) 80 MG tablet Take 80 mg by mouth daily. 01/31/20 24 Active tamsulosin (FLOMAX) 0.4 mg Cap Take 0.4 mg by mouth daily. Active finasteride (PROSCAR) 5 mg tablet Take 5 mg by mouth daily. Active immune globulin, human, (ALYGLO) 10 % Soln IV injection Inject 40 g into the vein every 28 days. 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 To all area of rash. 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 50 mL 3 03/30/20 25 Active ketoconazole 2 % creamIndicati ons:Intertrig o Use in 1:1 ratio with hydrocortisone cream to affected areas twice a day for two weeks. 60 g 03/30/20 25 Active hydrocortison e 2.5 % creamIndicati ons:Intertrig o Use in 1:1 ratio with ketoconazole cream to affected areas in groin twice a day for two weeks. 28 g 3 03/30/20 25 Active apixaban (ELIQUIS) 5 mg tablet Take 1 tablet (5 mg total) by mouth 2 (two) times a day. 60 tablet 04/19/20 25 2025 Active naproxen sodium (ALEVE) 220 mg Cap Take by mouth. 2024 Discontinued ibuprofen (ADVIL,MOTRIN ) 200 MG tablet Take 2 tablets (400 mg total) by mouth every 6 (six) hours as needed for pain (specific location in comments). 08/14/19 18 2024 Discontinued Active Problems Patient Care Coordination No te Formatting of this note migh t be different from the original. 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 Encounters Date Type Department Care Team Description 04/23/2025 8:30 AM EST Infusion [facility] [address] [place] [address] 20848 Gilmer Jackson, Multifocal motor neuropathy (Primary Dx) 04/22/2025 8:30 AM EST Infusion [facility] [address] [place] [address] 42563 Gilmer Jackson DO Multifocal motor neuropathy (Primary Dx) 04/21/2025 8:30 AM EST Infusion [facility] [address] [place] [address] 44211 Gilmer Jackson, Multifocal motor neuropathy (Primary Dx) 04/20/2025 8:30 AM EST Infusion [facility] [address] [place] [address] 43840 Gilmer Jackson, Multifocal motor neuropathy (Primary Dx) 04/19/2025 1:37 PM EST - 04/19/2025 6:24 PM EST Emergency [facility] [address] [place] [address] 35670 Discharge Disposition: Home or Self Care 04/19/2025 8:30 AM EST Infusion [facility] [address] [place] [address] 13373 Gilmer Jackson, Multifocal motor neuropathy (Primary Dx) 03/30/2025 2:30 PM EST Office [facility] [address] [place] [address], [address] [place] [address] Sara Angelo MD [facility] (Primary Dx); 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 03/26/2025 8:30 AM EST Infusion [facility] [address] [place] [address] 43977 Gilmer Jackson, DO Multifocal motor neuropathy (Primary Dx) 03/25/2025 8:30 AM EST Infusion [facility] [address] [place] [address] 86476 Gilmer Jackson, DO Multifocal motor neuropathy (Primary Dx) 03/24/2025 8:30 AM EST Infusion [facility] [address] [place] [address] 72157 Gilmer Jackson, DO Multifocal motor neuropathy (Primary Dx) 03/23/2025 8:30 AM EST Infusion [facility] [address] [place] [address] 72737 Gilmer Jackson, DO Multifocal motor neuropathy (Primary Dx) 03/22/2025 8:30 AM EST Infusion [facility] [address] [place] [address] 36912 Gilmer Jackson, DO Multifocal motor neuropathy (Primary Dx) 03/07/2025 Orders Only [facility] [address] [address] Anali Elaine PA-C 02/26/2025 8:30 AM EDT Infusion [facility] [address] [place] [address] 26702 Gilmer Jackson, DO Multifocal motor neuropathy (Primary Dx) 02/25/2025 8:00 AM EDT Infusion [facility] [address] [place] [address] 54790 Gilmer Jackson, DO Multifocal motor neuropathy (Primary Dx) 02/24/2025 8:30 AM EDT Infusion [facility] [address] [place] [address] Gilmer Jackson, DO Multifocal motor neuropathy (Primary Dx) 02/23/2025 8:30 AM EDT Infusion [facility] [address] [place] [address] Gilmer Jackson, DO Multifocal motor neuropathy (Primary Dx) 02/22/2025 8:30 AM EDT Infusion [facility] [address] [place] [address] Gilmer Jackson, DO Multifocal motor neuropathy (Primary [...] before we got money to buy more. Never True 04/19/2025 Within the past 6 months the food we bought just didn't last and we didn't have enough money to get more. Never True Residential Stability Answer Date Recor ded What is your housing situation today? I have karen sing 04/19/2025 How many times have you move d in the past 12 months? Zero (I did not move) 04/19/2025 Paying for Meds Answer Date Recorded Do you have trouble paying for medicines? No 04/19/2025 Paying Utility Bills Answer Date Record ed Do you have trouble paying your heating or elect ricity bill? No 04/19/2025 Transportation Answer Date Recorded Has the lack of transportati on kept you from medical appointments or from getting medications? No 04/19/2025 Digital Access Answer Date Recorded No 04/19/2025 Yes 04/19/2025 Do you have reliable internet access at home? Ye s 04/19/2025 Do you have a device (e.g., phone, tablet, computer) with a working camera? Yes 04/19/2025 Intimate Partner Violence Answer Date R ecorded Are you denied basic needs s uch as food, clothing, or medical care? No 04/19/2025 In the past 12 months have y ou been in a relationship with a person who hurts, threatens, or tries to control you? No 04/19/2025 Are you denied basic needs s uch as food, clothing, or medical care? No 04/19/2025 In the past 12 months have y ou been in a relationship with a person who hurts, threatens, or tries to control you? No 04/19/2025 Sex and Gender Information Value Date Recorded Sex Assigned at Male 02/14/2024 3:28 PM EDT Legal Sex Male 3:47 PM EST Gender Identity Male 02/14/2024 3:28 PM EDT Sexual Orientation Straight 02/14/2024 3: 28 PM EDT Last Filed Vital Signs Vital Sign Reading Time Taken Comments Blood Pressure 124/78 04/23/2025 11:17 AM EST Pulse 91 04/23/2025 11:17 AM EST Temperature 36.7 C (98 F) 04/23/2025 11:17 AM EST Respiratory Rate 18 04/23/2025 11:17 AM EST Oxygen Saturation 97% 04/23/2025 11:17 AM EST Inhaled Oxygen Concentration - - Weight 124.7 kg (275 lb) 04/19/2025 12:17 PM EST Height 193 cm (6' 4 ) 04/19/2025 12:17 PM EST Body Mass Index 33.47 04/19/2025 12:17 PM EST Plan of Treatment Upcoming Encounters Date Type Department Care Team (Late st Contact Info) Description 05/17/2025 8:30 AM EST Infusion [facility] [address] [place] [address] Gilmer Jackson DO [address] [facility], [address] [place], [place] [id number] [email or web address] 05/18/2025 8:30 AM EST Infusion [facility] [address] [place] [address] 73[address] Gilmer Jackson, [address], [address] [place] [address] [email or web address] 05/19/2025 8:30 AM EST Infusion [facility] [address] [place] [address] 43433 Gilmer Jackson, [address], [address] [place] [address] [phone] [email or web address] 05/20/2025 8:30 AM EST Infusion [facility] [address] [place] [address] 63760 Gilmer Jackson, [address], [address] [place] [address] 77[address] [email or web address] 05/21/2025 8:30 AM EST Infusion [facility] [address] [place] [address] 82110 Gilmer Jackson, [address], [address] [place] [address] 49605 [email or web address] 06/14/2025 8:30 AM EST Infusion [facility] [address] [place] [address] 63066 Gilmer Jackson, [address], [address] [place] [address] 074[address] [email or web address] 06/15/2025 8:30 AM EST Infusion [facility] [address] [place] [address] 50238 Gilmer Jackson, [address], [address] [place] [address] 16587 [email or web address] 06/16/2025 8:30 AM EST Infusion [facility] [address] [place] [address] 17839 Gilmer Jackson, [address], [address] [place] [address] 01883 [email or web address] 06/17/2025 8:30 AM EST Infusion [facility] [address] [place] [address] 77563 Gilmer Jackson, [address], [address] [place] [address] 82775 [email or web address] 06/18/2025 8:30 AM EST Infusion [facility] [address] [place] [address] 53513 Gilmer Jackson, [address], [address] [place] [address] 04682 [email or web address] 07/12/2025 8:30 AM EDT Infusion [facility] [address] [place] [address] 13015 Gilmer Jackson, [address], [address] [place] [address] 12857 [email or web address] 07/13/2025 8:30 AM EDT Infusion [facility] [address] [place] [address] 85088 Gilmer Jackson, [address], [address] [place] [address] 12718 [email or web address] 07/14/2025 8:30 AM EDT Infusion [facility] [address] [place] [address] 25539 Gilmer Jackson, DO [address] [facility], [address] [place] [address] 42564 [email or web address] 07/15/2025 8:30 AM EDT Infusion [facility] [address] [place] [address] 01717 Gilmer Jackson, [address], [address] [place] [address] 20783 [email or web address] 07/16/2025 8:30 AM EDT Infusion [facility] [address] [place] [address] 33972 Gilmer Jackson, [address], [address] [place] [address] 36705 [email or web address] 07/27/2025 3:00 PM EDT Office Visit [facility] [address] [facility], [address]th [place] [address] Sara Angelo MD [address] [place] [address] [email or web address] 08/09/2025 8:30 AM EDT Infusion [facility] [address] [place] [address] 26012 Gilmer Jackson, [address], [address] [place] [address] 40639 [email or web address] 08/10/2025 8:30 AM EDT Infusion [facility] [address] [place] [address] 75078 Gilmer Jackson, [address] [facility], [address] [place] [address] 22091 [email or web address] 08/11/2025 8:30 AM EDT Infusion [facility] [address] [place] [address] 96451 Gilmer Jackson, [address], [address] [place] [address] 55693 [email or web address] 08/12/2025 8:30 AM EDT Infusion [facility] [address] [place] [address] 48405 Gilmer Jackson, [address], [address] [place] [address] 17030 [email or web address] 08/13/2025 8:30 AM EDT Infusion [facility] [address] [place] [address] 39740 Gilmer Jackson, [address], [address] [place] [address] 01139 [email or web address] 09/06/2025 8:30 AM EDT Infusion [facility] [address] [place] [address] 89687 Gilmer Jackson, [address], [address] [place] [address] 83568 [email or web address] 09/07/2025 8:30 AM EDT Infusion [facility] [address] [place] [address] 21238 Gilmer Jackson, [address], [address] [place] [address] 21781 [email or web address] 09/08/2025 8:30 AM EDT Infusion [facility] [address] [place] [address] 93263 Gilmer Jackson, [address], [address] [place] [address] 19494 [email or web address] 09/09/2025 8:30 AM EDT Infusion [facility] [address] [place] [address] 00513 Gilmer Jackson, [address], [address] [place] [address] 02022 [email or web address] 09/10/2025 8:30 AM EDT Infusion [facility] [address] [place] [address] 72906 Gilmer Jackson, [address], [address] [place] [address] 92073 [email or web address] 10/04/2025 8:30 AM EDT Infusion [facility] [address] [place] [address] 27763 Gilmer Jackson, [address], [address] [place] [address] 72171 [email or web address] 10/05/2025 8:30 AM EDT Infusion [facility] [address] [place] [address] 91515 Gilmer Jackson, [address], [address] [place] [address] 36572 [email or web address] 10/06/2025 8:30 AM EDT Infusion [facility] [address] [place] [address] 31541 Gilmer Jackson, [address], [address] [place] [address] 55385 [email or web address] 10/07/2025 8:30 AM EDT Infusion [facility] [address] [place] [address] 02511 Gilmer Jackson, DO [address] [facility], [address] [place] [address] 83823 [email or web address] 10/08/2025 8:30 AM EDT Infusion [facility] [address] [place] [address] 61373 Gilmer Jackson, DO [address] [facility], [address] [place] [address] 44446 [email or web address] 11/01/2025 8:30 AM EDT Infusion [facility] [address] [place] [address] 68674 Gilmer Jackson, DO [address] [place] [address], [address] [place] [address] 47295 [email or web address] 11/02/2025 8:30 AM EDT Infusion [facility] [address] [place] [address] 04749 Gilmer Jackson, DO [address] [place] [address], [address] [place] [address] 12133 [email or web address] 11/03/2025 8:30 AM EDT Infusion [facility] [address] [place] [address] 05332 Gilmer Jackson, [address] [facility], [address] [place] [address] 22192 [email or web address] 11/04/2025 8:30 AM EDT Infusion [facility] [address] [place] [address] 25454 Gilmer Jackson, [address], [address] [place] [address] 20395 [email or web address] 11/08/2025 8:30 AM EDT Infusion [facility] [address] [place] [address] 78839 Gilmer Jackson, [address], [address] [place] [address] 40941 [email or web address] 11/29/2025 8:30 AM EDT Infusion [facility] [address] [place] [address] 28691 Gilmer Jackson, [address], [address] [place] [address] 60383 [email or web address] 11/30/2025 8:30 AM EDT Infusion [facility] [address] [place] [address] 54697 Gilmer Jackson, [address], [address] [place] [address] 86881 [email or web address] 12/01/2025 8:30 AM EDT Infusion [facility] [address] [place] [address] 38864 Gilmer Jackson, [address], [address] [place] [address] 37069 [email or web address] 12/02/2025 8:30 AM EDT Infusion [facility] [address] [place] [address] 44246 Gilmer Jackson, [address], [address] [place] [address] 41502 [email or web address] 12/03/2025 8:30 AM EDT Infusion [facility] [address] [place] [address] Gilmer Jackson DO [address] [facility], [address] [place] [address] [email or web address] Health Maintenance Due Date Last Done Comments [...] - 2024-2 6 season) 2025 CREATININE LEVEL 04/19/2026 04/19/2025, 03/02/2024 POTASSIUM LEVEL 04/19/2026 04/19/2025, 03/02/2024 RSV VACCINE (1 - 1-dose 75+ [...] this topic Medical Devices Implanted Type Area Review Specialist Device Identifier Shelf Expiration Date Model / Serial / Lot 2 Cardiac Stents Possible Umbilical Mesh Procedures Procedure Name Priority Date/Time Associated Diagnosis Comments TROPONIN STAT 04/19/2025 3:11 PM EST CBC AND DIFFERENTIAL STAT 04/19/2025 2:02 PM EST TROPONIN STAT 04/19/2025 2:02 PM EST TSH WITH REFLEX STAT 04/19/2025 2:02 PM EST MAGNESIUM STAT 04/19/2025 2:02 PM EST BASIC METABOLIC PANEL (BMP) STAT 04/19/2025 2:02 PM EST CBC AND DIFFERENTIAL STAT 04/19/2025 2:02 PM EST ECG 12-LEAD STAT 04/19/2025 12:14 PM EST from Last 3 Months Results * Troponin (04/19/2025 3:11 PM EST) Only the most recent of2 resultswithin the time period is included. [facility] Troponin-T HS Gen5 12 0 - 14 ng/L 04/19/2025 3:44 PM [facility] Blood (Blood) Venipuncture / Unknown 04/19/2025 3:11 PM EST 04/19/2025 3:21 PM EST us Jeannette Fitzgerald PA-C LAB BLOOD BKR ORDERABLES Fin al Result [address] [address] * CBC and Differential (04/19/2025 2:02 PM EST) [facility] WBC 6.38 4.00 - 11.00 K/uL 04/19/2025 2:24 PM [facility] RBC 4.63 4.50 - 5.90 M/uL 04/19/2025 2:24 PM [facility] Hemoglobin 14.1 13.5 - 17.5 g/dL 04/19/2025 2:24 PM [facility] Hematocrit 42.2 41.0 - 53.0 % 04/19/2025 2:24 PM [facility] MCV 91.1 80.0 - 100.0 fL 04/19/2025 2:24 PM [facility] MCH 30.5 27.0 - 31.0 pg 04/19/2025 2:24 PM [facility] MCHC 33.4 32.0 - 36.0 g/dL 04/19/2025 2:24 PM [facility] MPV 9.3 8.4 - 12.0 fL 04/19/2025 2:24 PM [facility] RDW-CV 14.0 11.5 - 14.5 % 04/19/2025 2:24 PM [facility] PLT 196 150 - 450 K/uL 04/19/2025 2:24 PM [facility] Neutrophils 73.0 % 04/19/2025 2:24 PM [facility] Lymphocytes 16.6 % 04/19/2025 2:24 PM [facility] Monocytes 8.5 % 04/19/2025 2:24 PM [facility] Eosinophils 1.4 % 04/19/2025 2:24 PM [facility] Basophils 0.2 % 04/19/2025 2:24 PM [facility] Imm Grans 0.3 % 04/19/2025 2:24 PM [facility] NRBC 0.0 <=0.0 /100 WBCs 04/19/2025 2:24 PM [facility] Absolute Neutrophils 4.66 1.92 - 7.60 K/uL 04/19/2025 2:24 PM [facility] Absolute Lymphocytes 1.06 0.72 - 4.10 K/uL 04/19/2025 2:24 PM [facility] Absolute Monocytes 0.54 0.16 - 1.10 K/uL 04/19/2025 2:24 PM [facility] Absolute Eosinophils 0.09 0.00 - 0.50 K/uL 04/19/2025 2:24 PM [facility] Absolute Basophils 0.01 0.00 - 0.15 K/uL 04/19/2025 2:24 PM [facility] Absolute Imm Grans 0.02 0.00 - 0.09 K/uL 04/19/2025 2:24 PM [facility] Absolute NRBC 0.00 <=0.00 K cells/uL 04/19/2025 2:24 PM [facility] Absolute Neutrophils 4.66 1.92 - 7.60 K/uL 04/19/2025 2:24 PM [facility] Comment:Automated cell count . Manual ANC may differ if performed. Diff Type Auto 04/19/2025 2:24 PM [facility] Blood (Blood) Venipuncture / Unknown 04/19/2025 2:02 PM EST 04/19/2025 2:16 PM EST [facility] PA-C LAB BLOOD BKR ORDERABLES Fin al Result Performing Organization Address City/[facility]/ZIP Co de Phone Number [address] [address] * Thyroid Stimulating Hormone (TSH), with Reflex (04/19/2025 2:02 PM EST) TSH 1.83 0.40 - 5.90 uIU/mL 04/19/2025 3:02 PM EST [facility] Blood (Blood) Venipuncture / Unknown 04/19/2025 2:02 PM EST 04/19/2025 2:16 PM EST [facility] PA-C LAB BLOOD BKR ORDERABLES Fin al Result Performing Organization Address [facility] Co de Phone Number [address] [address] * Magnesium (04/19/2025 2:02 PM EST) Magnesium 2.2 1.7 - 2.6 mg/dL 04/19/2025 3:02 PM EST [facility] Blood (Blood) Venipuncture / Unknown 04/19/2025 2:02 PM EST 04/19/2025 2:16 PM EST [facility] PA-C LAB BLOOD BKR ORDERABLES Fin al Result Performing Organization Address City/[facility]/ZIP Co de Phone Number [address] [address] * (ABNORMAL) Basic Metabolic Panel (BMP) (04/19/2025 2:02 PM EST) Pathologist [facility] [place] Sodium 139 136 - 145 mmol/L 04/19/2025 3:02 PM [facility] Potassium 4.4 3.4 - 5.1 mmol/L 04/19/2025 3:02 PM [facility] Chloride 103 98 - 107 mmol/L 04/19/2025 3:02 PM [facility] CO2 24 20 - 31 mmol/L 04/19/2025 3:02 PM [facility] BUN 15 6 - 23 mg/dL 04/19/2025 3:02 PM [facility] Creatinine 0.70 0.60 - 1.30 mg/dL 04/19/2025 3:02 PM [facility] Glucose 112(H) 70 - 99 mg/dL 04/19/2025 3:02 PM [facility] Calcium 9.2 8.5 - 10.5 mg/dL 04/19/2025 3:02 PM [facility] eGFR 98 >59 mL/min/1.7 3m2 04/19/2025 3:02 PM [facility] Comment:Estimated glomerular filtration rate calculated using the CKD-EPI refit equation. Anion Gap 12 3 - 17 mmol/L 04/19/2025 3:02 PM [facility] Blood (Blood) Venipuncture / Unknown 04/19/2025 2:02 PM EST 04/19/2025 2:16 PM EST us Jeannette Fitzgerald PA-C LAB BLOOD BKR ORDERABLES Fin al Result [facility] [address] [place] [address] * ECG 12-LEAD (04/19/2025 12:14 PM EST) Ventricular Rate EKG/MIN 130 BPM [facility] Atrial Rate 326 BPM [facility] QRS Duration 100 ms [facility] QT Interval 342 ms [facility] QTC Interval 503 ms [facility] R Wave [place] 35 degrees [facility] T Wave [place] 28 degrees [facility] 04/19/2025 12:1 4 PM EST 04/20/2025 2:54 PM EST Narrative [facility] - 04/20/2025 2:54 PM EST Atrial fibrillation with rapid ventricular response Nonspecific ST abnormality Abnormal ECG No previous ECGs available Confirmed by Matthew Mulligan ([id number]) on 04/20/2025 2:54:36 PM Jeannette Fitzgerald PA-C ECG ORDERABLES Final Result [facility] from Last 3 Months Insurance MEDICARE PART A & B [employer] CROSS MEDEX SUPPLEMENT MEDICARE PART A & B [employer] SUPPLEMENT MEDICARE PART A & B [employer] CROSS MEDEX SUPPLEMENT MEDICARE PART A & [employer] MEDEX SUPPLEMENT MEDICARE PART A & B [employer] MEDEX SUPPLEMENT MEDICARE PART A & B [facility] MEDEX SUPPLEMENT MEDICARE PART A & B [employer] MEDEX SUPPLEMENT MEDICARE PART A & B [employer] MEDEX SUPPLEMENT MEDICARE PART A & B [employer] MEDEX SUPPLEMENT MEDICARE PART A & B [employer] MEDEX SUPPLEMENT Advance Directives For more information, please contact: [phone] (9AM - 5PM [facility], Saturday-Saturday) Documents on File Type Date Recorded Patient Ore Charger Expl anation Healthcare Proxy 08/15/2017 1:55 PM * Full Code (Presumed) (Latest Code Status on File) Date Activated Date Inactivated Comments 08/13/2017 10:11 AM 08/13/2017 3:31 PM Care Teams Retirement Officer Relationship Specialty Start Date End Date Terra Galeano MD [address] [place] [address] [place] [address] PCP - General Internal Medicine 04/19/25 Carol Vyas NP [address] [place] [id number] Referring Physician Family Medicine 02/14/24 Additional Source Comments The information contained in this document represents components of the legal health record. It is not the complete legal health record.[facility]
--- NOTE | 2025-05-03 08:45 | A.OFFVIS_ITS ---
Intake Visit Reasons: 6M PVR/UA Follow Up(Set) Intake Note: Reason for Visit: 6M PVR/UA Follow Up Urology Meds: Tamsulosin, Sildenafil Blood Thinners: Aspirin Labs: Last PSA: 6.63 (07/20/24) A1C- 5.5 (03/18/25) Imaging: None Last PVR: 60ml PVR: 0ml Unable to provide UA Sample today Inspector Balance Bridge Required: No Cigarette Packing Machine Operator: Cigarette Packing Machine Operator Present Accompanied by: Spouse Allergies No Known Allergies Allergy (Verified 05/03/25 08:54) Medication List - Last Reconciled 05/03/25 by Han Potter MD apixaban (Eliquis) 5 mg PO BID aspirin (Adult Low Dose Aspirin) 81 mg PO DAILY atorvastatin 80 mg PO DAILY clobetasol 0.05% topical DAILY clobetasol 0.05% topical cyclobenzaprine 10 mg PO TID PRN diclofenac sodium 1% (Voltaren Arthritis Pain) 4 grams topical QID diclofenac sodium 75 mg PO BID PRN finasteride (Proscar) 5 mg PO DAILY hydrochlorothiazide 12.5 mg PO DAILY 90 days immune globulin,gamma(IgG)stwk 10% (Alyglo) mL IV metoprolol succinate ER 100 mg PO DAILY montelukast 10 mg PO DAILY 90 days nitroglycerin 0.4 mg sublingual Q5M PRN ranitidine HCl mg PO tamsulosin 0.4 mg PO BEDTIME valsartan 80 mg PO DAILY HPI Comments Details: 05/03/2025--Jon is a 75-year-old gentleman who was being monitored on active surveillance for low volume low-grade prostate cancer. The patient also has a history of T-cell lymphoma. PSA 07/20/2024 was 6.63. The patient is prescribed tamsulosin for obstructive urinary symptoms. Bladder scan PVR today is 0 mL the patient was unable to provide a urine specimen. He is prescribed tamsulosin for obstructive urinary symptoms and also prescribed finasteride 5 mg daily, started in October 2024. The patient reports ongoing urinary urgency and frequency, sometimes occurring up to four times in an hour. He also experiences occasional urinary incontinence when the urge is sudden. His daily fluid intake includes coffee and three 16- ounce bottles of Coke. His past medical history is significant for T-cell lymphoma. He has a new diagnosis of atrial fibrillation and is currently taking Eliquis and an increased dose of metoprolol from 50 mg to 100 mg. He also reports a history of anal fissures. Results - Labs: - PSA: 6.63 (as of 07/20/24) - Tests and Diagnostics: - Post-void residual (PVR): 0 mL via bladder scan today. Plan 1. Low-Grade Prostate Cancer - The patient will continue active surveillance for low-volume, low-grade prostate cancer. - Continue finasteride - A lab requisition has been provided to check PSA levels. - A prostate MRI will be scheduled in six months to reevaluate for any changes; the patient has no pacemaker. - Plan for a follow-up appointment in seven months to discuss results. 2. Lower Urinary Tract Symptoms - Continue tamsulosin for obstructive symptoms. - Counseled the patient on dietary modifications for urinary urgency and frequency, as he consumes three 16-ounce bottles of Coke daily. Recommended reducing intake of carbonated and caffeinated beverages, specifically limiting Coke to 8 ounces per day, before considering additional medication. 11/02/24 History of Present Illness - The patient is a 74-year-old male presenting for prostate bx results - Prostate cancer was identified in two biopsy areas with cancer cells, categorized as Group 1, ariel 3+3, indicating a low-grade cancer. - A total of 14 biopsies were performed, with 1% of tissue involved, - The patient's PSA was not significantly elevated, which is consistent with the low volume of cancer detected. - The patient has a history of cutaneous T-cell lymphoma, and is receiving treatment at [facility]. - The patient is currently on tamsulosin for urinary symptoms related to an enlarged prostate. Discussion Notes I discussed with the patient that the prostate cancer is low volume and early stage, Group 1, We talked about the importance of surveillance, including regular PSA monitoring. Discussed use of finasteride to manage BPH. I discussed that the [place] [employer] recommends active surveillance for low volume, early stage prostate cancer. We also discussed the role for further imaging, such as an MRI, if there are changes in PSA levels. 07/31/24--Jon is a 74-year-old male presenting with urinary urgency and dribbling. The urinary symptoms, include frequent day and night time urgency, sometimes leading to leakage before reaching the restroom. This daily urgency is particularly troublesome with several night awakenings for urination. The patient carries a significant family history of cancer; a paternal grandfather had prostate, lung, and his father from colon cancer at 51. Laboratory results indicate an elevated PSA level at 6.63 ng/mL, recorded on 07/20/2024, with a negative urinalysis for infection. 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 During our discussion, I addressed the elevated PSA levels and significant family history of prostate cancer, recommending a prostate biopsy for a more definitive evaluation. I explained the potential risks of the procedure, including infection. Discussed risks to include but not limited to pain, blood in stool, urine and semen, septicemia, need to repeat biopsy. The biopsy will be done under local anesthesia, which is generally well-tolerated by the majority of patients. I provided options for anesthesia, allowing the patient to choose conscious awareness during the procedure. We discussed starting ant ibiotics two days prior to the procedure to minimize infection risks, continuing for two days post-procedure. The patient expressed understanding and consented to the proposed plan. Urinary Symptoms Review - Daily urinary urgency - Nocturnal polyuria with frequent awakenings - Urinary incontinence several times a day - Negative urinalysis for infection Results - Labs: - PSA level: 6.63 ng/mL as of 07/20/2024 - Urinalysis (07/20/2024): Negative for infection [facility] Medical History Ulnar neuropathy Pain in knee joint Low back pain Lesion of median nerve Hyperlipemia Atypical nevus Gastroesophageal reflux disease Degeneration of lumbar intervertebral disc Coronary arteriosclerosis Congestive heart failure (CHF) Bilateral lower extremity edema Benign essential hypertension Surgical History History of hernia surgery History of cholecystectomy History of appendectomy History of tonsillectomy History of percutaneous coronary intervention Family History Father Hypertension Colon cancer Paternal Grandfather Hypertension Cardiovascular disease Lung cancer Maternal Grandmother Cardiovascular disease Paternal Grandmother Skin cancer Social History Household Members: Spouse and Children Housing: House Alcohol intake: never Patient Tobacco Use Status: Never used Tobacco e-Cigarette/Vaping Use: Never Used Substance Use Type: Marijuana service: No Current occupational status: retired 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 Cognitive needs: No Hearing needs: No Vision needs: No Review of Systems Const All systems reviewed & are unremarkable except as noted in HPI and below Reports no additional complaints Eyes Reports no additional complaints ENT Reports no additional complaints Card Reports no additional complaints Resp Reports no additional complaints GI Reports no additional complaints Reports as per HPI Musc Reports no additional complaints Skin/Breast Reports system reviewed and no additional complaints, except as documented Neuro Reports no additional complaints Psych Reports no additional complaints Endo Reports no additional complaints Dennis/Lymph Reports no additional complaints Aller/Immun Reports no additional complaints Office Procedures Post Void Residual Post Residual Void Post Void Residual (PVR): 0 [id number] Void Residual by ultrasound Results Reviewed Results Reviewed: Collected: 10/16/24 Location: [facility] Received: 10/16/24 Diagnosis Prostate, needle core biopsies: A. Left base lateral: Benign prostatic tissue. B. Left base medial: Benign prostatic tissue. C. Left mid lateral: Benign prostatic tissue. D. Left mid medial: Benign prostatic tissue. E. Left apex lateral: Benign prostatic tissue. F. Left apex medial: Benign prostatic tissue. G. Right base lateral: Suspicious for focal high grade prostatic intraepithelial neoplasia. H. Right base medial: Benign prostatic tissue. I. Right mid lateral: Benign prostatic tissue. J. Right mid medial: Benign prostatic tissue. K. Right apex lateral: Prostatic adenocarcinoma, Ariel score 6 (3+3), grade group 1, 0.25 mm, 1% of core. L. Right apex medial: Prostatic adenocarcinoma, Calumet score 6 (3+3), grade group 1, 1 mm, 8% of core. Data synopsis - Prostate needle biopsy Histologic type: Prostatic adenocarcinoma, acinar type Histologic grade: Calumet score: 6 (3+3) (right apex lateral and medial) % of pattern 4: 0% % of pattern 5: 0% Grade group: 1 Tumor quantitation: Number cores positive: 2 Patient: Jon Amezquita Age/Sex: 74/M [facility]#: [id number] MR#: [id number] Page 1 of 4 Surgical Pathology [id number] Total number of cores: 14 % of tissue involved: 1% Periprostatic fat inv.: Not identified Seminal vesicle inv.: Not identified Perineural inv.: Not identified Lymphatic and/or vascular invasion: Not identified Clinical History Elevated PSA Microscopic Description Microscopic sections reviewed. Sections show multiple needle cores of benign prostate parenchyma. There are 2 needle cores of prostate gland parenchyma which are focally involved by prostatic adenocarcinoma ranging from 1-8% of the cores. The biopsies show well-formed glands of malignant cells with mildly pleomorphic nuclei and relatively distinct nucleoli. No perineural invasion, lymphovascular invasion or extraprostatic extension is seen. PIN4 multiplex stain is performed on G, K and L. There is weak focal positive P504S staining with focal positive HMWkeratin and p63 in prostatic intraepithelial neoplasia (Part G). The scant tumor in Parts K and L shows a lack of basal cells on HMWkeratin and p63 immunohistochemical stains, and weak positive P504S staining, compatible with the diagnoses. Controls stain appropriately with weak P504S. Material Received A. Left base lateral B. Left base medial C. Left mid lateral D. Left mid medial E. Left apex lateral F. Left apex medial G. Right base lateral H. Right base medial I. Right mid lateral J. Right mid medial K. Right apex lateral L. Right apex medial Assessment & Plan Assessment & Plan (1) Elevated PSA: Code(s): R97.20 - Elevated prostate specific antigen [PSA] Category: Medical (2) Urinary frequency: Code(s): R35.0 - Frequency of micturition Category: Medical (3) Urinary hesitancy: Code(s): R39.11 - Hesitancy of micturition Category: Medical (4) Urinary dribbling: Code(s): N39.43 - Post-void dribbling Category: Medical (5) Adenocarcinoma of prostate: Code(s): C61 - Malignant neoplasm of prostate Category: Medical Plan Plan 1. Low-Grade Prostate Cancer - The patient will continue active surveillance for low-volume, low-grade prostate cancer. - Continue finasteride - A lab requisition has been provided to check PSA levels. - A prostate MRI will be scheduled in six months to reevaluate for any changes; the patient has no pacemaker. - Plan for a follow-up appointment in seven months to discuss results. PSA prior. 2. Lower Urinary Tract Symptoms - Continue tamsulosin for obstructive symptoms. - Counseled the patient on dietary modifications for urinary urgency and frequency, as he consumes three 16-ounce bottles of Coke daily. Recommended reducing intake of carbonated and caffeinated beverages, specifically limiting Coke to 8 ounces per day, before considering additional medication. Orders: Orders AMB Post Void Residual by ultrasound Today N39.43 - Post-void dribbling Medications: Refilled finasteride (Proscar) 5 mg PO DAILY 90 tabs 3RF Patient Instructions: The patient had an opportunity to ask questions regarding treatment plan. The patient expressed understanding and agreement with the above treatment plan. The patient is aware they should contact our office by phone for worsening of their current condition or the appearance of new symptoms. Compliance is encouraged with any medications and followup testing that is ordered. It is a privilege to be allowed the opportunity to participate in the urologic care of your patient. If you have any questions or concerns regarding treatment for the above conditions please do not hesitate to contact me. The office telephone contact is [phone]. This note is constructed in part using voice recognition software. While every effort has been made to ensure accuracy whizzer operator errors may have been included. Yours sincerely, Han Potter MD Scribe Plan - Not visible on output: Patient was informed and verbally consented to the use of an ambient scribe for clinic note documentation during this visit. Coding Level of Care Code Add On Problem Visit Only Diagnoses Elevated PSA R97.20 Urinary frequency R35.0 Urinary hesitancy R39.11 Urinary dribbling N39.43 Adenocarcinoma of prostate C61 CPT Codes Post Residual Void - PVR CPT Code: [id number] Void Residual by ultrasound ([id number])
== END 2025-05-03 09:17 | disposition home or self-care (01) ==
LOC: HO.HUSH 08:41
PROVIDERS: PCP Internal Medicine; Visit Provider Urology
DX: R97.20 Elevated prostate specific antigen [PSA] (principal); R35.0 Frequency of micturition; R39.11 Hesitancy of micturition; N39.43 Post-void dribbling; C61 Malignant neoplasm of prostate
CPT/HCPCS: 99214; G2211

== ENCOUNTER 2025-05-03 08:40 | Outpatient (REF) | payer MEDICARE, SELFPAY ==
--- OUTSIDE RECORDS SUMMARY | 2025-05-03 09:49 | XMS_ITS | Encounter Summary ---
Author Organization [employer] [facility] Prior to 03/06/2024 Address [address] [place] [address] Care Team Providers Care Production Supervisor Trainee Name Role Phone Terra Galeano MD Primary Care Provider Unavaila ble Community, Pcp Primary Care Provider Sulema Chacon MD Unavailable [phone] Ute Michelle DNP Unavailable [phone] Laxmi Chavez MD Primary Care Provider Unava ilable Terra Galeano MD Primary Care Provider Unavaila ble Community, Pcp Primary Care Provider Unavailabl e Community, Pcp Primary Care Provider UnavailTerra Kent MD Primary Care Provider Unavaila ble Encounter Details Date Type Department Care Team Description 01/13/2020 Medical Technologist Hematology Report Medical Records [address] [place] [address] Ute Michelle, DNP [address] [place] [address] Social History Tobacco Use Types Packs/Day Years Used Date Smoking Tobacco: Never Smokeless Tobacco: Never Alcohol Use Standard Drinks/Week Comments No 0 (1 standard drink = 0.6 oz pur e alcohol) Sex Assigned at Date Recorded Not on file Job Start Date Occupation Industry Not on file Not on file Not on file documented as of this encounter Plan of Treatment Not on file documented as of this encounter Visit Diagnoses Not on filedocumented in this encounter Care Teams Production Supervisor Trainee Relationship Specialty Start Date End Date Terra Galeano MD PCP - General Internal Medicine 04/27/15 08/14/20 [facility], Pcp PCP - General 08/15/20 01/05/21 Laxmi Chavez MD PCP - General Internal Medicine 01/06/21 02/22/21 Terra Galeano MD PCP - General Internal Medicine 02/23/21 03/08/21 [facility], Pcp PCP - General Internal Medicine 03/09/21 04/09/21 [facility], Pcp PCP - General Internal Medicine 08/01/21 12/31/21 Terra Galeano MD PCP - General Internal Medicine 01/01/22 Sulema Verduzco MD Specialist Cardiology 01/06/21 Ute Michelle DNP Specialist Cardiology 01/06/21 documented as of this encounter
--- OUTSIDE RECORDS SUMMARY | 2025-05-03 09:49 | XMS_ITS | Encounter Summary ---
Author Organization [employer] [facility] Prior to 03/06/2024 Address [address] [place] [address] Care Team Providers Care Drafter Castings Name Role Phone Terra Galeano MD Primary Care Provider Unavaila yasemin Hernandez, Pcp Primary Care Provider Sulema Chacon MD Unavailable [phone] Ute Michelle DNP Unavailable [phone] Laxmi Chavez MD Primary Care Provider Unava ilable Trera Galeano MD Primary Care Provider Unavaila yasemin [facility], Pcp Primary Care Provider Suleman Hernandez, Pcp Primary Care Provider Terra Brandt MD Primary Care Provider Unavaila yasemin Encounter Details Date Type Department Care Team Description 08/01/2015 Release of Information Medical Records [address] [place] [address] Abstract, Provider Social History Tobacco Use Types Packs/Day Years [...] on filedocumented in this encounter Care Teams Drafter Castings Relationship Specialty Start Date End Date Terra Galeano MD PCP - General Internal Medicine 04/27/15 08/14/20 [facility], Pcp PCP - General 08/15/20 01/05/21 Laxmi Chavez MD PCP - General Internal Medicine 01/06/21 02/22/21 Terra Galeano MD PCP - General Internal Medicine 02/23/21 03/08/21 [facility], Pcp PCP - General Internal Medicine 03/09/21 04/09/21 [facility], Pcp PCP - General Internal Medicine 08/01/21 12/31/21 Terra Galeano MD PCP - General Internal Medicine 01/01/22 Sulema Verduzco MD Specialist Cardiology 01/06/21 Ute Michelle DNP Specialist Cardiology 01/06/21 documented as of this encounter
--- OUTSIDE RECORDS SUMMARY | 2025-05-03 09:49 | XMS_ITS | Encounter Summary ---
Author Organization [employer] [facility] Prior to 03/06/2024 Address [address] [place] [address] Care Team Providers Care Service Delivery Analyst Name Role Phone Sulema Verduzco MD Unavailable [phone] Ute Michelle DNP Unavailable Terra Galeaon MD Primary Care Provider Unavaila ble Encounter Details Date Type Department Care Team Description 04/20/2022 Tanning Wheel Filler Report Medical Records [address] [place] [id number] Terra Galeano MD Social History Tobacco Use Types Packs/Day Years [...] on filedocumented in this encounter Care Teams Service Delivery Analyst Relationship Specialty Start Date End Date Terra Galeano MD PCP - General Internal Medicine 01/01/22 Sulema Verduzco MD Specialist Cardiology 01/06/21 Ute Michelle DNP Specialist Cardiology 01/06/21 documented as of this encounter
--- OUTSIDE RECORDS SUMMARY | 2025-05-03 09:49 | XMS_ITS | Encounter Summary ---
Author Organization [employer] [facility] Prior to 03/06/2024 Address [address] [place] [address] Care Team Providers Care Care Center Manager Name Role Phone Antelmo Arredondo MD Primary Care Provider Unavail able Terra Galeano MD Primary Care Provider Unavaila ble Community, Pcp Primary Care Provider UnavailSulema Pereira MD Unavailable [phone] Ute Michelle DNP Unavailable [phone] Laxmi Chavez MD Primary Care Provider Unava ilable Terra Galeano MD Primary Care Provider Unavaila ble Community, Pcp Primary Care Provider Unavailabl e Community, Pcp Primary Care Provider Unavailabl Terra Kothari MD Primary Care Provider Unavaila ble Reason for Visit * Reason Onset Date Comments refill request 10/29/2011 Encounter Details Date Type Department Care Team Description 10/29/2011 Refill Medicine/Pediatrics - [address] [id number] Antelmo Arredondo MD refill request Social History Tobacco Use Types Packs/Day Years Used Date Smoking Tobacco: Never Alcohol Use Standard Drinks/Week Comments No 0 (1 standard drink = 0.6 oz pur e alcohol) Sex Assigned at Date Recorded Not on file Job Start Date Occupation Industry Not on file Not on file Not on file documented as of this encounter Miscellaneous Notes * Telephone Encounter - Malika Deluna M.A. - 10/29/2011 1:51 PM EDT Rx sent to pharmacy * Telephone Encounter - Malika Deluna M.A. - 10/29/2011 12:20 PM EDT Last ov 05/28/11 BSR please schedule appt. For f/u Component Value Date NA 141 03/27/2011 K 4.3 03/27/2011 CO2 24.3 03/27/2011 CL 105 03/27/2011 BUN 14 03/27/2011 CREAT 0.8 03/27/2011 GLU 106 03/27/2011 CA 9.9 03/27/2011 GFR > 60 03/27/2011 BP Readings from Last 5 Encounters: 10/03/11 110/70 07/30/11 122/80 05/30/11 106/60 05/28/11 122/82 05/04/11 130/70 * Telephone Encounter - Lele Daly - 10/29/2011 10:12 AM EDT WHEN WAS THE PATIENT'S LAST APPOINTMENT IN ADULT MEDICINE? [id number] WHEN WAS THE LAST TIME THE PATIENT SAW THEIR PCP? Same as above Does patient have an upcoming appointment? no (THE MEDICATION REQUESTED IS ON THE MED LIST ABOVE) All of the medications requested were on the CURRENT MEDS list Did you check the Pharmacy information above?: YES Patient wants: 90 -day supply Is this a mail order prescription request ? YES Indicate how soon the patient needs the script: BY THE END OF THE DAY Patient would like script to be: E-PRESCRIBED/FAXED TO PHARMACY If the patients Provider is not in tell the patient that the covering provider will get the request. Patients current insurance carrier is: Payor: WORKERS COMPENSATION Plan: WORKERS COMPENSATION/[place] Product Type: OTHER documented in this encounter Plan of Treatment Not on file documented as of this encounter Visit Diagnoses Not on filedocumented in this encounter Care Teams Care Center Manager Relationship Specialty Start Date End Date Antelmo Arredondo MD PCP - General 11/03/1994 04/26/15 Terra Galeano MD PCP - General Internal Medicine 04/27/15 08/14/20 [facility], Pcp PCP - General 08/15/20 01/05/21 Laxmi Chavez MD PCP - General Internal Medicine 01/06/21 02/22/21 Terra Galeano MD PCP - General Internal Medicine 02/23/21 03/08/21 [facility], Pcp PCP - General Internal Medicine 03/09/21 04/09/21 [facility], Pcp PCP - General Internal Medicine 08/01/21 12/31/21 Terra Galeano MD PCP - General Internal Medicine 01/01/22 Sulema Verduzco MD Specialist Cardiology 01/06/21 Ute Michelle DNP Specialist Cardiology 01/06/21 documented as of this encounter
--- OUTSIDE RECORDS SUMMARY | 2025-05-03 09:49 | XMS_ITS | Encounter Summary ---
Author Organization [employer] [facility] Prior to 03/06/2024 Address [address] [place] [address] Care Team Providers Care Nutritionalist Name Role Phone Antelmo Arredondo MD Primary Care Provider Unavail able Terra Galeano MD Primary Care Provider Unavaila ble Community, Pcp Primary Care Provider Sulema Chacon MD Unavailable [phone] Ute Michelle DNP Unavailable [phone] Laxmi Cahvez MD Primary Care Provider Unava ilable Terra Galeano MD Primary Care Provider Unavaila ble [facility], Pcp Primary Care Provider Unavailariana e [facility], Pcp Primary Care Provider Terra Brandt MD Primary Care Provider Unavaila ble Encounter Details Date Type Department Care Team Description 03/13/2011 [facility] Medical Records [address] [place] [address] Emory Armando Social History Tobacco Use Types Packs/Day Years [...] on filedocumented in this encounter Care Teams Nutritionalist Relationship Specialty Start Date End Date Antelmo [...]
--- OUTSIDE RECORDS SUMMARY | 2025-05-03 09:49 | XMS_ITS | Encounter Summary ---
Author Organization [employer] [facility] Prior to 03/06/2024 Address [address] [place] [address] Care Team Providers Care Electrophysiology Scientist Name Role Phone Terra Galeano MD Primary Care Provider Unavaila ble [facility], Pcp Primary Care Provider Sulema Chacon MD Unavailable [phone] Ute Michelle DNP Unavailable [phone] Laxmi Chavez MD Primary Care Provider Unava ilable Terra Galeano MD Primary Care Provider Unavaila ble [facility], Pcp Primary Care Provider Unavailabl e [facility], Pcp Primary Care Provider UnavailTerra Kent MD Primary Care Provider Unavaila ble Encounter Details Date Type Department Care Team Description 01/13/2020 Religious Leader Report Medical Records [address] [place] [address] Ute Michelle, DNP [address] [place] [address] Social History Tobacco Use Types Packs/Day Years [...] on filedocumented in this encounter Care Teams Electrophysiology Scientist Relationship Specialty Start Date End Date Terra Galeano MD PCP - General Internal Medicine 04/27/15 08/14/20 [facility], Pcp PCP - General 08/15/20 01/05/21 Laxmi Chavez MD PCP - General Internal Medicine 01/06/21 02/22/21 Terra Galeano MD PCP - General Internal Medicine 02/23/21 03/08/21 [facility], Pcp PCP - General Internal Medicine 03/09/21 04/09/21 [facility], Pcp PCP - General Internal Medicine 08/01/21 12/31/21 Terra Galeano MD PCP - General Internal Medicine 01/01/22 Sulema Verduzco MD Specialist Cardiology 01/06/21 Ute Michelle DNP Specialist Cardiology 01/06/21 documented as of this encounter
--- OUTSIDE RECORDS SUMMARY | 2025-05-03 09:49 | XMS_ITS | Encounter Summary ---
Author Organization [employer] [facility] Prior to 03/06/2024 Address [address] [place] [address] Care Team Providers Care Hr Assistant Name Role Phone Antelmo Arredondo MD Primary Care Provider Unavail able Terra Galeano MD Primary Care Provider Unavaila ble [facility], Pcp Primary Care Provider Sulema Chacon MD Unavailable [phone] Ute Michelle DNP Unavailable [phone] Laxmi Chavez MD Primary Care Provider Unava ilable Terra Galeano MD Primary Care Provider Unavaila ble [facility], Pcp Primary Care Provider Unavailabl e [facility], Pcp Primary Care Provider Terra Brandt MD Primary Care Provider Unavaila ble Encounter Details Date Type Department Care Team Description 05/20/2012 [facility] Medical Records [address] [place] [address] Kathleen Gilliam, IKE Social History Tobacco Use Types Packs/Day Years [...] on filedocumented in this encounter Care Teams Hr Assistant Relationship Specialty Start Date End Date Antelmo Arredondo MD PCP - General 11/03/1994 04/26/15 Terra Galeano MD PCP - General Internal Medicine 04/27/15 08/14/20 [facility], Pcp PCP - General 08/15/20 01/05/21 Laxmi Chavez MD PCP - General Internal Medicine 01/06/21 02/22/21 Terra Galeano MD PCP - General Internal Medicine 02/23/21 03/08/21 [facility], Pcp PCP - General Internal Medicine 03/09/21 04/09/21 [facility], Pcp PCP - General Internal Medicine 08/01/21 12/31/21 Terra Galeano MD PCP - General Internal Medicine 01/01/22 Sulema Verduzco MD Specialist Cardiology 01/06/21 Ute Michelle DNP Specialist Cardiology 01/06/21 documented as of this encounter
--- OUTSIDE RECORDS SUMMARY | 2025-05-03 09:49 | XMS_ITS | Encounter Summary ---
Author Organization [employer] [facility] Prior to 03/06/2024 Address [address] [place] [address] Care Team Providers Care Supervisor White Sugar Name Role Phone Antelmo Arredondo MD Primary Care Provider Unavail able Terra Galeano MD Primary Care Provider Unavaila ble [facility], Pcp Primary Care Provider Sulema Chacon MD Unavailable [phone] Ute Michelle DNP Unavailable [phone] Laxmi Chavez MD Primary Care Provider Unava ilable Terra Galeano MD Primary Care Provider Unavaila ble [facility], Pcp Primary Care Provider Unavailabl e [facility], Pcp Primary Care Provider Terra Brandt MD Primary Care Provider Unavaila ble Encounter Details Date Type Department Care Team Description 07/06/2014 Release of Information Medical Records [address] [place] [id number] Abstract, Provider Social History Tobacco Use Types [...] on filedocumented in this encounter Care Teams Supervisor White Sugar Relationship Specialty Start Date End Date Antelmo Arredondo MD PCP - General 11/03/1994 04/26/15 Terra Galeano MD PCP - General Internal Medicine 04/27/15 08/14/20 [facility], Pcp PCP - General 08/15/20 01/05/21 Laxmi Chavez MD PCP - General Internal Medicine 01/06/21 02/22/21 Terra Galeano MD PCP - General Internal Medicine 02/23/21 03/08/21 [facility], Pcp PCP - General Internal Medicine 03/09/21 04/09/21 [facility], Pcp PCP - General Internal Medicine 08/01/21 12/31/21 Terra Galeano MD PCP - General Internal Medicine 01/01/22 Sulema Verduzco MD Specialist Cardiology 01/06/21 Ute Michelle DNP Specialist Cardiology 01/06/21 documented as of this encounter
--- OUTSIDE RECORDS SUMMARY | 2025-05-03 09:49 | XMS_ITS | Encounter Summary ---
Author Organization [facility] Prior to 03/06/2024 Address [address] [place] [address] Care Team Providers Care Occ Med Physician Name Role Phone Sulema Verduzco MD Unavailable [phone] Ute Michelle DNP Unavailable [phone] Terra Galeano MD Primary Care Provider Unavaila ble [facility], Pcp Primary Care Provider Unavailabl e [facility], Pcp Primary Care Provider Unavailabl e Terra Galeano MD Primary Care Provider Unavaila ble Encounter Details Date Type Department Care Team Description 03/07/2021 Telephone Cardio PVC [address]fd [address] [facility] [address] [place] [address] Ute Michelle DNP [address] [facility] [place] [address] Social History Tobacco Use Types Packs/Day Years Used Date Smoking Tobacco: Never Smokeless Tobacco: Never Alcohol Use Standard Drinks/Week Comments No 0 (1 standard drink = 0.6 oz pur e alcohol) Sex Assigned at Date Recorded Not on file Job Start Date Occupation Industry Not on file Not on file Not on file COVID-19 Exposure Response Date Recorded In the last month, have you been in contact with someone who was confirmed or suspected to have Coronavirus / COVID-19? No / Unsure 02/23/2021 12:26 PM EDT documented as of this encounter Miscellaneous Notes * Telephone Encounter - Ute Michelle DNP,FISH EGG PACKER - 03/07/2021 4:09 PM EDT pls arrange FU with SH only s/p echo Thank you documented in this encounter Plan of Treatment Not on file documented as of this encounter Visit Diagnoses Not on filedocumented in this encounter Care Teams Occ Med Physician Relationship Specialty Start Date End Date Terra Galeano MD PCP - General Internal Medicine 02/23/21 03/08/21 [facility], Pcp PCP - General Internal Medicine 03/09/21 04/09/21 [facility], Pcp PCP - General Internal Medicine 08/01/21 12/31/21 Terra Galeano MD PCP - General Internal Medicine 01/01/22 Sulema Verduzco MD Specialist Cardiology 01/06/21 Ute Michelle DNP Specialist Cardiology 01/06/21 documented as of this encounter
--- OUTSIDE RECORDS SUMMARY | 2025-05-03 09:49 | XMS_ITS | Encounter Summary ---
Author Organization [employer] [facility] Prior to 03/06/2024 Address [address] [place] [address] Care Team Providers Care Energy Sales Consultant Name Role Phone Antelmo Arredondo MD Primary Care Provider Unavail able Terra Galeano MD Primary Care Provider Unavaila ble [facility], Pcp Primary Care Provider Sulema Chacon MD Unavailable [phone] Ute Michelle DNP Unavailable [phone] Lxami Chavez MD Primary Care Provider Unava ilable Terra Galeano MD Primary Care Provider Unavaila ble [facility], Pcp Primary Care Provider Unavailabl e [facility], Pcp Primary Care Provider Terra Brandt MD Primary Care Provider Unavaila ble Encounter Details Date Type Department Care Team Description 11/17/2013 Release of Information Medical Records [address] [place] [address] Abstract, Provider Social History Tobacco Use Types [...] on filedocumented in this encounter Care Teams Energy Sales Consultant Relationship Specialty Start Date End Date Antelmo Arredondo MD PCP - General 11/03/1994 04/26/15 Terra Galeano MD PCP - General Internal Medicine 04/27/15 08/14/20 [facility], Pcp PCP - General 08/15/20 01/05/21 Laxmi Chavez MD PCP - General Internal Medicine 01/06/21 02/22/21 Terra Galeano MD PCP - General Internal Medicine 02/23/21 03/08/21 [facility], Pcp PCP - General Internal Medicine 03/09/21 04/09/21 [facility], Pcp PCP - General Internal Medicine 08/01/21 12/31/21 Terra Galeano MD PCP - General Internal Medicine 01/01/22 Sulema Verduzco MD Specialist Cardiology 01/06/21 Ute Michelle DNP Specialist Cardiology 01/06/21 documented as of this encounter
--- OUTSIDE RECORDS SUMMARY | 2025-05-03 09:49 | XMS_ITS | Encounter Summary ---
Author Organization [employer] [facility] Prior to 03/06/2024 Address [address] [place] [address] Care Team Providers Care Employee Benefits Attorney Name Role Phone Sulema Verduzco MD Unavailable [phone] Ute Michelle DNP Unavailable Terra Galeano MD Primary Care Provider Unavaila ble Reason for Visit * Reason Onset Date Comments other 01/04/2023 Clarification on aspirin therapy Encounter Details Date Type Department Care Team Description 01/04/2023 Telephone Cardio PVC POC 154 [address] [facility] [address] [place] [address] Alma Rosa Gaytan NP other (Clarification on aspirin therapy) Social History Tobacco Use Types Packs/Day Years Used Date Smoking Tobacco: Never Smokeless Tobacco: Never Alcohol Use Standard Drinks/Week Comments No 0 (1 standard drink = 0.6 oz pur e alcohol) Sex Assigned at Date Recorded Not on file Job Start Date Occupation Industry Not on file Not on file Not on file COVID-19 Exposure Response Date Recorded In the last 10 days, have eduardo paul been in contact with someone who was confirmed or suspected to have Coronavirus/COVID-19? No / Unsure 01/04/2023 9:34 AM EDT documented as of this encounter Miscellaneous Notes * Telephone Encounter - Joceline Li RN - 01/04/2023 10:51 AM EDT Spoke with patient and he verifies he is taking aspirin 81 mg qd. I have updated the med list. Patient states it was just an oversight. * Telephone Encounter - Joceline Li RN - 01/04/2023 10:37 AM EDT I called the patient and left a message on his answering machine stating why I was calling ( see task below). I asked him to call back to let us know if he was taking aspirin 81 mg qd . I stated per Ignacio Gaytan NP stated he should be taking aspirin 81 mg daily UNLESS he has a known allergy to aspirin. I asked him to please call back to let us know. . * Telephone Encounter - Alma Rosa Gaytan NP - 01/04/2023 10:30 AM EDT Triage can we contact the patient and see why low-dose aspirin is not in his med list. Was this an oversight? Is he allergic to it?. I did try to contact him after he departed, but there was no answer and I could not leave a message. He should be on low-dose aspirin unless he has a known allergy tothis. Thank you very much documented in this encounter Plan of Treatment Not on file documented as of this encounter Visit Diagnoses Not on filedocumented in this encounter Care Teams Employee Benefits Attorney Relationship Specialty Start Date End Date Terra Galeano MD PCP - General Internal Medicine 01/01/22 Sulema Verduzco MD Specialist Cardiology 01/06/21 Ute Michelle DNP Specialist Cardiology 01/06/21 documented as of this encounter
--- OUTSIDE RECORDS SUMMARY | 2025-05-03 09:49 | XMS_ITS | Encounter Summary ---
Author Organization [employer] [facility] Prior to 03/06/2024 Address [address] [place] [address] Care Team Providers Care Veneer Cutter Name Role Phone Antelmo Arredondo MD Primary Care Provider Unavail able Terra Galeano MD Primary Care Provider Unavaila ble [facility], Pcp Primary Care Provider UnavailSulema Preeira MD Unavailable Ute Michelle DNP Unavailable [phone] Laxmi Chavez MD Primary Care Provider Unava ilable Terra Galeano MD Primary Care Provider Unavaila ble [facility], Pcp Primary Care Provider Unavailabl e [facility], Pcp Primary Care Provider Unavailabl Terra Kothari MD Primary Care Provider Unavaila ble Reason for Visit * Reason Onset Date Comments medication problems 10/31/2011 Encounter Details Date Type Department Care Team Description 10/31/2011 Telephone Medicine/Pediatrics - [address] [id number] Antelmo Arredondo MD medication problems Social History Tobacco Use Types Packs/Day Years Used Date Smoking Tobacco: Never Alcohol Use Standard Drinks/Week Comments No 0 (1 standard drink = 0.6 oz pur e alcohol) Sex Assigned at Date Recorded Not on file Job Start Date Occupation Industry Not on file Not on file Not on file documented as of this encounter Miscellaneous Notes * Telephone Encounter - Antelmo Arredondo MD - 10/31/2011 12:53 PM EDT [facility] 25 mg b.i.d. #180 with one refill. Form will not be completed since new prescription was sent. * Telephone Encounter - Donna SaundersP.N. - 10/31/2011 9:27 AM EDT Form to Dr Arredondo for signature Please clarify is the metoprolol 25 mg bid or qd , quant does not match * Telephone Encounter - Franca Clinton - 10/31/2011 9:18 AM EDT Who is calling? A pharmacist: Pharmacy: [facility] Pharmac[facility] Name: fax Pharmacy Phone # fax Name of the medication metoprolol What is the specific problem or interaction? Please clarify directions versus quantity. See fax in bin in triage If the patient is having a problem with taking the med - how long has the problem been going on? N/A documented in this encounter Plan of Treatment Not on file documented as of this encounter Visit Diagnoses Not on filedocumented in this encounter Care Teams Veneer Cutter Relationship Specialty Start Date End Date Antelmo Arredondo MD PCP - General 11/03/1994 04/26/15 Terra Galeano MD PCP - General Internal Medicine 04/27/15 08/14/20 [facility], Pcp PCP - General 08/15/20 01/05/21 Laxmi Chavez MD PCP - General Internal Medicine 01/06/21 02/22/21 Terra Galeano MD PCP - General Internal Medicine 02/23/21 03/08/21 [facility], Pcp PCP - General Internal Medicine 03/09/21 04/09/21 [facility], Pcp PCP - General Internal Medicine 08/01/21 12/31/21 Terra Galeano MD PCP - General Internal Medicine 01/01/22 Sulema Verduzco MD Specialist Cardiology 01/06/21 Miguel Angel UteBLACK Specialist Cardiology 01/06/21 documented as of this encounter
--- OUTSIDE RECORDS SUMMARY | 2025-05-03 09:49 | XMS_ITS | Encounter Summary ---
Author Organization [employer] [facility] Prior to 03/06/[address] [place] [address] Care Team Providers Care Gut Carrier Name Role Phone Antelmo Arredondo MD Primary Care Provider Unavail able Terra Galeano MD Primary Care Provider Unavaila ble [facility], Pcp Primary Care Provider Sulema Chacon MD Unavailable [phone] Ute Michelle DNP Unavailable [phone] Laxmi Chavez MD Primary Care Provider Unava ilable Terra Galeano MD Primary Care Provider Unavaila ble [facility], Pcp Primary Care Provider Unavailabl e [facility], Pcp Primary Care Provider Terra Brandt MD Primary Care Provider Unavaila ble Encounter Details Date Type Department Care Team Description 07/08/1998 [employer] General Surgery [address] [place] [address] Joanne kAers [address] [place] [address] UMBILICAL HERNIA WITH OBSTRUCTION Social History Tobacco Use Types Packs/Day Years Used Date Smoking Tobacco: Never Assessed Sex Assigned at Date Recorded Not on file Job Start Date Occupation Industry Not on file Not on file Not on file documented as of this encounter Plan of Treatment Not on file documented as of this encounter Procedures Procedure Name Priority Date/Time Associated Diagnosis Comments NC RPR UMBILICAL HERNIA AGE 7 YRS/> INCARCERATED 07/08/1998 12:00 AM EST Umbilical Hernia With Obstruction documented in this encounter Visit Diagnoses Diagnosis Umbilical hernia with obstruction documented in this encounter Care Teams Gut Carrier Relationship Specialty Start Date End Date Antelmo [...]
--- OUTSIDE RECORDS SUMMARY | 2025-05-03 09:49 | XMS_ITS | Encounter Summary ---
Author Organization [employer] [facility] Prior to 03/06/2024 Address [address] [place] [address] Care Team Providers Care Bear Keeper Name Role Phone Terra Galeano MD Primary Care Provider Unavaila yasemin Heranndez, Pcp Primary Care Provider Sulema Chacon MD Unavailable [phone] Ute Michelle DNP Unavailable [phone] Laxmi Chavez MD Primary Care Provider Unava ilable Terra Galeano MD Primary Care Provider Unavaila yasemin [facility], Pcp Primary Care Provider Suleman Hernandez, Pcp Primary Care Provider Terra Brandt MD Primary Care Provider Unavaila yasemin Encounter Details Date Type Department Care Team Description 02/14/2019 Release of Information Medical Records [address] [place] [address] Abstract, Provider Social History Tobacco Use Types [...] on filedocumented in this encounter Care Teams Bear Keeper Relationship Specialty Start Date End Date Terra [...]
--- OUTSIDE RECORDS SUMMARY | 2025-05-03 09:49 | XMS_ITS | Encounter Summary ---
Author Organization [employer] [facility] Prior to 03/06/2024 Address [address] [place] [address] Care Team Providers Care Rn Appeals Name Role Phone Terra Galeano MD Primary Care Provider Unavaila yasemin [facility], Pcp Primary Care Provider Sulema Chacon MD Unavailable [phone] Ute Michelle DNP Unavailable [phone] Laxmi Chavez MD Primary Care Provider Unava ilable Terra Galeano MD Primary Care Provider Unavaila ble [facility], Pcp Primary Care Provider Unavailariana e [facility], Pcp Primary Care Provider Terra Brandt MD Primary Care Provider Unavaila ble Encounter Details Date Type Department Care Team Description 07/07/2019 Manager Industrial Report Medical Records [address] [place] [id number] Sulema Verduzco MD [address] [place] [address] Social History Tobacco Use Types Packs/Day Years [...] filedocumented in this encounter Care Teams Rn Appeals Relationship Specialty Start Date End Date Terra Galeano MD PCP - General Internal Medicine 04/27/15 08/14/20 [facility], Pcp PCP - General 08/15/20 01/05/21 Laxmi [...]
--- OUTSIDE RECORDS SUMMARY | 2025-05-03 09:49 | XMS_ITS | Clinical Summary ---
Author Organization [facility] Prior to 03/06/2024 Address [address] [place] [address] Care Team Providers Care Medical Biller Coder Name Role Phone Sulema Verduzco MD Unavailable [phone] Ute Michelle DNP Unavailable [phone] Terra Galeano MD Primary Care Provider Unavaila ble Allergies No known active allergies Medications Medication Sig Dispensed Refills Start Date End Date Status ALEVE OR prn 0 Active SB LOW DOSE ASA EC 81 MG OR TBEC 1 TABLET DAILY 30 11 01/11/2006 Active MULTIVITAMIN OR daily. 0 04/21/2007 Active FISH OIL by Does not apply route. Takes daily 0 Active ciclopirox (LOPROX) 0.77 % cream Apply sparingly once or twice daily to affected areas on arms, legs, and axillary vaults 45 g 11 01/06/2019 Active nitroGLYCERIN (NITROSTAT) 0.[address] 1 Tab under the tongue every 5 minutes as needed for Chest pain. 1 sl prn q 5 minutes for cp, go to ER if CP > 15 minutes 100 Tab 6 02/17/2019 Active atorvastatin (LIPITOR) 80 MG tablet TAKE 1 TABLET BY MOUTH DAILY 90 Tab 1 03/15/2020 Active sildenafil (VIAGRA) 50 MG tablet Use 30 min prior to sexual activity 4 Tab 3 03/15/2020 Active metoprolol (TOPROL-XL) 50 MG 24 hr tablet Take 1 Tab by mouth daily. 90 Tab 0 05/18/2020 Active hydrochlorothiazide (MICROZIDE) 12.5 MG capsule Take 1 capsule by mouth every morning. 90 capsule 0 06/29/2021 Active montelukast (SINGULAIR) 10 MG tablet Take 1 Tablet by mouth at bedtime. 0 Active Adbry 150 MG/ML Solution Prefilled Syringe every 14 days. 0 12/04/2023 Active Melatonin-Pyridoxin e (MELATONIN CR OR) Take by mouth as needed. 0 Active valsartan (DIOVAN) 80 MG tablet Take 1 Tablet by mouth daily. Stop lisinopril for 2 days, then start valsartan 90 Tablet 3 01/31/2024 Active Active Problems Problem Noted Date Mild aortic stenosis 01/31/2024 Overview: - See echocardiogram under CAD section Last Assessment & Plan: Surveillance echoes every 3 years or with new symptoms or change in exam Ischemic cardiomyopathy 01/31/2024 Overview: Had a decreased ejection fraction at the time of his initial PCI remotely but has since had complete recovery of ejection fraction post revascularization Last Assessment & Plan: Recent echo shows persistently normal EF, continue current beta-soren, switching to ARB as well, patient is euvolemic on exam without heart failure symptoms. 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/2020 Eczema 08/20/2019 Knee pain, left 05/17/2017 Hand pain 05/17/2017 Overview: posterior interosseous nerve entrapment, also abnormal EMG\NCS dated December 19, 2020 Bilateral edema of lower extremity 08/29 Obesity 07/13/2015 Impaired fasting glucose 05/09/2015 DDD (degenerative disc disease), lumbar 11/13/2013 CAD (coronary artery disease) 02/03/2011 Overview: - status post PCI to the RCA in 2010 with an additional 70% LAD lesion on cath in 2010 that is being medically managed -Most recent echocardiogram on 01/03/2024 showing moderate, concentric left ventricular hypertrophy with normal cavity size and systolic function, normal regional wall motion with ejection fraction of 60 to 65%, normal RV size and systolic function, no hemodynamically significant valve disease, mild aortic stenosis with dimensionless index 0.45 and a calculated aortic valve area of 1.7 cm Last Assessment & Plan: Doing well without recurrent anginal symptoms, continue current metoprolol, high-dose atorvastatin, baby aspirin GERD (gastroesophageal reflux disease) 0 02/01/2011 Recurrent low back pain 02/11/2009 History of dysplastic nevus 2006 Overview: Dysplastic nevus sternum (moderate-severe atypia) Essential hypertension, benign 6 Last Assessment & Plan: Well-controlled on current regimen but I did review that we could again switch him to ARB given the dry cough of unclear etiology that he has had for many years. He is agreeable to this today. I am switching him to valsartan 80 mg daily. I recommended he stop his lisinopril for a couple of days and then start valsartan. I recommended his check his blood pressure a couple times a week and a resting state. Goal blood pressure on average should be less than 130/90 mmHg. Assuming that he is able to maintain this, would continue the 80 mg dose but if his blood pressures are high, can increase to 160 mg. I also asked him to repeat a basic metabolic panel in 1 month to ensure renal function and potassium remain stable. Continue current hydrochlorothiazide, metoprolol. Recommend low-sodium diet. Hyperlipidemia 01/11/2006 Last Assessment & Plan: The patient is on maximum statin therapy with atorvastatin 80 mg. He is not referring to unusual myalgia. I shared with him that given the combination of medications he is on and his prescription drugs we must collect routine laboratories. I have told him that he needs to provide labs within the next week and he will do so after the long weekend he readily agrees. The patient apparently does not eat vegetables other than corn potatoes and carrots. Recommend avoiding simple carbohydrates and processed foods, as well as saturated fats. Anal fissure 12/12/2005 Resolved Problems Problem Noted Date Resolved Date History of percutaneous coronary intervention 01/31/2024 Overview: Percutaneous coronary intervention Congestive heart failure 05/09/2021 024 Overview: Congestive heart failure Last Assessment & Plan: The patient apparently had ischemic cardiomyopathy years back prior to his revascularization. He had a full recovery of his ejection fraction. He has no exam findings to suggest volume overload or congestive heart failure. He remains on a beta-soren, JAYDA inhibitor. Continue with risk factor modification. I have arranged for an echocardiogram to be collected before his annual visit next year. CHF (congestive heart failure) 05/09/2015 0 01/31/2024 Overweight 02/01/2011 05/22/2016 Morbid obesity 02/11/2009 05/22/2016 Other malaise and fatigue 06/03/20062016 Obesity, unspecified 01/11/2006 02/11/2009 Immunizations Name Administration Dates Next Due Influenza (> 6 Months) 03/24/2014,2011,05/28/2011,02/20 Influenza vaccine high dose age 65 and over 02/17/2019 Pneumoccoccal(Adult) Polysac charide PPSV23 08/01/2018,05/28/2011 Pneumococcal Conjugate PCV-13 06/09/2019, 018 Shingrix (Recombinant zoster vaccine) 12/09/2019 ,06/09/2019 TD (STATE SUPPLIED FOR ADULT S AND CHILDREN) 11/28/2005 Tdap 03/10/2012 Zostavax (Patient Reported) 10/13/2013 Family History Medical History Relation Name Comments Cancer of the Colon Father dx late 40's; age 51. Colon Polyps Father dx 40's [place] Father [place] Maternal Grandmother Allergies Mother environmental Melanoma Mother melanoma Cancer of the Lung Paternal Grandfather [place] Paternal Grandfather Melanoma Paternal Grandmother ?POS SIBLY/PROBABLY DUE TO DESCRIPTION OF EXTENSIVE METAS. Relation Name Status Comments Brother Alive 1 brother healt hy x back pain Daughter Alive 2 daughters, ag es 34 and 40, healthy 40 year old has anxiety disorder Father (Age 51) [place], Colon Cancer Maternal Grandfather [place] - yo [...] file Not on file Not on file Last Filed Vital Signs Vital Sign Reading Time Taken Comments Blood Pressure 122/78 01/31/2024 9:22 AM EDT Pulse 55 01/31/2024 9:22 AM EDT Temperature 36.7 C (98 F) 05/09/2021 11:04 AM EST Respiratory Rate 19 05/09/2021 11:04 AM EST Oxygen Saturation 97% 01/31/2024 9:22 AM EDT Inhaled Oxygen Concentration - - Weight 126 kg (277 lb 12.8 oz) 01/31/2024 9:22 A M EDT Height 190.5 cm (6' 3 ) 01/31/2024 9:22 AM EDT Body Mass Index 34.72 01/31/2024 9:22 AM EDT Plan of Treatment Health Maintenance Due Date Last Done Comments Covid-19 Vaccine (#1) 1950 DEPRESSION SCREEN 08/02/2019 08/01/2018, 07/03/2017 FALL RISK ASSESSMENT 03/15/2021 03/15/2020, 08/02/19 19, 07/03/2017 DTAP/TDAP/TD (2 - Td or Tdap) 03/10/2022 03/10/2012, 11/28/2005 BMI CHECK/ADVISE 05/06/2024 04/18/2021, 02/2020, 02/17/2019, Additional history exists CHOLESTEROL SCREENING 11/19/2024 11/20/2019 , 08/01/2018, 02/19/2018, Additional history exists INFLUENZA (#1) 2025 02/17/2019, 07/05 (Refused), 03/24/2014, Additional history exists COLON CANCER SCREENING 02/21/2027 0 (Completed), 02/22/2020, 10/12/2014, Additional history exists HEPATITIS C SCREENING Completed 03/28/2013 PNEUMOCOCCAL VACCINE Completed 06/09/2019, 08/01/2018, 05/21/2017, Additional history exists SHINGLES VACCINE Completed 12/09/2019, 06/09/2019 Care Teams Medical Biller Coder Relationship Specialty Start Date End Date Terra Galeano MD PCP - General Internal Medicine 01/01/22 Sulema Verduzco MD Specialist Cardiology 01/06/21 Ute Michelle DNP Specialist Cardiology 01/06/21
--- OUTSIDE RECORDS SUMMARY | 2025-05-03 09:49 | XMS_ITS | Encounter Summary ---
Author Organization [employer] [facility] Prior to 03/06/2024 Address [address] [place] [address] Care Team Providers Care Upholstery Handler Name Role Phone Terra Galeano MD Primary Care Provider Unavaila yasemin Hernandez, Pcp Primary Care Provider Sulema Chacon MD Unavailable [phone] Ute Michelle DNP Unavailable [phone] Laxmi Chavez MD Primary Care Provider Unava ilable Terra Galeano MD Primary Care Provider Unavaila yasemin [facility], Pcp Primary Care Provider Suleman Hernandez, Pcp Primary Care Provider Terra Brandt MD Primary Care Provider Unavaila yasemin Encounter Details Date Type Department Care Team Description 10/15/2018 Business Doc Medical Records [address] [place] [id number] Abstract, Provider Social History Tobacco Use Types [...] on filedocumented in this encounter Care Teams Upholstery Handler Relationship Specialty Start Date End Date [...]
--- OUTSIDE RECORDS SUMMARY | 2025-05-03 09:49 | XMS_ITS | Encounter Summary ---
Author Organization [email or web address] [facility] Prior to 03/06/2024 Address [address] [place] [address] Care Team Providers Care Him Specialist Name Role Phone Terra Galeano MD Primary Care Provider Unavaila yasemin Hernandez, Pcp Primary Care Provider Sulema Chacon MD Unavailable [phone] Ute Michelle DNP Unavailable [phone] Laxmi Chavez MD Primary Care Provider Unava ilable Terra Galeano MD Primary Care Provider Unavaila ble [facility], Pcp Primary Care Provider Suleman e Mary, Pcp Primary Care Provider Terra Brandt MD Primary Care Provider Unavaila yasemin Encounter Details Date Type Department Care Team Description 01/08/2019 Personal Lines Insurance Advisor Report Medical Records [address] [place] [address] Erick Espinoza MD Social History Tobacco Use Types Packs/Day [...] on filedocumented in this encounter Care Teams Him Specialist Relationship Specialty Start Date End Date Terra [...]
--- OUTSIDE RECORDS SUMMARY | 2025-05-03 09:49 | XMS_ITS | Encounter Summary ---
Author Organization [employer] [facility] Prior to 03/06/2024 Address [address] [place] [address] Care Team Providers Care Checker Stocker Name Role Phone Terra Galeano MD Primary Care Provider Unavaila ble [facility], Pcp Primary Care Provider UnavailSulema Pereira MD Unavailable [phone] Ute Michelle DNP Unavailable [phone] Laxmi Chavez MD Primary Care Provider Unava ilable Terra Galeano MD Primary Care Provider Unavaila ble [facility], Pcp Primary Care Provider Unavailabl e Community, Pcp Primary Care Provider UnavailTerra Kent MD Primary Care Provider Unavaila ble Encounter Details Date Type Department Care Team Description 05/24/2017 Motor Vehicle Assembly Supervisor Report Medical Records [address] [place] [id number] Joanne Sullivan MD [address] [place] [id number] Social History Tobacco Use Types Packs/Day Years [...] on filedocumented in this encounter Care Teams Checker Stocker Relationship Specialty Start Date End Date Terra Galeano MD PCP - General Internal Medicine 04/27/15 08/14/20 Community, Pcp PCP - General 08/15/20 01/05/21 Laxmi Chavez MD PCP - General Internal Medicine 01/06/21 02/22/21 Terra Galeano MD PCP - General Internal Medicine 02/23/21 03/08/21 [facility], Pcp PCP - General Internal Medicine 03/09/21 04/09/21 [facility], Pcp PCP - General Internal Medicine 08/01/21 12/31/21 Terra Galeano MD PCP - General Internal Medicine 01/01/22 Sulema Verduzco MD Specialist Cardiology 01/06/21 Ute Michelle DNP Specialist Cardiology 01/06/21 documented as of this encounter
--- OUTSIDE RECORDS SUMMARY | 2025-05-03 09:49 | XMS_ITS | Encounter Summary ---
Author Organization [employer] [facility] Prior to 03/06/2024 Address [address] [place] [address] Care Team Providers Care Operations Administrator Name Role Phone Sulema Verduzco MD Unavailable [phone] Ute Michelle DNP Unavailable [phone] Laxmi Chavez MD Primary Care Provider Unava ilable Terra Galeano MD Primary Care Provider Unavaila ble [facility], Pcp Primary Care Provider Unavailabl e Community, Pcp Primary Care Provider Unavailabl e Terra Galeano MD Primary Care Provider Unavaila ble Encounter Details Date Type Department Care Team Description 01/17/2021 General Partner Report Medical Records [address] [place] [id number] [place] [address] [id number] Social History Tobacco Use Types Packs/Day Years [...] have Coronavirus / COVID-19? No / Unsure 12/21/2020 9:42 AM EDT documented as of this encounter Plan of Treatment Not on file documented as of this encounter Visit Diagnoses Not on filedocumented in this encounter Care Teams Operations Administrator Relationship Specialty Start Date End Date Laxmi Chavez MD PCP - General Internal Medicine 01/06/21 02/22/21 Terra Galeano MD PCP - General Internal Medicine 02/23/21 03/08/21 [facility], Pcp PCP - General Internal Medicine 03/09/21 04/09/21 [facility], Pcp PCP - General Internal Medicine 08/01/21 12/31/21 Terra Galeano MD PCP - General Internal Medicine 01/01/22 Sulema Verduzco MD Specialist Cardiology 01/06/21 Ute Michelle DNP Specialist Cardiology 01/06/21 documented as of this encounter
--- OUTSIDE RECORDS SUMMARY | 2025-05-03 09:49 | XMS_ITS | Encounter Summary ---
Author Organization [employer] [facility] Prior to 03/06/2024 Address [address] [place] [address] Care Team Providers Care Fire Alarm Repairer Name Role Phone Sulema Verduzco MD Unavailable [phone] Ute Michelle DNP Unavailable [phone] [facility], Pcp Primary Care Provider Terra Brandt MD Primary Care Provider Gurmeet hazel Encounter Details Date Type Department Care Team Description 10/24/2021 SCAN Medical Records [address] [place] [address] Abstract, Provider Social History Tobacco Use Types [...] Name Priority Date/Time Associated Diagnosis Comments OUTSIDE MRI/MRA Routine 10/24/2021 documented in this encounter Results * OUTSIDE MRI/MRA (10/24/2021) Provider Abstract RADIOLOGY documented in this encounter Visit Diagnoses Not on filedocumented in this encounter Care Teams Fire Alarm Repairer Relationship Specialty Start Date End Date Community, Pcp PCP - General Internal Medicine 08/01/21 12/31/21 Terra Galeano MD PCP - General Internal Medicine 01/01/22 Sulema Verduzco MD Specialist Cardiology 01/06/21 Ute Michelle DNP Specialist Cardiology 01/06/21 documented as of this encounter
--- OUTSIDE RECORDS SUMMARY | 2025-05-03 09:49 | XMS_ITS | Encounter Summary ---
Author Organization [employer] [facility] Prior to 03/06/2024 Address [address] [place] [address] Care Team Providers Care Infection Control Practitioner Name Role Phone Terra Galeano MD Primary Care Provider Unavaila yasemin Hernandez, Pcp Primary Care Provider Sulema Chacon MD Unavailable [phone] Ute Michelle DNP Unavailable [phone] Laxmi Chavez MD Primary Care Provider Unava ilable Terra Galeano MD Primary Care Provider Unavaila ble [facility], Pcp Primary Care Provider Unavailariana e Mary, Pcp Primary Care Provider Terra Brandt MD Primary Care Provider Unavaila ble Encounter Details Date Type Department Care Team Description 12/05/2017 Construction Technician Report Medical Records [address] [place] [address] Erick Espinoza MD Social History Tobacco Use [...] on filedocumented in this encounter Care Teams Infection Control Practitioner Relationship Specialty Start Date End Date Terra [...]
--- OUTSIDE RECORDS SUMMARY | 2025-05-03 09:49 | XMS_ITS | Encounter Summary ---
Author Organization [employer] [facility] Prior to 03/06/2024 Address [address] [place] [address] Care Team Providers Care Party Chief Name Role Phone Terra Galeano MD Primary Care Provider Unavaila yasemin Hernandez, Pcp Primary Care Provider Sulema Chacon MD Unavailable [phone] Ute Michelle DNP Unavailable [phone] Laxmi Chavez MD Primary Care Provider Unava ilable Terra Galeano MD Primary Care Provider Unavaila ble Counts Include [facility], Pcp Primary Care Provider Unavailariana e Mary, Pcp Primary Care Provider Terra Brandt MD Primary Care Provider Unavaila ble Encounter Details Date Type Department Care Team Description 02/16/2020 Carpenter Repair Report Medical Records [address] [place] [id number] John Lake MD Social History Tobacco Use Types Packs/Day [...] on filedocumented in this encounter Care Teams Party Chief Relationship Specialty Start Date End Date Terra [...]
--- OUTSIDE RECORDS SUMMARY | 2025-05-03 09:49 | XMS_ITS | Encounter Summary ---
Author Organization [facility] Prior to 03/06/2024 Address [address] [place] [address] Care Team Providers Care Solar Installation Helper Name Role Phone Terra Galeano MD Primary Care Provider Unavaila ble Community, Pcp Primary Care Provider UnavailSulema Pereira MD Unavailable [phone] Ute Michelle DNP Unavailable [phone] Laxmi Chavez MD Primary Care Provider Unava ilable Terra Galeano MD Primary Care Provider Unavaila ble Community, Pcp Primary Care Provider Unavailabl e Community, Pcp Primary Care Provider UnavailTerra Kent MD Primary Care Provider Unavaila ble Reason for Visit * Reason Onset Date Comments Biopsy 05/20/2019 Biopsy results s hared and treatment discussed Encounter Details Date Type Department Care Team Description 05/20/2019 [address] [place] [id number] Ziyad Palacio PA-C Biopsy (Biopsy results shared and treatment discussed) Social History Tobacco Use Types Packs/Day Years [...] encounter Miscellaneous Notes * Telephone Encounter - Yuliet Schaefer C.M.A. - 05/21/2019 10:20 AM EST I left a message informing the patient Mr. Palacio placed orders for UVB and to call [facility] to schedule appointments. Because pt has Medicare a prior auth is not required. * Telephone Encounter - Ziyad Palacio PA-C - 05/20/2019 8:32 AM EST This patient's biopsy results has returned revealing eczema without signs of mycosis fungoides noted by the pathology department. Because this problem is so widespread and progressively worsening over time I have set up orders for nb UVB therapy, sent in a prescription for montelukast (Singulair) 10 mg tablets that I would like him to take at bedtime, and will have the technical sales support specialist send in a prior approval for Dupixent. documented in this encounter Plan of Treatment Scheduled Orders Name Type Priority Associated Diagnoses Orde r Schedule ULTRAVIOLET LIGHT THERAPY Other Routine Eczema, unspecified type 130 Occurrences starting 05/20/2019 until 11/16/2019, 2 completed documented as of this encounter Visit Diagnoses Diagnosis Eczema, unspecified type- Primary documented in this encounter Care Teams Solar Installation Helper Relationship Specialty Start Date End Date Terra [...]
--- OUTSIDE RECORDS SUMMARY | 2025-05-03 09:49 | XMS_ITS | Encounter Summary ---
Author Organization [employer] [facility] Prior to 03/06/2024 Address [address] [place] [address] Care Team Providers Care Scheduling Analyst Name Role Phone Terra Galeano MD Primary Care Provider Unavaila ble Community, Pcp Primary Care Provider UnavailSulema Pereira MD Unavailable [phone] Ute Michelle DNP Unavailable Laxmi Chavez MD Primary Care Provider Unava ilable Terra Galeano MD Primary Care Provider Unavaila ble Community, Pcp Primary Care Provider Unavailabl e Community, Pcp Primary Care Provider UnavailTerra Kent MD Primary Care Provider Unavaila ble Encounter Details Date Type Department Care Team Description 07/08/2017 Automotive Worker Foreman Report Medical Records [address] [place] [id number] Joanne Sullivan MD [address] [place] [id number] Social History Tobacco Use Types Packs/Day Years [...] on filedocumented in this encounter Care Teams Scheduling Analyst Relationship Specialty Start Date End Date Terra Galeano MD PCP - General Internal Medicine 04/27/15 08/14/20 Community, Pcp PCP - General 08/15/20 01/05/21 Laxmi Chavez MD PCP - General Internal Medicine 01/06/21 02/22/21 Terra Galeano MD PCP - General Internal Medicine 02/23/21 03/08/21 [facility] Pcp PCP - General Internal Medicine 03/09/21 04/09/21 [facility], Pcp PCP - General Internal Medicine 08/01/21 12/31/21 Terra Galeano MD PCP - General Internal Medicine 01/01/22 Sulema Verduzco MD Specialist Cardiology 01/06/21 Ute Michelle DNP Specialist Cardiology 01/06/21 documented as of this encounter
--- OUTSIDE RECORDS SUMMARY | 2025-05-03 09:49 | XMS_ITS | Encounter Summary ---
Author Organization [employer] [facility] Prior to 03/06/2024 Address [address] [place] [address] Care Team Providers Care Supervisor Open Hearth Stockyard Name Role Phone Terra Galeano MD Primary Care Provider Unavaila ble Community, Pcp Primary Care Provider UnavailSulema Pereira MD Unavailable [phone] Ute Michelle DNP Unavailable [phone] Laxmi Chavez MD Primary Care Provider Unava ilable Terra Galeano MD Primary Care Provider Unavaila ble Community, Pcp Primary Care Provider Unavailabl e Community, Pcp Primary Care Provider Unavailabl Terra Kothari MD Primary Care Provider Unavaila ble Reason for Visit * Reason Comments E-prescribe Rx Request hydrochlorothiazi de Encounter Details Date Type Department Care Team Description 01/28/2018 Refill Cardiology - [place] [address] [place] [address] Ute Michelle, DNP [address] [facility] [place] [address] E-prescribe Rx Request (hydrochlorothiazide) Social History Tobacco Use Types Packs/Day Years [...] encounter Miscellaneous Notes * Telephone Encounter - Latoya Medrano L.P.N. - 01/29/2018 9:23 AM EDT Lab Results Component Value Date NA 142 12/09/2017 K 3.9 12/09/2017 CO2 26.6 12/09/2017 CL 102 12/09/2017 BUN 14 12/09/2017 CREAT 0.9 12/09/2017 GLU 126 12/09/2017 CA 9.4 12/09/2017 GFR > 60 12/09/2017 3-1-18 Ute Michelle note 3) HTN, BP somewhat robust today and on chart review. Add HCTZ 12.5mg/d and BMP 1 week. Follow symptoms. BP check at visit with derm in early October. documented in this encounter Plan of Treatment Not on file documented as of this encounter Visit Diagnoses Not on filedocumented in this encounter Care Teams Supervisor [employer]yard Relationship Specialty Start Date End Date Terra Galeano MD PCP - General Internal Medicine 04/27/15 08/14/20 Community, Pcp PCP - General 08/15/20 01/05/21 Laxmi Chavez MD PCP - General Internal Medicine 01/06/21 02/22/21 Terra Galeano MD PCP - General Internal Medicine 02/23/21 03/08/21 [facility], Pcp PCP - General Internal Medicine 03/09/21 04/09/21 [facility], Pcp PCP - General Internal Medicine 08/01/21 12/31/21 Terra Galeano MD PCP - General Internal Medicine 01/01/22 Sulema Verduzco MD Specialist Cardiology 01/06/21 Ute Michelle DNP Specialist Cardiology 01/06/21 documented as of this encounter
--- OUTSIDE RECORDS SUMMARY | 2025-05-03 09:49 | XMS_ITS | Encounter Summary ---
Author Organization [employer] [facility] Prior to 03/06/2024 Address [address] [place] [address] Care Team Providers Care Naphthol Soaping Machine Operator Name Role Phone Terra Galeano MD Primary Care Provider Unavaila yasemin Hernandez, Pcp Primary Care Provider Sulema Chacon MD Unavailable [phone] Ute Michelle DNP Unavailable [phone] Laxmi Chavez MD Primary Care Provider Unava ilable Terra Galeano MD Primary Care Provider Unavaila yasemin [facility], Pcp Primary Care Provider Suleman Hernandez, Pcp Primary Care Provider Terra Brandt MD Primary Care Provider Unavaila yasemin Encounter Details Date Type Department Care Team Description 05/21/2017 Release of Information Medical Records [address] [place] [address] Abstract, Provider Social History Tobacco Use Types [...] on filedocumented in this encounter Care Teams Naphthol Soaping Machine Operator Relationship Specialty Start Date End [...]
--- OUTSIDE RECORDS SUMMARY | 2025-05-03 09:49 | XMS_ITS | Encounter Summary ---
Author Organization [facility] Prior to 03/06/2024 Address [address] [place] [address] Care Team Providers Care Grill Chef Name Role Phone Sulema Verduzco MD Unavailable [phone] Ute Michelle DNP Unavailable [phone] [facility], Pcp Primary Care Provider UnavailTerra Kent MD Primary Care Provider Unavaila ble Reason for Visit * Reason Comments E-prescribe Rx Request Encounter Details Date Type Department Care Team Description 10/23/2021 Refill Cardio PVC POC [address] [facility] [address] [place], [place] [id number] Ute Michelle DNP [address] [facility] [place] [address] E-prescribe Rx Request Social History Tobacco Use Types Packs/Day Years [...] Notes * Telephone Encounter - Ute Michelle DNP, FNP - 10/24/2021 10:51 AM EDT pls defer to PCP for refill. We have given him refills twice and he has not yet been seen in our office. Thank you * Telephone Encounter - Polina Williamson R.N. - 10/24/2021 8:47 AM EDT Pt has upcoming OV 01/01. Per 06/29 and 08/03 encounter no refills until seen in office. Please advise. Thank you. documented in this encounter Plan of Treatment Not on file documented as of this encounter Visit Diagnoses Not on filedocumented in this encounter Care Teams Grill Chef Relationship Specialty Start Date End Date Community, Pcp PCP - General Internal Medicine 08/01/21 12/31/21 Terra Galeano MD PCP - General Internal Medicine 01/01/22 Sulema Verduzco MD Specialist Cardiology 01/06/21 Ute Michelle DNP Specialist Cardiology 01/06/21 documented as of this encounter
--- OUTSIDE RECORDS SUMMARY | 2025-05-03 09:49 | XMS_ITS | Encounter Summary ---
Author Organization [employer] [facility] Prior to 03/06/2024 Address [address] [place] [address] Care Team Providers Care Judicial Law Clerk Name Role Phone Antelmo Arredondo MD Primary Care Provider Unavail able Terra Galeano MD Primary Care Provider Unavaila ble [facility], Pcp Primary Care Provider Sulema Chacon MD Unavailable [phone] Ute Michelle DNP Unavailable [phone] Laxmi Chavez MD Primary Care Provider Unava ilable Terra Galeano MD Primary Care Provider Unavaila ble [facility], Pcp Primary Care Provider Unavailabl e [facility], Pcp Primary Care Provider Terra Brandt MD Primary Care Provider Unavaila ble Encounter Details Date Type Department Care Team Description 03/14/2011 [facility] Medical Records [address] [place] [address] Nelson Ramsay MD Social History Tobacco Use Types Packs/Day [...] on filedocumented in this encounter Care Teams Judicial Law Clerk Relationship Specialty Start Date End Date Antelmo Arredondo MD PCP - General 11/03/1994 04/26/15 Terra Galeano MD PCP - General Internal Medicine 04/27/15 08/14/20 [facility], Pcp PCP - General 08/15/20 01/05/21 Laxim Chavez MD PCP - General Internal Medicine 01/06/21 02/22/21 Terra Galeano MD PCP - General Internal Medicine 02/23/21 03/08/21 [facility], Pcp PCP - General Internal Medicine 03/09/21 04/09/21 [facility], Pcp PCP - General Internal Medicine 08/01/21 12/31/21 Terra Galeano MD PCP - General Internal Medicine 01/01/22 Sulema Verduzco MD Specialist Cardiology 01/06/21 Ute Michelle DNP Specialist Cardiology 01/06/21 documented as of this encounter
--- OUTSIDE RECORDS SUMMARY | 2025-05-03 09:49 | XMS_ITS | Encounter Summary ---
Author Organization [employer] [facility] Prior to 03/06/2024 Address [address] [place] [address] Care Team Providers Care It Director Name Role Phone Terra Galeano MD Primary Care Provider Unavaila yasemin Hernandez, Pcp Primary Care Provider Sulema Chacon MD Unavailable [phone] Ute Michelle DNP Unavailable [phone] Laxmi Chavez MD Primary Care Provider Unava ilable Terra Galeano MD Primary Care Provider Unavaila ble [facility], Pcp Primary Care Provider Unavailariana e [facility], Pcp Primary Care Provider Terra Brandt MD Primary Care Provider Unavaila ble Encounter Details Date Type Department Care Team Description 02/04/2020 Operators Teacher Report Medical Records [address] [place] [address] John Lake MD Social History Tobacco Use [...] on filedocumented in this encounter Care Teams It Director Relationship Specialty Start Date End Date Terra [...]
[2025-05-03 13:50] LABS: Prostate Specific Antigen 5.04 ng/mL (<0.05-4.0)
== END 2025-05-03 08:41 | disposition home or self-care (01) ==
LOC: HO.10HDL 08:40
PROVIDERS: PCP Internal Medicine; Visit Provider Urology
DX: C61 Malignant neoplasm of prostate (principal); R97.20 Elevated prostate specific antigen [PSA]; R35.0 Frequency of micturition; R39.11 Hesitancy of micturition; N39.43 Post-void dribbling; Z12.5 Encounter for screening for malignant neoplasm of prostate; Z79.899 Other long term (current) drug therapy
CPT/HCPCS: 36415; 84153